=== PATIENT | female | born 1970 | race African-American/Black ===

== ENCOUNTER 2021-01-15 23:53 | Emergency (ER) | payer OTHER ==
--- OUTSIDE RECORDS SUMMARY | 2021-01-16 00:10 | XMS REPORT | Continuity of Care Document ---
:1970 Author Organization [facility] t Address [address] [place] [address] Care Team Providers Name Role Phone Asked, No Pcp Primary Care Physician Unavailable Lisa Doran DO Attending Clinician JEFF Attending Clinician Unavailable CHASIDY Attending Clinician Unavailable JABARI Attending Clinician Unavailable INÉS Attending Clinician Unavailable EKLLY Attending Clinician Unavailable GREG Attending Clinician Unavailable BRANDO Attending Clinician Unavailable ASHTUOSH Attending Clinician Unavailable MISSAEL Attending Clinician Unavailable Brock Schwarz MD Attending Clinician BROCK SCHWARZ Attending Clinician Unavailable Yvon GROVES Attending Clinician LE Attending Clinician Unavailable ANGELICA Attending Clinician Unavailable Juma Attending Clinician [phone] Jesenia Attending Clinician Unavailable Mitra Lockwood Attending Clinician Unavailable Keith Attending Clinician Unavailable Pollo Attending Clinician Unavailable DENISE Attending Clinician Unavailable JULITO Attending Clinician Unavailable Mahnaz Perez Attending Clinician [phone] Albert Attending Clinician Unavailable Philip Attending Clinician Unavailable Perfecto Attending Clinician Unavailable Provider Attending Clinician Unavailable Colby Rivas Attending Clinician Unavailable Brandon Attending Clinician Unavailable LEONEL Attending Clinician Unavailable ABDIAZIZ Attending Clinician Unavailable DELIA Attending Clinician Unavailable VERENA Attending Clinician Unavailable GATO Attending Clinician Unavailable MILLICENT Attending Clinician Unavailable Mitra Briscoe Attending Clinician [phone] Flavio Attending Clinician [phone] SERGIO Attending Clinician Unavailable George Attending Clinician Unavailable Lucia Attending Clinician Unavailable Sreekanth Attending Clinician Unavailable MEREDITH Attending Clinician Unavailable Héctor Attending Clinician [phone] Grant Attending Clinician Unavailable Nohemy Attending Clinician Unavailable Ld Attending Clinician Unavailable ALFREDO Attending Clinician Unavailable MONSTER Attending Clinician Unavailable INDIA Attending Clinician Unavailable Juma Unavailable [phone] Perez, L Unavailable [phone] Mitra Briscoe Unavailable [phone] Sreekanth Unavailable Unavailable Héctor Unavailable [phone] Payers Payer Name Policy Type Policy Effective Date Expiration Date Sour ce Number MEDICAID - [id number] 2016 [facility] MEDICAID MGD 00:00:00 - [facility] [id number] -Present Medicaid Non-Contracted Problems Condition Condition Condition Status Onset Resolution Last Treating Co mments Source Name Details Category Date Date Treatment Clinician Date Abscess, Abscess, Disease Active 2019-11 [facility] S t perineum perineum 01-16 [facility] - 00:00: Medical 00 [place] 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[facility] diabetes diabetes 01-16 [facility] - mellitus mellitus 00:00: Medica l with other with other 00 Ce nter specified specified complicati complicati on, on, unspecifie unspecifie d whether d whether 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 insulin insulin use use Fingernail Fingernail Disease Active [facility] avulsion, avulsion, 07-26 Luke s - partial, partial, 00:00: Medica l initial initial 00 Center encounter encounter Paronychia Paronychia Disease Active [facility] of finger, of finger, 07-26 Diana kes - right right 00:00: Medical 00 [place] Moderate Moderate Disease Active 2018-11 [place] protein-ca protein-ca 2-16 Me odi cristofer [place] 00:00: st malnutriti malnutriti 00 on on Asthma Asthma Disease Active 2018-11 [place] exacerbati exacerbati 2-14 Me thodi on on 00:00: st 00 Viral Viral Disease Active 2018-11 [place] upper upper 2-14 Methodi respirator respirator 00:00: st y tract y tract 00 infection infection HLD HLD Disease Active 2018-11 [place] (hyperlipi (hyperlipi 2-14 Me thodi demia) demia) 00:00: st 00 Schizophre Schizophre Disease Active 2018-11 [place] joanie joanie 2-14 Methodi 00:00: st 00 Herpes Condition Active 2018-112019-10-11 Kira Dennison exposure 12-11 10:58:52 [facility]re[facility] Commun i 00:00: ty 00 Health PrEP / Condition Active 2019-07-22 Perez, Leg acy Contact or 07-19 15:43:15 Danita L Com elias exposure 00:00: ty to STI 00 Health Vaginal Condition Active 2019-07-22 Luis Felipe L egacy discharge 01-04 15:43:15 Isela G Com elias 00:00: ty 00 Health High risk Condition Active 2018-12-26 Luis Felipe, [facility] heterosexu 12-26 14:51:34 Isela Johnson Co mmuni al 00:00: ty behavior 00 Health Diabetes Condition Active 2018-12-26 Luis Felipe, [facility] mellitus 12-26 14:51:34 Isela G Comm uni type II 00:00: ty 00 Health Preventati Condition Active 2017-112018-12-26 Foster, [facility] ve health 16 14:35:22 Lazaro Commu ni care 00:00: ty 00 Health Std Condition Active 2017-112018-12-26 Héctor, Leg acy screening 12-05 14:35:22 Abdi Commu ni 00:00: ty 00 Health Chest pain Chest pain Disease Active H rene -02 Methodi 00:00: st 00 Diabetes Diabetes Disease Active [place] 02-19 Methodi 00:00: st 00 HTN HTN Disease Active [place] (hypertens (hypertens 4-02 Me thodi ion) ion) 00:00: st 00 Weakness Weakness Disease Active [place] of left of left 02-19 Methodi side of side of 00:00: st body body 00 FOOT PAIN Diagnosis Active 2011-08-24 Memoria 07-19 08:54:00 l FOOT 00:00: [place] PAIN 00 Active 07/19/2011 [facility] Stroke Stroke Problem Active Univers syndrome syndrome ity of [place] Physici ans History of History of Problem Resolve Univers bipolar bipolar d ity of disorder disorder [place] Physici ans History of History of Problem Resolve Univers type 2 type 2 d ity of diabetes diabetes [place] mellitus mellitus Physic i ans History of History of Problem Resolve Univers essential essential d ity of hypertens[place]ens[place] Physici ans History of History of Problem Resolve Univers Uncontroll Uncontroll d it y of ed type 1 ed type 1 Cecil vasquez diabetes diabetes Physic i mellitus mellitus ans with with hyperglyce hyperglyce clarisa clarisa Migraine Migraine Problem Active Unive rs without without ity of status status [place] migrainosu migrainosu Ph ysici s, not s, not ans intractabl intractabl e e Pain Pain Problem Active Univers syndrome, syndrome, ity of chronic chronic [place] Physici ans Degenerati Degenerati Problem Active U nivers ve joint ve joint ity of disease disease [place] (DJD) of (DJD) of Physic i lumbar lumbar ans spine spine Muscle Muscle Problem Active Univers spasm spasm ity of [place] Phys[place] ans Medication Medication Problem Active U nivers monitoring monitoring it y of encounter encounter Textate vasquez Physici ans Visit for Visit for Problem Active Uni vers screening screening [place] of mammogram mammogram [place] Otalgia of Otalgia of Problem Active U nivers both ears both ears ity of [place] [facility] ans Seizure Seizure Problem Active Univers disorder, disorder, [place] of generalize generalize [place] Physici convulsive convulsive an s , , intractabl intractabl e e Bipolar 1 Bipolar 1 Problem Active Uni vers disorder disorder ity of [place] ans Inflammato Inflammato Problem Active U nivers ry ry ity of arthritis arthritis [place] Anxiety Anxiety Problem Active Univers disorder, disorder, ity of unspecifie [place]specifie [place] d type d type Physici ans Dizziness Dizziness Problem Active Uni vers ity of [place] ans Asymmetric Asymmetric Problem Active U nivers SNHL SNHL ity of (sensorine (sensorine [place] ural ural Physici hearing hearing ans loss) loss) Cocaine Cocaine Problem Active Univers use use ity of disorder disorder [place] Physici ans Meniere's Meniere's Problem Active Uni vers disease of disease of it y of right ear right ear [place] Influenza Influenza Problem Active Uni vers vaccinatio vaccinatio it y of n declined n declined [place] Obesity Obesity Problem Active Univers (BMI (BMI ity of 30-39.9) 30-39.9) [place] [facility] ans Vitamin D Vitamin D Problem Active Uni vers deficiency deficiency it y of [place] ans GERD GERD Problem Active Univers (gastroeso (gastroeso it y of phageal phageal [place] reflux reflux Physici disease) disease) ans Mild Mild Problem Active Univers intermitte intermitte it y of nt asthma nt asthma [place] without without Physici complicati complicati an s on on Osteoarthr Osteoarthr Problem Active U nivers itis of itis of ity of both both [place] knees, knees, Physici unspecifie unspecifie an s d d osteoarthr osteoarthr itis type itis type Polyarthra Polyarthra Problem Active U nivers lgia lgia ity of [place]ici ans Inflammato Inflammato Problem Active U nivers ry back ry back ity of pain pain [place] Physici ans Mechanical Mechanical Problem Active U nivers low back low back ity of pain pain [place] Physici ans HLA B27 HLA B27 Problem Active Univers positive positive ity of [place] ans Essential Essential Problem Active Uni vers hypertensi hypertensi it y of on on [place] [facility] ans Type 2 Type 2 Problem Active Univers diabetes diabetes ity of mellitus mellitus [place] with with Physici hyperlipid hyperlipid an s emia emia Sleep Sleep Problem Active Univers disorder, disorder, ity of unspecifie unspecifie [place] ans Schizoaffe Schizoaffe Problem Active U nivers ctive ctive it[place] of disorder, disorder, [place] depressive depressive Ph ysici type type ans Generalize Generalize Problem Active U nivers d anxiety d anxiety ity of disorder disorder [place] Physici ans Gastritis, Gastritis, Problem Active U nivers acute acute ity of [place] ans Dermatitis Dermatitis Problem Active U nivers ity of [place] ans 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 Acute Problem Active 2016-08-10 Memor ia gastritis 02:02:33 l without Acute Cleve mention of gastritis hemorrhage without mention of hemorrhage Active Problem 08/10/2016 [facility] Card Unspecifie Problem Active 2016-08-10 M emoria d 02:02:33 l essential [place] hypertensi Unspecifie on d essential hypertensi on Active Problem 6 [facility] Card Diabetes Problem Active 2016-08-10 Mem oria mellitus 02:02:33 l without Diabetes Mony nn mention of mellitus complicati without on, type mention of II or complicati unspecifie on, type d type, II or uncontroll unspecifie ed d type, uncontroll ed Active Problem 6 [facility]errat Card Screening Problem Active 2016-08-10 Me moria examinatio 02:02:33 l n for [place] venereal Screening disease examinatio n for venereal disease Active Problem 08/10/2016 [facility] Card Esophageal Diagnosis Active 2016-08-10 Memoria reflux 02:02:33 l [place] Esophageal reflux Active Diagnosis 08/10/2016 [facility] Card Obstructiv Problem Active 2016-08-10 M emoria e chronic 02:02:33 l bronchitis Dalton n , without Obstructiv exacerbati e chronic on bronchitis , without exacerbati on Active Problem 6 Monserrat Card Acute Problem Active 2016-08-10 Memor ia pharyngiti 02:02:33 l s Acute [place] pharyngiti s Active Problem 08/10/2016 [facility] Card Urinary Problem Active 2016-08-10 Cole snow tract 02:02:33 l infection Urinary Herm ayo tract infection Active Problem 08/10/2016 [facility]err[facility] Card Nausea Diagnosis Active 2014-07-08 Mem oria with 02:01:10 l vomiting Nausea Dalton n with vomiting Active Diagnosis 07/08/2014 [facility]errat Card Cellulitis Problem Active 2016-08-10 M emoria of groin 02:02:33 l [place] Cellulitis of groin Active Problem 08/10/2016 Monserrat Card Other and Problem Active 2016-08-10 Me moria unspecifie 02:02:33 l d Other [place] hyperlipid and emia unspecifie d hyperlipid emia Active Problem 08/10/2016 Monserrat Card Enteritis Problem Active 2016-08-10 Me moria 02:02:33 l [place] Enteritis Active Problem 08/10/2016 Monserrat Card Constipati Problem Active 2016-08-10 M emoria on 02:02:33 l [place] Constipati on Active Problem 6 Monserrat Card Mass of Problem Active 2016-08-10 [place] left foot 02:02:33 l Mass of [place] left foot Active Problem 08/10/2016 [facility] Card Abdominal Problem Active 2016-08-10 Me moria pain, left 02:02:33 l upper [place] quadrant Abdominal pain, left upper quadrant Active Problem 08/10/2016 [facility] Card Essential Diagnosis Active 2016-08-10 Memoria (primary) 02:02:33 l hypertensi [place] n on Essential (primary) hypertensi on Active Diagnosis 08/10/2016 [facility] Card Vaginitis Problem Active 2016-08-10 Me moria 02:02:33 l [place] Vaginitis Active Problem 08/10/2016 Monserrat Card Esophageal Problem Active 2016-08-10 M emoria reflux 02:02:33 l [place] Esophageal reflux Active Problem 08/10/2016 Monserrat Card Acute Problem Active 2016-08-10 Memor ia ill-define 02:02:33 l d Acute [place] cerebrovas ill-define cular d disease cerebrovas cular disease Active Problem 08/10/2016 Monserrat Card DM eye Problem Active 2016-08-10 Memor ia manif type 02:02:33 l II DM eye [place]ve manif type II Active Problem 6 Monserrat Card Hemiplegia Problem Active 2016-08-10 M emoria of 02:02:33 l dominant [place] side 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 Active Problem 08/10/2016 [facility]err[facility] Card Candidiasi Problem Active 2016-08-10 M emoria s of vulva 02:02:33 l and vagina Dalton n Candidiasi s of vulva and vagina Active Problem 08/10/2016 [facility] Anika Stephie Type II or Diagnosis Active 2016-08-10 Memoria unspecifie 02:02:33 l d type Type II Cle[place] diabetes or mellitus unspecifie without d type mention of diabetes complicati mellitus on, not without stated as mention of uncontroll complicati ed on, not stated as uncontroll ed Active Diagnosis 08/10/2016 Monserrat Card Encounter Problem Active 2016-08-10 Me moria for 02:02:33 l immunizati Dalton n on Encounter for immunizati on Active Problem 6 Monserrat Anika Stephie Type II or Problem Active 2016-08-10 M emoria unspecifie 02:02:33 l d type Type II [place] diabetes or mellitus unspecifie with d type ophthalmic diabetes manifestat mellitus ions, not with stated as ophthalmic uncontroll manifestat ed ions, not stated as uncontroll ed Active Problem 6 [place] Anika Stephie Generalize Problem Active 2016-08-10 M emoria d anxiety 02:02:33 l disorder [place] Generalize d anxiety disorder Active Problem 08/10/2016 [facility] Card Hyperlipid Diagnosis Active 2016-08-10 Memoria emia 02:02:33 l [place] Hyperlipid emia Active Diagnosis 08/10/2016 Monserrat Card URI (upper Diagnosis Active 2016-08-10 Memoria respirator 02:02:33 l y URI [place] infection) (upper respirator y infection) Active Diagnosis 08/10/2016 Monserrat Card COUGH, Diagnosis Active 2012-04-19 Mem oria CONGESTION 11:57:00 l COUGH, Cleve CONGESTION Active [facility] Allergies, Adverse Reactions, Alerts Allergy Allergy Status Severity Reaction(s) Onset Inactive Treating Comm ents Source Name Type Date Date Clinician Penicill DA Active [facility] 06-25 [place] 00:00: [place] [id number] [facility] Penicill Propensi Active [facility] 04 [facility] - adverse 00:00: Medical reaction Center s Penicill DA Active [facility] ins 04-10 [place] 00:00: [facility] 00 are [facility] PENICILL Drug Active High swollen 2017-11 [facility] [place] allergy Criticali tongue, 1-16 Commu ni (disorde ty welts all 00:00: ty r) over body 00 Health has tolerated amoxicillin Penicill Propensi Active Anaphylaxis, Tongue Kahn ins ty to Shortness Of 4-02 swelling, M ethodi adverse Breath, 00:00: whelps st reaction Swelling 00 s to drug penicill penicill Active Info Not Cole snow in in Available 9-20 l 00:00: [place] 00 NKFA NKFA Active Memoria l [place] Penicill Allergy Active Univers ins to drug ity of ([facility] ) Physici ans Family History Family Member Diagnosis Comments Start Date Stop Date Source Natural father Hypertension [place] [employer] Natural father Stomach cancer [place] [employer] Natural mother Diabetes [place] [employer] Natural mother Hypertension [place] [employer] Grandmother Family history of Univer sity of arteriosclerotic [place] Ph ysicians cardiovascular disease Grandmother Family history of Univer sity of malignant neoplasm of [place] as Physicians uterus Grandmother Family history of Univer sity of Malignant neoplasm of [place] Physicians lower-outer quadrant of right breast of female, estrogen receptor positive Grandmother Family history of Univer sity of malignant neoplasm of [place] Physicians breast aunt Family history of Univers ity of malignant neoplasm of [place] Physicians uterus aunt Family history of Univers ity of Malignant neoplasm of [place] as Physicians lower-outer quadrant of right breast of female, estrogen receptor positive aunt Family history of Univers ity of malignant neoplasm of [place] as Physicians breast Unknown Family Family History 2015-12-26 2015-12-26 Charly suarez Cleve Member 03:35:21 03:35:21 Social History Social Habit Start Date Stop Date Quantity Comments Source History [facility] Std Dr[facility] History [facility] - Alcohol Binge Medical It[address] ter Sex Assigned At [facility] Tobacco use and 2020-11-15 2020-11-15 Never used [facility] Diana kes - exposure 00:00:00 00:00:00 [facility] Alcohol intake 2020-11-15 2020-11-15 Current non-drinker [facility] - 00:00:00 00:00:00 of alcohol [facility] (finding) History SDOH 2020-02-22 2020-02-[address] [facility] - Alcohol Frequency 00:00:00 00:00:00 Medical Center Cigarettes smoked 2019-11-02 2019-11-02 [place] current (pack per 00:00:00 00:00:[address] ) - Reported Alcohol Comment 2019-11-02 2019-11-02 6 packs on Kahn 00:00:00 00:00:00 weekends, states David gonzales has not drank in 8 months History of tobacco 2019-07-22 Cigarette Smoker [place] use 00:00:00 Scientology is there any 2019-07-19 2019-07-19 No [facility] nity chance that you 13:56:17 13:56:17 Health could be ? social history 2019-07-19 2019-07-19 reviewed today [facility] reviewed E&M 13:56:17 13:56:17 Health drug use, illicit 2019-07-19 2019-07-19 Never [facility] 13:56:17 13:56:17 Health alcohol use 2019-07-19 2019-07-19 Never [facility]y 13:56:17 13:56:17 Health social history E&M 2019-07-19 2019-07-19 Dating since 20+. [facility] 13:56:17 13:56:17 just moved back Health from [place], [place], recently rekindled relationship with Father of children, who is hiv+Not homeless. Not employed. Sex at : Female. Sexual orientation: Heterosexual. Gender identity: Female. Gender of partner(s): Male. Sexually Active: Yes. sexual orientation 2018-12-26 2018-12-26 Heterosexual [facility] 14:07:18 14:07:18 Health family support 2018-10-05 2018-10-05 just moved back Leg y Community 11:40:55 11:40:55 from [facility], recently rekindled relationship with Father of children, who is hiv+ sex at 2018-10-05 2018-10-05 Female [facility]ity 11:40:55 11:40:55 Health patient considered 2018-10-05 2018-10-05 No [facility] to be homeless 11:40:55 11:40:55 Health Tobacco Comment 2017-02-19 2017-02-19 1 pack/ 2-3 days Veronica ston 00:00:00 00:00:00 Scientology TobaccoUse: 2016-08-09 2016-08-09 [facility] 00:00:00 00:00:00 Smoking Status Start Date Stop Date Source Smokes tobacco daily [facility] (finding) Physicians Never smoker [facility] St kes [facility] Former smoker 2019-11-02 00:00:00 2019-11-02 [place] Meth odist 00:00:00 Occasional tobacco 2019-07-19 13:56:17 [facility] Medications Ordered Filled Start Stop Current Ordering Indication Dosage Frequency Signature Comments Components Source Medication Medication Date Date Medication? Clinician (SIG) Name Name sulfamethox 2019-11- No 160mg{t Q.5D Take [address] azole-trime 01-16 rimetho tablet Diana kes - thoprim 00:00: 23:59 prim} (160 mg of Me dical (BACTRIM 00 :00 trimethopr Cente r DS) 800-160 im total) mg per by mouth 2 tablet (two) times daily for 7 days smx-tmp DS (BACTRIM) 800-160 mg tabs (1tab q12 D10). mupirocin 2019-11- No 1g Q.5D Apply [address] (BACTROBAN) 01-16 topically Diana kes - 2 % 00:00: 23:59 2 (two) Medical ointment 00 :00 times Center daily for 7 days. cephalexin 2020- No 500mg [id number] Take [address] (KEFLEX) 07-26 [id number] capsule L ukes - 500 MG 00:00: 23:59 3D (500 mg Medical capsule 00 :00 total) by Center mouth 3 (three) times daily for 7 days. mupirocin 2020- No 1g [id number] Apply [address] (BACTROBAN) 07-26 [id number] topically [facility] - 2 % 00:00: 23:59 3D 3 (three) Medical ointment 00 :00 times Center daily for 7 days. Fluconazole Fluconazole 2019-0 Yes ROYAL TAKE 1 Univers 150 MG Oral 150 MG Oral 9-03 KELLY M.D. TABLET 1 ity of Tablet Tablet 00:00: TIME ONLY. Calvin as 00 Physici ans QUEtiapine QUEtiapine 2020-0 Yes SIDHARTA 1 Q0.5D TAKE 1 Univers Fumarate 50 Fumarate 50 8-26 GREG M.D. TABLET ity of MG Oral MG Oral 00:00: TWICE [place] Tablet Tablet 00 DAILY Physici ans Divalproex Divalproex 2020-0 Yes SIDHARTA Q12H TAKE 1 Univers Sodium 250 Sodium 250 8-26 GREG M.D. TABLET ity of MG Oral MG Oral 00:00: EVERY 12 [place] as Tablet Tablet 00 HOURS Physici Delayed Delayed DAILY. ans Release Release Lantus Lantus 2019-0 Yes VENKAT 85 QD INJECT 85 Un curtis SoloStar SoloStar 7-07 ASHUTOSH UNIT DAILY ity of 100 UNIT/ML 100 UNIT/ML 00:00: M.D. [place] Subcutaneou Subcutaneou 00 P hysici s Solution s Solution ans Pen-injecto Pen-injecto r r fluphenazin 2019- Yes 10mg Take [address] e 6-02 by mouth. [facility] - (PROLIXIN) 08:02: Medical 5 MG tablet 59 Center travoprost Yes Apply to [facility] (TRAVATAN 6-02 eye(s). [facility] - Z) 0.004 % 08:02: Medical Drop 59 Center ophthalmic drops dicyclomine 2020- No 20mg Q.5D Take [address] (BENTYL) 20 5-17 05-17 tablet (20 L ukes - mg tablet 00:00: 23:59 mg total) Me dical 00 :00 by mouth 2 Center (two) times daily. traMADoL 2019- No 50mg Take [address] (ULTRAM) 50 5-17 05-27 tablet (50 L ukes - mg tablet 00:00: 23:59 mg total) Me dical 00 :00 by mouth Center every 6 (six) hours as needed for Pain for up to 10 days. Max Daily Amount: 200 mg fluconazole 2019-0 2019- No 100mg QD Take [address] (DIFLUCAN) 5-17 05-19 tablet [facility] - 100 MG 00:00: 23:59 (100 mg Medical tablet 00 :00 total) by Center mouth daily for 2 doses. chlorhexidi 2019-[address] ne 5-02 [facility] - (PERIDEX) 00:00: Medical 0.12 % 00 Center solution HUMIRA PEN 2019-0 Yes INJECT [address] [facility] [address] 40 mg/0.8 4-20 MG UNDER [facility] - mL PnKt 00:00: THE SKIN Q Medi kecia 00 2 WEEKS Center HUMULIN R 2020-[address] U-500, 4-20 [facility] - CONC, 00:00: Medical KWIKPEN 500 00 Center unit/mL (3 mL) InPn Humira Pen Humira Pen 2019-0 Yes AMBER Inject 40 Univers 40 MG/0.8ML 40 MG/0.8ML 4-20 MISSAEL M.D. mg ity of Subcutaneou Subcutaneou 00:00: subcutaneo [place] s s 00 usly every Physici Pen-injecto Pen-injecto two weeks. ans r Kit r Kit HumuLIN R HumuLIN R 2019-0 Yes ANGELINA Inject 60 Univers U-500 U-500 4-16 LE units ity of KwikPen 500 KwikPen 500 00:00: M.D. before [place] UNIT/ML UNIT/ML 00 breakfast, Phy sici Subcutaneou Subcutaneou 60 units ans s Solution s Solution before Pen-injecto Pen-injecto dinner. r r Inject 30 minutes before meals hydrocortis 2020-0 Yes JACI EXT AA [facility] one 2.5 % 4-11 BID FOR 7 [facility] - ointment 00:00: DAYS Medical 00 [place] Nebulizer Nebulizer 2019-0 Yes ALISSA USE Univers Device Device 4-10 CONTE DIRECTED. i ty of 00:00: M.D. [place] 00 Physici ans benzoyl 2019-0 Yes USE WASH [facility] peroxide 5 4-08 ONCE [facility] - % external 00:00: UTD. Medical liquid 00 Center albuterol 2019-0 Yes INL [address] [facility] HFA 4-07 PO QID [facility] - (VENTOLIN 00:00: Medical HFA) 90 00 Center mcg/actuati on inhaler pantoprazol 2019-0 Yes TK 1 T PO C [facility] e 4-07 30 MIN B [facility] - (PROTONIX) 00:00: RIMA AND 30 M edical 40 MG 00 MIN B Center tablet DINNER Pantoprazol Pantoprazol 2019-0 Yes VENKAT 1 tablet Univers e Sodium 40 e Sodium 40 4-07 ASHUTOSH 30 min ity of MG Oral MG Oral 00:00: M.D. before [place] Tablet Tablet 00 breakfast Physic i Delayed Delayed and one ans Release Release tablet 30 min before dinner Benzoyl Benzoyl 2019-0 Yes ALISSA QD USE WASH [place] Peroxide Peroxide 02-24 CONTE ONCE DAILY ity of Wash 5 % Wash 5 % 00:00: M.D. [place] External External 00 DIRECTED. Ph ysici Liquid Liquid ans True Metrix True Metrix 2020-0 Yes ALISSA USE TO Univers Meter Meter 02-24 CONTE TEST BLOOD it y of w/Device w/Device 00:00: [place]SE [place] Kit Kit 00 Physici ans True Metrix True Metrix 2020-0 Yes ALISSA USE TO [facility] Blood Blood 02-24 CONTE TEST BLLOD it y of Glucose Glucose 00:00: M.D. SUGAR [place] Test In Test In 00 THREE Physici Vitro Strip Vitro Strip TIMES A DAY albuterol 2019-0 Yes U [address] [facility] (ACCUNEB) 4-06 VIA [facility] - 1.25 mg/3 00:00: NEBULIZER Med ical mL 00 Q 6 H PRF Center nebulizer WHEEZING solution benztropine 0 Yes TK 1 T PO C [facility] (COGENTIN) 4-06 QD [facility] - 1 MG tablet 00:00: Medica l 00 [place] busPIRone 2019-0 Yes TK [address] [facility] (BUSPAR) 5 4-06 Q 8 H [facility] - MG tablet 00:00: Medical 00 [place] LANTUS 0 Yes INJECT [address] [facility] [address] SOLOSTAR 4-06 UNITS SQ [facility] - U-100 00:00: ONCE QAM Medical INSULIN 100 00 Center unit/mL (3 mL) InPn zolpidem Yes TK [address] [facility] (AMBIEN) 10 4-06 QHS PRF [facility] - mg tablet 00:00: SLEEP Medical 00 Center NOVOLOG 0 Yes INJECT 10 [facility] FLEXPEN 4-06 UNITS [facility] - U-100 00:00: UNDER THE Medical INSULIN 100 00 SKIN Center unit/mL (3 BEFORE mL) InPn BREAKFAST AND DINNER naproxen 2020- No 500mg Take 1 [facility] (NAPROSYN) 4-04 04-04 tablet [facility] - 500 MG 00:00: 23:59 (500 mg Medical tablet 00 :00 total) by Center mouth 2 (two) times daily with breakfast and dinner. clindamycin 2020- No 300mg Q.[id number] Take [address] [facility] (CLEOCIN) 4- 04-14 [id number] capsule [facility] - 300 MG 00:00: 23:59 3D (300 mg Medical capsule 00 :00 total) by Center mouth 3 (three) times daily for 10 days. Naproxen Naproxen 2019-0 Yes AMBER TAKE 1 U nivers 500 MG Oral 500 MG Oral 2-03 MISSAEL M.D. TABLET BY ity of Tablet Tablet 00:00: MOUTH [place] 00 TWICE A Physici DAY WITH ans MEALS DIFLUCAN 0 Yes Nere[place] 1 by mouth [place] (FLUCONAZOL -03 J[facility] Commun i E) 150 MG 00:00: ty TABS 00 Health VALTREX 2019-0 Yes Nereida 1{Table 3xD 1 by mouth only take [facility] (VALACYCLOV 1-03 Juma t} 3 times a at sign Communi IR HCL) 1 00:00: day for 7 of ty GM TABS 00 days outbreaks Health (METRONIDAZ 0 Yes Nereida 1{Table 2xD 1 tab by [facility] OLE) 500 MG 1-03 Juma t} mouth Commu ni TABS 00:00: twice a ty 00 day for 7 Health days NOVOLOG 2019-0 Yes 10 units [facility] (INSULIN 1-03 before Communi ASPART) 100 00:00: meals ty UNIT/ML 00 Health SOLN LANTUS 0 Yes 85 units [facility] (INSULIN 1-03 daily Communi GLARGINE) 00:00: ty 100 UNIT/ML 00 Health SOLN insulin 2019-0 2020- No Inject [facility] aspart -04-05 subcutaneo [facility] - U-100 00:00: 00:00 usly. Medical (NOVOLOG 00 :00 Center U-100 INSULIN ASPART) 100 unit/mL injection (CLOTRIMAZO 2020- No Nereida apply Leg acy LE) 1 % 11-22 Juma Twice a Commun i CREA 00:00: 00:00 Day to ty 00 :00 affected Health areas traMADoL 2018-11 2020- No TK [address] [facility] (ULTRAM) 50 2-30 -17 Q 8 H PRN Diana kes - mg tablet 00:00: 00:00 Medical 00 :00 Center lisinopril 2018-11 Yes 20mg QD Take 20 mg [place] (PRINIVIL,Z 2-16 by mouth Meth nati ESTRIL) 20 19:53: daily. st mg tablet 30 atorvastati 2018-11 Yes 80mg QD Take 80 mg Kahn n (LIPITOR) 2-16 by mouth Meth nati 80 MG 19:53: daily. st tablet 30 benztropine 2018-11 Yes 1mg Q.5D Take 1 mg [place] (COGENTIN) 2-16 by mouth 2 Met hodi 1 MG tablet 19:53: (two) st 30 times a day. busPIRone 2018-11 Yes 5mg Q.[id number] Take 5 mg [facility] (BUSPAR) 5 2-16 [id number] by mouth 3 Methodi MG tablet 19:53: 3D (three) st 30 times a day. brimonidine 2018-11 Yes 1[drp] Q12H Administer [facility] -timolol 2-16 1 drop to Method i (COMBIGAN) 19:53: both eyes st 0.2-0.5 % 30 every 12 ophthalmic (twelve) solution hours. ergocalcife 2018-11 Yes [id number] Q7D Take [place] 2-16 50,000 Methodi (VITAMIN 19:53: Units by st D2) 50,000 30 mouth once unit a week. capsule famotidine 2018-11 Yes 20mg Q.5D Take 20 mg [place] (PEPCID) 20 2-16 by mouth 2 Me thodi MG tablet 19:53: (two) st 30 times a day. fluPHENAZin 2018-11 Yes 10mg QD Take 10 mg [facility]ahn e 2-16 by mouth Methodi (PROLIXIN) 19:53: daily. st 5 MG tablet 30 meloxicam 2018-11 Yes 15mg QD Take 15 mg [place] (MOBIC) 15 2-16 by mouth Metho di mg tablet 19:53: daily. st 30 metFORMIN 2018-11 Yes 1000mg Q.5D Take 1,000 [facility] (GLUCOPHAGE 2-16 mg by Methodi ) 1,000 mg 19:53: mouth 2 st tablet 30 (two) times a day with meals. paliperidon 2018-11 Yes 3mg QD Take 3 mg [place] e (INVEGA) 2-16 by mouth Metho di 3 MG 24 hr 19:53: every st tablet 30 morning. traMADol 2018-11 Yes acute pain 50mg Q8H Take 50 mg [facility] (ULTRAM) 50 2-16 by mouth Meth nati mg tablet 19:53: every 8 st 30 (eight) hours as needed for moderate pain .Acute Pain. travoprost 2018-11 Yes 1[drp] QD Administer [facility] (TRAVATAN-Z 2-16 1 drop to Met hodi ) 0.004 % 19:53: both eyes st 30 nightly. traZODone 2018-11 Yes 50mg QD Take 50 mg [place] (DESYREL) 2-16 by mouth Method i 50 MG 19:53: nightly. st tablet 30 triamterene 2018-11 Yes 1{tbl} QD Take 1 [place] -hydrochlor 2-16 tablet by Met hodi othiazid 19:53: mouth st (MAXZIDE-25 30 daily. ) 37.5-25 mg per tablet zolpidem 2018-11 Yes 5mg QD Take 5 mg [place] (AMBIEN) 5 2-16 by mouth Metho di MG tablet 19:53: nightly as st 30 needed for sleep. Famotidine Famotidine 2018-11 Yes ALISSA take 1 Univers 20 MG Oral 20 MG Oral 2-03 CONTE tablet at ity of Tablet Tablet 00:00: M.D. bedtime [place] 00 and then Physici in the ans morning as needed for breakthrou gh symptoms DIFLUCAN Yes [place]re[place] 1 by mouth [place] (FLUCONAZOL 07-23 Juma Commun i E) 150 MG 00:00: ty TABS 00 Health (METRONIDAZ Yes [place]re[place] 1{Table 2xD 1 tab BID no sex or [facility] OLE) 500 MG 9 Juma t} x 7 days alcohol Communi TABS 00:00: while on ty 00 medicatio Health n Synvisc One Synvisc One Yes AMBER 1 Univers 48 MG/6ML 48 MG/6ML 7-22 MISSAEL M.D. injection ity of Intra-artic Intra-artic 00:00: in each [place] ular ular 00 knee Physici Solution Solution ans Prefilled Prefilled Syringe Syringe Synvisc One Synvisc One Yes AMBER 1 Univers 48 MG/6ML 48 MG/6ML 7-22 MISSAEL M.D. injection ity of Intra-artic Intra-artic 00:00: in each [place] ular ular 00 knee Physici Solution Solution ans Prefilled Prefilled Syringe Syringe Triamterene Triamterene Yes LORI 1 tablet Univers -HCTZ -HCTZ 6-18 PATKI M.D. daily for it y of 37.5-25 MG 37.5-25 MG 00:00: 3 months [place] Oral Oral 00 Physici Capsule Capsule ans Precision Precision Yes ALISSA Q0.25D TEST 4 Univers Xtra Blood Xtra Blood 5-14 CONTE TIMES ity of Glucose In Glucose In 00:00: M.D. DAILY. [place] Vitro Strip Vitro Strip 00 P hysici ans lisinopriL Yes Take by [facility] (PRINIVIL,Z 4-30 mouth. [facility] - ESTRIL) 20 00:00: Medical MG tablet 00 Center Lisinopril Lisinopril Yes VENKAT 1 tab Univers 20 MG Oral 20 MG Oral 4-30 ASHUTOSH daily ity of Tablet Tablet 00:00: M.D. [place] [id number] Physici ans traZODone traZODone Yes SIDHARTA TAKE 1 TO Univers HCl - 50 MG HCl - 50 MG 4-10 GREG M.D. 2 TABLETS ity of Oral Tablet Oral Tablet 00:00: AT BEDTIME [place] 00 Physici ans (FLUCONAZOL Yes Isela G take 1 [facility] E) 150 MG 2-15 Luis Felipe tablet Commun i TABS 00:00: once ty 00 Health emtricitabi Yes Take by [facility] ne-tenofovi 2-12 mouth. [facility] - r, TDF, 00:00: Medical (TRUVADA) 00 Center 200-300 mg TRUVADA 2018-0 2020- No 1{Table 1xD 1 by mouth [facility] (EMTRICITAB 2-12 01-03 t} daily Commun i INE-TENOFOV 00:00: 00:00 ty IR DF) 00 :00 Health 200-300 MG TABS Ergocalcife Ergocalcife 0 Yes ALISSA TAKE 1 Univers rol 1.25 MG rol 1.25 MG 1-21 CONTE CAPSULE ity of (41809 UT) (37224 UT) 00:00: M.D. WEEKLY. [place] Oral Oral 00 Physici Capsule Capsule ans Meloxicam Meloxicam Yes KOBY 1 QD TAKE 1 Univers 15 MG Oral 15 MG Oral 1-14 ABDIAZIZ BLEVINS TABLET ity of Tablet Tablet 00:00: DAILY. 00 Physici ans ADVIL 2017-11 Yes 2{Table 4xD 2 by mouth Leg acy (IBUPROFEN) 1-16 t} 4 times a Com elias 200 MG TABS 00:00: day as ty 00 needed Health (ASPIRIN) 2017-11 Yes 1 by mouth [place] 81 MG TBEC 1-16 every day Comm uni 00:00: ty Health (LISINOPRIL 2017-11 Yes 1{Table 1xD 1 by mouth [facility] ) 10 MG 1-16 t} every day Communi TABS 00:00: ty Health (METFORMIN 2017-11 Yes 1{Table 2xD 1 by mouth [facility] HCL) 1000 1-16 t} twice a Communi MG TABS 00:00: day ty 00 Health traMADol traMADol Yes AMBER [place] 1 U nivers HCl - 50 MG HCl - 50 MG 1-13 MISSAEL M.D. tablet ity of Oral Tablet Oral Tablet 00:00: every 8 00 hour as Physici needed for ans pain Sucralfate 2015-11 Yes [place] 1 tablet Memoria 0-20 [place] on an l 00:00: empty [place] 00 stomach Metformin Yes [place] 1 tablet M emoria HCl 9-21 [place] with meals l 02:02: [place] 33 Nexium Yes [place] 1 capsule Mem oria 9-21 [place] l 02:02: [place] 33 Valsartan-H Yes [place] 1 tablet Memoria ydrochlorot 9-21 [place] l hiazide 02:02: [place] 33 Benztropine Yes [place] 1 tablet Memoria Mesylate 9-21 [place] at bedtime l 02:02: [place] 33 Valproic Yes [place] Unknown Mem oria Acid 9-21 [place] l 02:02: [place] 33 Novolin Yes [place] as Memoria 70/30 9-21 [place] directed l 02:02: [place] 33 Risperdal Yes [place] Unknown Me moria Consta 9-21 [place] l 02:02: [place] 33 Atorvastati Yes [place] 1 tablet Memoria n Calcium 9-21 [place] l 02:02: [place] 33 Omeprazole Yes [place] 2 capsules Memoria 9-21 [place] l 02:02: [place] 33 NovoLog Yes [place]at Unknown [place] Flexpen 9-21 [place] l 02:02: [place] 33 HydrOXYzine Yes [place] 1 tablet Memoria HCl 9-21 [place] as needed l 02:02: [place] 33 Invega Yes Mons[place]at 1 tablet [place] snow 9-21 [place] in the l 02:02: morning [place] 33 Proventil Yes [place] 2 puffs as Memoria HFA 9-21 [place] needed l 02:02: [place] 33 Clonidine Yes [place] 1 tablet M emoria HCl 9-21 [place] l 02:02: [place] 33 Sucralfate Yes [place] 1 tablet Memoria 2-06 [place] on an l 03:35: empty [place] 21 stomach Clonazepam Yes [place] 1 tablet Memoria 1-20 [place] l 00:00: Benztropine Yes [place] 1 tablet Memoria Mesylate 1-07 [place] at bedtime l 03:10: [place] Flagyl Yes Mons[place]at 1 tablet [place] 1-06 [place] l 00:00: Aspirin Yes [place] 1 tablet Mem oria 8-19 [place] l 00:00: Cipro Yes [place] 1 tablet Memor ia 6-30 [place] l 00:00: Flagyl Yes [place] 1 tablet [place] 6-30 [place] l 00:00: Mupirocin Yes [place] 1 Memor ia Calcium 4-14 [place] applicatio l 00:00: n to [place] 00 affected area Levaquin Yes [place]at as Memori a 4-14 [place] directed l 00:00: Diflucan Yes [place] 1 tablet Me moria 4-14 [place] l 00:00: Novolin Yes [place] 20u Memoria 70/30 2-10 [place] l PenFill 00:00: metFORMIN Yes Take by [facility] (GLUCOPHAGE 2-06 mouth. [facility] - ) 1000 MG 00:00: Medical tablet 00 Center metFORMIN metFORMIN Yes VENKAT Q0.5D TAKE 1 Univers HCl - 1000 HCl - 1000 2-06 ASHUTOSH TABLET ity of MG Oral MG Oral 00:00: M.D. TWICE [place] Tablet Tablet 00 DAILY. 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 ans Lantus Yes [place] 35u sqam [place] 8-19 [place] and 35u l 02:01: sqpm [place] Hydrochloro No [place] 1 tablet Memoria thiazide 8-19 [place] l 02:01: [place] ProAir HFA Yes [place] 2 puffs as Memoria 8-19 [place] needed l 02:01: [place] Advair Yes [place] 1 puff Memori a Diskus 8-19 [place] l 02:01: [place] 10 Amlodipine Yes [place] 1 tablet Memoria Besylate 8-19 [place] l 02:01: [place] Naprosyn Yes [place] 1 tablet Me moria 5-30 [place] as needed l 00:00: Benazepril- Yes [place] 1 tablet Memoria Hydrochloro 5-06 [place] l thiazide 00:00: Valsartan-H Yes [place] 1 tablet Memoria ydrochlorot 5-05 [place] l hiazide 00:00: Amlodipine Yes [place] 1 tablet Memoria Besylate 5-05 [place] l 00:00: Leroy 5/325 2010-11 No Jaydon M 2 tab, Me moria oral tablet 0-05 [place] Route: PO, l 19:20: Drug Form: [place] 00 TAB, ONCE, Start date: 08/24/11 14:20:00, Stop date: 08/24/11 14:20:00 morphine 2010-11 No Zara B 1 mg, Memor ia Sulfate 0-05 [place] Route: l 18:59: IVP, ONCE, [place] Start date: 08/24/11 13:59:00, Stop date: 08/24/11 13:59:00 Sodium 2010-11 No Jaydon M 250 mL, Memori a Chloride 0-05 [place] Route: l 0.9% IV 18:21: IVPB, PRN, Herm ayo Line Flush, Start date: 08/24/11 13:21:00, Duration: 30 day, Stop date: 09/23/11 13:20:00 BD Normal 2010-11 No Jaydon M 10 mL, [place] snow Saline 0-05 [place] Route: l Flush 18:21: IVP, Drug [place] 00 Form: INJ, PRN, PRN Line Flush, Start date: 08/24/11 13:21:00, Duration: 30 day, Stop date: 09/23/11 13:20:00 morphine 2010-11 No Zara B 2 mg, Memor ia Sulfate 0-05 [place] Route: l 18:15: IVP, ONCE, [place] 00 Start date: 08/24/11 13:15:00, Stop date: 08/24/11 13:15:00 acetaminoph 2010-11 No Zara B 1,000 mg, Memoria en 10 mg/mL 0-05 [place] Route: IV, l intravenous 18:15: Drug form: [place] solution 00 INJ, ONCE, PRN Pain, For > or = 50 kg, Start date: 08/24/11 13:15:00 Atorvastati Atorvastati Yes VENKAT 1 QD TAKE 1 Univers n Calcium n Calcium ASHUTOSH TABLET ity of 80 MG Oral 80 MG Oral M.D. [place]ILY. [place] Tablet Tablet Physici ans Combigan Combigan Yes Place 1 Univ ers 0.2-0.5 % 0.2-0.5 % drop in it y of Ophthalmic Ophthalmic each eye [place] Solution Solution twice Physic i daily ans Travatan Z Travatan Z Yes 1 INSTILL 1 Univers 0.004 % 0.004 % DROP ity of Ophthalmic Ophthalmic Bedtime [place] Solution Solution PLACE 1 Phys ici DROP IN ans EACH EYE AT BEDTIME Albuterol Albuterol Yes VENKAT Q6H INHALE 1 Univers Sulfate HFA Sulfate HFA ASHUTOSH TO 2 PUFFS ity of 108 (90 108 (90 M.D. EVERY 6 [place] [facility] Base) HOURS Physici MCG/ACT MCG/ACT NEEDED. ans Inhalation Inhalation Aerosol Aerosol Solution Solution Immunizations Ordered Filled Immunization Date Status Comments [facility] e Immunization Name Name Pneumovax 2019-03-19 Completed Universit y of MCG/0.5ML Injection 16:22:00 [place] Physicians Injectable Vital Signs Vital Name Observation Time Observation Value Comments Source Systolic blood 2020-11-15 133 mm[Hg] [facility] - pressure 15:32:00 [facility] Diastolic blood 2020-11-15 83 mm[Hg] [facility] - pressure 15:32:00 [facility] Heart rate 2020-11-15 85 /min [facility] - 15:32:00 [facility] Body temperature 2020-11-15 36.[address] [facility] - 15:32:00 [facility] Respiratory rate 2020-11-15 16 /min [facility] - 15:32:00 [facility] Oxygen saturation 2020-11-15 100 /min [facility] - in Arterial blood 15:32:00 [facility] nter by Pulse oximetry Body height 2020-11-15 154.9 cm [facility] - 13:55:00 [facility] Body weight 2020-11-15 77.111 [address] [facility] - 13:55:00 [facility] BMI 2020-11-15 32.12 kg/m2 [facility] - 13:55:00 [facility] Systolic blood 2020-07-17 127 mm[Hg] Location: [facility]; [facility] 10:35:00 Position: [place] Physician s Sitting Diastolic blood 2020-07-17 90 mm[Hg] Location: [facility]; [facility] 10:35:00 Position: [place] Physician s Sitting Body height 2020-07-17 60 [in_us] University of 10:35:00 [place] Physician s Weight 2020-07-17 179.375 [lb_av] University o f 10:35:00 [place] Physician s Body mass index 2020-07-17 35.03 kg/m2 University o f (BMI) [Ratio] 10:35:00 [place] Physicia ns Body temperature 2020-07-17 97.3 [degF] University of 10:35:00 [place] Physician s Heart Rate 2020-07-17 94 /min University of 10:35:00 [place] Physician s Systolic blood 2020-05-26 143 mm[Hg] Location: [place]; [facility] 13:21:00 Position: [place] Physician s Sitting Diastolic blood 2020-05-26 97 mm[Hg] [facility] 13:21:[facility] Position: [place] Physician s Sitting Body height 2020-05-26 60 [in_us] University of 13:21:00 [place] Physician s Weight 2020-05-26 177.125 [lb_av] University o f 13:21:00 [place] Physician s Body mass index 2020-05-26 34.59 kg/m2 University o f (BMI) [Ratio] 13:21:00 [place] Physicia ns Body temperature 2020-05-26 98.3 [degF] Method: Oral [place] of 13:21:00 [place] Physician s Heart Rate 2020-05-26 93 /min Location: L [place] of 13:21:00 Brachial [place] Physician s Artery; Quality: Normal Respiratory rate 2020-05-26 16 /min Quality: Normal Universi ty of 13:21:00 [place] Physician s Systolic blood 2020-02-25 118 mm[Hg] [facility] 13:14:00 Position: [place] Physician s Sitting Diastolic blood 2020-02-25 82 mm[Hg] Location: [place]; [facility] 13:14:00 Position: [place] Physician s Sitting Body height 2020-02-25 60 [in_us] University of 13:14:00 [place] Physician s Weight 2020-02-25 175.375 [lb_av] University o f 13:14:00 [place] Physician s Body mass index 2020-02-25 34.25 kg/m2 University o f (BMI) [Ratio] 13:14:00 [place] Physicia ns Body temperature 2020-02-25 98.3 [degF] Method: Oral University of 13:14:00 [place] Physician s Heart Rate 2020-02-25 86 /min Location: L [place] of 13:14:00 Radial; [place] Physician s Quality: Normal Respiratory rate 2020-02-25 16 /min Quality: Normal Universi ty of 13:14:00 [place] Physician s Systolic blood 2019-12-23 146 mm[Hg] Location: [place]; [facility] pressure 13:43:00 Position: [place] Physician s Sitting Diastolic blood 2019-12-23 103 mm[Hg] Location: [place]; [facility] pressure 13:43:00 Position: [place] Physician s Sitting Weight 2019-12-23 175.5625 [lb_av] University of 13:43:00 [place] Physician s Body mass index 2019-12-23 34.29 kg/m2 University o f (BMI) [Ratio] 13:43:00 [place] Physicia ns Heart Rate 2019-12-23 97 /min University of 13:43:00 [place] Physician s BP Systolic 2019-11-27 123 mm[Hg] Location: [place]; [facility] 10:33:00 Position: [place] Physician s Sitting BP Diastolic 2019-11-27 86 mm[Hg] [facility] Position: [place] Physician s Sitting Height 2019-11-27 60 [in_us] [place] of :33:00 [place] Physician s Weight 2019-11-27 180.2 [lb_av] [place] of 10:33:00 [place] Physician s Body Mass Index 2019-11-27 35.19 kg/m2 University o f Calculated 10:33:00 [place] Physician s Temperature 2019-11-27 98 [degF] Method: Oral [place] of 10:33:00 [place] Physician s Heart Rate 2019-11-27 81 /min Location: R [facility] 10:33:00 Brachial [place] Physician s Artery; Respiration Rate 2019-11-27 18 /min Quality: Normal Universi of 10:33:00 [place] Physician s O2 SAT 2019-11-27 100 % Source: RA [facility] 10:33:00 [place] Physician s BP Systolic 2019-11-21 139 mm[Hg] Location: [place]; [facility] 09:09:00 Position: [place] Physician s Sitting BP Diastolic 2019-11-21 102 mm[Hg] Location: [place]; [place] of 09:09:00 Position: [place] Physician s Sitting Height 2019-11-21 62 [in_us] University of 09:09:00 [place] Physician s Weight 2019-11-21 177.375 [lb_av] University o f 09:09:00 [place] Physician s Body Mass Index 2019-11-21 32.44 kg/m2 University o f Calculated 09:09:00 [place] Physician s Heart Rate 2019-11-21 94 /min University of 09:09:00 [place] Physician s BP Systolic 2019-10-22 115 mm[Hg] Location: [facility] of 13:58:00 Position: [place] Physician s Sitting BP Diastolic 2019-10-22 82 mm[Hg] Location: [facility]; [facility] 13:58:00 Position: [place] Physician s Sitting Height 2019-10-22 62 [in_us] University of 13:58:00 [place] Physician s Weight 2019-10-22 180.125 [lb_av] University o f 13:58:00 [place] Physician s Body Mass Index 2019-10-22 32.95 kg/m2 University o f Calculated 13:58:00 [place] Physician s Temperature 2019-10-22 98.5 [degF] Method: Oral University of 13:58:00 [place] Physician s Heart Rate 2019-10-22 97 /min Location: R [facility] 13:58:00 Brachial [place] Physician s Artery; Respiration Rate 2019-10-22 15 /min Quality: Normal Universi ty of 13:58:00 [place] Physician s BP Systolic 2019-10-07 117 mm[Hg] Location: [facility] 13:17:00 Position: [place] Physician s Sitting BP Diastolic 2019-10-07 87 mm[Hg] Location: [facility] 13:17:00 Position: [place] Physician s Sitting Height 2019-10-07 62 [in_us] University of 13:17:00 [place] Physician s Weight 2019-10-07 176.8 [lb_av] [place] of 13:17:00 [place] Physician s Body Mass Index 2019-10-07 32.34 kg/m2 University o f Calculated 13:17:00 [place] Physician s Temperature 2019-10-07 98.6 [degF] Method: Oral [place] of 13:17:00 [place] Physician s Heart Rate 2019-10-07 103 /min Location: L [facility] 13:17:00 Brachial [place] Physician s Artery; Quality: Normal Respiration Rate 2019-10-07 18 /min Quality: Normal Universi ty of 13:17:00 [place] Physician s O2 SAT 2019-10-07 100 % Source: [facility] of 13:17:00 [place] Physician s BP Systolic 2019-07-01 123 mm[Hg] Location: [facility] 09:15:00 Position: [place] Physician s Sitting BP Diastolic 2019-07-01 89 mm[Hg] Location: [facility] 09:15:00 Position: [place] Physician s Sitting Height 2019-07-01 62 [in_us] University of 09:15:00 [place] Physician s Weight 2019-07-01 186.4 [lb_av] University of 09:15:00 [place] Physician s Body Mass Index 2019-07-01 34.09 kg/m2 University o f Calculated 09:15:00 [place] Physician s Temperature 2019-07-01 99.2 [degF] Method: Oral University of 09:15:00 [place] Physician s Heart Rate 2019-07-01 100 /min Location: R [facility] 09:15:00 Brachial [place] Physician s Artery; Quality: Regular Respiration Rate 2019-07-01 18 /min Quality: Normal Universi of :15:00 [place] Physician s O2 SAT 2019-07-01 99 % Source: [facility] 09:15:00 [place] Physician s BP Systolic 2019-06-18 124 mm[Hg] Location: [facility] 14:27:00 Position: [place] Physician s Sitting BP Diastolic 2019-06-18 90 mm[Hg] Location: [facility] 14:27:00 Position: [place] Physician s Sitting Height 2019-06-18 62 [in_us] University of 14:27:00 [place] Physician s Weight 2019-06-18 189 [lb_av] University of 14:27:00 [place] Physician s Body Mass Index 2019-06-18 34.57 kg/m2 University o f Calculated 14:27:00 [place] Physician s Temperature 2019-06-18 98.2 [degF] Method: Oral [facility] 14:27: [place] Physician s Heart Rate 2019-06-18 106 /min University of 14:27:00 [place] Physician s BP Systolic 2019-06-10 135 mm[Hg] Location: [facility] 08:43:00 Position: [place] Physician s Sitting BP Diastolic 2019-06-10 92 mm[Hg] Location: [facility] of 08:43:00 Position: [place] Physician s Sitting Height 2019-06-10 62 [in_us] [place] of 08:43:00 [place] Physician s Weight 2019-06-10 189.0625 [lb_av] University of 08:43:00 [place] Physician s Body Mass Index 2019-06-10 34.58 kg/m2 University o f Calculated 08:43:00 [place] Physician s Heart Rate 2019-06-10 90 /min Location: R [facility] 08:43:00 Radial; [place] Physician s Heart Rate 2019-05-31 86 /min University of 08:17:00 [place] Physician s Respiration Rate 2019-05-31 20 /min Quality: Normal Universi ty of 08:17:00 [place] Physician s O2 SAT 2019-05-31 98 % Source: [facility] [place] 08:17:00 [place] [facility] BP Systolic 2019-05-31 118 mm[Hg] Location: [facility]; [facility] 08:17:00 Position: [place] [facility] Sitting BP Diastolic 2019-05-31 80 mm[Hg] Location: [facility]; [facility] 08:17:00 Position: [place] [facility] Sitting Weight 2019-05-31 189.6 [lb_av] [facility] 08:17:00 [place] [facility] [place] Body Mass Index 2019-05-31 34.68 kg/m2 University o f Calculated 08:17:00 [place] [facility] Temperature 2019-05-31 97.6 [degF] Method: Oral [facility] 08:17:00 [place] [facility] BP Systolic 2019-05-28 123 mm[Hg] [facility] Position: [place] Phys[facility] Sitting BP Diastolic 2019-05-28 82 mm[Hg] Location: [facility] 08:19:00 Position: [place] Phys[facility] Sitting Height 2019-05-28 62 [in_us] [facility] 08:19:00 [place] [facility] Weight 2019-05-28 184.25 [lb_av] [place] of 08:19:00 [place] [facility] Body Mass Index 2019-05-28 33.7 kg/m2 University o f Calculated 08:19:00 [place] [facility] Temperature 2019-05-28 97.6 [degF] Method: Oral [place] of 08:19:00 [place] [facility] Heart Rate 2019-05-28 99 /min Location: [place] of 08:19:00 Brachial [place] [facility] Artery; Respiration Rate 2019-05-28 20 /min Quality: Normal Universi ty of 08:19:00 [place] [facility] O2 SAT 2019-05-28 100 % Source: [facility] 08:19:00 [place] [facility] BP Systolic 2019-05-16 132 mm[Hg] Location: [place]; [facility] 10:01:00 Position: [place] Physician s Sitting BP Diastolic 2019-05-16 84 mm[Hg] Location: [facility] 10::00 Position: [place] Physician s Sitting Height 2019-05-16 62 [in_us] University of 10:01:00 [place] [facility] Weight 2019-05-16 190.4 [lb_av] University of 10::00 [place] [facility] Body Mass Index 2019-05-16 34.82 kg/m2 University o f Calculated 10:01:00 [place] [facility] Temperature 2019-05-16 98.2 [degF] Method: Oral University of 10:01: [place] Phys[facility] s Heart Rate 2019-05-16 92 /min Location: [facility] 10::00 Brachial [place] [facility] s Artery; Respiration Rate 2019-05-16 20 /min Quality: Normal Universi of 10:01:00 [place] [facility] Height 2019-05-14 62 [in_us] University of 14:47:00 [place] [facility] Weight 2019-05-14 186.375 [lb_av] University o f 14:47:00 [place] [facility] Body Mass Index 2019-05-14 34.09 kg/m2 University o f Calculated 14:47:00 [place] [facility] BP Systolic 2019-05-07 135 mm[Hg] University of 14:02:00 [place] [facility] BP Diastolic 2019-05-07 102 mm[Hg] University of 14:02:00 [place] [facility] Height 2019-05-07 62 [in_us] University of 14:02:00 [place] [facility] Weight 2019-05-07 185 [lb_av] University of 14:02:00 [place] [facility] Body Mass Index 2019-05-07 33.84 kg/m2 University o f Calculated 14:02:00 [place] [facility] Temperature 2019-05-07 97.2 [degF] University of 14:02:00 [place] [facility] Heart Rate 2019-05-07 78 /min University of 14:02:00 [place] [facility] BP Systolic 2019-05-01 119 mm[Hg] Location: [facility] of 08:34:00 Position: [place] Physician s Sitting BP Diastolic 2019-05-01 83 mm[Hg] Location: [facility] 08:34:00 Position: [place] Physician s Sitting Height 2019-05-01 62.99 [in_us] University of 08:34:00 [place] [facility] Temperature 2019-05-01 98.3 [degF] Method: Oral University of 08:34:00 [place] [facility] Heart Rate 2019-05-01 77 /min Location: L [place] of 08:34:00 Brachial [place] [facility] Artery; Respiration Rate 2019-05-01 18 /min Quality: Normal Universi ty of 08:34:00 [place] Phys[facility] O2 SAT 2019-05-01 100 % Source: [facility] [place] 08:34:00 [place] [facility] BP Systolic 2019-04-29 96 mm[Hg] Location: [facility]; [facility] 15:12:00 Position: [place] Physician s Sitting BP Diastolic 2019-04-29 68 mm[Hg] Location: [facility]; [facility] 15:12:00 Position: [place] Physician s Sitting Weight 2019-04-29 185.8 [lb_av] University of 15:12:00 [place] [facility] Body Mass Index 2019-04-29 35.11 kg/m2 University o f Calculated 15:12:00 [place] [facility] Temperature 2019-04-29 98.2 [degF] Method: Oral [place] of 15:12:00 [place] [facility] Respiration Rate 2019-04-29 20 /min Quality: Normal Universi ty of 15:12:00 [place] Phys[facility] O2 SAT 2019-04-29 100 % Source: [facility] [place] 15:12:00 [place] [facility] Heart Rate 2019-04-29 83 /min University of 15:12:00 [place] Phys[facility] BP Systolic 2019-04-23 127 mm[Hg] Location: [facility] of 14:37:00 Position: [place] Physician s Sitting BP Diastolic 2019-04-23 85 mm[Hg] Location: [place]; [place] of 14:37:00 Position: [place] Physician s Sitting Height 2019-04-23 61 [in_us] University of 14:37:00 [place] [facility] Weight 2019-04-23 186.25 [lb_av] University of 14:37:00 [place] [facility] Body Mass Index 2019-04-23 35.19 kg/m2 University o f Calculated 14:37:00 [place] [facility] Temperature 2019-04-23 98.5 [degF] Method: Oral University of 14:37:00 [place] [facility] Heart Rate 2019-04-23 94 /min Location: R [facility] 14:37:00 Radial; [place] Physician s Quality: Normal Respiration Rate 2019-04-23 16 /min Quality: Normal Universi ty of 14:37:00 [place] [facility] BP Systolic 2019-03-28 134 mm[Hg] Location: [place]; [facility] :09:00 Position: [place] Physician s Sitting BP Diastolic 2019-03-28 86 mm[Hg] Location: [place]; [place] of :09:00 Position: [place] Physician s Sitting Height 2019-03-28 62 [in_us] University 17:09:00 [place] [facility] Weight 2019-03-28 183.5 [lb_av] University of :: [place] [facility] Body Mass Index 2019-03-28 33.56 kg/m2 University o f Calculated 17:09:00 [place] [facility] Temperature 2019-03-28 98.5 [degF] Method: Oral [facility] 17::00 [place] [facility] Heart Rate 2019-03-28 97 /min Quality: [facility] :09:00 Regular [place] Physician s Respiration Rate 2019-03-28 20 /min Quality: Normal Universi ty of 17:09:00 [place] Phys[facility] O2 SAT 2019-03-28 99 % Source: [facility] :: [place] Physician s BP Systolic 2019-03-19 137 mm[Hg] [facility] [place] [facility] Position: [place] Physician s Sitting BP Diastolic 2019-03-19 90 mm[Hg] Location: [place]; [facility] :31:00 Position: [place] Physician s Sitting Height 2019-03-19 62 [in_us] University of :31:00 [place] [facility] Weight 2019-03-19 186 [lb_av] University of :31:00 [place] [facility] Body Mass Index 2019-03-19 34.02 kg/m2 University o f Calculated :31:00 [place] [facility] Temperature 2019-03-19 97.9 [degF] Method: Oral [facility] :: [place] [facility] Heart Rate 2019-03-19 94 /min Location: [facility] 13:31:00 Radial; [place] Physician s Quality: Normal Respiration Rate 2019-03-19 17 /min Quality: Normal Universi ty of :31:00 [place] [facility] BP Systolic 2019-02-27 129 mm[Hg] [facility] [place] 08:[facility] Position: [place] Physician s Sitting BP Diastolic 2019-02-27 84 mm[Hg] Location: [place]; [facility] 08:46:00 Position: [place] Physician s Sitting Height 2019-02-27 61 [in_us] [facility] 08:46:00 [place] [facility] Weight 2019-02-27 184.375 [lb_av] University o f 08:46:00 [place] [facility] Body Mass Index 2019-02-27 34.84 kg/m2 University o f Calculated 08:46:00 [place] [facility] Temperature 2019-02-27 98.1 [degF] Method: Oral [facility] 08:46:00 [place] [facility] Heart Rate 2019-02-27 75 /min [facility] 08:46:00 [place] [facility] s Respiration Rate 2019-02-27 18 /min Quality: Normal Universi of 08:46:00 [place] [facility] O2 SAT 2019-02-27 99 % Source: [facility] 08:46:00 [place] [facility] BP Systolic 2018-12-03 135 mm[Hg] [facility] 08:59:00 [place] [facility] BP Diastolic 2018-12-03 90 mm[Hg] [facility] 08:59:00 [place] [facility] Weight 2018-12-03 185.9 [lb_av] [facility] 08:59:00 [place] [facility] Body Mass Index 2018-12-03 35.13 kg/m2 University o f Calculated 08:59:00 [place] [facility] Heart Rate 2018-12-03 86 /min [facility] 08:59:00 [place] Phys[facility] BP Systolic 2018-01-08 163 mm[Hg] Location: [facility] 08:39:00 Position: [place] Physician s Sitting BP Diastolic 2018-01-08 114 mm[Hg] Location: [facility] 08:39:00 Position: [place] Physician [facility] Sitting Weight 2018-01-08 191.0625 [lb_av] [facility] 08:39:00 [place] [facility] Body Mass Index 2018-01-08 36.1 kg/m2 University o f Calculated 08:39:00 [place] [facility] Heart Rate 2018-01-08 77 /min Location: [place] [facility] 08:39:00 Radial; [place] Phys[facility] Weight 2016-08-09 [facility] 18:45:00 Height 2016-08-09 [facility] 18:45:00 Temperature Oral 2016-08-09 97.9 F [facility] He rmann (F) 18:45:00 Heart Rate 2016-08-09 [facility] 18:45:00 Diastolic (mm Hg) 2016-08-09 [facility] 18:45:00 Systolic (mm Hg) 2016-08-09 [facility] 18:45:00 Weight 2015-12-09 [facility] 22:00:00 Height 2015-12-09 [facility] 22:00:00 Temperature Oral 2015-12-09 97.4 F [facility] (F) 22:00:00 Heart Rate 2015-12-09 [facility] 22:00:00 Diastolic (mm Hg) 2015-12-09 [facility] 22:00:00 Systolic (mm Hg) 2015-12-09 [facility] 22:00:00 Weight 2015-11-25 [facility] 17:45:00 Height 2015-11-25 [facility] 17:45:00 Temperature Oral 2015-11-25 97.2 F [facility] (F) 17:45:00 Heart Rate 2015-11-25 [facility] 17:45:00 Diastolic (mm Hg) 2015-11-25 [facility] 17:45:00 Systolic (mm Hg) 2015-11-25 [facility] 17:45:00 Weight 2015-05-19 [facility] 19:15:00 Height 2015-05-19 [facility] 19:15:00 Temperature Oral 2015-05-19 96.6 F [facility] (F) 19:15:00 Heart Rate 2015-05-19 [facility] 19:15:00 Diastolic (mm Hg) 2015-05-19 [facility] 19:15:00 Systolic (mm Hg) 2015-05-19 [facility] 19:15:00 Weight 2015-03-03 [facility] 19:45:00 Height 2015-03-03 [facility] 19:45:00 Temperature Oral 2015-03-03 96.4 F [facility] (F) 19:45:00 Heart Rate 2015-03-03 [facility] 19:45:00 Diastolic (mm Hg) 2015-03-03 [facility] 19:45:00 Systolic (mm Hg) 2015-03-03 [facility] 19:45:00 Weight 2014-11-27 [facility] 20:15:00 Height 2014-11-27 [facility] 20:15:00 Temperature Oral 2014-11-27 96.8 F [facility] (F) 20:15:00 Heart Rate 2014-11-27 [facility] 20:15:00 Diastolic (mm Hg) 2014-11-27 [facility] 20:15:00 Systolic (mm Hg) 2014-11-27 [facility] 20:15:00 Weight 2014-05-21 [facility] 19:00:00 Height 2014-05-21 [facility] 19:00:00 Temperature Oral 2014-05-21 99.3 F [facility] Lauri rmann (F) 19:00:00 Heart Rate 2014-05-21 [facility] 19:00:00 Diastolic (mm Hg) 2014-05-21 [facility] 19:00:00 Systolic (mm Hg) 2014-05-21 [facility] 19:00:00 Weight 2014-03-24 [facility] 16:00:00 Height 2014-03-24 [facility] 16:00:00 Temperature Oral 2014-03-24 98.4 F Tiera Carreon rmann (F) 16:00:00 Heart Rate 2014-03-24 [facility] 16:00:00 Diastolic (mm Hg) 2014-03-24 [facility] 16:00:00 Systolic (mm Hg) 2014-03-24 [facility] 16:00:00 Respitory Rate 2011-08-24 [facility] 19:00:00 Systolic (mm Hg) 2011-08-24 [facility] 19:00:00 Diastolic (mm Hg) 2011-08-24 [facility] 19:00:00 Systolic (mm Hg) 2011-08-24 [facility] 18:45:00 Respitory Rate 2011-08-24 [facility] 18:45:00 Diastolic (mm Hg) 2011-08-24 [facility] 18:45:00 Systolic (mm Hg) 2011-08-24 [facility] 18:30:00 Diastolic (mm Hg) 2011-08-24 [facility] 18:30:00 Respitory Rate 2011-08-24 [facility] a[facility] 18:30:00 Temperature Oral 2011-08-24 98.1 F Tiera Carreon rmann (F) 14:18:00 Weight 2011-08-18 [facility] 22:08:00 Height 2011-08-18 160.02 cm [facility] 22:08:00 Procedures Procedure Date / Time Performing Clinician Source Performed [place] I&D OF VULVA/PERINEUM 2020-11-15 15:31:33 Francy Doran [facility] . [facility] - Affirm VPIII 2020-07-17 00:00:00 [facility] (BV Panel) Physicians . [facility] - GC/Chlamydia 2020-07-17 00:00:00 [facility] Physicians . [facility] - PAP 2020-07-17 00:00:00 [place] [facility] [Q] HEPATITIS B SURFACE 2020-07-17 00:00:00 [facility] ANTIGEN W/REFL CONFIRM Physician s [Q] HIV AB, HIV 1/2, 2020-07-17 00:00:00 [facility] EIA, WITH REFLEXES Physicians [QL] RPR (DX) W/REFL 2020-07-17 00:00:00 [facility] TITER AND CONFIRMATORY Physician s TESTING [Q] DRUG ABUSE PANEL 2020-07-15 00:00:00 [facility] 10-50 + ETHANOL Physicians CT ABDOMEN/PELVIS WITH 2020-04-05 13:49:00 SchwarzRobert grey [facility] - IV CONTRAST Medical Center URINALYSIS W/ 2020-04-05 13:02:00 [facility] CBC W/PLT COUNT & AUTO 2020-04-05 13:02:00 SchwarzRobert grey [facility] DIFFERENTIAL Medical Center COMPREHENSIVE METABOLIC 2020-04-05 13:02:00 Hereford [facility] - PANEL [facility] LIPASE 2020-04-05 13:02:00 HerefordRobert [facility] [QL] CBC (INCLUDES 2020-03-04 00:00:00 [facility] DIFF/PLT) Physicians [QL] CMP W/EGFR 2020-03-04 00:00:00 [place] [facility] [QL] QUANTIFERON(R)-TB 2020-03-04 00:00:00 [facility] GOLD Physicians [QL] C-REACTIVE PROTEIN 2020-03-04 00:00:00 [facility] Physicians [QL] SED RATE BY 2020-03-04 00:00:00 [facility] MODIFIED WESTERGREN Physicians [QL] RHEUMATOID FACTOR 2020-03-04 00:00:00 [facility] RHEUMATOID FACTOR 2019-12-23 00:00:00 [facility] [QLH] SED RATE BY 2019-12-23 00:00:00 [facility] MODIFIED ALLA Physicians [QLH] CMP W/EGFR 2019-12-23 00:00:00 [facility] Physicians [QL] CBC (INCLUDES 2019-12-23 00:00:00 [facility] DIFF/PLT) Physicians Venipuncture 2019-11-22 11:07:27 Nereida Dennison [facility] [employer] [QLH] C-PEPTIDE 2019-11-21 00:00:00 [facility] [place] [facility]icians [QL] BASIC METABOLIC 2019-11-21 00:00:00 [facility] PANEL W/EGFR Physicians Venipuncture 2019-10-09 12:31:05 Nereida Dennison [facility] [employer] [place] Discounters 2019-07-19 14:34:24 Provider, [facility] [employer] Education/Supportive Health Services Health Counseling HIV-1/2 AG/AB Combo - 2019-07-19 14:05:48 Danita Perez y [facility] MRI Pelvis without 2019-07-01 00:00:00 [facility] contrast [id number] Physicians [QL] RHEUMATOID FACTOR 2019-06-10 00:00:00 Univ [facility] Physicians [QL] C-REACTIVE PROTEIN 2019-06-10 00:00:00 Uni [facility] Physicians [QL] SED RATE BY 2019-06-10 00:00:00 [facility] [QL] HLA-B27, DNA 2019-06-10 00:00:00 [facility] TYPING Physicians [QH] CYCLIC 2019-06-10 00:00:00 [place] CITRULLINATED PEPTIDE Physicians (CCP) AB (IGG) XRAY Spine lumbar series 2019-06-10 00:00:00 Uni [facility] [id number] Physicians XRAY Sacroiliac joints 2019-06-10 00:00:00 Unive [facility] series [id number] [place] [id number] 2019-06-10 00:00:00 [facility] ity [facility] Physicians XRAY Hand AP lateral 2019-06-10 00:00:00 [facility] Bilateral [id number] Physicians MRI Internal Auditory 2019-05-07 00:00:00 [facility] Canal w/wo contrast Physicians [id number] [LH] GC/CT by Amp Det 2019-03-19 00:00:00 [facility] (APTIMA) Physicians [QH] HIV AB, HIV 1/2, 2019-03-19 00:00:00 [facility] EIA, WITH REFLEXES Physicians [QLH] CBC (INCLUDES 2019-03-19 00:00:00 [facility] DIFF/PLT) Physicians [QLH] CMP W/EGFR 2019-03-19 00:00:00 [facility] Physicians [QLH] HEMOGLOBIN A1c 2019-03-19 00:00:00 [facility] Physicians [QL] HEPATITIS PANEL 2019-03-19 00:00:00 [facility] Physicians [QLH] LIPID PANEL 2019-03-19 00:00:00 [facility] Physicians [QLH] MICROALBUMIN, 2019-03-19 00:00:00 [facility] RANDOM URINE Physicians (W/CREATININE) [QLH] RPR 2019-03-19 00:00:[address] [place] [address] [facility] Physicians [QLH] TSH, 3RD 2019-03-19 00:00:00 [facility] GENERATION W/REFLEX TO Physician s FT4 [QLH] VITAMIN D, 2019-03-19 00:00:00 [facility] 25-HYDROXY, LC/MS/MS Physicians MA Digital Mammo Screen 2019-03-19 00:00:00 [facility] Wilver w timmy [id number] Physicians [U] XRAY KNEE 3 VWS LEFT 2019-01-14 00:00:00 [facility] [id number] Physicians Health 2018-12-27 07:34:54 Provider, [facility] [employer] [facility] Education/Supportive Health Services Health Counseling [QLH] CBC (INCLUDES 2018-12-03 00:00:00 [facility] DIFF/PLT) Physicians [QLH] CMP W/EGFR 2018-12-03 00:00:00 [facility] Physicians [QLH] C-REACTIVE PROTEIN 2018-12-03 00:00:00 [facility] Physicians [QLH] SED RATE BY 2018-12-03 00:00:00 [facility] MODIFIED ALLA Physicians [QLH] VITAMIN D, 2018-12-03 00:00:00 [facility] 25-HYDROXY, LC/MS/MS Physicians XRAY Knee 3 views [id number] 2018-12-03 00:00:00 [facility] Physicians Health 2018-10-05 14:36:00 Provider, Zoila Murguia spencer Education/[facility]ive Health Services Health Counseling [U] XR KNEE 3 VWS 2018-04-18 00:00:00 [facility] BILATERAL Physicians [U] XR KNEE 3 S 2018-04-09 00:00:00 [facility] BILATERAL Physicians History of [facility] [place] [facility] Physicians History of Vaginal [facility] Hysterectomy Physicians Plan of Care Planned Activity Planned Date Details Comments Source Future Scheduled 2020 BREAST CANCER [facility] 00:00:00 SCREENING [code = BREAST CANCER SCREENING] Future Scheduled 2020 COLONOSCOPY SCREENING [place] [facility] 00:00:00 [code = COLONOSCOPY SCREENING] Future Scheduled 2020 SHINGLES VACCINES [place] [facility] 00:00:00 (#1) [code = SHINGLES VACCINES (#1)] Future Scheduled 2020-11-[address] [facility] - Test 00:00:00 measurement [facility] Center (procedure) [code = 84538311] Future Scheduled 2020-07-[address] [facility] - Test 00:00:00 (#1) [code = Medical Center INFLUENZA VACCINE (#1)] Future Scheduled 2020-06-20 INFLUENZA VACCINE [place] [facility] 00:00:00 [code = INFLUENZA VACCINE] Future Scheduled 2020-03-19 Urine screening for [facility] - Test 00:00:00 protein (procedure) Medical Center [code = 740602545] Diagnostic Test 2019-11-22 [QLH] C-PEPTIDE [code [facility] [place] Pending 00:00:00 = [QLH] C-PEPTIDE] Physician s Diagnostic Test 2019-11-22 [QLH] BASIC METABOLIC [facility] [place] Pending 00:00:00 PANEL W/EGFR [code = Physici ans [QLH] BASIC METABOLIC PANEL W/EGFR] Future Scheduled 2019-11-[address] [facility] - Test 00:00:00 (12+) [code = Medical Center DEPRESSION SCREENING (12+)] Diagnostic Test 2019-07-01 MRI Pelvis without [facility] [place] Pending 00:00:00 contrast 96625 [code Physici ans = 51261] Diagnostic Test 2019-07-01 MRI Pelvis without [facility] [place] Pending 00:00:00 contrast 68474 [code Physici ans = 75614] Future Scheduled [address] [facility] - Test 00:00:00 (procedure) [code = Medical Center 84275175] Future Scheduled 1991 Screening for [facility] 00:00:00 malignant neoplasm of cervix (procedure) [code = 745684891] Future Scheduled [address] [facility] - Test 00:00:00 malignant neoplasm of Medica l Center cervix (procedure) [code = 891566926] Future Scheduled 1988 Hepatitis C screening [place] [facility] 00:00:00 (procedure) [code = 618342257] Future Scheduled 1986 COVID-19 VACCINE (1 [place] [facility] 00:00:00 of 2) [code = COVID-19 VACCINE (1 of 2)] Future Scheduled 1980 DIABETES: RETINAL EYE [place] [facility] 00:00:00 EXAM [code = DIABETES: RETINAL EYE EXAM] Future Scheduled 1980 DIABETIC FOOT EXAM [place] [facility] 00:00:00 [code = DIABETIC FOOT EXAM] Future Scheduled 1980 URINE MICROALBUMIN [place] [facility] 00:00:00 [code = URINE MICROALBUMIN] Future Scheduled 1980 DIABETIC EYE EXAM [facility] - Test 00:00:00 [code = DIABETIC EYE Medical Center EXAM] Future Scheduled [address] [facility] - Test 00:00:00 examination Medical Center (regime/therapy) [code = 269366765] Encounters Start End Encounter Admission Attending Care Care Encounter Source Date/Time Date/Time Type Type Clinicians Facility Department ID 2020-10-29 2020-10-29 Appointmen ANGELA AGUILARpecia 70 [id number] Univers 15:30:00 15:30:[address] lty - [facility] Physici ans 2020-08-17 2020-08-17 Appointmen CHASIDY, [facility] [id number] Univers 14:00:00 14:00:00 t; LIZA UMAÑA ity of [facility] Physici ans 2020-08-17 2020-08-17 Appointmen CLIFTONROBB, UTP UTP [id number] Univers 14:00:00 14:00:00 t; LIZA UAMÑA ity of [facility] Physici ans 2020-07-29 2020-07-29 Appointmen JABARI, [facility] [id number] Univers 10:30:00 10:30:00 t; PAMELA BARBOZA [facility] Phys[facility] ans 2020-07-23 2020-07-23 Appointmen INÉS, [facility] [id number] Univers 09:30:00 09:30:00 t; Reema MAXWELL [place] Payam MAXWELLDTello ans 2020-07-17 2020-07-17 Appointmen KELLY [facility] [id number] Univers 10:00:00 10:00:00 t; ROYAL MENDOZA, and [place] M.D. Gynecology Cecil vasquez M.D. [facility] Physi ci Clinic ans 2020-07-15 2020-07-15 Appointmen GREG [facility] Multispecia [id number] Univers 13:00:00 13:00:00 t; LESTER GARZA lty - ity of [place], M.D. [facility] [place] M.D. Physici ans 2020-07-14 2020-07-14 Emergency E MHNW MHNW [id number] [facility]NW 18:18:00 18:18:00 2020-07-06 2020-07-06 Appointmen JABARI, [facility] [id number] Univers 13:00:00 13:00:00 t; [facility] 2020-07-03 2020-07-03 Appointmen GREG, [facility] [id number] Univers 08:30:00 08:30:00 t; LESTER GARZA ity of [place], M.D. [place] M.D. Physici ans 2020-06-29 2020-06-29 Appointmen BRANDO, [facility] [id number] Univers 15:00:00 15:00:00 t; Reema FUNK of Isrrael MICHAELS M.D. Physi ci ans 2020-06-09 2020-06-09 Appointzamzam AGUILAR, [facility] UTP [id number] Univers 13:30:00 13:30:00 t; KARMA HERNANDEZ ity [place], [place] KARMA HERNANDEZ Physici ans 2020-05-26 2020-05-26 Appointzamzam BOYKIN, [facility] Family [id number] Univers 13:00:00 13:00:00 t; VENKAT, Medicine - Bobo M.D. [facility] Medical Payam Benavidez [place] ans 2020-05-25 2020-05-25 Appointzamzam UMAÑA, [facility] UTP [id number] Univers 08:30:00 08:30:00 t; LIZA UMAÑA of [facility] Physici ans 2020-05-25 2020-05-25 [facility] [id number] [facility] 06:52:00 06:52:00 2020-05-18 2020-05-18 Appointzamzam CANAS, [facility] UTP [id number] Univers 11:00:00 11:00:00 t; AMBER CANAS ity of [place], M.D. [place] M.D. Physici ans 2020-04-27 2020-04-27 Burton UMAÑA, [facility] UTP [id number] Univers 14:30:00 14:30:00 t; LIZA UMAÑA of [facility] Physici ans 2020-04-27 2020-04-27 Outpatient MHH MHHH 7524 MHH 13:59:00 13:59:00 2020-03-20 2020-03-20 Emergency E MHNW MHNW 7526 MHNW 12:20:00 12:20:00 2020-03-17 2020-03-17 Burtno CONTE, [facility] UTP [id number] Univers 14:45:00 14:45:00 t; Reema MAXWELL [place] SHIRA, Physici M.D. ans 2020-03-13 2020-03-13 Emergency E MHNW MHNW 7525 MHNW 14:46:00 14:46:00 2020-02-25 2020-02-25 Appointmen INÉS [facility] Family [id number] Univers 13:00:00 13:00:00 t; Reema MAXWELL Medicine - humphreyy [facility], Medical Physici M.DTello Center ans 2020-02-24 2020-02-24 Appointmen ANGELA GARZA Multispecia [id number] Univers 16:30:00 16:30:00 t; LESTER GARZA lty - ity Reema BATISTA [place] Vale.Stanislaw Physici ans 2020-02-20 2020-02-20 Appointmen LE, [facility] Multispecia [id number] Univers 08:45:00 08:45:00 t; Reema ALFARO lty - it y [facility] Teri ALFAROi M.DTello ans 2020-01-21 2020-01-21 Appointmen INÉS, [facility] [id number] Univers 13:45:00 13:45:00 t; Reema MAXWELL it y [facility], Physici M.DTello ans 2020-01-14 2020-01-14 Appointmen ANGELICA [facility] [id number] Univers 15:40:00 15:40:00 t; JERI DOMINGUEZ ity o f NAMITA, M.D. [place] Reema Physici ans 2019-12-27 2019-12-27 Appointmen GREG, [facility] [id number] Univers 09:00:00 09:00:00 t; LESTER GARZA ity of SIDHARTA, M.D. [place] Reema Physici ans 2019-12-23 2019-12-23 Appointmen [id number] Univers 15:30:00 15:30:00 t; AMBER CANAS y ity of KANIKA, M.D. [place] Reema Physici ans 2019-12-10 2019-12-10 Appointmen JABARI, [facility] [id number] Univers 10:30:00 10:30:00 t; PAMELA BARBOZA [facility] ans 2019-12-09 2019-12-09 Emergency E MHNW MHNW 0020 MHNW 12:29:00 12:29:00 2019-12-09 2019-12-09 AppointANGELA Ewing [facility] [id number] Univers 09:00:00 09:00:00 t; AMBER CANAS, Reema Youssef M.D. Physici ans 2019-11-27 2019-11-27 Appointmen ANGELA GARZA Multispecia [id number] Univers 11:00:00 11:00:00 t; LESTER GARZA lty - Reema Mabry M.D. Physici ans 2019-11-27 2019-11-27 Office Nereida Dennison [facility] Adult En counter/ Legacy 00:00:00 00:00:00 Visit Esperanza Ba Medicine [id number] Communi [id number] [facility] 2019-11-22 2019-11-22 Office Juma [facility] Adult Encounte r/ Legacy 00:00:00 00:00:00 Visit Nereida Medicine [id number] Co mmuni [id number] [facility] 2019-11-22 2019-11-22 [facility]te [facility]/ Legacy 00:00:00 00:00:00 Visit Nereida Medicine [id number] Co mmuni [id number] [facility] 2019-11-22 2019-11-22 Office Nereida Dennison [facility] Adult En counter/ Legacy 00:00:00 00:00:00 Visit Tiffanie Lockwood Medicine [id number] Communi [id number] [facility] 2019-11-21 2019-11-21 AppointANGELA Meyer Internal [id number] Univers 08:45:00 08:45:00 t; Reema ALFARO [facility]z ALFARO M.D. [facility] 2019-10-22 2019-10-22 AppointANGELA Romero Family [id number] Univers 13:45:00 13:45:00 t; Reema MAXWELL - [facility] Itz MAXWELL M.D. [facility] 2019-10-21 2019-10-21 Appointmen ANGELA BARBOZA [id number] Univers 10:30:00 10:30:00 t; PAMELA BARBOZA, heike of PAMELA, INVENTORY CONTROL SPECIALIST [facility] Physici ans 2019-10-11 2019-10-11 Office Nereida Dennison [facility] Adult En counter/ Legacy 00:00:00 00:00:00 Visit Senegamahnaz, [facility] Medicine [id number] Communi [id number] Health 2019-10-11 2019-10-11 Office Keith [facility] Adult Encounte r/ Legacy 00:00:00 00:00:00 Visit [facility] Medicine [id number] Co mmuni [id number] Health 2019-10-11 2019-10-11 Office Nereida Dennison [facility] Adult En counter/ Legacy 00:00:00 00:00:00 Visit John Parker [facility] [id number] Communi [id number] Health 2019-10-10 2019-10-10 Emergency E MHNE MHNE 7523 MHNE 22:20:00 22:20:00 2019-10-10 2019-10-10 Office Pollo [facility] Adult Encou nter/ Legacy 00:00:00 00:00:00 Visit Miranda Medicine [id number] Co mmuni [id number] [facility] 2019-10-09 2019-10-09 Office Juma [facility] Adult Encounte r/ Legacy 00:00:00 00:00:00 Visit Nereida Medicine [id number] Co mmuni [id number] [facility] 2019-10-09 2019-10-09 Office Juma [facility] Adult Encounte r/ Legacy 00:00:00 00:00:00 Visit Nereida Medicine [id number] Co mmuni [id number] Health 2019-10-09 2019-10-09 Office Juma [facility] Adult Encounte r/ Legacy 00:00:00 00:00:00 Visit Nereida Medicine [id number] Co mmuni [id number] Health 2019-10-09 2019-10-09 Office Juma [facility] Adult Encounte r/ Legacy 00:00:00 00:00:00 Visit Nereida Medicine [id number] Co mmuni [id number] [facility] 2019-10-09 2019-10-09 Office Nereida Dennison [facility] Adult En counter/ Legacy 00:00:00 00:00:00 Visit Tiffanie Lockwood Medicine [id number] Commun [id number] [facility] 2019-10-08 2019-10-08 Appointmen ANGELA CONTE [facility] [id number] Univers 13:45:00 13:45:00 t; Reema MAXWELL it y of Isrrael CONTE Physici M.D. ans 2019-10-07 2019-10-07 Appointmen ANGELA GARZA Multispecia [id number] Univers 13:30:00 13:30:00 t; LESTER GARZA lty - humphreyy Reema BATISTA [place] Reema Physici ans 2019-09-17 2019-09-17 Appointmen ANGELA WALKER [facility] [id number] Univers 13:15:00 13:15:00 t; LORI WALKER i ty of Reema SANDOVAL [place] Reema Physici ans 2019-08-12 2019-08-12 Emergency E [facility] 7522 [facility] 12:11:00 12:11:00 2019-07-31 2019-07-31 Appointmen ANGELA VILA Otor[facility]olar [id number] Univers 10:00:00 10:00:00 t; AIME VILAology - ity of [facility] Medical Physici Center ans 2019-07-24 2019-07-24 Office Danita Perez [facility] Adult Enco unter/ Legacy 00:00:00 00:00:00 Visit Mahnaz Medicine [id number] Co mmuni [id number] [facility] 2019-07-23 2019-07-23 Office Danita Perez [facility] Adult En counter/ Legacy 00:00:00 00:00:00 Visit Shayy Price [id number] Lauren Flores [id number] [facility] 2019-07-19 2019-07-19 Office Danita Perez [facility] Adult Enco unter/ Legacy 00:00:00 00:00:00 Visit Mahnaz Medicine [id number] Co mmuni [id number] [facility] 2019-07-19 2019-07-19 Office PerezDnaita [facility] Adult En counter/ Legacy 00:00:00 00:00:00 Visit Shayy Price Medicine [id number] [facility] [id number] [facility] 2019-07-19 2019-07-19 Office ANA [place] Legacy Encount er/ Legacy 00:00:00 00:00:00 Visit Rohan Johnson [id number] Co mmuni [facility] [id number] [facility] 2019-07-19 2019-07-19 Office Provider, Public Health Services [facility] Legacy Encounter/ Legacy 00:00:00 00:00:00 Visit Rohan [place] [id number] [facility] [id number] [facility] 2019-07-19 2019-07-19 Office Danita Perez [facility] Adult En counter/ Legacy 00:00:00 00:00:00 Visit Mino Damico Medic ine [id number] [facility] Vannessa Taylor [id number] 0 [facility] 2019-07-01 2019-07-01 Appointmen ANGELA GARZA Multispecia [id number] Univers 09:00:00 09:00:00 t; LESTER GARZA lty - Reema Mabry M.D. Physici ans 2019-06-27 2019-06-27 Appointmen ANGELA BARBOZA [id number] Univers 11:30:00 11:30:00 t; PAMELA BARBOZA [facility] Physici ans 2019-06-18 2019-06-18 Appointmen ANGELA WALKER Otorhinolar [id number] Univers 14:15:00 14:15:00 t; LORI WALKER yngology - ity gabriel SANDOVAL M.D. [place] Is[facility]rael [facility] Physici Center ans 2019-06-10 2019-06-10 Appointmen ANGELA CANAS Rheumatolog [id number] Univers 08:30:00 08:30:00 t; AMBER CANAS y ity of KANIKA, M.D. [place] M.D. Physici ans 2019-05-31 2019-05-31 Appointmen GREG [facility] Multispecia [id number] Univers 16:00:00 16:00:00 t; LESTER GARZA lty - ity of Reema BATISTA [place] Reema Physici ans 2019-05-28 2019-05-28 Appointmen JABARI, [facility] Psychiatry [id number] Univers 08:30:00 08:30:00 t; PAMELA BARBOZA, Outpatient ity of [facility] Physici ans 2019-05-27 2019-05-27 Appointmen LEONEL [facility] UTP [id number] Univers 11:00:00 11:00:00 t; Reema OLSON it y of LEONEL [place] Payam OLSON M.D. [facility] 2019-05-17 2019-05-17 Appointmen ABDIAZIZ [facility] [id number] Univers 09:00:00 09:00:00 t; KOBY FREED MD it y of MD KOBY [place] Physici ans 2019-05-16 2019-05-16 [facility] [id number] Univers 10:30:00 10:30:00 t; PAMELA BARBOZA, Outpatient ity of [facility] Physici ans 2019-05-14 2019-05-14 Appointmen DELIA [facility] Multispecia [id number] Univers 14:00:00 14:00:00 t; ZACH LIN RN lt - The ity of AMANDEEP SERRANO [facility] 1 Physici ans 2019-05-07 2019-05-07 Appointmen DENISE [facility] Otorhinolar [id number] Univers 14:00:00 14:00:00 t; LORI WALKER yngology - ity gabriel SANDOVAL M.D. [facility] Physici Center ans 2019-05-07 2019-05-07 Appointmen VERENA [facility] Otorhinolar [id number] Univers 13:30:00 13:30:00 t; NIXON brooks - it y of VERENA [facility] Physici Center ans 2019-05-02 2019-05-02 Appointmen ANGELA LIN Multispecia [id number] Univers 11:00:00 11:00:00 t; ZACH LIN RN lty - The ity of ZACH, AMANDEEP [facility] [address] Physici ans 2019-05-01 2019-05-01 Appointmen ANGELA BARBOZA Psychiatry [id number] Univers 08:30:00 08:30:00 t; PAMELA BARBOZA, Outpatient ity of [facility] Physici ans 2019-04-29 2019-04-29 Appointmen ANGELA GARZA Multispecia [id number] Univers 15:30:00 15:30:00 t; LESTER GARZA [facility] - [facility]y [facility] ans 2019-04-23 2019-04-23 Appointmen ANGELA CONTE Family [id number] Univers 14:30:00 14:30:00 t; Reema MAXWELL Medicine - ity [facility] Itz MAXWELL M.D. [facility] 2019-04-17 2019-04-17 Appointmen ANGELA CONTE [facility] [id number] Univers 11:00:00 11:00:00 t; Reema MAXWELL y [place], [place] Payam MAXWELL M.D. [facility] 2019-03-28 2019-03-28 AppointANGELA Dia [facility] [id number] Univers 16:00:00 16:00:00 t; LESTER GARZA [facility] and ity gabriel BATISTA M.D. [facility] Reema [facility] 2019-03-19 2019-03-19 AppointANGELA Romero Family [id number] Univers 14:00:00 14:00:00 t; Reema MAXWELL Medicine ty [place], [place] Payam MAXWELL M.D. [facility] 2019-03-11 2019-03-11 Emergency E [facility] 7521 [facility] 11:52:00 11:52:00 2019-02-27 2019-02-27 Appointmen ANGELA GARZA [facility] [id number] Univers 09:00:00 09:00:00 t; LESTER GARZA, Health and ity Reema BATISTA [facility] [place] - Physici [facility] 2019-02-21 2019-02-21 AppointANGELA Andrew [facility] [id number] Univers 09:00:00 09:00:00 t; [facility] [place] Reema [facility] 2019-01-17 2019-01-17 AppointANGELA Pierre [facility] [id number] Univers 14:30:00 14:30:00 t; CARYN RICKS, Orthopedics ity Reema RUBIN [place] Reema [facility] 2019-01-09 2019-01-09 Office [facility] Adult Encounte r/ Legacy 00:00:00 00:00:00 Visit Isela Quinones [id number] C ommuni [id number] [facility] 2019-01-04 2019-01-04 Office [facility] Adult Encounte r/ Legacy 00:00:00 00:00:00 [facility] [id number] C ommuni [id number] [facility] 2019-01-04 2019-01-04 Office [facility] Adult Encounte r/ Legacy 00:00:00 00:00:00 Visit Isela Mitra [facility] [id number] C ommuni [id number] [facility] 2019-01-04 2019-01-04 Office Isela Briscoe [facility] Adult Encounter/ Legacy 00:00:00 00:00:00 Visit Margarita Muniz 186Mikaela [id number] Communi 537343 [facility] 2019-01-03 2019-01-03 Office Luis FelipeIsela valverde [facility] Adult Encounter/ Legacy 00:00:00 00:00:00 Visit Margarita Muniz 186Mikaela [id number] Communi 220277 [facility] 2019-01-01 2019-01-01 Office [facility] Adult Encounte r/ Legacy 00:00:00 00:00:00 Visit Isela Mitra Quinones [id number] C ommuni [id number] [facility] 2018-12-28 2018-12-28 [facility]te [facility]/ Legacy 00:00:00 00:00:00 Visit Isela G Medicine [id number] C ommuni [id number] ty Health 2018-12-27 2018-12-27 Appointmen ANGELA HILL [id number] Univers 14:00:00 14:00:00 t; [place] it y of Reema GERMAN M.D. [facility] 2018-12-26 2018-12-26 Office [facility] Encounte r/ Legacy 00:00:00 00:00:00 Visit Isela G Medicine [id number] C ommuni [id number] Health 2018-12-26 2018-12-26 Office Provider, Public Health Services L [facility] Public Encounter/ Legacy 00:00:00 00:00:00 Visit [facility] [id number] 3 Communi Services [id number] [facility] 2018-12-26 2018-12-26 Office [facility] Adult Encounte r/ Legacy 00:00:00 00:00:00 Visit Isela [employer] Medicine [id number] C ommuni [id number] [facility] 2018-12-26 2018-12-26 Office [facility] Adult Encounter/ Legacy 00:00:00 00:00:00 Visit Katherine Myers Medicine [id number] Communi 561442 [facility] 2018-12-06 2018-12-06 Office Provider, [facility] Public Encounter/ Legacy 00:00:00 00:00:00 Visit [facility] [id number] Communi Services [id number] [facility] 2018-12-06 2018-12-06 Office [facility] Adult Encounte r/ Legacy 00:00:00 00:00:00 Visit Isela G Medicine [id number] C ommuni [id number] [facility] 2018-12-06 2018-12-06 Office [facility] Adult Encounter/ Legacy 00:00:00 00:00:00 Visit Lazaro Stack Medicine [id number] Communi 289235 [facility] 2018-12-06 2018-12-06 Office Provider, Public Health Services [facility] Public Encounter/ Legacy 00:00:00 00:00:00 Visit Rodrigo Vazquez [facility] [id number] 3 Communi Services [id number] [facility] 2018-12-03 2018-12-03 Appointmen ANGELA FREED Rheumatolog [id number] Univers 09:00:00 09:00:00 t; KOBY FREED MD y it y of MD Isrrael WHALEN ans 2018-10-26 2018-10-26 Appointmen ANGELA HARPER [facility] [id number] Univers 13:30:00 13:30:00 t; Reema ALBERT y of Isrrael HARPER Physici M.D. ans 2018-10-15 2018-10-15 Office Abdi Anaya [facility] Adult Enco unter/ Legacy 00:00:00 00:00:00 Visit Medicine [id number] Co mmuni [id number] [facility] 2018-10-09 2018-10-09 Office Luis Felipe [facility] Adult Encounte r/ Legacy 00:00:00 00:00:00 Visit Isela Johnson Medicine [id number] C ommuni [id number] [facility] 2018-10-08 2018-10-08 Office Héctor Abdi [facility] Adult Enco unter/ Legacy 00:00:00 00:00:00 Visit Medicine [id number] Co mmuni [id number] [facility] 2018-10-08 2018-10-08 Office Abdi Anaya [facility] Adult Enco unter/ Legacy 00:00:00 00:00:00 Visit Medicine [id number] Co mmuni [id number] [facility] 2018-10-05 2018-10-05 Office Héctor Abdi [facility] Adult Enco unter/ Legacy 00:00:00 00:00:00 Visit Medicine [id number] Co mmuni [id number] [facility] 2018-10-05 2018-10-05 Office Héctor Abdi [facility] Adult Enco unter/ Legacy 00:00:00 00:00:00 Visit Medicine [id number] Co mmuni [id number] [facility] 2018-10-05 2018-10-05 Office Luis Felipe [facility] Adult Encounte r/ Legacy 00:00:00 00:00:00 Visit Isela Johnson Medicine [id number] C ommuni [id number] [facility] 2018-10-05 2018-10-05 Office Abdi Anaya [facility] Adult Enco unter/ Legacy 00:00:00 00:00:00 Visit Medicine [id number] Co mmuni [id number] [facility] 2018-10-05 2018-10-05 Office Luis Felipe, [facility] Adult Encounte r/ Legacy 00:00:00 00:00:00 Visit Isela Johnson Medicine [id number] C ommuni [id number] [facility] 2018-10-05 2018-10-05 Office Provider, Public Health Services [facility] Public Encounter/ Legacy 00:00:00 00:00:00 [id number] [facility] Services [id number] [facility] 2018-10-05 2018-10-05 Office Isela Briscoe [facility] Adult Encounter/ Legacy 00:00:00 00:00:00 Visit Lazaro Stack [facility] [id number] Communi [id number] [facility] 2018-10-05 2018-10-05 Office Héctor [facility] Adult Enco unter/ Legacy 00:00:00 00:00:00 Visit Medicine [id number] Co mmuni [id number] [facility] 2018-10-05 2018-10-05 Office Héctor [facility] Adult Enco unter/ Legacy 00:00:00 00:00:00 Visit Tom Slater [facility] [id number] Candie Mane [id number] [facility] 2018-08-29 2018-08-29 ANGELA Valentine UTP [id number] Univers 14:30:00 14:30:00 t; heike COOPER M.D. [place] JESSICA, Physici M.D. ans 2018-08-15 2018-08-15 ANGELA Franco [id number] Univers 15:00:00 15:00:00 t; ELIER HOSKINS M.D. ity of [place], [place] M.D. Physici ans 2018-07-27 2018-07-27 ANGELA Gallagher UTP [id number] Univers 10:00:00 10:00:00 t; AMBER CANAS, ity of Reema CLARK M.D. Physici ans 2018-06-07 2018-06-07 AppointANGELA Andrew [facility] [id number] Univers 12:00:00 12:00:00 t; ELIER HOSKINS M.D. ity of [place] [facility] Physici ans 2018-04-19 2018-04-19 Appointmen ANGEAL HARPER Greater [id number] Univers 09:30:00 09:30:00 t; Reema ALBERT [facility] it y of [place] [facility] [place] Payam ALBERT M.D. ans 2018-04-10 2018-04-10 AppointANGELA Cotton Greater [id number] Univers 14:30:00 14:30:00 t; Reema ALBERT [facility] it y of [place] [facility] [place] Payam ALBERT M.D. ans 2018-01-08 2018-01-08 AppointANGELA Gustafson Rheumatolog [id number] Univers 08:30:00 08:30:00 t; DANITA HOOK M.D. y [facility] Physici ans 2017-09-15 2017-09-15 AppointANGELA Andrew [facility] [id number] Univers 11:00:00 11:00:00 t; ELIER HOSKINS M.D. ity of [place] [facility] Physici ans 2017-07-10 2017-07-10 AppointANGELA Gustafson UTP [id number] Univers 10:30:00 10:30:00 t; DANITA HOOK M.D. [facility] Physici ans 2017-07-07 2017-07-07 [facility] ANGELA HOSKINS [facility] [id number] Univers 13:00:00 13:00:00 t; ELIER HOSKINS M.D. ity of [place] [facility] Physici ans 2017-05-09 2017-05-09 Appointzamzam HARPER, ANGELA UTP [id number] Univers 09:00:00 09:00:00 t; Reema ALBERT it y of Isrrael HARPER Physici M.D. ans 2017-04-12 2017-04-12 Appointmen MEREDITH, [facility] UTP [id number] Univers 14:30:00 14:30:00 t; Reema ALBERT it y of [place] Payam ALBERT M.D. ans 2017-03-29 2017-03-29 Appointmen MEREDITH, [facility] UTP [id number] Univers 11:00:00 11:00:00 t; Reema ALBERT it y of [place] Payam ALBERT M.D. ans 2017-03-15 2017-03-15 [facility]ointfreedmen[facility] GATO, [facility] UTP [id number] Univers 15:00:00 15:00:00 t; ELIER HOSKINS M.D. ity of [place] [facility] Physici ans 2017-03-14 2017-03-14 Appointfreedmen[facility] hospital MEREDITH, [facility] UTP [id number] Univers 13:30:00 13:30:00 t; Reema ALBERT it y of Isrrael HARPER Physici M.D. ans 2017-03-08 2017-03-08 Appointfreedmen[facility] hospital INDIA [facility] UTP [id number] Univers 10:00:00 10:00:00 t; ROXANA OSBORNE M.D. itlily of Reema SCHMIDT [place] Physici ans 2017-03-08 2017-03-08 Appointfreedmen[facility] MONSTER, [facility] UTP [id number] Univers 09:30:00 09:30:00 t; DANITA HOOK M.D. itlily of [place], [place] Reema Physici ans 2017-01-04 2017-01-04 Appointmen MONSTER, [facility] UTP [id number] Univers 10:00:00 10:00:00 t; DANITA HOOK M.D. [facility]lily of [facility] Physici ans 2016-12-14 2016-12-14 Appointmen ANGELA HOSKINS UTP [id number] Univers 14:30:00 14:30:00 t; ELIER HOSKINS M.D. ity of [place] [facility] Physici ans 2016-12-02 2016-12-02 Appointmen MONSTER, ANGELA UTP [id number] Univers 11:00:00 11:00:00 t; D[facility]ITA [facility] ans 2016-10-28 2016-10-28 [facility] UTP [id number] Univers 10:00:00 10:00:00 t; EL[facility]. [facility] ans 2016-08-22 2016-08-22 [facility] UTP [id number] Univers 09:00:00 09:00:00 t; ELIER HOSKINS M.D. [facility] Physici ans 2016-08-09 2016-08-09 Outpatient Monserrat Sykes [id number] eClinic 13:45:00 13:45:00 Nataly Logan, DO, PA DO, PA 2016-04-19 2016-04-19 [facility] UTP [id number] Univers 10:30:00 10:30:00 t; EL[facility]. [facility] Physici ans 2015-12-09 2015-12-09 Outpatient Monserrat Sykes [id number] eClinic 16:00:00 16:00:00 Nataly Logan, DO, PA DO, PA 2015-11-25 2015-11-25 Outpatient Monserrat Sykes [id number] eClinic 12:45:00 12:45:00 Nataly Logan, DO, PA DO, PA 2015-11-25 2015-11-25 Outpatient Monserrat Sykes [id number] eClinic 11:45:00 11:45:00 Nataly Logan, DO, PA DO, PA 2015-05-20 2015-05-20 Outpatient Monserrat Sykes [id number] eClinic 09:42:00 09:42:00 Nataly Logan, DO, PA DO, PA 2015-05-19 2015-05-19 Outpatient Monserrat Sykes [id number] eClinic 14:15:00 14:15:00 Nataly Loganaum, DO, PA DO, PA 2015-04-22 2015-04-22 Outpatient Monserrat Sykes [id number] eClinic 14:53:00 14:53:00 E. Buxbaum, alWor faby Buxbaum, DO, PA DO, PA 2015-03-03 2015-03-03 Outpatient Monserrat Sykes [id number] eClinic 14:45:00 14:45:00 E. Buxbaum, alWor ks Buxbaum, DO, PA DO, PA 2014-12-18 2014-12-18 Outpatient [facility] [id number] [facility] 10:54:00 10:54:00 E. Buxbaum, alWor faby Buxbaum, DO, PA DO, PA 2014-11-27 2014-11-27 Outpatient [facility] [id number] [facility] 14:15:00 14:15:00 E. Buxbaum, alWor faby Buxbaum, DO, PA DO, PA 2014-11-27 2014-11-27 Outpatient [facility] [id number] [facility] 14:15:00 14:15:00 E. Buxbaum, alWor faby Buxbaum, DO, PA DO, PA 2014-08-05 2014-08-05 Outpatient [facility] [id number] [facility] 13:54:00 13:54:00 E. Buxbaum, erickWor faby Buxbaum, DO, PA DO, PA 2014-05-21 2014-05-21 Outpatient [facility] [id number] [facility] 14:00:00 14:00:00 E. Buxbaum, alWor faby Buxbaum, DO, PA DO, PA 2014-04-18 2014-04-18 Outpatient [facility] [id number] [facility] 10:20:00 10:20:00 E. Buxbaum, alWor faby Buxbaum, DO, PA DO, PA 2014-03-25 2014-03-25 Outpatient [facility] [id number] [facility] 16:29:00 16:29:00 E. Buxbaum, alWor faby Buxbaum, DO, PA DO, PA 2014-03-24 2014-03-24 Outpatient [facility] [id number] [facility] 11:00:00 11:00:00 Nataly Logan DO, PA DO, PA Results Test Description Test Test Results Result Source Time Comments Comments Incision/Drainag Francy Doran DO [facility] 11/15/2020 3:39 [facility] - 15:31:33 PMIncision/Drainage Medic al Date/Time: 11/15/2020 3:38 Center PMPerformed by: Francy Doran DOAuthorized by: Francy Doran DO Consent: Verbal consent obtained.Risks and benefits: risks, benefits and alternatives were discussedConsent given by: patientPatient understanding: patient states understanding of the procedure being performedPatient consent: the patient's understanding of the procedure matches consent givenProcedure consent: procedure consent matches procedure scheduledRelevant documents: relevant documents present and verifiedTest results: test results available and properly labeledSite marked: the operative site was markedImaging studies: imaging studies availablePatient identity confirmed: verbally with patientTime out: Immediately prior to procedure a "time out" was called to verify the correct patient, procedure, equipment, 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 and site/side marked as required.Type: abscessBody area: anogenitalLocation details: perineumAnesthesia: local infiltration Anesthesia:Local Anesthetic: lidocaine 1% without epinephrineAnesthetic total: 5 mL Sedation:Patient sedated: no Risk factor: underlying major nerveScalpel size: 11Needle gauge: 22Incision type: single straightComplexity: complexDrainage: purulentDrainage amount: moderatePacking material: 1/4 in iodoform gauzePatient tolerance: patient tolerated the procedure well with no immediate complicationsImmediate Post-Procedure Note Date/Time: 11/15/2020 3:39 PMAssistants to the procedure: NonePre-procedure diagnosis: abscessPost-procedure diagnosis: s/p I&D mons pubis abscessProcedures Performed: Incision/DrainageSpecimens removed: NoneEstimated blood loss (mL): NoneComplications: NoneType of anesthesia: NoneGrafts or Implants: None GLUCOSE BEDSIDE TESTING 2020-10-12 18:09:00 Test Item Value Reference Range Interpretation Comme nts GLUCOSE BEDSIDE TESTING (test code = GLUBED) 305 MG/DL 60-99 - CT ABD PELVIS [id number] 17:33:00 [facility] 1970 Sex: F Patient Name: VERO JIMENEZ Unit No: [id number] EXAMS: CPT CODE: [id number] CT ABD PELVIS W/CONT 01129 EXAM: CT abdomen and pelvis INDICATION: diffuse abd pain COMPARISON: None at this time LOCATION: [facility] CT scan of the abdomen and pelvis was performed with intravenous contrast. One or more of the following radiation dose reduction techniques was used: automated exposure control, adjustment of mA and/or KV according to patient size, and/or utilization of iterative reconstructiontechnique. FINDINGS: Quality of Exam: Acceptable. LIVER: There is fatty infiltration of the liver. BILIARY SYSTEM: There is no biliary dilatation. SPLEEN: The spleen is unremarkable. PANCREAS: The pancreas is unremarka ble. ADRENAL GLANDS: The adrenal glands are unremarkable. KIDNEYS: The kidneys appear unremarkable. AORTA: There is no abdominal aortic aneurysm or dissection. THORACIC: Included images of the lower chest demonstrate no abnormalities. APPENDIX: The appendix appears unremarkable. GASTROINTESTINAL: There is no imag ing evidence of large or small bowel obstruction. BONES/SOFT TISSUES: No concerning bony lesion identified. LYMPHATICS: No enlarged lymph nodes by CT criteria. PERITONEUM/OTHER: No free air and no free fluid are identified. IMPRESSION: [facility] NAME: VERO JIMENEZ [id number] [address] PHYS: Tre Arevalo DO Kahn, [id number] : 1970 AGE: 49 SEX: F ACC T NO: [id number] LOC: Z.ERS PHONE #: [phone] EXAM DATE: 10/12/2020 STATUS: REG ER FAX #: [phone] RAD #: D/C DT PAGE 1 Signed Report (CONTINUED) Patient Name: VERO JIMENEZ Unit No: [id number] EXAMS: CPT CODE: [id number] CT ABD PELVIS W/CONT 58527 <Continued> There is fatty infiltration of the liver. Otherwise unremarkable CT scan of theabdomen and pelvis. at 1733 Reported and signed by: Isidro Corona MD CC: Tre cJ DO Technologist:Darrell Schwarz, RT(R); JASON CTDI: DLP: Trnscrpt: 10/12/2020 (1733) tYADIRA [facility] NAME: VERO JIMENEZ PHYS: Tre Arevalo [place] [id number] : 1970 AGE: 49 SEX: F LOC: MyDoc PHONE #: [phone] EXAM DATE: 10/12/2020 STATUS: REG ER FAX#: [phone] RAD #: D/C DT PAGE 2Signed Report Patient Name: VERO JIMENEZ Unit No: [id number] EXAMS: CPT CODE: [id number] CT ABD PELVIS W/CONT 58910 <Continued> Orig Print D/T: S: 10/12/2020 (1736) [facility] NAME: VERO JIMENEZ [place] PHYS: EVE JcShearobb Trinidad [place] [id number] : 1970 AGE: 49 SEX: F LOC: MyDoc PHONE #: [phone] EXAM DATE: 10/12/2020 STATUS: REG ER FAX #: [phone] RAD #: D/C DT PAGE 3 Signed ReportHCG SERUM [id number] 17:17:00 Test Item Value Reference Range Interpretation Comments HCG SERUM QUAL (test code = HCGQL) NEGATIVE NEGATIVE A URINALYSIS [id number] 16:56:00 Test Item Value Reference Range Interpretation Comments UA COLOR (test code = YELLOW YELLOW COLU) UA APPEARANCE (test code SLIGHT CLOUDY CLEAR = APPU) UA GLUCOSE DIPSTICK (test 1000 MG/DL NORMAL A code = DGLUU) UA BILIRUBIN DIPSTICK NEGATIVE MG/DL NEGATIVE (test code = BILU) UA KETONE DIPSTICK (test 50 MG/DL NEGATIVE A code = KETU) UA SPECIFIC GRAVITY (test 1.020 1.003-1.030 N code = SGU) UA BLOOD DIPSTICK (test 10 Raheem/mm3 NEGATIVE A code = ASHIA) UA PH DIPSTICK (test code 6.0 5.0-9.0 N = JUAREZ) UA PROTEIN DIPSTICK (test 15 MG/DL NEGATIVE code = PROU) UA UROBILINIOGEN DIPSTICK NORMAL MG/DL NORMAL (test code = URO) UA NITRITE DIPSTICK (test POSITIVE NEGATIVE A code = CARON) UA LEUKOCYTE ESTERASE 100 /mm3 NEGATIVE A DIPSTICK (test code = LEUU) UA CULTURE NEEDED? (test YES,WBC>10 & EPI<25 Culture Chk code = UACULT) Criteria SOURCE OF URINE: CLEAN CATCHUA [id number] 16:56:00 Test Item Value Reference Range Interpretation Comments UA RBC (test code = RBCU) 5-10 RBC/HPF 0-3 A UA WBC (test code = XWBCU) 20-30 WBC/HPF 0-5 A UA EPITHELIAL CELLS (test MODERATE EPI/HPF FEW A code = EPIU) UA BACTERIA (test code = MANY NONE A XBACU) SOURCE OF URINE: CLEAN CATCHCOMPREHENSIVE METABOLIC [id number] 16:56:00 Test Item Value Reference Range Interpretation Comments SODIUM (test code = 137 MMOL/L 137-145 N NA) POTASSIUM (test code 4.1 MMOL/L 3.5-5.1 N = K) CHLORIDE (test code = 105 MMOL/L 98-107 N CL) CARBON DIOXIDE (test 22 MMOL/L 22-30 N code = CO2) GLUCOSE (test code = 373 MG/DL 74-106 HH CALLED TO JEANNETTE VALDES) READBACK ON AT 1656 BY Maury Perez BLOOD UREA NITROGEN 10 MG/DL 7-17 N (test code = BUN) GLOMERULAR FILTRATION > 60 Report ing units: RATE (test code = ml/min/1.7 3 m2 GFR) (Modified MDRD Formula)Referen ce Range: > or = 6 0 ml/min/1.73 m2 CREATININE (test code 0.60 MG/DL 0.52-1.04 N = CREAT) TOTAL PROTEIN (test 7.1 G/DL 6.3-8.2 N code = PROT) ALBUMIN (test code = 3.9 G/DL 3.5-5.0 N ALB) CALCIUM (test code = 9.6 MG/DL 8.4-10.2 N CA) BILIRUBIN TOTAL (test 0.8 MG/DL 0.2-1.3 N Eltrom bopag code = BILT) Interference fo r Vitros Product TBil, BuBc: ======= ======= ======A ssay Eltrombop ag Analyte/ Max Observed Avg. Bias Concentratio n Concentration Concentration== ======= ======= ======= =======TBil 7 mg/dl TBil/ 1.2m g/dl +0.23mg.dl +0.20mg/dlBuBc 3.5mg/dl Bu/0.8mg/dl +0.25mg/dl +0.24mg/dlBuBc 7 mg/dl Bu/14.2mg/dl +0.38mg/dl +0.25mg/dlBuBc 5mg/dl Bc/0mg/dl +0.25mg/dl +0.15mg/dlBuBc 3.5mg/dl Bc/2.8mg/dl +0.25mg/dl +0.23mg/dl SGOT/AST (test code = 33 UNITS/L 14-36 N AST) SGPT/ALT (test code = 28 UNITS/L <35 ALT) ALKALINE PHOSPHATASE 75 UNITS/L 38-126 N (test code = ALKP) [id number] 16:56:00 Test Item Value Reference Range Interpretation Comments LIPASE (test code = LIP) 69 UNITS/L 23-300 N COMPREHENSIVE METABOLIC [id number] 16:51:00 Test Item Value Reference Range Interpretation Comments SODIUM (test code = 137 MMOL/L 137-145 N NA) POTASSIUM (test code 4.1 MMOL/L 3.5-5.1 N = K) CHLORIDE (test code = 105 MMOL/L 98-107 N CL) CARBON DIOXIDE (test 22 MMOL/L 22-30 N code = CO2) GLUCOSE (test code = MG/DL 74-106 GLU) BLOOD UREA NITROGEN 10 MG/DL 7-17 N (test code = BUN) GLOMERULAR FILTRATION > 60 Report ing units: RATE (test code = ml/min/1.7 3 m2 GFR) (Modified MDRD Formula)Referen ce Range: > or = 6 0 ml/min/1.73 m2 CREATININE (test code 0.60 MG/DL 0.52-1.04 N = CREAT) TOTAL PROTEIN (test 7.1 G/DL 6.3-8.2 N code = PROT) ALBUMIN (test code = 3.9 G/DL 3.5-5.0 N ALB) CALCIUM (test code = MG/DL 8.7-9.7 CA) BILIRUBIN TOTAL (test 0.8 MG/DL 0.2-1.3 N Eltrom bopag code = BILT) Interference fo r Vitros Product TBil, BuBc: ======= ======= ======A ssay Eltrombop ag Analyte/ Max Observed Avg. Bias Concentratio n Concentration Concentration== ======= ======= ======= =======TBil 7 mg/dl TBil/ 1.2m g/dl +0.23mg.dl +0.20mg/dlBuBc 3.5mg/dl Bu/0.8mg/dl +0.25mg/dl +0.24mg/dlBuBc 7 mg/dl Bu/14.2mg/dl +0.38mg/dl +0.25mg/dlBuBc 5mg/dl Bc/0mg/dl +0.25mg/dl +0.15mg/dlBuBc 3.5mg/dl Bc/2.8mg/dl +0.25mg/dl +0.23mg/dl SGOT/AST (test code = 33 UNITS/L 14-36 N AST) SGPT/ALT (test code = UNITS/L <35 ALT) ALKALINE PHOSPHATASE 75 UNITS/L 38-126 N (test code = ALKP) [id number] 16:51:00 Test Item Value Reference Range Interpretation Comments LIPASE (test code = LIP) UNITS/L 23-300 COMPREHENSIVE METABOLIC [id number] 16:49:00 Test Item Value Reference Range Interpretation Comments SODIUM (test code = NA) 137 MMOL/L 137-145 N POTASSIUM (test code = K) 4.1 MMOL/L 3.5-5.1 N CHLORIDE (test code = CL) 105 MMOL/L 98-107 N CARBON DIOXIDE (test code = CO2) MMOL/L 22-30 GLUCOSE (test code = GLU) MG/DL 74-106 BLOOD UREA NITROGEN (test code = MG/DL 7-17 BUN) GLOMERULAR FILTRATION RATE (test code = GFR) CREATININE (test code = CREAT) MG/DL 0.52-1.04 TOTAL PROTEIN (test code = PROT) G/DL 6.3-8.2 ALBUMIN (test code = ALB) 3.9 G/DL 3.5-5.0 N CALCIUM (test code = CA) MG/DL 8.7-9.7 BILIRUBIN TOTAL (test code = BILT) MG/DL 0.2-1.3 SGOT/AST (test code = AST) UNITS/L 15-37 SGPT/ALT (test code = ALT) UNITS/L <35 ALKALINE PHOSPHATASE (test code = UNITS/L 38-126 ALKP) [id number] 16:49:00 Test Item Value Reference Range Interpretation Comments LIPASE (test code = LIP) UNITS/L 23-300 COMPREHENSIVE METABOLIC [id number] 16:48:00 Test Item Value Reference Range Interpretation Comments SODIUM (test code = NA) MMOL/L 137-145 POTASSIUM (test code = K) MMOL/L 3.5-5.1 CHLORIDE (test code = CL) MMOL/L 98-107 CARBON DIOXIDE (test code = CO2) MMOL/L 22-30 GLUCOSE (test code = GLU) MG/DL 74-106 BLOOD UREA NITROGEN (test code = MG/DL 7-17 BUN) GLOMERULAR FILTRATION RATE (test code = GFR) CREATININE (test code = CREAT) MG/DL 0.52-1.04 TOTAL PROTEIN (test code = PROT) G/DL 6.3-8.2 ALBUMIN (test code = ALB) 3.9 G/DL 3.5-5.0 N CALCIUM (test code = CA) MG/DL 8.7-9.7 BILIRUBIN TOTAL (test code = BILT) MG/DL 0.2-1.3 SGOT/AST (test code = AST) UNITS/L 15-37 SGPT/ALT (test code = ALT) UNITS/L <35 ALKALINE PHOSPHATASE (test code = UNITS/L 38-126 ALKP) [id number] 16:48:00 Test Item Value Reference Range Interpretation Comments LIPASE (test code = LIP) UNITS/L 23-300 CBC W/AUTO [id number] 16:45:00 Test Item Value Reference Range Interpretation Comments WHITE BLOOD CELL (test code = 4.1 K/MM3 3.8-9.8 N WBC) RED BLOOD CELL (test code = 4.76 M/MM3 3.58-4.97 N RBC) HEMOGLOBIN (test code = HGB) 13.6 G/DL 11.2-14.9 N HEMATOCRIT (test code = HCT) 42.8 % 33.2-43.5 N MEAN CELL VOLUME (test code = 90 fL 80.7-99.1 N MCV) MEAN CELL HGB (test code = MCH) 28.6 pg 27.0-34.1 N MEAN CELL HGB CONCETRATION 31.8 % 32.2-35.7 L (test code = MCHC) RED CELL DISTRIBUTION WIDTH 12.5 % 12.1-15.2 N (test code = RDW) PLATELET COUNT (test code = 209 K/MM3 129-368 N PLT) MEAN PLATELET VOLUME (test code 10.4 fl 7.4-10.4 N = MPV) NEUTROPHIL % (test code = NT%) 51.5 % 43-75 N IMMATURE GRANULOCYTE % (test 0.7 % 0.0-2.0 N code = IG%) LYMPHOCYTE % (test code = LY%) 39.9 % 14-44 N MONOCYTE % (test code = MO%) 6.0 % 4-13 N EOSINOPHIL % (test code = EO%) 1.2 % 0-6 N BASOPHIL % (test code = BA%) 0.7 % 0-2 N NUCLEATED RBC % (test code = 0.0 % 0-1.0 N NRBC%) NEUTROPHIL # (test code = NT#) 2.13 K/mm3 2.0-7.6 N IMMATURE GRANULOCYTE # (test 0.03 x10 3/uL 0-0.03 N code = IG#) LYMPHOCYTE # (test code = LY#) 1.65 K/mm3 1.0-3.8 N MONOCYTE # (test code = MO#) 0.25 K/mm3 0.1-0.8 N EOSINOPHIL # (test code = EO#) 0.05 K/mm3 0.0-0.2 N BASOPHIL # (test code = BA#) 0.03 K/mm3 0.0-0.2 N NUCLEATED RBC # (test code = 0.00 K/mm3 0.0-0.1 N NRBC#) URINALYSIS [id number] 16:40:00 Test Item Value Reference Range Interpretation Comments UA COLOR (test code = COLU) YELLOW YELLOW UA APPEARANCE (test code = SLIGHT CLOUDY CLEAR APPU) UA GLUCOSE DIPSTICK (test code 1000 MG/DL NORMAL A = DGLUU) UA BILIRUBIN DIPSTICK (test NEGATIVE MG/DL NEGATIVE code = BILU) UA KETONE DIPSTICK (test code 50 MG/DL NEGATIVE A = KETU) UA SPECIFIC GRAVITY (test code 1.020 1.003-1.030 N = SGU) UA BLOOD DIPSTICK (test code = 10 Raheem/mm3 NEGATIVE A ASHIA) UA PH DIPSTICK (test code = 6.0 5.0-9.0 N JUAREZ) UA PROTEIN DIPSTICK (test code 15 MG/DL NEGATIVE = PROU) UA UROBILINIOGEN DIPSTICK NORMAL MG/DL NORMAL (test code = URO) UA NITRITE DIPSTICK (test code POSITIVE NEGATIVE A = CARON) UA LEUKOCYTE ESTERASE DIPSTICK 100 /mm3 NEGATIVE A (test code = LEUU) UA CULTURE NEEDED? (test code Criteria Culture Chk = UACULT) SOURCE OF URINE: CLEAN CATCHUA [id number] 16:40:00 Test Item Value Reference Range Interpretation Comments UA RBC (test code = RBCU) RBC/HPF 0-3 UA WBC (test code = XWBCU) WBC/HPF 0-5 UA EPITHELIAL CELLS (test code = EPI/HPF FEW EPIU) UA BACTERIA (test code = XBACU) NONE SOURCE OF URINE: CLEAN CATCHURINALYSIS [id number] 16:40:00 Test Item Value Reference Range Interpretation Comments UA COLOR (test code = COLU) YELLOW YELLOW UA APPEARANCE (test code = SLIGHT CLOUDY CLEAR APPU) UA GLUCOSE DIPSTICK (test code 1000 MG/DL NORMAL A = DGLUU) UA BILIRUBIN DIPSTICK (test NEGATIVE MG/DL NEGATIVE code = BILU) UA KETONE DIPSTICK (test code 50 MG/DL NEGATIVE A = KETU) UA SPECIFIC GRAVITY (test code 1.020 1.003-1.030 N = SGU) UA BLOOD DIPSTICK (test code = 10 Raheem/mm3 NEGATIVE A ASHIA) UA PH DIPSTICK (test code = 6.0 5.0-9.0 N JUAREZ) UA PROTEIN DIPSTICK (test code 15 MG/DL NEGATIVE = PROU) UA UROBILINIOGEN DIPSTICK NORMAL MG/DL NORMAL (test code = URO) UA NITRITE DIPSTICK (test code POSITIVE NEGATIVE A = CARON) UA LEUKOCYTE ESTERASE DIPSTICK 100 /mm3 NEGATIVE A (test code = LEUU) UA CULTURE NEEDED? (test code Criteria Culture Chk = UACULT) SOURCE OF URINE: CLEAN CATCHUA [id number] 16:40:00 Test Item Value Reference Range Interpretation Comments UA RBC (test code = RBCU) RBC/HPF 0-3 UA WBC (test code = XWBCU) WBC/HPF 0-5 UA EPITHELIAL CELLS (test code = EPI/HPF FEW EPIU) UA BACTERIA (test code = XBACU) NONE SOURCE OF URINE: CLEAN CATCH[Q] HEPATITIS B SURFACE ANTIGEN W/REFL CONFIRM 2020-07-17 00:00:00 Test Item Value Reference Range Interpretation Comments HEPATITIS B SURFACE NON-REACTIVE NON-REACTIVE N SPECIMEN RECEIVED DATE ANTIGEN; Normal AND TIME: (test code = 5195-3) [facility][QL] RPR (DX) W/REFL TITER AND CONFIRMATORY [id number] 00:00:00 Test Item Value Reference Range Interpretation Comments RPR (DX) W/REFL TITER NON-REACTIVE NON-REACTIVE N SPECIM EN RECEIVED AND CONFIRMATORY DATE AND TI ME: TESTING (test code = 0692941 54184 RPR (DX) W/REFL TITER AND CONFIRMATORY TESTING) [facility]. [facility] - [id number] 00:00:00 Test Item Value Reference Range Interpretation Comments Case (test code = Click ImageLink button A Case) for report. [facility] PhysiciansGLUCOSE BEDSIDE [id number] 14:54:00 Test Item Value Reference Range Interpretation Comments GLUCOSE BEDSIDE TESTING (test code 284 MG/DL 60-99 H = GLUBED) GLUCOSE BEDSIDE [id number] 12:40:00 Test Item Value Reference Range Interpretation Comments GLUCOSE BEDSIDE TESTING (test code 251 MG/DL 60-99 H = GLUBED) GLUCOSE BEDSIDE [id number] 08:23:00 Test Item Value Reference Range Interpretation Comments GLUCOSE BEDSIDE TESTING (test code 250 MG/DL 60-99 H = GLUBED) GLUCOSE BEDSIDE [id number] 08:23:00 Test Item Value Reference Range Interpretation Comments GLUCOSE BEDSIDE TESTING (test code 186 MG/DL 60-99 H = GLUBED) GLUCOSE BEDSIDE [id number] 08:23:00 Test Item Value Reference Range Interpretation Comments GLUCOSE BEDSIDE TESTING (test code 219 MG/DL 60-99 H = GLUBED) GLUCOSE BEDSIDE [id number] 11:11:00 Test Item Value Reference Range Interpretation Comments GLUCOSE BEDSIDE TESTING (test code 211 MG/DL 60-99 H = GLUBED) COVID 19 Asymptomatic IH [id number] 10:39:00 Test Item Value Reference Range Interpretation Comments COVID 19 NEGATIVE Negative "Negative resul ts from Asymptomatic IH AG patients with symptom (test code = onset beyondfiv e days, COVNONPUIAG) should be judy danika as presumptive, andconfirmation with a molecular assay , if necessary forpa tient management may be performed. Nega tive results do notr ule out COVID-19 and sh ould not be used as the sole basisfor treatm ent or patient managem ent decisions, includinginfect ion control decisio ns. Negative result s should beconsidered in the context of a pa tients recent exposure s,history, and the presenc e of clinical signs and symptomsconsist ent with COVID-19.This t est detects both vi able andnon-viable S ARS-CoV and SARS CoV-2. Test performance dep endson the amount of virus (antigen) in the sample." [id number] 09:08:00 Test Item Value Reference Range Interpretation Comments ALCOHOL (test code = 159.0 MG/DL <10 HH CALLED TO DAE.M& ALC) READBACK ON 05/09 AT 0908 BY Porfirio Roldan URINALYSIS [id number] 09:06:00 Test Item Value Reference Range Interpretation Comments UA COLOR (test code = YELLOW YELLOW COLU) UA APPEARANCE (test code CLEAR CLEAR = APPU) UA GLUCOSE DIPSTICK (test 1000 MG/DL NORMAL A code = DGLUU) UA BILIRUBIN DIPSTICK NEGATIVE MG/DL NEGATIVE (test code = BILU) UA KETONE DIPSTICK (test NEGATIVE MG/DL NEGATIVE code = KETU) UA SPECIFIC GRAVITY (test 1.005 1.003-1.030 N code = SGU) UA BLOOD DIPSTICK (test NEGATIVE Raheem/mm3 NEGATIVE code = ASHIA) UA PH DIPSTICK (test code 5.0 5.0-9.0 N = JUAREZ) UA PROTEIN DIPSTICK (test NEGATIVE MG/DL NEGATIVE code = PROU) UA UROBILINIOGEN DIPSTICK NORMAL MG/DL NORMAL (test code = URO) UA NITRITE DIPSTICK (test NEGATIVE NEGATIVE code = CARON) UA LEUKOCYTE ESTERASE NEGATIVE /mm3 NEGATIVE DIPSTICK (test code = LEUU) UA CULTURE NEEDED? (test NEGATIVE, NO CULTURE Culture Chk code = UACULT) Criteria SOURCE OF URINE: CLEAN CATCHDRUGS OF ABUSE SCREEN [id number] 09:06:00 Test Item Value Reference Range Interpretation Comments UR COCAINE (test code = POSITIVE NEGATIVE A This is a Screening COCAU) test and the Re sults are to be used for medical purpose s only (No confirmatio n for Positive result s)Cut off Value: 300 ng/mL UR CANNABINOIDS (THC) NEGATIVE NEGATIVE Cut of f Value: 50 (test code = CANU) ng/mL UR AMPHETAMINE (test NEGATIVE NEGATIVE Cut off Value: 1000 code = AMPHU) ng/mL UR BARBITURATE QUAL NEGATIVE NEGATIVE Cut off Value: 200 (test code = BARBQLU) ng/mL UR BENZODIAZEPINE (test NEGATIVE NEGATIVE Cut off Value: 200 code = BENZU) ng/mL UR OPIATES QUAL (test NEGATIVE NEGATIVE Cut of f Value: 300 code = OPIAQLU) ng/mL UR PHENCYCLIDINE (PCP) NEGATIVE NEGATIVE Cut o ff Value: 25 (test code = PHENCU) ng/mL SOURCE OF URINE: CLEAN CATCHURINALYSIS [id number] 06:59:00 Test Item Value Reference Range Interpretation Comments UA COLOR (test code = YELLOW YELLOW COLU) UA APPEARANCE (test code CLEAR CLEAR = APPU) UA GLUCOSE DIPSTICK (test 1000 MG/DL NORMAL A code = DGLUU) UA BILIRUBIN DIPSTICK NEGATIVE MG/DL NEGATIVE (test code = BILU) UA KETONE DIPSTICK (test NEGATIVE MG/DL NEGATIVE code = KETU) UA SPECIFIC GRAVITY (test 1.005 1.003-1.030 N code = SGU) UA BLOOD DIPSTICK (test NEGATIVE Raheem/mm3 NEGATIVE code = ASHIA) UA PH DIPSTICK (test code 5.0 5.0-9.0 N = JUAREZ) UA PROTEIN DIPSTICK (test NEGATIVE MG/DL NEGATIVE code = PROU) UA UROBILINIOGEN DIPSTICK NORMAL MG/DL NORMAL (test code = URO) UA NITRITE DIPSTICK (test NEGATIVE NEGATIVE code = CARON) UA LEUKOCYTE ESTERASE NEGATIVE /mm3 NEGATIVE DIPSTICK (test code = LEUU) UA CULTURE NEEDED? (test NEGATIVE, NO CULTURE Culture Chk code = UACULT) Criteria SOURCE OF URINE: CLEAN CATCHDRUGS OF ABUSE SCREEN [id number] 06:59:00 Test Item Value Reference Range Interpretation Comments UR COCAINE (test code = NEGATIVE COCAU) UR CANNABINOIDS (THC) NEGATIVE NEGATIVE Cut of f Value: 50 (test code = CANU) ng/mL UR AMPHETAMINE (test code NEGATIVE NEGATIVE Cu t off Value: 1000 = AMPHU) ng/mL UR BARBITURATE QUAL (test NEGATIVE NEGATIVE Cu t off Value: 200 code = BARBQLU) ng/mL UR BENZODIAZEPINE (test NEGATIVE NEGATIVE Cut off Value: 200 code = BENZU) ng/mL UR OPIATES QUAL (test code NEGATIVE NEGATIVE C ut off Value: 300 = OPIAQLU) ng/mL UR PHENCYCLIDINE (PCP) NEGATIVE NEGATIVE Cut o ff Value: 25 (test code = PHENCU) ng/mL SOURCE OF URINE: CLEAN CATCHURINALYSIS [id number] 06:57:00 Test Item Value Reference Range Interpretation Comments UA COLOR (test code = YELLOW YELLOW COLU) UA APPEARANCE (test code CLEAR CLEAR = APPU) UA GLUCOSE DIPSTICK (test 1000 MG/DL NORMAL A code = DGLUU) UA BILIRUBIN DIPSTICK NEGATIVE MG/DL NEGATIVE (test code = BILU) UA KETONE DIPSTICK (test NEGATIVE MG/DL NEGATIVE code = KETU) UA SPECIFIC GRAVITY (test 1.005 1.003-1.030 N code = SGU) UA BLOOD DIPSTICK (test NEGATIVE Raheem/mm3 NEGATIVE code = ASHIA) UA PH DIPSTICK (test code 5.0 5.0-9.0 N = JUAREZ) UA PROTEIN DIPSTICK (test NEGATIVE MG/DL NEGATIVE code = PROU) UA UROBILINIOGEN DIPSTICK NORMAL MG/DL NORMAL (test code = URO) UA NITRITE DIPSTICK (test NEGATIVE NEGATIVE code = CARON) UA LEUKOCYTE ESTERASE NEGATIVE /mm3 NEGATIVE DIPSTICK (test code = LEUU) UA CULTURE NEEDED? (test NEGATIVE, NO CULTURE Culture Chk code = UACULT) Criteria SOURCE OF URINE: CLEAN CATCHDRUGS OF ABUSE SCREEN [id number] 06:57:00 Test Item Value Reference Range Interpretation Comments UR COCAINE (test code = NEGATIVE COCAU) UR CANNABINOIDS (THC) NEGATIVE NEGATIVE Cut of f Value: 50 (test code = CANU) ng/mL UR AMPHETAMINE (test code NEGATIVE NEGATIVE Cu t off Value: 1000 = AMPHU) ng/mL UR BARBITURATE QUAL (test NEGATIVE NEGATIVE Cu t off Value: 200 code = BARBQLU) ng/mL UR BENZODIAZEPINE (test NEGATIVE NEGATIVE Cut off Value: 200 code = BENZU) ng/mL UR OPIATES QUAL (test code NEGATIVE NEGATIVE C ut off Value: 300 = OPIAQLU) ng/mL UR PHENCYCLIDINE (PCP) NEGATIVE (test code = PHENCU) SOURCE OF URINE: CLEAN CATCHURINALYSIS [id number] 06:56:00 Test Item Value Reference Range Interpretation Comments UA COLOR (test code = YELLOW YELLOW COLU) UA APPEARANCE (test code CLEAR CLEAR = APPU) UA GLUCOSE DIPSTICK (test 1000 MG/DL NORMAL A code = DGLUU) UA BILIRUBIN DIPSTICK NEGATIVE MG/DL NEGATIVE (test code = BILU) UA KETONE DIPSTICK (test NEGATIVE MG/DL NEGATIVE code = KETU) UA SPECIFIC GRAVITY (test 1.005 1.003-1.030 N code = SGU) UA BLOOD DIPSTICK (test NEGATIVE Raheem/mm3 NEGATIVE code = ASHIA) UA PH DIPSTICK (test code 5.0 5.0-9.0 N = JUAREZ) UA PROTEIN DIPSTICK (test NEGATIVE MG/DL NEGATIVE code = PROU) UA UROBILINIOGEN DIPSTICK NORMAL MG/DL NORMAL (test code = URO) UA NITRITE DIPSTICK (test NEGATIVE NEGATIVE code = CARON) UA LEUKOCYTE ESTERASE NEGATIVE /mm3 NEGATIVE DIPSTICK (test code = LEUU) UA CULTURE NEEDED? (test NEGATIVE, NO CULTURE Culture Chk code = UACULT) Criteria SOURCE OF URINE: CLEAN CATCHDRUGS OF ABUSE SCREEN [id number] 06:56:00 Test Item Value Reference Range Interpretation Comments UR COCAINE (test code = NEGATIVE COCAU) UR CANNABINOIDS (THC) NEGATIVE (test code = CANU) UR AMPHETAMINE (test code NEGATIVE NEGATIVE Cu t off Value: 1000 = AMPHU) ng/mL UR BARBITURATE QUAL (test NEGATIVE NEGATIVE Cu t off Value: 200 code = BARBQLU) ng/mL UR BENZODIAZEPINE (test NEGATIVE NEGATIVE Cut off Value: 200 code = BENZU) ng/mL UR OPIATES QUAL (test code NEGATIVE = OPIAQLU) UR PHENCYCLIDINE (PCP) NEGATIVE (test code = PHENCU) SOURCE OF URINE: CLEAN CATCHURINALYSIS [id number] 06:55:00 Test Item Value Reference Range Interpretation Comments UA COLOR (test code = YELLOW YELLOW COLU) UA APPEARANCE (test code CLEAR CLEAR = APPU) UA GLUCOSE DIPSTICK (test 1000 MG/DL NORMAL A code = DGLUU) UA BILIRUBIN DIPSTICK NEGATIVE MG/DL NEGATIVE (test code = BILU) UA KETONE DIPSTICK (test NEGATIVE MG/DL NEGATIVE code = KETU) UA SPECIFIC GRAVITY (test 1.005 1.003-1.030 N code = SGU) UA BLOOD DIPSTICK (test NEGATIVE Raheem/mm3 NEGATIVE code = ASHIA) UA PH DIPSTICK (test code 5.0 5.0-9.0 N = JUAREZ) UA PROTEIN DIPSTICK (test NEGATIVE MG/DL NEGATIVE code = PROU) UA UROBILINIOGEN DIPSTICK NORMAL MG/DL NORMAL (test code = URO) UA NITRITE DIPSTICK (test NEGATIVE NEGATIVE code = CARON) UA LEUKOCYTE ESTERASE NEGATIVE /mm3 NEGATIVE DIPSTICK (test code = LEUU) UA CULTURE NEEDED? (test NEGATIVE, NO CULTURE Culture Chk code = UACULT) Criteria SOURCE OF URINE: CLEAN CATCHDRUGS OF ABUSE SCREEN [id number] 06:55:00 Test Item Value Reference Range Interpretation Comments UR COCAINE (test code = NEGATIVE COCAU) UR CANNABINOIDS (THC) NEGATIVE (test code = CANU) UR AMPHETAMINE (test code NEGATIVE = AMPHU) UR BARBITURATE QUAL (test NEGATIVE NEGATIVE Cu t off Value: 200 code = BARBQLU) ng/mL UR BENZODIAZEPINE (test NEGATIVE code = BENZU) UR OPIATES QUAL (test code NEGATIVE = OPIAQLU) UR PHENCYCLIDINE (PCP) NEGATIVE (test code = PHENCU) SOURCE OF URINE: CLEAN CATCHURINALYSIS [id number] 06:43:00 Test Item Value Reference Range Interpretation Comments UA COLOR (test code = YELLOW YELLOW COLU) UA APPEARANCE (test code CLEAR CLEAR = APPU) UA GLUCOSE DIPSTICK (test 1000 MG/DL NORMAL A code = DGLUU) UA BILIRUBIN DIPSTICK NEGATIVE MG/DL NEGATIVE (test code = BILU) UA KETONE DIPSTICK (test NEGATIVE MG/DL NEGATIVE code = KETU) UA SPECIFIC GRAVITY (test 1.005 1.003-1.030 N code = SGU) UA BLOOD DIPSTICK (test NEGATIVE Raheem/mm3 NEGATIVE code = ASHIA) UA PH DIPSTICK (test code 5.0 5.0-9.0 N = JUAREZ) UA PROTEIN DIPSTICK (test NEGATIVE MG/DL NEGATIVE code = PROU) UA UROBILINIOGEN DIPSTICK NORMAL MG/DL NORMAL (test code = URO) UA NITRITE DIPSTICK (test NEGATIVE NEGATIVE code = CARON) UA LEUKOCYTE ESTERASE NEGATIVE /mm3 NEGATIVE DIPSTICK (test code = LEUU) UA CULTURE NEEDED? (test NEGATIVE, NO CULTURE Culture Chk code = UACULT) Criteria SOURCE OF URINE: CLEAN CATCHDRUGS OF ABUSE SCREEN [id number] 06:43:00 Test Item Value Reference Range Interpretation Comments UR COCAINE (test code = COCAU) NEGATIVE UR CANNABINOIDS (THC) (test code = NEGATIVE CANU) UR AMPHETAMINE (test code = AMPHU) NEGATIVE UR BARBITURATE QUAL (test code = NEGATIVE BARBQLU) UR BENZODIAZEPINE (test code = BENZU) NEGATIVE UR OPIATES QUAL (test code = OPIAQLU) NEGATIVE UR PHENCYCLIDINE (PCP) (test code = NEGATIVE PHENCU) SOURCE OF URINE: CLEAN CATCHURINALYSIS [id number] 06:42:00 Test Item Value Reference Range Interpretation Comments UA COLOR (test code = COLU) YELLOW YELLOW UA APPEARANCE (test code = CLEAR CLEAR APPU) UA GLUCOSE DIPSTICK (test 1000 MG/DL NORMAL A code = DGLUU) UA BILIRUBIN DIPSTICK (test NEGATIVE MG/DL NEGATIVE code = BILU) UA KETONE DIPSTICK (test NEGATIVE MG/DL NEGATIVE code = KETU) UA SPECIFIC GRAVITY (test 1.005 1.003-1.030 N code = SGU) UA BLOOD DIPSTICK (test code NEGATIVE Raheem/mm3 NEGATIVE = ASHIA) UA PH DIPSTICK (test code = 5.0 5.0-9.0 N JUAREZ) UA PROTEIN DIPSTICK (test NEGATIVE MG/DL NEGATIVE code = PROU) UA UROBILINIOGEN DIPSTICK NORMAL MG/DL NORMAL (test code = URO) UA NITRITE DIPSTICK (test NEGATIVE NEGATIVE code = CARON) UA LEUKOCYTE ESTERASE NEGATIVE /mm3 NEGATIVE DIPSTICK (test code = LEUU) UA CULTURE NEEDED? (test Criteria Culture Chk code = UACULT) SOURCE OF URINE: CLEAN CATCHDRUGS OF ABUSE SCREEN [id number] 06:42:00 Test Item Value Reference Range Interpretation Comments UR COCAINE (test code = COCAU) NEGATIVE UR CANNABINOIDS (THC) (test code = NEGATIVE CANU) UR AMPHETAMINE (test code = AMPHU) NEGATIVE UR BARBITURATE QUAL (test code = NEGATIVE BARBQLU) UR BENZODIAZEPINE (test code = BENZU) NEGATIVE UR OPIATES QUAL (test code = OPIAQLU) NEGATIVE UR PHENCYCLIDINE (PCP) (test code = NEGATIVE PHENCU) SOURCE OF URINE: CLEAN CATCHBASIC METABOLIC [id number] 05:17:00 Test Item Value Reference Range Interpretation Comments SODIUM (test code = 138 MMOL/L 137-145 N NA) POTASSIUM (test code = 4.0 MMOL/L 3.5-5.1 N K) CHLORIDE (test code = 104 MMOL/L 98-107 N CL) CARBON DIOXIDE (test 16 MMOL/L 22-30 L code = CO2) GLUCOSE (test code = 563 MG/DL 74-106 HH CALLED TO PREMA VALDES) READBACK ON 05/09 AT 0517 BY Lj Estrada BLOOD UREA NITROGEN 12 MG/DL 7-17 N (test code = BUN) GLOMERULAR FILTRATION > 60 Report ing units: RATE (test code = GFR) ml/mi n/1.73 m2 (Modified MDRD Formula)Referen ce Range: > or = 6 0 ml/min/1.73 m2 CREATININE (test code 0.60 MG/DL 0.52-1.04 N = CREAT) CALCIUM (test code = 9.5 MG/DL 8.4-10.2 N CA) HEPATIC FUNCTION [id number] 05:17:00 Test Item Value Reference Range Interpretation Comments TOTAL PROTEIN (test code = PROT) 7.7 G/DL 6.3-8.2 N ALBUMIN (test code = ALB) 4.1 G/DL 3.5-5.0 N BILIRUBIN TOTAL (test code = BILT) 0.4 MG/DL 0.2-1.3 N BILIRUBIN DIRECT (test code = 0.0 MG/DL 0.0-0.3 N BILD) SGOT/AST (test code = AST) 32 UNITS/L 14-36 N SGPT/ALT (test code = ALT) 27 UNITS/L <35 ALKALINE PHOSPHATASE (test code = 92 UNITS/L 38-126 N ALKP) HCG [id number] 05:17:00 Test Item Value Reference Range Interpretation Comments HCG SERUM (test < 2 IU/L ~~~~~~~~~~~~ ~~~~~~~~~~~~~~~~ code = HCG) ~~~~~~~~~~~~~~~ ~~~~~~~~~~~~~ ~~~~INTERPRETAT ION OF BHCG QN PERFORMED AT [facility] 0.2-1 W EEKS AFTER CONCEPTION 5-50 1-2 WEEKS AFTER CON CEPTION 50-500 2-3 WEEKS AFTER CONCEPTION 100-5,000 3-4 WEEKS AFTE R CONCEPTION 500-10,000 4-5 WEEKS AFTER CONCEPTIO N 1,000-50,000 5 -6 WEEKS AFTER CONCEPTIO N 10,000-100,0006 -8 WEEKS AFTER CONCEPTIO N 15,000-200,0002 -3 MONTHS 10,000-100,000 All values given in eliazar- International Units per mil liliter. SPECIMENS WITH B-HCG LEVELS LESS THAN OR EQ UAL TO 5 eliazar-Internati onal Units per milliliter WILL BE REPORTED ZER O OR "NEGATIVE." SP ECIMENS WITHB-HCG LEVEL S GREATER THAN OR EQUAL T O 25 eliazar-Internati onal Units per milliliter WILL BEREPORTED " POSITIVE." SPECIMENS WITH B-HCG LEVELS GREATERTHAN 5 eliazar-Internati onal Units per milliliter AND LESS THAN 25 eliazar-Supervisor In [employer] ational Units per milliliterS HOULD HAVE ADDITIONAL BLOO D SAMPLE DRAWN 48 HOURSL ATER AND REPEATED.~~~~~~ ~~~~~~~~~~~~~ ~~~~~~~~~~~~~~~ ~~~~~~~~~~~~~ ~~~~~~~~~~~~~ [id number] 05:17:00 Test Item Value Reference Range Interpretation Comments ACETAMINOPHEN (test code = < 10.0 MCG/ML 10-30 L ACET) [id number] 05:17:00 Test Item Value Reference Range Interpretation Comments SALICYLATE (test code = GO) < 1.0 MG/DL <2.0 [id number] 05:17:00 Test Item Value Reference Range Interpretation Comments ALCOHOL (test code = 231.0 MG/DL <10 HH CALLED TO PRE[facility]iscoe [facility]) READBACK ON 05/09 AT 0517 BY Lj Estrada BASIC METABOLIC [id number] 04:47:00 Test Item Value Reference Range Interpretation Comments SODIUM (test code = 138 MMOL/L 137-145 N NA) POTASSIUM (test code = 4.0 MMOL/L 3.5-5.1 N K) CHLORIDE (test code = 104 MMOL/L 98-107 N CL) CARBON DIOXIDE (test 16 MMOL/L 22-30 L code = CO2) GLUCOSE (test code = MG/DL 74-106 GLU) BLOOD UREA NITROGEN MG/DL 7-17 (test code = BUN) GLOMERULAR FILTRATION > 60 Report ing units: RATE (test code = GFR) ml/mi n/1.73 m2 (Modified MDRD Formula)Referen ce Range: > or = 6 0 ml/min/1.73 m2 CREATININE (test code 0.60 MG/DL 0.52-1.04 N = CREAT) CALCIUM (test code = MG/DL 8.7-9.7 CA) HEPATIC FUNCTION [id number] 04:47:00 Test Item Value Reference Range Interpretation Comments TOTAL PROTEIN (test code = PROT) G/DL 6.3-8.2 ALBUMIN (test code = ALB) 4.1 G/DL 3.5-5.0 N BILIRUBIN TOTAL (test code = BILT) 0.4 MG/DL 0.2-1.3 N BILIRUBIN DIRECT (test code = BILD) 0.0 MG/DL 0.0-0.3 N SGOT/AST (test code = AST) UNITS/L 15-37 SGPT/ALT (test code = ALT) UNITS/L <35 ALKALINE PHOSPHATASE (test code = UNITS/L 38-126 ALKP) HCG [id number] 04:47:00 Test Item Value Reference Range Interpretation Comments HCG SERUM (test code = HCG) IU/L [id number] 04:47:00 Test Item Value Reference Range Interpretation Comments ACETAMINOPHEN (test code = ACET) MCG/ML 10-30 [id number] 04:47:00 Test Item Value Reference Range Interpretation Comments SALICYLATE (test code = GO) MG/DL <2.0 [id number] 04:47:00 Test Item Value Reference Range Interpretation Comments ALCOHOL (test code = ALC) MG/DL <10 BASIC METABOLIC [id number] 04:45:00 Test Item Value Reference Range Interpretation Comments SODIUM (test code = NA) 138 MMOL/L 137-145 N POTASSIUM (test code = K) 4.0 MMOL/L 3.5-5.1 N CHLORIDE (test code = CL) 104 MMOL/L 98-107 N CARBON DIOXIDE (test code = CO2) MMOL/L 22-30 GLUCOSE (test code = GLU) MG/DL 74-106 BLOOD UREA NITROGEN (test code = MG/DL 7-17 BUN) GLOMERULAR FILTRATION RATE (test code = GFR) CREATININE (test code = CREAT) MG/DL 0.52-1.04 CALCIUM (test code = CA) MG/DL 8.7-9.7 HEPATIC FUNCTION [id number] 04:45:00 Test Item Value Reference Range Interpretation Comments TOTAL PROTEIN (test code = PROT) G/DL 6.3-8.2 ALBUMIN (test code = ALB) 4.1 G/DL 3.5-5.0 N BILIRUBIN TOTAL (test code = BILT) MG/DL 0.2-1.3 BILIRUBIN DIRECT (test code = BILD) MG/DL 0.0-0.3 SGOT/AST (test code = AST) UNITS/L 15-37 SGPT/ALT (test code = ALT) UNITS/L <35 ALKALINE PHOSPHATASE (test code = UNITS/L 38-126 ALKP) HCG [id number] 04:45:00 Test Item Value Reference Range Interpretation Comments HCG SERUM (test code = HCG) IU/L [id number] 04:45:00 Test Item Value Reference Range Interpretation Comments ACETAMINOPHEN (test code = ACET) MCG/ML 10-30 [id number] 04:45:00 Test Item Value Reference Range Interpretation Comments SALICYLATE (test code = GO) MG/DL <2.0 [id number] 04:45:00 Test Item Value Reference Range Interpretation Comments ALCOHOL (test code = ALC) MG/DL <10 BASIC METABOLIC [id number] 04:44:00 Test Item Value Reference Range Interpretation Comments SODIUM (test code = NA) MMOL/L 137-145 POTASSIUM (test code = K) MMOL/L 3.5-5.1 CHLORIDE (test code = CL) MMOL/L 98-107 CARBON DIOXIDE (test code = CO2) MMOL/L 22-30 GLUCOSE (test code = GLU) MG/DL 74-106 BLOOD UREA NITROGEN (test code = BUN) MG/DL 7-17 GLOMERULAR FILTRATION RATE (test code = GFR) CREATININE (test code = CREAT) MG/DL 0.52-1.04 CALCIUM (test code = CA) MG/DL 8.7-9.7 HEPATIC FUNCTION [id number] 04:44:00 Test Item Value Reference Range Interpretation Comments TOTAL PROTEIN (test code = PROT) G/DL 6.3-8.2 ALBUMIN (test code = ALB) 4.1 G/DL 3.5-5.0 N BILIRUBIN TOTAL (test code = BILT) MG/DL 0.2-1.3 BILIRUBIN DIRECT (test code = BILD) MG/DL 0.0-0.3 SGOT/AST (test code = AST) UNITS/L 15-37 SGPT/ALT (test code = ALT) UNITS/L <35 ALKALINE PHOSPHATASE (test code = UNITS/L 38-126 ALKP) HCG [id number] 04:44:00 Test Item Value Reference Range Interpretation Comments HCG SERUM (test code = HCG) IU/L [id number] 04:44:00 Test Item Value Reference Range Interpretation Comments ACETAMINOPHEN (test code = ACET) MCG/ML 10-30 [id number] 04:44:00 Test Item Value Reference Range Interpretation Comments SALICYLATE (test code = GO) MG/DL <2.0 [id number] 04:44:00 Test Item Value Reference Range Interpretation Comments ALCOHOL (test code = ALC) MG/DL <10 CBC W/AUTO [id number] 04:37:00 Test Item Value Reference Range Interpretation Comments WHITE BLOOD CELL (test code = 7.1 K/MM3 3.8-9.8 N WBC) RED BLOOD CELL (test code = 4.92 M/MM3 3.58-4.97 N RBC) HEMOGLOBIN (test code = HGB) 14.0 G/DL 11.2-14.9 N HEMATOCRIT (test code = HCT) 43.0 % 33.2-43.5 N MEAN CELL VOLUME (test code = 87 fL 80.7-99.1 N MCV) MEAN CELL HGB (test code = MCH) 28.5 pg 27.0-34.1 N MEAN CELL HGB CONCETRATION 32.6 % 32.2-35.7 N (test code = MCHC) RED CELL DISTRIBUTION WIDTH 12.6 % 12.1-15.2 N (test code = RDW) PLATELET COUNT (test code = 227 K/MM3 129-368 N PLT) MEAN PLATELET VOLUME (test code 10.6 fl 7.4-10.4 H = MPV) NEUTROPHIL % (test code = NT%) 50.4 % 43-75 N IMMATURE GRANULOCYTE % (test 0.4 % 0.0-2.0 N code = IG%) LYMPHOCYTE % (test code = LY%) 40.9 % 14-44 N MONOCYTE % (test code = MO%) 6.4 % 4-13 N EOSINOPHIL % (test code = EO%) 1.3 % 0-6 N BASOPHIL % (test code = BA%) 0.6 % 0-2 N NUCLEATED RBC % (test code = 0.0 % 0-1.0 N NRBC%) NEUTROPHIL # (test code = NT#) 3.60 K/mm3 2.0-7.6 N IMMATURE GRANULOCYTE # (test 0.03 x10 3/uL 0-0.03 N code = IG#) LYMPHOCYTE # (test code = LY#) 2.92 K/mm3 1.0-3.8 N MONOCYTE # (test code = MO#) 0.46 K/mm3 0.1-0.8 N EOSINOPHIL # (test code = EO#) 0.09 K/mm3 0.0-0.2 N BASOPHIL # (test code = BA#) 0.04 K/mm3 0.0-0.2 N NUCLEATED RBC # (test code = 0.00 K/mm3 0.0-0.1 N NRBC#) CBC W/AUTO [id number] 15:34:00 Test Item Value Reference Range Interpretation Comments WHITE BLOOD CELL (test code = 3.9 x10 3/uL 3.2-11.5 N WBC) RED BLOOD CELL (test code = 4.89 x10(6)/m 3.70-5.10 N RBC) HEMOGLOBIN (test code = HGB) 13.6 g/dL 12.0-15.0 N HEMATOCRIT (test code = HCT) 41.6 % 35.7-44.8 N MEAN CELL VOLUME (test code = 85 fL 80-100 N MCV) MEAN CELL HGB (test code = MCH) 27.8 pg 26.2-33.8 N MEAN CELL HGB CONCENTRATION 32.7 g/dL 30.0-34.0 N (test code = MCHC) RED CELL DISTRIBUTION WIDTH 11.9 % 11.3-14.5 N (test code = RDW) PLATELET COUNT (test code = 180 x10 3/uL 130-408 N PLT) MEAN PLATELET VOLUME (test code 9.9 fL 8.6-12.6 N = MPV) PLATELET ESTIMATE (test code = ADEQUATE ADEQUATE PLTEST) WBC [id number] 15:34:00 Test Item Value Reference Range Interpretation Comments TOTAL CELLS COUNTED (test code = 100 #CELLS TCC) SEGMENTED NEUTROPHILS (test code 34 % 43-65 L = SEG) LYMPHOCYTE (test code = LYMPH) 56 % 20.5-45.5 H MONOCYTE (test code = MON) 7 % 5.5-11.7 N EOSINOPHIL (test code = EOS) 3 % 0.9-2.9 H BAND ABSOLUTE (test code = 0.00 10 3/uL 0.00-0.70 N BAND#) NEUTROPHIL ABSOLUTE (test code = 1.33 10 3/uL 1.6-7.2 L SEG#) LYMPH ABSOLUTE (test code = 2.2 10 3/uL 1.1-2.7 N LYMPH#) ATYPICAL LYMPH ABSOLUTE (test 0.00 10 3/uL 0.00-0.00 N code = ALYMPH#) MONOCYTE ABSOLUTE (test code = 0.27 10 3/uL 0.3-0.8 L MON#) BASOPHIL ABSOLUTE (test code = 0.00 10 3/uL 0.00-0.1 N BASO#) EOSINOPHIL ABSOLUTE (test code = 0.11 10 3/uL 0.00-0.50 N EOS#) METAMYELOCYTE ABSOLUTE (test 0.00 10 3/uL 0.00-0.00 N code = META#) MYELOCYTE ABSOLUTE (test code = 0.00 10 3/uL 0.00-0.00 N MYELO#) PROMYELOCYTE ABSOLUTE (test code 0.00 10 3/uL 0.00-0.00 N = PROM#) BLASTS ABSOLUTE (test code = 0.00 10 3/uL 0.00-0.00 N BLAST#) OTHER CELLS ABSOLUTE (test code 0.00 10 3/uL 0.00-0.00 N = OCT#) RBC MORPHOLOGY COMMENT (test Normal NORMAL code = MOC) PLATELET MORPHOLOGY (test code = NORMAL NORMAL PLTMORPH) URINALYSIS [id number] 15:04:00 Test Item Value Reference Range Interpretation Comments UA COLOR (test code = COLU) YELLOW YELLOW UA APPEARANCE (test code = APPU) Clear CLEAR UA GLUCOSE DIPSTICK (test code = 3+ NEGATIVE DGLUU) UA BILIRUBIN DIPSTICK (test code = NEGATIVE NEGATIVE BILU) UA KETONE DIPSTICK (test code = NEGATIVE NEGATIVE KETU) UA SPECIFIC GRAVITY (test code = 1.027 1.001-1.030 SGU) UA BLOOD DIPSTICK (test code = ASHIA) NEGATIVE NEGATIVE UA PH DIPSTICK (test code = JUAREZ) 6.0 5.0-9.0 UA PROTEIN DIPSTICK (test code = NEGATIVE NEGATIVE PROU) UA UROBILINOGEN DIPSTICK (test code NEGATIVE <=1.0 = URO) UA NITRITE DIPSTICK (test code = NEGATIVE NEGATIVE CARON) UA ASCORBIC ACID DIPSTICK (test NEGATIVE code = AAU) UA LEUKOCYTE ESTERASE DIPSTICK NEGATIVE NEGATIVE (test code = LEUU) UA WBC (test code = WBCU) None /HPF 0-5 UA RBC (test code = RBCU) 0-5 /HPF 0-5 UA EPITHELIAL CELLS (test code = RARE /LPF NONE-FEW EPIU) UA BACTERIA (test code = BACU) None /HPF NONE SEEN BASIC METABOLIC [id number] 14:57:00 Test Item Value Reference Range Interpretation Comments SODIUM (test code 135 mmol/L 135-145 N = NA) POTASSIUM (test 3.8 mmol/L 3.6-5.0 N code = K) CHLORIDE (test 105 mmol/L 101-111 N code = CL) CARBON DIOXIDE 23 mmol/L 21-31 N (test code = CO2) GLUCOSE (test code 281 mg/dl 70-100 H = GLU) BLOOD UREA 6 mg/dl 6-20 N NITROGEN (test code = BUN) GLOMERULAR >=60 max >60 The estimated FILTRATION RATE estimate glomerular (test code = GFR) filtration rate is computed usingpatient ra ce, age (>18), sex, and serum creatinin e. If anyof the neede d data elements a re missing the Laboratory cliff ot compute an estimation of t he glomerular filtration rate . CREATININE (test 0.48 mg/dL 0.44-1.03 N code = CREAT) CALCIUM (test code 9.3 mg/dL 8.5-10.5 N = CA) LIVER FUNCTION [id number] 14:57:00 Test Item Value Reference Range Interpretation Comments TOTAL PROTEIN (test code = PROT) 6.9 g/dL 6.7-8.2 N ALBUMIN (test code = ALB) 3.6 g/dL 3.2-5.5 N BILIRUBIN TOTAL (test code = BILT) 0.70 mg/dL 0.2-1.3 N BILIRUBIN DIRECT (test code = 0.1 mg/dL 0.00-0.20 N BILD) SGOT/AST (test code = AST) 16 U/L 10-42 N SGPT/ALT (test code = ALT) 18 U/L 10-60 N ALKALINE PHOSPHATASE (test code = 62 U/L 42-121 N ALKP) [id number] 14:57:00 Test Item Value Reference Range Interpretation Comments LIPASE (test code = LIP) 55 IU/L 22-51 H CBC W/AUTO [id number] 14:52:00 Test Item Value Reference Range Interpretation Comments WHITE BLOOD CELL (test code = 3.9 x10 3/uL 3.2-11.5 N WBC) RED BLOOD CELL (test code = 4.89 x10(6)/m 3.70-5.10 N RBC) HEMOGLOBIN (test code = HGB) 13.6 g/dL 12.0-15.0 N HEMATOCRIT (test code = HCT) 41.6 % 35.7-44.8 N MEAN CELL VOLUME (test code = 85 fL 80-100 N MCV) MEAN CELL HGB (test code = MCH) 27.8 pg 26.2-33.8 N MEAN CELL HGB CONCENTRATION 32.7 g/dL 30.0-34.0 N (test code = MCHC) RED CELL DISTRIBUTION WIDTH 11.9 % 11.3-14.5 N (test code = RDW) PLATELET COUNT (test code = 180 x10 3/uL 130-408 N PLT) MEAN PLATELET VOLUME (test code 9.9 fL 8.6-12.6 N = MPV) WBC [id number] 14:52:00 Test Item Value Reference Range Interpretation Comments TOTAL CELLS COUNTED (test code = TCC) #CELLS RBC MORPHOLOGY COMMENT (test code = NORMAL MOC) PLATELET MORPHOLOGY (test code = NORMAL PLTMORPH) CBC W/AUTO [id number] 14:52:00 Test Item Value Reference Range Interpretation Comments WHITE BLOOD CELL (test code = 3.9 x10 3/uL 3.2-11.5 N WBC) RED BLOOD CELL (test code = 4.89 x10(6)/m 3.70-5.10 N RBC) HEMOGLOBIN (test code = HGB) 13.6 g/dL 12.0-15.0 N HEMATOCRIT (test code = HCT) 41.6 % 35.7-44.8 N MEAN CELL VOLUME (test code = 85 fL 80-100 N MCV) MEAN CELL HGB (test code = MCH) 27.8 pg 26.2-33.8 N MEAN CELL HGB CONCENTRATION 32.7 g/dL 30.0-34.0 N (test code = MCHC) RED CELL DISTRIBUTION WIDTH 11.9 % 11.3-14.5 N (test code = RDW) PLATELET COUNT (test code = 180 x10 3/uL 130-408 N PLT) MEAN PLATELET VOLUME (test code 9.9 fL 8.6-12.6 N = MPV) WBC [id number] 14:52:00 Test Item Value Reference Range Interpretation Comments TOTAL CELLS COUNTED (test code = TCC) #CELLS RBC MORPHOLOGY COMMENT (test code = NORMAL MOC) PLATELET MORPHOLOGY (test code = NORMAL PLTMORPH) BASIC METABOLIC [id number] 14:50:00 Test Item Value Reference Range Interpretation Comments SODIUM (test code 135 mmol/L 135-145 N = NA) POTASSIUM (test 3.8 mmol/L 3.6-5.0 N code = K) CHLORIDE (test 105 mmol/L 101-111 N code = CL) CARBON DIOXIDE 23 mmol/L 21-31 N (test code = CO2) GLUCOSE (test code 281 mg/dl 70-100 H = GLU) BLOOD UREA 6 mg/dl 6-20 N NITROGEN (test code = BUN) GLOMERULAR >=60 max >60 The estimated FILTRATION RATE estimate glomerular (test code = GFR) filtration rate is computed usingpatient ra ce, age (>18), sex, and serum creatinin e. If anyof the neede d data elements a re missing the Laboratory cliff ot compute an estimation of t he glomerular filtration rate . CREATININE (test 0.48 mg/dL 0.44-1.03 N code = CREAT) CALCIUM (test code 9.3 mg/dL 8.5-10.5 N = CA) LIVER FUNCTION [id number] 14:50:00 Test Item Value Reference Range Interpretation Comments TOTAL PROTEIN (test code = PROT) 6.9 g/dL 6.7-8.2 N ALBUMIN (test code = ALB) 3.6 g/dL 3.2-5.5 N BILIRUBIN TOTAL (test code = BILT) mg/dL 0.2-1.3 BILIRUBIN DIRECT (test code = BILD) mg/dL 0.00-0.20 SGOT/AST (test code = AST) U/L 10-42 SGPT/ALT (test code = ALT) U/L 10-60 ALKALINE PHOSPHATASE (test code = U/L 42-121 ALKP) [id number] 14:50:00 Test Item Value Reference Range Interpretation Comments LIPASE (test code = LIP) 55 IU/L 22-51 H HCG SERUM [id number] 14:48:00 Test Item Value Reference Range Interpretation Comments HCG SERUM QUAL NEGATIVE NEGATIVE This is a lucien litative (test code = HCGQL) screenin g test.The quantitative Bh cg may be helpful.Weakly positive results should be repeated in 48 hours. [id number] 13:28:00 Test Item Value Reference Range Interpretation Comments GLUBED (test code = GLUBED) 246 MG/DL 70-[address], [id number] 13:59:00FINAL REPORT TECHNIQUE: CT of the abdomen and pelvis WITH intravenous contrast and WITHOUT oral contrast. Dose modulation, iterative reconstruction, and/or weight-based adjustment of the mA/kV was utilized to reduce the radiation dose to as low as reasonably achievable. INDICATION: Abdominal infection suspected. COMPARISON: 05/27/2007. FINDINGS: LOWER THORAX: Mild left basilar atelectasis. HEPATOBILIARY: No focal hepatic lesions. Gallbladder is unremarkable. No biliary ductal di latation.SPLEEN: No splenomegaly.PANCREAS: No focal masses or ductal dilatation. ADRENALS: No adrenal nodules.KIDNEYS/URETERS: No hydronephrosis, stones, or solid mass lesions.PELVIC ORGANS/BLADDER: Status post hysterectomy. There is a 3 cm cystic focus in the left ovary, likely functional... PERITONEU M/RETROPERITONEUM: No free air or fluid.LYMPH NODES: No lymphadenopathy.VESSELS: Unremarkable. GI TRACT: No distention or wall thickening. The appendix is normal. BONES AND SOFT TISSUES: Mild degenerative changes in the spine. No suspicious osseous lesion.. IMPRESSION:No acute intra-abdominal or intrapelvic abnormality.. Signed: Jose Dawson Verified Date/Time: 04/05/2020 13:59:01 Reading Location: [facility] C013Y CT Body Reading Room CT abdomen pelvis with IV [id number] 13:59:00Interface, External Ris In - 04/05/2020 2:01 PM CDTFINAL REPORT TECHNIQUE: CT of the abdomen and pelvis WITH intravenous contrast and WITHOUT oral contrast. Dose modulation, iterative reconstruction, and/or weight-based adjustment of the mA/kV was utilized to reduce the radiation dose to as low as reasonably achievable. INDICATION: Abdominal infection suspected. COMPARISON: 05/27/2007. FINDINGS: LOWER THORAX: Mild left basilar atelectasis. HEPATOBILIARY: No focal hepatic lesions. Gallbladder is unremarkable. No biliary ductal dilatation.SPLEEN: No splenomegaly.PANCREAS: No focal masses or ductal dilatation. ADRENALS: No adrenal nodules.KIDNEYS/URETERS: No hydronephrosis, stones, or solid mass lesions.PELVIC ORGANS/BLADDER: Status post hysterectomy. There is a 3 cm cystic focus in the left ovary, likely functional... PERITONEUM/RETROPERITONEUM: No free air or fluid.LYMPH NODES: No lymphadenopathy.VESSELS: Unremarkable. GI TRACT: No distention or wall thickening. The appendix is normal. BONES AND SOFT TISSUES: Mild degenerative changes in the spine. No suspicious osseous lesion.. IMPRESSION:No acute intra- abdominal or intrapelvic abnormality.. Signed: Jose Dawson MDReport Verified Date/Time: 04/05/2020 13:59:01 Reading Location: [facility] C013Y CT [facility] Test Item Value Reference Range Interpretation Comments Lipase (test code = 3040-3) 90 U/L 40-240 Lab Interpretation (test code = Normal 77892-2) [facility] Test Item Value Reference Range Interpretation Comments LIPASE (BEAKER) (test code = 749) 90 U/L 40-240 Comprehensive metabolic [id number] 13:24:00 Test Item Value Reference Range Interpretation Comments Protein, Total (test 7.2 See_Comment [Autom ated code = 2885-2) message] The system which generated this result transmitted reference range : 6.0 - 8.5 gm/dL . The reference r scott was not used to interpret this result as normal/abnormal . Albumin (test code = 3.9 g/dL 3.5-5 22453-3) Alkaline Phosphatase 76 U/L 30-115 (test code = 6768-6) Total Bilirubin (test 0.7 mg/dL 0.1-1.2 code = 1974-2) Sodium (test code = 138 meq/L 953-073 6657-2) Potassium (test code = 4.4 meq/L 3.6-5.5 2823-3) Chloride (test code = 105 meq/L 98-106 2075-0) CO2 (test code = 26 meq/L 24-32 2028-9) BUN (test code = 12 mg/dL 10-26 3094-0) Creatinine (test code = 0.44 mg/dL 0.5-1.2 L 2160-0) Glucose (test code = 316 mg/dL 70-110 H 2345-7) Calcium (test code = 9.6 mg/dL 8.5-10.5 04036-0) AST (test code = 23 U/L 5-40 1920-8) ALT (test code = 17 U/L 5-50 1742-6) EGFR (test code = 184 mL/min/1.73 [place] [address]-8) NOT ACCURATE CREATININE CLEARANCE IN PREDICTING GLOMERULAR FILTRATION RATE . ESTIMATED GFR I S NOT APPLICABLE FOR DIALYSIS PATIEN TS. Lab Interpretation Abnormal (test code = 98476-7) [facility] [id number] 13:24:00 Test Item Value Reference Range Interpretation Comments TOTAL PROTEIN 7.2 gm/dL 6.0-8.5 (BEAKER) (test code = 770) ALBUMIN (BEAKER) 3.9 g/dL 3.5-5.0 (test code = 1145) ALKALINE PHOSPHATASE 76 U/L 30-115 (BEAKER) (test code = 346) BILIRUBIN TOTAL 0.7 mg/dL 0.1-1.2 (BEAKER) (test code = 377) SODIUM (BEAKER) (test 138 meq/L 135-148 code = 381) POTASSIUM (BEAKER) 4.4 meq/L 3.6-5.5 (test code = 379) CHLORIDE (BEAKER) 105 meq/L 98-106 (test code = 382) CO2 (BEAKER) (test 26 meq/L 24-32 code = 355) BLOOD UREA NITROGEN 12 mg/dL 10-26 (BEAKER) (test code = 354) CREATININE (BEAKER) 0.44 mg/dL 0.50-1.20 L (test code = 358) GLUCOSE RANDOM 316 mg/dL 70-110 H (BEAKER) (test code = 652) CALCIUM (BEAKER) 9.6 mg/dL 8.5-10.5 (test code = 697) AST (SGOT) (BEAKER) 23 U/L 5-40 (test code = 353) ALT (SGPT) (BEAKER) 17 U/L 5-50 (test code = 347) EGFR (BEAKER) (test 184 ESTIMATE D GFR IS code = 1092) mL/min/1.73 sq NOT ACCURA TE m CREATININE CLEARANCE IN PREDICTING GLOMERULAR FILTRATION RATE . ESTIMATED GFR I S NOT APPLICABLE FOR DIALYSIS PATIEN TS. Urinalysis w/[id number] 13:22:00 Test Item Value Reference Range Interpretation Comments Color, UA (test code = Yellow 5778-6) Clarity, UA (test code = Clear 5767-9) Specific [place], UA 1.015 1.001-1.035 (test code = 5811-5) pH, UA (test code = 6.0 5.0-8.0 5803-2) Protein, UA (test code = Negative Negative 60443-8) Glucose, UA (test code = 500 mg/dL Negative A 365) Ketones, UA (test code = Negative Negative 2514-8) Bilirubin, UA (test code Negative Negative = 16547-5) Blood, UA (test code = Negative Negative 97591-8) Nitrite, UA (test code = Negative Negative 5802-4) Leukocytes, UA (test Negative Negative code = 5799-2) Urobilinogen, UA (test 0.2 mg/dL 0.2-1 code = 81319-6) Bacteria, UA (test code Few = 06444-4) Yeast (test code = Few 30162-6) RBC, UA (test code = None Seen See_Comment [Autom ated message] 799-7) The system [employer] generated this result transmit danika reference range : /HPF. The refer ence range was not u sed to interpret th is result as normal/abnormal . WBC, UA (test code = <5 See_Comment [Autom ated message] 61721-3) The system [employer] generated this result transmit danika reference range : /HPF. The refer ence range was not u sed to interpret th is result as normal/abnormal . SQUAMOUS EPITHELIAL <5 See_Comment [Automa danika message] (test code = 36593-7) The sy stem which generated this result transmit danika reference range : /HPF. The refer ence range was not u sed to interpret th is result as normal/abnormal . Specimen Source (test code = 2795) Lab Interpretation (test Abnormal code = 58131-6) [facility] [id number] 13:22:00 Test Item Value Reference Range Interpretation Comments COLOR (BEAKER) (test code = Yellow 470) CLARITY (BEAKER) (test code = Clear 469) SPECIFIC GRAVITY UA (BEAKER) 1.015 1.001-1.035 (test code = 468) PH UA (BEAKER) (test code = 6.0 5.0-8.0 467) PROTEIN UA (BEAKER) (test code Negative Negative = 464) GLUCOSE UA (BEAKER) (test code 500 mg/dL Negative A = 365) KETONES UA (BEAKER) (test code Negative Negative = 371) BILIRUBIN UA (BEAKER) (test Negative Negative code = 462) BLOOD UA (BEAKER) (test code = Negative Negative 461) NITRITE UA (BEAKER) (test code Negative Negative = 465) LEUKOCYTE ESTERASE UA (BEAKER) Negative Negative (test code = 466) UROBILINOGEN UA (BEAKER) (test 0.2 mg/dL 0.2-1.0 code = 463) BACTERIA (BEAKER) (test code = Few 517) YEAST (BEAKER) (test code = Few 1585) RBC UA-MANUAL (BEAKER) (test None Seen /HPF code = 1659) WBC UA-MANUAL (BEAKER) (test <5 /HPF code = 1661) SQUAMOUS EPITHELIAL MANUAL <5 /HPF (BEAKER) (test code = 1663) SOURCE(BEAKER) (test code = 2795) CBC with platelet count + automated [id number] 13:15:00 Test Item Value Reference Range Interpretation Comments WBC (test code = 4.6 See_Comment [Automated message] 5790-2) The system [employer] generated this result transmitted ref erence range: 4.0 - 10 .0 K/L. The refe rence range was not u sed to interpret this result as normal/abnor mal. RBC (test code = 789-8) 4.61 See_Comment [Au tomated message] The system [employer] generated this result transmitted ref erence range: 4.00 - 5 .00 M/L. The refe rence range was not u sed to interpret this result as normal/abnor mal. MCHC (test code = 32.5 See_Comment [Automate d message] 786-4) The system [employer] generated this result transmitted ref erence range: 32.0 - 3 6.0 GM/DL. The refe rence range was not u sed to interpret this result as normal/abnor mal. Hematocrit (test code = 40.3 % 36-45 4544-3) MCV (test code = 787-2) 87.5 fL 82-99 MCH (test code = 785-6) 28.4 pg 27-33 RDW (test code = 788-0) 12.4 % 10.3-14.2 Platelets (test code = 215 See_Comment [Aut omated message] 737-3) The system [employer] generated this result transmitted ref erence range: 150 - 43 0 K/CU MM. The referen ce range was not used to interpret this result as normal/abnor mal. MPV (test code = 8.6 fL 6.5-10.5 03377-6) % Neutros (test code = 46 % 429) % Lymphs (test code = 43 % 430) % Monos (test code = 5 % 431) % Eos (test code = 432) 5 % % Baso (test code = 1 % 437) # Neutros (test code = 2.15 See_Comment [Aut omated message] 670) The system [employer] generated this result transmitted ref erence range: 1.80 - 8 .00 K/L. The refe rence range was not u sed to interpret this result as normal/abnor mal. # Lymphs (test code = 2.01 See_Comment [Auto mated message] 414) The system [employer] generated this result transmitted ref erence range: 1.48 - 4 .50 K/L. The refe rence range was not u sed to interpret this result as normal/abnor mal. # Monos (test code = 0.22 See_Comment [Autom ated message] 415) The system [employer] generated this result transmitted ref erence range: 0.00 - 1 .30 K/L. The refe rence range was not u sed to interpret this result as normal/abnor mal. # Eos (test code = 416) 0.23 See_Comment [Au tomated message] The system [employer] generated this result transmitted ref erence range: 0.00 - 0 .50 K/L. The refe rence range was not u sed to interpret this result as normal/abnor mal. # Baso (test code = 0.03 See_Comment [Automa danika message] 417) The system [employer] generated this result transmitted ref erence range: 0.00 - 0 .20 K/L. The refe rence range was not u sed to interpret this result as normal/abnor mal. [facility] W/PLT COUNT & AUTO [id number] 13:15:00 Test Item Value Reference Range Interpretation Comments WHITE BLOOD CELL COUNT (BEAKER) 4.6 K/ L 4.0-10.0 (test code = 775) RED BLOOD CELL COUNT (BEAKER) 4.61 M/ L 4.00-5.00 (test code = 761) HEMOGLOBIN (BEAKER) (test code = 13.1 GM/DL 12.0-15.0 410) HEMATOCRIT (BEAKER) (test code = 40.3 % 36.0-45.0 411) MEAN CORPUSCULAR VOLUME (BEAKER) 87.5 fL 82.0-99.0 (test code = 753) MEAN CORPUSCULAR HEMOGLOBIN 28.4 pg 27.0-33.0 (BEAKER) (test code = 751) MEAN CORPUSCULAR HEMOGLOBIN CONC 32.5 GM/DL 32.0-36.0 (BEAKER) (test code = 752) RED CELL DISTRIBUTION WIDTH 12.4 % 10.3-14.2 (BEAKER) (test code = 412) PLATELET COUNT (BEAKER) (test 215 K/CU MM 150-430 code = 756) MEAN PLATELET VOLUME (BEAKER) 8.6 fL 6.5-10.5 (test code = 754) NEUTROPHILS RELATIVE PERCENT 46 % (BEAKER) (test code = 429) LYMPHOCYTES RELATIVE PERCENT 43 % (BEAKER) (test code = 430) MONOCYTES RELATIVE PERCENT 5 % (BEAKER) (test code = 431) EOSINOPHILS RELATIVE PERCENT 5 % (BEAKER) (test code = 432) BASOPHILS RELATIVE PERCENT 1 % (BEAKER) (test code = 437) NEUTROPHILS ABSOLUTE COUNT 2.15 K/ L 1.80-8.00 (BEAKER) (test code = 670) LYMPHOCYTES ABSOLUTE COUNT 2.01 K/ L 1.48-4.50 (BEAKER) (test code = 414) MONOCYTES ABSOLUTE COUNT (BEAKER) 0.22 K/ L 0.00-1.30 (test code = 415) EOSINOPHILS ABSOLUTE COUNT 0.23 K/ L 0.00-0.50 (BEAKER) (test code = 416) BASOPHILS ABSOLUTE COUNT (BEAKER) 0.03 K/ L 0.00-0.20 (test code = 417) [QL] CMP [id number] 00:00:00 Test Item Value Reference Range Interpretation Comments GLUCOSE; Above 307 mg/dl 65-99 Fasting refer ence High Threshold interval For (test code = someone without 1547-9) known diabetes, a glucosevalue >1 25 mg/dL indicates that they may havediabetes an d this should be confirmed with afollow-up test . UREA NITROGEN 14 mg/dl 7-25 N (BUN) (test code = UREA NITROGEN (BUN)) CREATININE (test 0.71 mg/dl 0.50-1.10 N code = CREATININE) eGFR NON- 100 {ML/MIN/1.7} > OR = 60 N CHILEAN (test code = eGFR NON-) eGFR 116 {ML/MIN/1.7} > OR = 60 N CHILEAN (test code = eGFR ) BUN/CREATININE NOT APPLICABLE 6-22 RATIO (test code = BUN/CREATININE RATIO) SODIUM (test code 139 mmol/L 135-146 N = SODIUM) POTASSIUM (test 4.5 mmol/L 3.5-5.3 N code = POTASSIUM) CHLORIDE (test 105 mmol/L 98-110 N code = CHLORIDE) CARBON DIOXIDE 26 mmol/L 20-32 N (test code = CARBON DIOXIDE) CALCIUM (test code 9.4 mg/dl 8.6-10.2 N = CALCIUM) PROTEIN, TOTAL 6.6 g/dl 6.1-8.1 N (test code = PROTEIN, TOTAL) ALBUMIN (test code 3.9 g/dl 3.6-5.1 N = ALBUMIN) GLOBULIN (test 2.7 {G/DL CALC} 1.9-3.7 N code = GLOBULIN) ALBUMIN/GLOBULIN 1.4 {CALC} 1.0-2.5 N RATIO (test code = ALBUMIN/GLOBULIN RATIO) BILIRUBIN, TOTAL; 0.5 mg/dl 0.2-1.2 N Normal (test code = 88573-1) ALKALINE 58 u/l 31-125 N PHSPHATASE (test code = ALKALINE PHSPHATASE) AST; Normal (test 12 u/l 10-35 N code = 1916-6) ALT; Normal (test 15 u/l 6-29 N code = 1742-6) [facility][QL] SED RATE BY MODIFIED [id number] 00:00:00 Test Item Value Reference Range Interpretation Comments SED RATE BY MODIFIED WESTERGREN (test 9 mm/h < OR = 20 N code = SED RATE BY MODIFIED WESTERGREN) [facility][QL] CBC (INCLUDES DIFF/PLT)2020-03-04 00:00:00 Test Item Value Reference Range Interpretation Comments WHITE BLOOD CELL COUNT 5.3 {Thousand/u} 3.8-10.8 N (test code = WHITE BLOOD CELL COUNT) RED BLOOD CELL COUNT (test 4.68 {Million/uL} 3.80-5.10 N code = RED BLOOD CELL COUNT) HEMAGLOBIN; Normal (test 13.1 g/dl 11.7-15.5 N code = 55437-4) HEMATOCRIT; Normal (test 40.6 % 35.0-45.0 N code = 4544-3) MCV; Normal (test code = 86.8 fL 80.0-100.0 N 787-2) MCHC; Normal (test code = 32.3 g/dl 32.0-36.0 N 38285-3) RDW; Normal (test code = 12.8 % 11.0-15.0 N 788-0) PLATELET COUNT; Normal 233 {Thousand/u} 140-400 N (test code = 777-3) MPV; Normal (test code = 11.1 fL 7.5-12.5 N 48970-7) ABSOLUTE NEUTROPHILS (test 3042 {cells/uL} 3622-8609 N code = ABSOLUTE NEUTROPHILS) ABSOLUTE LYMPHOCYTES (test 1717 {cells/uL} 850-3900 N code = ABSOLUTE LYMPHOCYTES) ABSOLUTE MONOCYTES (test 297 {cells/uL} 200-950 N code = ABSOLUTE MONOCYTES) ABSOLUTE EOSINOPHILS (test 212 {cells/uL} 15-500 N code = ABSOLUTE EOSINOPHILS) ABSOLUTE BASOPHILS (test 32 {cells/uL} 0-200 N code = ABSOLUTE BASOPHILS) NEUTROPHILS (test code = 57.4 % N NEUTROPHILS) LYMPHOCYTES (test code = 32.4 % N LYMPHOCYTES) MONOCYTES; Normal (test 5.6 % N code = 69729-9) EOSINOPHILS; Normal (test 4.0 % N code = 80590-0) BASOPHILS; Normal (test 0.6 % N code = 76835-3) [facility][QL] RHEUMATOID [id number] 00:00:00 Test Item Value Reference Range Interpretation Comments RHEUMATOID FACTOR (test code = <14 <14 N RHEUMATOID FACTOR) [facility][QL] C-REACTIVE [id number] 00:00:00 Test Item Value Reference Range Interpretation Comments C-REACTIVE PROTEIN (test code = 3.7 mg/L <8.0 N C-REACTIVE PROTEIN) [facility][Q] QUANTIFERON( R)-TB GOLD PLUS, 1 [id number] 00:00:00 Test Item Value Reference Range Interpretation Comments QUANTIFERON( NEGATIVE NEGATIVE N Negative test r esult. M. R)-TB GOLD tuberculosis co mplex PLUS, 1 TUBE infection unlik fabrizio. (test code = QUANTIFERON( R)-TB GOLD PLUS, 1 TUBE) NIL (test code 0.03 {IU/ml} N = NIL) MITOGEN-NIL 8.29 {IU/ml} N (test code = MITOGEN-NIL) TB1-NIL (test <0.00 N code = TB1-NIL) TB2-NIL (test <0.00 N The Nil tube v alue reflects code = the background TB2-NIL) interferongamma immune response of the patient's blood sample.Th is value has been subtracted from the patient'sdispla yed TB and Mitogen results . Lower than expected result s with the Mitogen tubepre vent false-negative Quantiferon readings bydete cting a patient with a potential immunesuppressi ve condition and/or suboptim al pre-analyticals pecimen handling. The T B1 Antigen tube is coated with theM. tuberculosis-sp ecific antigens design ed to elicitresponses from TB antigen primed CD4+ helperT-lymphoc ytes. The TB2 Antigen tub e is coated with theM. tuberculosis-sp ecific antigens design ed to elicitresponses from TB antigen primed CD4+ helper and CD8+cytotox ic T-lymphocytes. For additional info rmation, please refer [email or web address] [email or web address]/f [email or web address](Th is link is josselyncrista johnson provided for informational/e ducational purposes only.) [facility][O] Hemoglobin A1c (in office)2020-02-25 14:00:00 Test Item Value Reference Range Interpretation Comments HEMOGLOBIN A1c (test code = 4548-4) 14.0 [facility] Pelvis without contrast [id number] 18:05:00EXAM: MR PELVIS WITHOUT CONTRASTDATE: 12/28/2019 17:41 CSTINDICATION: - M19.90 Unspecified Osteoarthritis, unspecified siteCOMPARISON: Sacroiliac joint radiographs 06/24/2019TECHNIQUE: Multiplanar, multisequence MR noncontrast imaging of the hip.DISCUSSION:Sacroiliac joints: There is mild bilateral subarticular sclerosis, rightgreater than left. Minimal right subchondral marrow edema. No synovitis orjoint erosions. No subchondral fatty infiltration.Bone: There is mild right greater trochanter bone marrow edema at the gluteusmedius insertion. Small osteophytes and mild subchondral marrow edema of thepubic symphysis.Mild facet arthropathy of the visualized lower lumbar spine.Ligaments: The visualized ligamentum teres and the capsular ligaments areintact.Muscles: No signal abnormality in the muscles. Minimal edema around the rightgluteus medius tendon at its insertion.Cartilage: Cartilage thinning of the bilateral sacroiliac joints and bilateralsuperomedial hip joints.Soft tissue: No joint effusion or fluid collection. No abnormality of theneurovascular structures.IMPRESSION:1. Mild bilateral subarticular sclerosis of the sacroiliac joints, rightgreater than left, with minimal right subchondral marrow edema. Findings areindeterminate for sacroiliitis and can be seen in sacroiliitis orosteoarthrosis.2. Mild right greater trochanter enthesitis at the gluteus medius insertion.3. Mild osteoarthrosis of the pubic symphysis.--Read by: Nikolai Ramirez MDDictated Date/time: 12/29/19 05:38Electronically Signed by: Nikolai Ramirez MD 12/29/2005:03FINAL REPORT [facility] PhysiciansNeisseria gonorrhoeae DNA [id number] 16:05:00 Test Item Value Reference Range Interpretation Comments Neisseria gonorrhoeae DNA probe Negative Negative (test code = 21249-1) [facility] [id number] 16:05:00 Test Item Value Reference Range Interpretation Comments chlamydia DNA probe (test code = Negative Negative 16359-2) [facility] vaginalis, [id number] 16:05:00 Test Item Value Reference Range Interpretation Comments trichomonas vaginalis, urine (test Positive Negative A code = 3887) [facility] glucose, [id number] 10:17:43 Test Item Value Reference Range Interpretation Comments blood glucose, fasting (test code = 335 mg/dL 7) [facility] ([facility]2019-11-21 09:08:00 Test Item Value Reference Range Interpretation Comments Glucose POC Lifescan (test code = 418 Glucose POC Lifescan) [facility]] MICROALBUMIN, RANDOM URINE (W/CREATININE) 2019-10-22 17:51:01 Test Item Value Reference Range Interpretation Comments Urine Microalbumin 46.2 mg/L No establ ished (test code = Urine reference range. Microalbumin) U Creatinine (test 74.60 mg/dl No establ ished code = 2161-8) reference ran ge. Urine Microalbuming 61.9 mg/g <=30.0 Creatinine Ratio; Above High Threshold (test code = 80811-2) [facility]] CBC (INCLUDES DIFF/PLT)2019-10-22 14:42:01 Test Item Value Reference Range Interpretation Comments WBC (test code = 6690-2) 5.0 {K/CMM} 3.7-10.4 RBC (test code = 789-8) 4.75 {M/CMM} 4.20-5.40 Hgb (test code = 718-7) 13.6 g/dl 12.0-16.0 Hct (test code = 65720-6) 42.0 % 36.0-48.0 MCV (test code = 787-2) 88.4 fL 80.0-98.0 MCH (test code = 785-6) 28.7 pg 27.0-31.0 MCHC (test code = 786-4) 32.5 g/dl 32.0-36.0 RDW (test code = 788-0) 13.6 % 11.5-14.5 Platelet (test code = 16504-6) 212 {K/CMM} 133-450 Mean Platelet Volume (test code 9.6 fL 7.4-10.4 = 39494-8) [facility]] [id number] 14:42:01 Test Item Value Reference Range Interpretation Comments Segmented Neutrophils; Below Low 42.4 % 45.0-75.0 Threshold (test code = 98964-9) Monocytes (test code = 20041-7) 5.0 % 2.0-12.0 Lymphocytes; Above High Threshold 50.3 % 20.0-40.0 (test code = 95976-6) Eosinophils (test code = 61306-4) 1.7 % 0.0-4.0 Basophils (test code = 706-2) 0.6 % 0.0-1.0 Segs-Bands # (test code = 2.1 {K/CMM} 1.5-8.1 47627-2) Lymphocytes # (test code = 2.5 {K/CMM} 1.0-5.5 79115-5) Monocytes # (test code = 18082-8) 0.2 {K/CMM} 0.0-0.8 Eosinophils # (test code = 0.1 {K/CMM} 0.0-0.5 90337-2) [facility]] CMP [id number] 14:42:01 Test Item Value Reference Range Interpretation Comments Sodium Level 140 {mEq/l} 135-145 (test code = 2951-2) Potassium Level 4.1 {mEq/l} 3.5-5.1 (test code = 2823-3) Chloride Level 106 {mEq/l} 95-109 (test code = 2075-0) Carbon Dioxide; 23 {mEq/l} 24-32 Below Low Threshold (test code = 8-9) AGAP (test code = 15.1 {mEq/l} 10.0-20.0 95346-9) Glucose Lvl; 289 mg/dl 70-99 Adult reference range Above High values reflect the Threshold (test clinical moises delinesof the code = 2345-7) [place] [employer]. Creatinine Lvl 0.70 mg/dl 0.50-1.40 (test code = 2160-0) Blood Urea 11 mg/dl 7-22 Nitrogen (test code = 3094-0) BUN/Creatinine 16 6-25 Ratio (test code = 3097-3) Total Protein 7.8 g/dl 6.4-8.4 (test code = 2885-2) Albumin Lvl (test 3.9 g/dl 3.5-5.0 code = 1751-7) Globulin (test 3.9 g/dl 2.7-4.2 code = 65111-5) A/G Ratio (test 1.0 0.7-1.6 code = 1759-0) Calcium Level 9.6 mg/dl 8.5-10.5 Total (test code = 50883-9) ALT (test code = 26 u/l 0-65 1743-4) AST (test code = 13 u/l 0-37 20009-4) Bili Total (test 0.5 mg/dl 0.2-1.3 code = 1975-2) Alk Phos (test 73 u/l 39-136 The pediatric reference code = 1783-0) ranges for is test represent a CLSI-basedtrans ference of the CALIPER natalia abase of pediatric refer ence intervals to eSiemens [place] analyzer (Clinical Biochemistry 46 (2013): 8328-7903). [facility] [employer] has not internally validated these reference ranges and therefore they should be used only in th e context of a thoroughcl inical assessment. eGFR (test code = 103 The eGFR i s calculated 80189-0) {ML/MIN/1.7} using the CKD-E PI formula. In mos t young, healthyindividu als the eGFR will be >9 0 mL/min/1.73m2. The eGFR declines with a ge. AneGFR of 60-89 may be normal in some population s, particularly th e elderly, forwhom the CKD -EPI formula has not been extensively chaitanya idated. Use of the eGFR isnot recommended in the following populations:Ind ividuals with unstable c reatinine concentrations, including patient s and those with seri ous co-morbid conditions.Denise ents with extremes in mus aziza mass or diet.The natalia a above are obtained fr om the National Kidney Disease Education Progr am(NKDEP) which ana covarrubiasy recommends that when the eGFR is used in patientswith ex tremes of body mass index for purposes of urmila g dosing, the eGFR should be multiplied by t he estimated BMI. [facility]] LIPID [id number] 14:42:01 Test Item Value Reference Range Interpretation Comments Chol (test code = 2092-3) 197 mg/dl <=199 Trig; Above High Threshold (test 196 mg/dl <=149 code = 2571-8) HDL Cholesterol; Below Low 55 mg/dl >=61 Threshold (test code = 2085-9) CHD Risk; Below Low Threshold (test 3.58 3.90-5.80 code = 04211-4) LDL; Above High Threshold (test 103 mg/dl <=99 code = 29961-8) VLDL (test code = VLDL) 39 [facility]] VITAMIN [id number] 14:42:01 Test Item Value Reference Range Interpretation Comments Vitamin B12 Level (test code = 521 pg/ml 254-1320 2132-9) [facility]] HEMOGLOBIN [id number] 14:42:01 Test Item Value Reference Range Interpretation Comments Hemoglobin A1c; Above High Threshold 14.3 % <=5.6 (test code = 4548-4) [facility]] VITAMIN D, 25-HYDROXY, LC/MS/[id number] 14:42:01 Test Item Value Reference Range Interpretation Comments Vitamin D, 25-OH, 24.9 ng/ml 30.0-100.0 Reference range is based Total (test code on recommen dations in the = Vitamin D, EndocrineSociet y Clinical 25-OH, Total) Practice Guide line (J Clin Endocrinol Llbwm0104;96:19 11-1930) [facility]iciansNeisseria gonorrhoeae DNA [id number] 16:30:00 Test Item Value Reference Range Interpretation Comments Neisseria gonorrhoeae DNA probe Negative Negative (test code = 45627-8) [facility] [id number] 16:30:00 Test Item Value Reference Range Interpretation Comments chlamydia DNA probe (test code = Negative Negative 62599-5) [facility]trichomonas vaginalis, [id number] 16:30:00 Test Item Value Reference Range Interpretation Comments trichomonas vaginalis, urine (test Negative Negative code = 3887) [facility]hepatitis B surface [id number] 13:18:00 Test Item Value Reference Range Interpretation Comments hepatitis B surface antigen (test Negative Negative code = 79) [facility] antibody, [id number] 13:18:00 Test Item Value Reference Range Interpretation Comments hepatitis C antibody, serum (test code <0.1 0.0-0.9 = 2722) [facility]HIV-CMIA (Chemiluminescent Microparticle Immuno Assay) 2019-10-09 13:18:00 Test Item Value Reference Range Interpretation Comments HIV-CMIA (Chemiluminescent Non Reactive Non Reactive Microparticle Immuno Assay) (test code = 978823) [facility]id plasma reagin antibody, [id number] 13:18:00 Test Item Value Reference Range Interpretation Comments rapid plasma reagin antibody, Non Reactive Non Reactive serum (test code = 308) [facility]oglobin A1C, blood, as % of total [id number] 13:18:00 Test Item Value Reference Range Interpretation Comments hemoglobin A1C, blood, as % of total 14.5 % 4.8-5.6 H hemoglobin (test code = 4548-4) [facility] CountyHERPES [facility] V[facility] TYPE 1 AB.IGG (PT; SER; QN; ) 2019-10-09 13:18:00 Test Item Value Reference Range Interpretation Comments HERPES SIMPLEX VIRUS TYPE 1 11.70 index 0.00-0.90 H AB.IGG (PT; SER; QN; ) (test code = 2432) [facility] (SGPT), [id number] 13:18:00 Test Item Value Reference Range Interpretation Comments alanine aminotransferase (SGPT), serum 22 1/L 0-32 (test code = 40) [facility] Countyaspartate aminotransferase (SGOT), [id number] 13:18:00 Test Item Value Reference Range Interpretation Comments aspartate aminotransferase (SGOT), 21 1/L 0-40 serum (test code = 39) [facility] phosphatase, [id number] 13:18:00 Test Item Value Reference Range Interpretation Comments alkaline phosphatase, serum (test code 92 1/L 39-117 = 3) [facility]irubin, serum, [id number] 13:18:00 Test Item Value Reference Range Interpretation Comments bilirubin, serum, total (test code 0.4 mg/dL 0.0-1.2 = 43) [facility]albumin/globulin ratio, [id number] 13:18:00 Test Item Value Reference Range Interpretation Comments albumin/globulin ratio, serum (test 1.8 1.2-2.2 code = 146) [facility] Healthglobulin, [id number] 13:18:00 Test Item Value Reference Range Interpretation Comments globulin, serum (test code = 3059) 2.4 1.5-4.5 [facility]albumin, [id number] 13:18:00 Test Item Value Reference Range Interpretation Comments albumin, serum (test code = 2) 4.3 g/dL 3.5-5.5 [facility] Healthprotein, total, [id number] 13:18:00 Test Item Value Reference Range Interpretation Comments protein, total, serum (test code = 6.7 g/dL 6.0-8.5 36) [facility]calcium, [id number] 13:18:00 Test Item Value Reference Range Interpretation Comments calcium, serum (test code = 11) 9.4 mg/dL 8.7-10.2 [facility] Countycarbon dioxide, venous [id number] 13:18:00 Test Item Value Reference Range Interpretation Comments carbon dioxide, venous blood (test 21 mmol/L code = 15) [facility] Countychloride, [id number] 13:18:00 Test Item Value Reference Range Interpretation Comments chloride, serum (test code = 13) 101 mmol/L 96-106 [facility] Countypotassium, [id number] 13:18:00 Test Item Value Reference Range Interpretation Comments potassium, serum (test code = 35) 4.3 mmol/L 3.5-5.2 [facility]sodium, [id number] 13:18:00 Test Item Value Reference Range Interpretation Comments sodium, serum (test code = 159) 140 mmol/L 134-144 [facility] Countyurea nitrogen/creatinine ratio, [id number] 13:18:00 Test Item Value Reference Range Interpretation Comments urea nitrogen/creatinine ratio, serum 11 -23 (test code = 2462) [facility] HealtheGFR if [id number] 13:18:00 Test Item Value Reference Range Interpretation Comments eGFR if 98 >59 (test code = 379880) mL/min/((173/100).m2) [facility] CountyEstimated Glomerular Filtration Rate (calc)2019-10-09 13:18:00 Test Item Value Reference Range Interpretation Comments Estimated Glomerular 85 >59 Filtration Rate (calc) mL/min/((173/100).m2 (test code = 23595) ) [facility] Countycreatinine, [id number] 13:18:00 Test Item Value Reference Range Interpretation Comments creatinine, serum (test code = 18) 0.82 mg/dL 0.57-1.00 [facility] Countyurea nitrogen, [id number] 13:18:00 Test Item Value Reference Range Interpretation Comments urea nitrogen, blood (test code = 9) 9 mg/dL 6-24 [facility] Countyblood glucose, [id number] 13:18:00 Test Item Value Reference Range Interpretation Comments blood glucose, random (test code = 364 mg/dL 65-99 H 8) [facility]bacteria, urine [id number] 13:16:00 Test Item Value Reference Range Interpretation Comments bacteria, urine microscopy (test None seen None seen/Few code = 2406) [facility] Countyepithelial cells, [id number] 13:16:00 Test Item Value Reference Range Interpretation Comments epithelial cells, urine (test code = 0-10 0-10 2416) [facility] CountyRBC, [id number] 13:16:00 Test Item Value Reference Range Interpretation Comments RBC, Urine (test code = 11304) 0-2 /hpf 0-2 [facility] on [id number] 13:16:00 Test Item Value Reference Range Interpretation Comments WBC urine on microscopy (test code = 0-5 /hpf 0-5 1016) [facility] Countymicroscopic [id number] 13:16:00 Test Item Value Reference Range Interpretation Comments microscopic exam (test code = See below: 24206) [facility] Countyurinalysis, microscopic [id number] 13:16:00 Test Item Value Reference Range Interpretation Comments urinalysis, microscopic examination MICRON (test code = 2566) [facility] Countynitrate, [id number] 13:16:00 Test Item Value Reference Range Interpretation Comments nitrate, urine (test code = 5135) Negative Negative [facility] Countyurobilinogen, urine, semiquantitative (dipstick) 2019-10-09 13:16:00 Test Item Value Reference Range Interpretation Comments urobilinogen, urine, semiquantitative 0.2 0.2-1.0 (dipstick) (test code = 326) [facility]bilirubin, [id number] 13:16:00 Test Item Value Reference Range Interpretation Comments bilirubin, urine (test code = 319) Negative Negative [facility] Countyketones, urine, by test [id number] 13:16:00 Test Item Value Reference Range Interpretation Comments ketones, urine, by test strip (test Negative Negative code = 322) [facility] Countyglucose, urine, [id number] 13:16:00 Test Item Value Reference Range Interpretation Comments glucose, urine, semiquantitative (test 3+ Negative A code = 123) [facility] Countyprotein, urine, semiquantitative (dipstick)2019-10-09 13:16:00 Test Item Value Reference Range Interpretation Comments protein, urine, semiquantitative Negative Negative/Trace (dipstick) (test code = 1753-3) [facility] Countyleukocyte esterase, urine, by [id number] 13:16:00 Test Item Value Reference Range Interpretation Comments leukocyte esterase, urine, by Negative Negative dipstick (test code = 327) [facility] Countyappearance, [id number] 13:16:00 Test Item Value Reference Range Interpretation Comments appearance, urine (test code = 328) Clear Clear [facility] Countyurine [id number] 13:16:00 Test Item Value Reference Range Interpretation Comments urine color (test code = 2751) Yellow Yellow [facility] CountypH, urine, [id number] 13:16:00 Test Item Value Reference Range Interpretation Comments pH, urine, semiquantitative (test code 6.0 5.0-7.5 = 324) [facility] Countyspecific gravity, body [id number] 13:16:00 Test Item Value Reference Range Interpretation Comments specific gravity, body fluid (test >=1.030 1.005-1.030 A code = 3512) [facility] CountyNeisseria gonorrhoeae DNA [id number] 15:43:00 Test Item Value Reference Range Interpretation Comments Neisseria gonorrhoeae DNA probe Negative Negative (test code = 53818-8) [facility] Countychlamydia DNA [id number] 15:43:00 Test Item Value Reference Range Interpretation Comments chlamydia DNA probe (test code = Negative Negative 66320-0) [facility] Countytrichomonas vaginalis, [id number] 15:43:00 Test Item Value Reference Range Interpretation Comments trichomonas vaginalis, urine (test Positive Negative A code = 3887) [facility] CountyHIV-CMIA (Chemiluminescent Microparticle Immuno Assay) 2019-07-19 14:55:00 Test Item Value Reference Range Interpretation Comments HIV-CMIA (Chemiluminescent Non Reactive Non Reactive Microparticle Immuno Assay) (test code = 132129) [facility] Countyrapid plasma reagin antibody, [id number] 14:55:00 Test Item Value Reference Range Interpretation Comments rapid plasma reagin antibody, Non Reactive Non Reactive serum (test code = 308) [facility] Countyalanine aminotransferase (SGPT), [id number] 14:55:00 Test Item Value Reference Range Interpretation Comments alanine aminotransferase (SGPT), serum 17 1/L 0-32 (test code = 40) [facility] Countyaspartate aminotransferase (SGOT), [id number] 14:55:00 Test Item Value Reference Range Interpretation Comments aspartate aminotransferase (SGOT), 15 1/L 0-40 serum (test code = 39) [facility] Countyalkaline phosphatase, [id number] 14:55:00 Test Item Value Reference Range Interpretation Comments alkaline phosphatase, serum (test code 83 1/L 39-117 = 3) [facility]bilirubin, serum, [id number] 14:55:00 Test Item Value Reference Range Interpretation Comments bilirubin, serum, total (test code 0.3 mg/dL 0.0-1.2 = 43) [facility] Countyalbumin/globulin ratio, [id number] 14:55:00 Test Item Value Reference Range Interpretation Comments albumin/globulin ratio, serum (test 1.6 1.2-2.2 code = 146) [facility] Healthglobulin, [id number] 14:55:00 Test Item Value Reference Range Interpretation Comments globulin, serum (test code = 3059) 2.9 1.5-4.5 [facility]albumin, [id number] 14:55:00 Test Item Value Reference Range Interpretation Comments albumin, serum (test code = 2) 4.6 g/dL 3.5-5.5 [facility] Countyprotein, total, [id number] 14:55:00 Test Item Value Reference Range Interpretation Comments protein, total, serum (test code = 7.5 g/dL 6.0-8.5 36) [facility] Healthcalcium, [id number] 14:55:00 Test Item Value Reference Range Interpretation Comments calcium, serum (test code = 11) 10.3 mg/dL 8.7-10.2 H [facility] Countycarbon dioxide, venous [id number] 14:55:00 Test Item Value Reference Range Interpretation Comments carbon dioxide, venous blood (test 18 mmol/L 20-29 L code = 15) [facility] Healthchloride, [id number] 14:55:00 Test Item Value Reference Range Interpretation Comments chloride, serum (test code = 13) 99 mmol/L 96-106 [facility] Healthpotassium, [id number] 14:55:00 Test Item Value Reference Range Interpretation Comments potassium, serum (test code = 35) 4.8 mmol/L 3.5-5.2 [facility] Countysodium, [id number] 14:55:00 Test Item Value Reference Range Interpretation Comments sodium, serum (test code = 159) 137 mmol/L 134-144 [facility] Countyurea nitrogen/creatinine ratio, [id number] 14:55:00 Test Item Value Reference Range Interpretation Comments urea nitrogen/creatinine ratio, serum 17 9-23 (test code = 2462) [facility] HealtheGFR if [id number] 14:55:00 Test Item Value Reference Range Interpretation Comments eGFR if 98 >59 (test code = 138956) mL/min/((173/100).m2) [facility] CountyEstimated Glomerular Filtration Rate (calc)2019-07-19 14:55:00 Test Item Value Reference Range Interpretation Comments Estimated Glomerular 85 >59 Filtration Rate (calc) mL/min/((173/100).m2 (test code = 13179) ) [facility] Countycreatinine, [id number] 14:55:00 Test Item Value Reference Range Interpretation Comments creatinine, serum (test code = 18) 0.82 mg/dL 0.57-1.00 [facility] Countyurea nitrogen, [id number] 14:55:00 Test Item Value Reference Range Interpretation Comments urea nitrogen, blood (test code = 9) 14 mg/dL 6-24 [facility] Countyblood glucose, [id number] 14:55:00 Test Item Value Reference Range Interpretation Comments blood glucose, random (test code = 485 mg/dL 65-99 H 8) [facility] Countyimmature granulocytes, percentage of total cells, blood 2019-07-19 14:55:00 Test Item Value Reference Range Interpretation Comments immature granulocytes, percentage of 0 % total cells, blood (test code = 669696) [facility] Countybasophil count, [id number] 14:55:00 Test Item Value Reference Range Interpretation Comments basophil count, absolute (test 0.0 x10E3/uL 0.0-0.2 code = 28593) [facility] HealthEosinophil Absolute [id number] 14:55:00 Test Item Value Reference Range Interpretation Comments Eosinophil Absolute Count (test 0.1 X10E3/UL 0.0-0.4 code = 648996) [facility] Countymonocyte count, blood, [id number] 14:55:00 Test Item Value Reference Range Interpretation Comments monocyte count, blood, automated 0.3 X10E3/UL 0.1-0.9 (test code = 3076) [facility] Countylymphocyte count, blood, [id number] 14:55:00 Test Item Value Reference Range Interpretation Comments lymphocyte count, blood, 3.2 X10E3/UL 0.7-3.1 H automated (test code = 3074) [facility] CountyAbsolute [id number] 14:55:00 Test Item Value Reference Range Interpretation Comments Absolute Neutrophils (test code 2.3 X10E3/UL 1.4-7.0 = 74028) [facility] Countybasophils as percent of blood [id number] 14:55:00 Test Item Value Reference Range Interpretation Comments basophils as percent of blood 0 % leukocytes (test code = 2426) [facility] Healtheosinophils as percent of blood [id number] 14:55:00 Test Item Value Reference Range Interpretation Comments eosinophils as percent of blood 1 % leukocytes (test code = 4170) [facility] Healthmonocytes as percent of blood [id number] 14:55:00 Test Item Value Reference Range Interpretation Comments monocytes as percent of blood 5 % leukocytes (test code = 2421) [facility] Countylymphocytes as percent of blood [id number] 14:55:00 Test Item Value Reference Range Interpretation Comments lymphocytes as percent of blood 54 % leukocytes (test code = 317) [facility] Countyneutrophils as percent of blood [id number] 14:55:00 Test Item Value Reference Range Interpretation Comments neutrophils as percent of blood 40 % leukocytes (test code = 316) [facility] Countyplatelet [id number] 14:55:00 Test Item Value Reference Range Interpretation Comments platelet count (test code = 66) 226 X10E3/UL 150-450 [facility] Countyred blood cell distribution [id number] 14:55:00 Test Item Value Reference Range Interpretation Comments red blood cell distribution width 13.5 % 12.3-15.4 (test code = 1030) [facility] corpuscular hemoglobin concentration, [id number] 14:55:00 Test Item Value Reference Range Interpretation Comments mean corpuscular hemoglobin 31.5 G/DL 31.5-35.7 concentration, RBC (test code = 1029) [facility] corpuscular hemoglobin, [id number] 14:55:00 Test Item Value Reference Range Interpretation Comments mean corpuscular hemoglobin, RBC 27.8 pg 26.6-33.0 (test code = 1031) [facility] corpuscular volume, [id number] 14:55:00 Test Item Value Reference Range Interpretation Comments mean corpuscular volume, RBC (test code 88 fL 79-97 = 315) [facility] Countyhematocrit, [id number] 14:55:00 Test Item Value Reference Range Interpretation Comments hematocrit, blood (test code = 64) 44.8 % 34.0-46.6 [facility] Countyhemoglobin, [id number] 14:55:00 Test Item Value Reference Range Interpretation Comments hemoglobin, blood (test code = 65) 14.1 g/dL 11.1-15.9 [facility] Countyerythrocyte (RBC) [id number] 14:55:00 Test Item Value Reference Range Interpretation Comments erythrocyte (RBC) count (test 5.08 X10E6/UL 3.77-5.28 code = 67) [facility] Countyleukocyte count, [id number] 14:55:00 Test Item Value Reference Range Interpretation Comments leukocyte count, blood (test 5.8 X10E3/UL 3.4-10.8 code = 68) [facility] Countyhepatitis C antibody, [id number] 14:55:00 Test Item Value Reference Range Interpretation Comments hepatitis C antibody, serum (test code 0.1 0.0-0.9 = 2722) [facility] [id number] 14:55:00 Test Item Value Reference Range Interpretation Comments hepatitis B surface antibody Non Reactive (test code = 78) [facility] B core antibody, [id number] 14:55:00 Test Item Value Reference Range Interpretation Comments hepatitis B core antibody, total Negative Negative (test code = 77) [facility] B surface [id number] 14:55:00 Test Item Value Reference Range Interpretation Comments hepatitis B surface antigen (test Negative Negative code = 79) [facility] CountyHIV rapid test [id number] 14:32:16 Test Item Value Reference Range Interpretation Comments HIV rapid test results (test code = negative 58372) [facility] CountyXR Hand AP lateral Bilateral [id number] 08:50:00 EXAM: XR BILATERAL HAND 2 VIEWSDATE: 06/24/2019 8:50 CDTINDICATION: - M25.50 Pain in unspecified jointCOMPARISON: None availableTECHNIQUE: Bilateral PA and lateral radiographs of hands.FINDINGS:Righthand:No fracture, periosteal reaction, or erosions identified.Joint alignment is normal.Minus variance measuring 3 mm noted.Soft tissues are unremarkable.Left hand:No fracture, periosteal reaction, or erosions identified.Joint alignment is normal.Borderline minus variance noted.Soft tissues are unremarkable.IMPRESSION:No acute or inflammatory arthritic changes identified.Minus variance greater on the right.--Read by: Kieran Cheng MDDictated Date/time: 06/24/19 09:20Electronically Signed by: Kieran Cheng MD 06/24/1909:24FINAL REPORTUnSanpete Valley Hospital PhysiciansXRAY Sacroiliac joints series [id number] 08:50:00EXAM: XR PELVIS 1 VIEWEXAM: XR SACROILIAC JOINT 3 VIEWSEXAM: XR LUMBAR SPINE 5 VIEWSDATE: 06/24/2019 8:50 CDTINDICATION: - M25.50 Pain in unspecified jointCOMPARISON: None.TECHNIQUE: Frontal pelvis; AP, RPO and LPO radiographs of the sacroiliacjoints; AP, lateral, coned lateral, RPO, and LPO radiographs of the lumbarspine.FINDINGS:There are 5 nonrib-bearing lumbar type vertebrae.No acute fracture or malalignment.Vertebral alignment appears normal.The vertebral body heights and intervertebral disc heights are preserved.There is mild facet arthrosis throughout the lumbar spine and tiny marginalosteophytes..The sacroiliac joints appear symmetric and unremarkable.No abnormal sclerosis or osseous erosions are seen.Minimal degenerative changes seen about the bilateral hip joints withosteophyte formation.No significant joint space narrowing identified.Otherwise the pelvis appears unremarkable.IMPRESSION:Mild degenerative changes of the lumbar spine.Unremarkable sacroiliac joints.Minimal degenerativechanges of the hips.--This report was dictated by a Network Director/Fellow/Physician Cafeteria Helper. Ihave personallyreviewed the images as well as the interpretation and agree with the findings.Read by: Frank Jc MD Resident/Fellow/PhysicianAssistant: Frank Jc MDDictated Date/time: 06/24/19 09:22Electronically Signed by: Kieran Cheng MD 06/24/1911:47FINAL REPORTUnSanpete Valley [place] [id number] 2019-06-24 08:50:00EXAM: XR PELVIS 1 VIEWEXAM: XR SACROILIAC JOINT 3 VIEWSEXAM: XR LUMBAR SPINE 5 VIEWSDATE: 06/24/2019 8:50 CDTINDICATION: - M25.50 Pain in unspecified jointCOMPARISON: None.TECHNIQUE: Frontal pelvis; AP, RPO and LPO radiographs of the sacroiliacjoints; AP, lateral, coned lateral, RPO, and LPO radiographs of the lumbarspine.FINDINGS:There are 5 nonrib-bearing lumbar type vertebrae.No acute fracture or malalignment.Vertebral alignment appears normal.The vertebral body heights and intervertebral disc heights are preserved.There is mild facet arthrosis throughout the lumbar spine and tiny marginalosteophytes..The sacroiliac joints appear symmetric and unremarkable.No abnormal sclerosis or osseous erosions are seen.Minimal degenerative changes seen about the bilateral hip joints withosteophyte formation.No significant joint space narrowing identified.Otherwise the pelvis appears unremarkable.IMPRESSION:Mild degenerative changes of the lumbar spine.Unremarkable sacroiliac joints.Minimal degenerativechanges of the hips.--This report was dictated by a Network Director/Fellow/Physician Cafeteria Helper. Ihave personallyreviewed the images as well as the interpretation and agree with the findings.Read by: Frank Jc MD Resident/Fellow/PhysicianAssistant: Frank Jc MDDictated Date/time: 06/24/19 09:22Electronically Signed by: Kieran Cheng MD 06/24/1911:47FINAL REPORTUnSanpete Valley Hospital PhysiciansXRAY Spine lumbar series [id number] 08:49:00EXAM: XR PELVIS 1 VIEWEXAM: XR SACROILIAC JOINT 3 VIEWSEXAM: XR LUMBAR SPINE 5 VIEWSDATE: 06/24/2019 8:50 CDTINDICATION: - M25.50 Pain in unspecified jointCOMPARISON: None.TECHNIQUE: Frontal pelvis; AP, RPO and LPO radiographs of the sacroiliacjoints; AP, lateral, coned lateral, RPO, and LPO radiographs of the lumbarspine.FINDINGS:There are 5 nonrib-bearing lumbar type vertebrae.No acute fracture or malalignment.Vertebral alignment appears normal.The vertebral body heights and intervertebral disc heights are preserved.There is mild facet arthrosis throughout the lumbar spine and tiny marginalosteophytes..The sacroiliac joints appear symmetric and unremarkable.No abnormal sclerosis or osseous erosions are seen.Minimal degenerative changes seen about the bilateral hip joints withosteophyte formation.No significant joint space narrowing identified.Otherwise the pelvis appears unremarkable.IMPRESSION:Mild degenerative changes of the lumbar spine.Unremarkable sacroiliac joints.Minimal degenerativechanges of the hips.--This report was dictated by a Network Director/Fellow/Physician Cafeteria Helper. Ihave personallyreviewed the images as well as the interpretation and agree with the findings.Read by: Frank Jc MD Resident/Fellow/PhysicianAssistant: Frank Jc MDDictated Date/time: 06/24/19 09:22Electronically Signed by: Kieran Cheng MD 06/24/1911:47FINAL REPORTUnSt. [facility]] SED RATE BY MODIFIED [id number] 10:24:01 Test Item Value Reference Range Interpretation Comments Sedimentation Rate (test code = 10 {mm/hr} 0-20 85558-9) [facility]] C-REACTIVE [id number] 10:24:01 Test Item Value Reference Range Interpretation Comments CRP (test code = CRP) 4.0 mg/L <=2.9 [facility]] HLA-B27, DNA [id number] 10:24:01 Test Item Value Reference Range Interpretation Comments HLA B27 (test code = HLA B27) Positive Negative A [facility][] CYCLIC CITRULLINATED PEPTIDE (CCP) AB (IGG) 2019-06-10 10:24:01 Test Item Value Reference Range Interpretation Comments Cyclic Citrulline Peptide Antibody <0.5 <=2.9 (test code = 41308-4) [facility] Digital Mammo Screening Wilver [id number] 12:13:00BILATERAL DIGITAL SCREENING MAMMOGRAM WITH CAD: 04/08/2019CLINICAL: Z12.31/Screening. Current study was evaluated with a Computer Aided Detection (CAD) system. COMPARISON:Comparison is made to exam dated: 06/08/2016 mammogram - [facility]. TECHNIQUE: Mammographic views were obtained using digital acquisition. Currentstudy was also evaluated with a Computer Aided Detection (CAD) system.FINDINGS:There are scattered fibroglandular densities in both breasts. There are benign calcifications in both breasts. No significant masses, calcifications, or other findings are seen in eitherbreast. There has been no significant interval change.IMPRESSION: BENIGNRECOMMENDATION:There is no mammographic evidence of malignancy. A 1 yearscreening mammogram is recommended.(04/08/2020) This examwas interpreted [id number] for [facility]. Ekaterina Carreon M.D. Additional Observers: Jonathan Chang/eun:04/08/2019 15:52:23 Sponsorship Coordinator(s): RT Warren(R)(Vale), [facility] TMCOutpatient Imaging Departmentletter sent: BI-RADS 1/2 Mammogram BI-RADS: 2 Benign--Readby: Ekaterina Carreon MD PHDDictated Date/time: 04/08/19 15:52Electronically Signed by: Ekaterina Carreon MD PHD 04/08/1915:52FINAL REPORTUnSanpete [facility]] CBC (INCLUDES DIFF/PLT)2019-03-19 14:50:01 Test Item Value Reference Range Interpretation Comments WBC (test code = 6690-2) 5.8 {K/CMM} 3.7-10.4 RBC (test code = 789-8) 4.40 {M/CMM} 4.20-5.40 Hgb (test code = 718-7) 12.9 g/dl 12.0-16.0 Hct (test code = 57447-7) 38.3 % 36.0-48.0 MCV (test code = 787-2) 87.0 fL 80.0-98.0 MCH (test code = 785-6) 29.2 pg 27.0-31.0 MCHC (test code = 786-4) 33.6 g/dl 32.0-36.0 RDW (test code = 788-0) 13.6 % 11.5-14.5 Platelet (test code = 85120-6) 210 {K/CMM} 133-450 Mean Platelet Volume (test code 8.8 fL 7.4-10.4 = 33253-0) [facility]] [id number] 14:50:01 Test Item Value Reference Range Interpretation Comments Segmented Neutrophils; Below Low 40.2 % 45.0-75.0 Threshold (test code = 34718-7) Monocytes (test code = 69933-0) 5.1 % 2.0-12.0 Lymphocytes; Above High Threshold 50.6 % 20.0-40.0 (test code = 82423-6) Eosinophils (test code = 68099-2) 3.6 % 0.0-4.0 Basophils (test code = 706-2) 0.5 % 0.0-1.0 Segs-Bands # (test code = 2.3 {K/CMM} 1.5-8.1 02933-4) Lymphocytes # (test code = 2.9 {K/CMM} 1.0-5.5 05630-0) Monocytes # (test code = 50797-0) 0.3 {K/CMM} 0.0-0.8 Eosinophils # (test code = 0.2 {K/CMM} 0.0-0.5 13379-4) [facility]] [id number] 14:50:01 Test Item Value Reference Range Interpretation Comments RPR (test code = 87764-1) Non-Reactive Non-Reactive [facility]] HEPATITIS [id number] 14:50:01 Test Item Value Reference Range Interpretation Comments Hepatitis B Surface Antigen (test Negative Negative code = 5195-3) Hepatitis C Antibody (test code = Negative 84595-6) Hepatitis B Core IgM (test code = Negative Negative 72731-0) Hepatitis A IgM (test code = Negative Negative 13698-9) [facility][] HIV AB, HIV 1/2, EIA, WITH [id number] 14:50:01 Test Item Value Reference Range Interpretation Comments HIV Ag/Ab 4th Gen Negative Negative HIV test r esults should be (test code = considered posi tive only 23900-5) when both the s creening andthe confirma tory tests are positive. A negative confirmatory te st in patientswith a positive screening test does not exclude HIV inf ection. If clincallywarran danika, an HIV RNA quantitativ e test should be order ed. [facility]] CMP [id number] 14:50:01 Test Item Value Reference Range Interpretation Comments Sodium Level 140 {mEq/l} 135-145 (test code = 2951-2) Potassium Level 4.2 {mEq/l} 3.5-5.1 (test code = 2823-3) Chloride Level 109 {mEq/l} 95-109 (test code = 2075-0) Carbon Dioxide 24 {mEq/l} 24-32 (test code = 2027-9) AGAP (test code = 11.2 {mEq/l} 10.0-20.0 03488-1) Glucose Lvl; 165 mg/dl 70-99 Adult reference range Above High values reflect the Threshold (test clinical moises delinesof the code = 2345-7) [place]. Creatinine Lvl 0.90 mg/dl 0.50-1.40 (test code = 2160-0) Blood Urea 21 mg/dl 7-22 Nitrogen (test code = 3094-0) BUN/Creatinine 23 6-25 Ratio (test code = 3097-3) Total Protein 7.1 g/dl 6.4-8.4 (test code = 2885-2) Albumin Lvl (test 3.6 g/dl 3.5-5.0 code = 1751-7) Globulin (test 3.5 g/dl 2.7-4.2 code = 61293-4) A/G Ratio (test 1.0 0.7-1.6 code = 1759-0) Calcium Level 9.4 mg/dl 8.5-10.5 Total (test code = 02428-7) ALT (test code = 29 u/l 0-65 1743-4) AST (test code = 18 u/l 0-37 49474-4) Bili Total (test 0.2 mg/dl 0.2-1.3 code = 1975-2) Alk Phos (test 78 u/l 39-136 code = 1783-0) eGFR (test code = 76 The eGFR i s calculated 10312-4) {ML/MIN/1.7} using the CKD-E PI formula. In mos t young, healthyindividu als the eGFR will be >9 0 mL/min/1.73m2. The eGFR declines with a ge. AneGFR of 60-89 may be normal in some population s, particularly th e elderly, forwhom the CKD -EPI formula has not been extensively chaitanya idated. Use of the eGFR isnot recommended in the following populations:Ind ividuals with unstable c reatinine concentrations, including patient s and those with seri ous co-morbid conditions.Denise ents with extremes in mus aziza mass or diet.The natalia a above are obtained fr om the National Kidney Disease Education Progr am(NKDEP) which additiona lly recommends that when the eGFR is used in patientswith ex tremes of body mass index for purposes of urmila g dosing, the eGFR should be multiplied by t he estimated BMI. [facility]] LIPID [id number] 14:50:01 Test Item Value Reference Range Interpretation Comments Chol (test code = 2093-3) 154 mg/dl <=199 Trig (test code = 2571-8) 134 mg/dl <=149 HDL Cholesterol (test code = 61 mg/dl >=61 2085-9) CHD Risk; Below Low Threshold (test 2.52 3.90-5.80 code = 30648-9) LDL (test code = 80604-4) 66 mg/dl <=99 VLDL (test code = VLDL) 27 [facility]] TSH, 3RD GENERATION W/REFLEX TO FT4 2019-03-19 14:50:01 Test Item Value Reference Range Interpretation Comments TSH (test code = 47864-9) 0.739 {uIU/ml} 0.360-3.740 [facility]] MICROALBUMIN, RANDOM URINE (W/CREATININE) 2019-03-19 14:50:01 Test Item Value Reference Range Interpretation Comments Urine Microalbumin 59.6 mg/L No establ ished (test code = Urine reference range. Microalbumin) U Creatinine (test 124.00 mg/dl No establ ished code = 2161-8) reference ran ge. Urine Microalbuming 48.1 mg/g <=30.0 Creatinine Ratio; Above High Threshold (test code = 37006-1) [facility]] HEMOGLOBIN [id number] 14:50:01 Test Item Value Reference Range Interpretation Comments Hemoglobin A1c; Above High Threshold 10.1 % <=5.6 (test code = 4548-4) [facility]] VITAMIN D, 25-HYDROXY, LC/MS/[id number] 14:50:01 Test Item Value Reference Range Interpretation Comments Vitamin D, 25-OH, 24.6 ng/ml 30.0-100.0 Reference range is based Total (test code on recommen dations in the = Vitamin D, EndocrineSociet y Clinical 25-OH, Total) Practice Guide line (J Clin Endocrinol Vkbzd0079;96:19 11-1930) [facility][] GC/CT by Clayton Barboza (APTIMA)2019-03-19 14:50:01 Test Item Value Reference Range Interpretation Comments Source APTIMA Urine (test code = Source APTIMA) N gonorrhea by Amp Negative Negative The APTIM A assay is a Det (APTIMA) (test target am plification code = 93557-1) nucleic acid probe test utilizingtarget capture for the qualitative detection and differentia tion of ribosomalRNA fr om Neisseria gonorrhoeae to aid in the diagnosis of di sease fromsymptomatic and asymptomatic in dividuals using the PANTH ER System.This ass ay utilizes FDA cleared IVD reagents. Performance nehemias racteristics havebeen verifi ed by the [employer] ostic Laboratory with in [facility].The [employer] ecular Diagnostic Labo ratory is authorized unde r the Clinical LaboratoryImpro vement Amendments of 1 988 (CLIA-88) to pe rform high complexity test ing. C trachomatis by Negative Negative The APTIMA assay is a Amp Det (APTIMA) target ampl ification (test code = nucleic acid pr obe test 67158-9) utilizingtarget capture for the qualitative detection and differentia tion of ribosomalRNA fr om Chlamydia trachomatis to aid in the diagnosis of di sease fromsymptomatic and asymptomatic in dividuals using the PANTH ER System.This ass ay utilizes FDA cleared IVD reagents. Performance nehemias racteristics havebeen verifi ed by the [employer] [facility] with in [facility].The [employer] ecular Diagnostic Labo ratory is authorized unde r the Clinical LaboratoryImpro vement Amendments of 1 988 (CLIA-88) to pe rform high complexity test ing. [facility][U] XR KNEE 3 VWS [id number] 15:05:00 Images acquired, not reported on this accession number.[facility] PhysiciansNeisseria gonorrhoeae DNA [id number] 12:29:00 Test Item Value Reference Range Interpretation Comments Neisseria gonorrhoeae DNA probe Negative Negative (test code = 92938-8) [facility] [id number] 12:29:00 Test Item Value Reference Range Interpretation Comments chlamydia DNA probe (test code = Negative Negative 18033-0) [facility]trichomonas vaginalis, [id number] 12:29:00 Test Item Value Reference Range Interpretation Comments trichomonas vaginalis, urine (test Negative Negative code = 3887) [facility]HIV-CMIA (Chemiluminescent Microparticle Immuno Assay) 2018-12-26 15:16:00 Test Item Value Reference Range Interpretation Comments HIV-CMIA (Chemiluminescent Non Reactive Non Reactive Microparticle Immuno Assay) (test code = 243185) [facility]-1RNA, serum, by PCR, [id number] 15:16:00 Test Item Value Reference Range Interpretation Comments HIV-1RNA, serum, by PCR, <20 copies/mL quantitative (test code = 10653) [facility]hepatitis A antibody, [id number] 15:48:00 Test Item Value Reference Range Interpretation Comments hepatitis A antibody, total (test Negative Negative code = 75) [facility]-CMIA (Chemiluminescent Microparticle Immuno Assay) 2018-12-06 15:48:00 Test Item Value Reference Range Interpretation Comments HIV-CMIA (Chemiluminescent Non Reactive Non Reactive Microparticle Immuno Assay) (test code = 559534) [facility] Countyrapid plasma reagin antibody, [id number] 15:48:00 Test Item Value Reference Range Interpretation Comments rapid plasma reagin antibody, Non Reactive Non Reactive serum (test code = 308) [facility] Countyalanine aminotransferase (SGPT), [id number] 15:48:00 Test Item Value Reference Range Interpretation Comments alanine aminotransferase (SGPT), serum 19 1/L 0-32 (test code = 40) [facility] Countyaspartate aminotransferase (SGOT), [id number] 15:48:00 Test Item Value Reference Range Interpretation Comments aspartate aminotransferase (SGOT), 18 1/L 0-40 serum (test code = 39) [facility] Countyalkaline phosphatase, [id number] 15:48:00 Test Item Value Reference Range Interpretation Comments alkaline phosphatase, serum (test code 69 1/L 39-117 = 3) [facility]bilirubin, serum, [id number] 15:48:00 Test Item Value Reference Range Interpretation Comments bilirubin, serum, total (test code 0.6 mg/dL 0.0-1.2 = 43) [facility] Countyalbumin/globulin ratio, [id number] 15:48:00 Test Item Value Reference Range Interpretation Comments albumin/globulin ratio, serum (test 1.7 1.2-2.2 code = 146) [facility] Healthglobulin, [id number] 15:48:00 Test Item Value Reference Range Interpretation Comments globulin, serum (test code = 3059) 2.4 1.5-4.5 [facility] Healthalbumin, [id number] 15:48:00 Test Item Value Reference Range Interpretation Comments albumin, serum (test code = 2) 4.0 g/dL 3.5-5.5 [facility] Countyprotein, total, [id number] 15:48:00 Test Item Value Reference Range Interpretation Comments protein, total, serum (test code = 6.4 g/dL 6.0-8.5 36) [facility] Countycalcium, [id number] 15:48:00 Test Item Value Reference Range Interpretation Comments calcium, serum (test code = 11) 9.4 mg/dL 8.7-10.2 [facility] Countycarbon dioxide, venous [id number] 15:48:00 Test Item Value Reference Range Interpretation Comments carbon dioxide, venous blood (test 20 mmol/L 20-29 code = 15) [facility] Countychloride, [id number] 15:48:00 Test Item Value Reference Range Interpretation Comments chloride, serum (test code = 13) 103 mmol/L 96-106 [facility] Countypotassium, [id number] 15:48:00 Test Item Value Reference Range Interpretation Comments potassium, serum (test code = 35) 4.2 mmol/L 3.5-5.2 [facility] Countysodium, [id number] 15:48:00 Test Item Value Reference Range Interpretation Comments sodium, serum (test code = 159) 141 mmol/L 134-144 [facility] Countyurea nitrogen/creatinine ratio, [id number] 15:48:00 Test Item Value Reference Range Interpretation Comments urea nitrogen/creatinine ratio, serum 12 9-23 (test code = 2462) [facility] HealtheGFR if [id number] 15:48:00 Test Item Value Reference Range Interpretation Comments eGFR if 126 >59 (test code = 011545) mL/min/((173/100).m2) [facility] CountyEstimated Glomerular Filtration Rate (calc)2018-12-06 15:48:00 Test Item Value Reference Range Interpretation Comments Estimated Glomerular 109 >59 Filtration Rate (calc) mL/min/((173/100).m2 (test code = 80064) ) [facility] Countycreatinine, [id number] 15:48:00 Test Item Value Reference Range Interpretation Comments creatinine, serum (test code = 18) 0.58 mg/dL 0.57-1.00 [facility] Countyurea nitrogen, [id number] 15:48:00 Test Item Value Reference Range Interpretation Comments urea nitrogen, blood (test code = 9) 7 mg/dL 6-24 [facility] Countyblood glucose, [id number] 15:48:00 Test Item Value Reference Range Interpretation Comments blood glucose, random (test code = 374 mg/dL 65-99 H 8) [facility] Countyimmature granulocytes, percentage of total cells, blood 2018-12-06 15:48:00 Test Item Value Reference Range Interpretation Comments immature granulocytes, percentage of 0 % total cells, blood (test code = 518533) [facility] Countybasophil count, [id number] 15:48:00 Test Item Value Reference Range Interpretation Comments basophil count, absolute (test 0.0 x10E3/uL 0.0-0.2 code = 24048) [facility] CountyEosinophil Absolute [id number] 15:48:00 Test Item Value Reference Range Interpretation Comments Eosinophil Absolute Count (test 0.1 X10E3/UL 0.0-0.4 code = 712031) [facility] Countymonocyte count, blood, [id number] 15:48:00 Test Item Value Reference Range Interpretation Comments monocyte count, blood, automated 0.3 X10E3/UL 0.1-0.9 (test code = 3076) [facility] Countylymphocyte count, blood, [id number] 15:48:00 Test Item Value Reference Range Interpretation Comments lymphocyte count, blood, 1.8 X10E3/UL 0.7-3.1 automated (test code = 3074) [facility] CountyAbsolute [id number] 15:48:00 Test Item Value Reference Range Interpretation Comments Absolute Neutrophils (test code 2.1 X10E3/UL 1.4-7.0 = 57998) [facility] Countybasophils as percent of blood [id number] 15:48:00 Test Item Value Reference Range Interpretation Comments basophils as percent of blood 1 % leukocytes (test code = 2426) [facility] Countyeosinophils as percent of blood [id number] 15:48:00 Test Item Value Reference Range Interpretation Comments eosinophils as percent of blood 1 % leukocytes (test code = 4170) [facility] Healthmonocytes as percent of blood [id number] 15:48:00 Test Item Value Reference Range Interpretation Comments monocytes as percent of blood 6 % leukocytes (test code = 2421) [facility] Countylymphocytes as percent of blood [id number] 15:48:00 Test Item Value Reference Range Interpretation Comments lymphocytes as percent of blood 43 % leukocytes (test code = 317) [facility] Countyneutrophils as percent of blood [id number] 15:48:00 Test Item Value Reference Range Interpretation Comments neutrophils as percent of blood 49 % leukocytes (test code = 316) [facility] Countyplatelet [id number] 15:48:00 Test Item Value Reference Range Interpretation Comments platelet count (test code = 66) 231 X10E3/UL 150-379 [facility] Countyred blood cell distribution [id number] 15:48:00 Test Item Value Reference Range Interpretation Comments red blood cell distribution width 13.5 % 12.3-15.4 (test code = 1030) [facility] corpuscular hemoglobin concentration, [id number] 15:48:00 Test Item Value Reference Range Interpretation Comments mean corpuscular hemoglobin 31.8 G/DL 31.5-35.7 concentration, RBC (test code = 1029) [facility]an [facility] hemoglobin, [id number] 15:48:00 Test Item Value Reference Range Interpretation Comments mean corpuscular hemoglobin, RBC 28.2 pg 26.6-33.0 (test code = 1031) [facility] corpuscular volume, [id number] 15:48:00 Test Item Value Reference Range Interpretation Comments mean corpuscular volume, RBC (test code 89 fL 79-97 = 315) [facility] Countyhematocrit, [id number] 15:48:00 Test Item Value Reference Range Interpretation Comments hematocrit, blood (test code = 64) 40.6 % 34.0-46.6 [facility] Countyhemoglobin, [id number] 15:48:00 Test Item Value Reference Range Interpretation Comments hemoglobin, blood (test code = 65) 12.9 g/dL 11.1-15.9 [facility] Countyerythrocyte (RBC) [id number] 15:48:00 Test Item Value Reference Range Interpretation Comments erythrocyte (RBC) count (test 4.57 X10E6/UL 3.77-5.28 code = 67) [facility] Countyleukocyte count, [id number] 15:48:00 Test Item Value Reference Range Interpretation Comments leukocyte count, blood (test 4.2 X10E3/UL 3.4-10.8 code = 68) [facility] Countyhepatitis C antibody, [id number] 15:48:00 Test Item Value Reference Range Interpretation Comments hepatitis C antibody, serum (test code 0.1 0.0-0.9 = 2722) [facility] [id number] 15:48:00 Test Item Value Reference Range Interpretation Comments hepatitis B surface antibody Non Reactive (test code = 78) [facility] core antibody, [id number] 15:48:00 Test Item Value Reference Range Interpretation Comments hepatitis B core antibody, total Negative Negative (test code = 77) [facility] surface [id number] 15:48:00 Test Item Value Reference Range Interpretation Comments hepatitis B surface antigen (test Negative Negative code = 79) [facility]HIV rapid test [id number] 15:00:09 Test Item Value Reference Range Interpretation Comments HIV rapid test results (test code = negative 49272) [facility] CountyX[facility] K[facility] 3 views [id number] 11:52:00EXAM: XR RIGHT KNEE 3 VIEWSDATE: 12/03/2018 11:43 CSTINDICATION: "- M17.0 Bilateral primary osteoarthritis of knee"COMPARISON: Knee 3 views bilateral on 12/31/2016TECHNIQUE: 3 views of the kneeFINDINGS: Chronic tricompartmental degenerative changes including narrowing ofthe joint spaces, marginal osteophyte formation, and patellar osteophytes. Noacute fracture or malalignment is identified. No kneejoint effusion ispresent. No soft tissue abnormality is identified.IMPRESSION:Chronic tricompartmental degenerative changes of the left knee--This report was dictated by a Network Director/Fellow/Physician Cafeteria Helper. Ihave personallyreviewed the images as well as the interpretation and agree with the findings.Read by: Laith Kemp MD Resident/Fellow/PhysicianAssistant: Laith Kemp MDDictated Date/time: 12/03/18 13:58Electronically Signed by: Sanjuana Granger MD 12/03/1916:18FINAL REPORTUnSanpete Valley Hospital [facility]] CMP [id number] 11:12:00 Test Item Value Reference Range Interpretation Comments GLUCOSE; Above 389 mg/dl 65-99 Verified by r epeat High Threshold analysis. (test code = Fasting refer ence 1547-9) interval For someone without known diabetes, a glucosevalue >1 25 mg/dL indicates that they may havediabetes an d this should be confirmed with afollow-up test . UREA NITROGEN 11 mg/dl 7-25 N (BUN) (test code = UREA NITROGEN (BUN)) CREATININE (test 0.69 mg/dl 0.50-1.10 N code = CREATININE) eGFR NON- 103 {ML/MIN/1.7} > OR = 60 N CHILEAN (test code = eGFR NON-) eGFR 119 {ML/MIN/1.7} > OR = 60 N CHILEAN (test code = eGFR ) BUN/CREATININE NOT APPLICABLE 6-22 RATIO (test code = BUN/CREATININE RATIO) SODIUM (test code 136 mmol/L 135-146 N = SODIUM) POTASSIUM (test 4.5 mmol/L 3.5-5.3 N code = POTASSIUM) CHLORIDE (test 101 mmol/L 98-110 N code = CHLORIDE) CARBON DIOXIDE 24 mmol/L 20-32 N (test code = CARBON DIOXIDE) CALCIUM (test code 9.6 mg/dl 8.6-10.2 N = CALCIUM) PROTEIN, TOTAL 7.1 g/dl 6.1-8.1 N (test code = PROTEIN, TOTAL) ALBUMIN (test code 4.4 g/dl 3.6-5.1 N = ALBUMIN) GLOBULIN (test 2.7 {G/DL CALC} 1.9-3.7 N code = GLOBULIN) ALBUMIN/GLOBULIN 1.6 {CALC} 1.0-2.5 N RATIO (test code = ALBUMIN/GLOBULIN RATIO) BILIRUBIN, TOTAL; 0.5 mg/dl 0.2-1.2 N Normal (test code = 59822-1) ALKALINE 82 u/l 33-115 N PHSPHATASE (test code = ALKALINE PHSPHATASE) AST; Normal (test 16 u/l 10-35 N code = 1916-6) ALT; Normal (test 18 u/l 6-29 N code = 1742-6) [facility]] SED RATE BY MADDIE [id number] 11:12:00 Test Item Value Reference Range Interpretation Comments SED RATE BY MODIFIED WESTERGREN (test 6 mm/h < OR = 20 N code = SED RATE BY MODIFIED QUANGERGREN) [facility]] CBC (INCLUDES DIFF/PLT)2018-12-03 11:12:00 Test Item Value Reference Range Interpretation Comments WHITE BLOOD CELL COUNT 4.5 {Thousand/u} 3.8-10.8 N (test code = WHITE BLOOD CELL COUNT) RED BLOOD CELL COUNT (test 5.05 {Million/uL} 3.80-5.10 N code = RED BLOOD CELL COUNT) HEMAGLOBIN; Normal (test 14.1 g/dl 11.7-15.5 N code = 60898-8) HEMATOCRIT; Normal (test 43.7 % 35.0-45.0 N code = 4544-3) MCV; Normal (test code = 86.5 fL 80.0-100.0 N 787-2) MCHC; Normal (test code = 32.3 g/dl 32.0-36.0 N 61582-1) RDW; Normal (test code = 12.4 % 11.0-15.0 N 788-0) PLATELET COUNT; Normal 224 {Thousand/u} 140-400 N (test code = 777-3) MPV; Normal (test code = 11.1 fL 7.5-12.5 N 69181-5) ABSOLUTE NEUTROPHILS (test 2061 {cells/uL} 9471-4188 N code = ABSOLUTE NEUTROPHILS) ABSOLUTE LYMPHOCYTES (test 1994 {cells/uL} 850-3900 N code = ABSOLUTE LYMPHOCYTES) ABSOLUTE MONOCYTES (test 306 {cells/uL} 200-950 N code = ABSOLUTE MONOCYTES) ABSOLUTE EOSINOPHILS (test 99 {cells/uL} 15-500 N code = ABSOLUTE EOSINOPHILS) ABSOLUTE BASOPHILS (test 41 {cells/uL} 0-200 N code = ABSOLUTE BASOPHILS) NEUTROPHILS (test code = 45.8 % N NEUTROPHILS) LYMPHOCYTES (test code = 44.3 % N LYMPHOCYTES) MONOCYTES; Normal (test 6.8 % N code = 91718-2) EOSINOPHILS; Normal (test 2.2 % N code = 03852-7) BASOPHILS; Normal (test 0.9 % N code = 52445-9) [facility]] C-REACTIVE [id number] 11:12:00 Test Item Value Reference Range Interpretation Comments C-REACTIVE PROTEIN (test code = 4.6 mg/L <8.0 N C-REACTIVE PROTEIN) [facility]] VITAMIN D, 25-HYDROXY, LC/MS/[id number] 11:12:00 Test Item Value Reference Range Interpretation Comments VITAMIN 18 ng/ml 30-100 Vitamin D Statu s D,25-OH,TOTAL,IA 25-OH Vitam in D: (test code = VITAMIN Deficie ncy: D,25-OH,TOTAL,IA) <20 ng/mLInsufficie ncy: 20 - 29 ng/mLOptimal: > or = 30 n g/mL For 25-OH Vitamin D testing on patients on D2-supplementat ion and patients for wh om quantitation of D2 and D3 fractions is re quired, the Quest[employer]ure D(TM)25-OH VIT D, (D2,D3), LC/MS/MS is recommended: order code 47061 (pat ients >2yrs). For mor e information on this test, go to:[email or web address] [email or web address] [email or web address] 3(This link is being provided for informational/e ducational purposes only.) [facility] PhysiciansNeisseria gonorrhoeae, throat [id number] 16:30:00 Test Item Value Reference Range Interpretation Comments Neisseria gonorrhoeae, throat Negative Negative culture (test code = 3553) [facility] [id number] 16:30:00 Test Item Value Reference Range Interpretation Comments Neisseria gonorrhoeae DNA probe Negative Negative (test code = 60172-8) [facility]lamydia DNA [id number] 16:30:00 Test Item Value Reference Range Interpretation Comments chlamydia DNA probe (test code = Negative Negative 85994-9) [facility]patitis A antibody, [id number] 14:31:00 Test Item Value Reference Range Interpretation Comments hepatitis A antibody, total (test Negative Negative code = 75) [facility]alanine aminotransferase (SGPT), [id number] 14:31:00 Test Item Value Reference Range Interpretation Comments alanine aminotransferase (SGPT), serum 28 1/L 0-32 (test code = 40) [facility] Countyaspartate aminotransferase (SGOT), [id number] 14:31:00 Test Item Value Reference Range Interpretation Comments aspartate aminotransferase (SGOT), 21 1/L 0-40 serum (test code = 39) [facility] Countyalkaline phosphatase, [id number] 14:31:00 Test Item Value Reference Range Interpretation Comments alkaline phosphatase, serum (test code 98 1/L 39-117 = 3) [facility]bilirubin, serum, [id number] 14:31:00 Test Item Value Reference Range Interpretation Comments bilirubin, serum, total (test code 0.3 mg/dL 0.0-1.2 = 43) [facility] Healthalbumin/globulin ratio, [id number] 14:31:00 Test Item Value Reference Range Interpretation Comments albumin/globulin ratio, serum (test 1.5 1.2-2.2 code = 146) [facility] Healthglobulin, [id number] 14:31:00 Test Item Value Reference Range Interpretation Comments globulin, serum (test code = 3059) 2.8 1.5-4.5 [facility] Healthalbumin, [id number] 14:31:00 Test Item Value Reference Range Interpretation Comments albumin, serum (test code = 2) 4.3 g/dL 3.5-5.5 [facility]protein, total, [id number] 14:31:00 Test Item Value Reference Range Interpretation Comments protein, total, serum (test code = 7.1 g/dL 6.0-8.5 36) [facility]calcium, [id number] 14:31:00 Test Item Value Reference Range Interpretation Comments calcium, serum (test code = 11) 9.5 mg/dL 8.7-10.2 [facility] Countycarbon dioxide, venous [id number] 14:31:00 Test Item Value Reference Range Interpretation Comments carbon dioxide, venous blood (test 18 mmol/L 20-29 L code = 15) [facility] Countychloride, [id number] 14:31:00 Test Item Value Reference Range Interpretation Comments chloride, serum (test code = 13) 99 mmol/L 96-106 [facility]potassium, [id number] 14:31:00 Test Item Value Reference Range Interpretation Comments potassium, serum (test code = 35) 4.9 mmol/L 3.5-5.2 [facility]sodium, [id number] 14:31:00 Test Item Value Reference Range Interpretation Comments sodium, serum (test code = 159) 136 mmol/L 134-144 [facility] Countyurea nitrogen/creatinine ratio, [id number] 14:31:00 Test Item Value Reference Range Interpretation Comments urea nitrogen/creatinine ratio, serum 11 9-23 (test code = 2462) [facility] CountyeGFR if [id number] 14:31:00 Test Item Value Reference Range Interpretation Comments eGFR if 102 >59 (test code = 272149) mL/min/((173/100).m2) [facility] CountyEstimated Glomerular Filtration Rate (calc)2018-10-05 14:31:00 Test Item Value Reference Range Interpretation Comments Estimated Glomerular 88 >59 Filtration Rate (calc) mL/min/((173/100).m2 (test code = 41316) ) [facility] Countycreatinine, [id number] 14:31:00 Test Item Value Reference Range Interpretation Comments creatinine, serum (test code = 18) 0.80 mg/dL 0.57-1.00 [facility] Countyurea nitrogen, [id number] 14:31:00 Test Item Value Reference Range Interpretation Comments urea nitrogen, blood (test code = 9) 9 mg/dL 6-24 [facility] Countyblood glucose, [id number] 14:31:00 Test Item Value Reference Range Interpretation Comments blood glucose, random (test code = 531 mg/dL 65-99 8) [facility] Countyimmature granulocytes, percentage of total cells, blood 2018-10-05 14:31:00 Test Item Value Reference Range Interpretation Comments immature granulocytes, percentage of 0 % total cells, blood (test code = 591331) [facility] Countybasophil count, [id number] 14:31:00 Test Item Value Reference Range Interpretation Comments basophil count, absolute (test 0.0 x10E3/uL 0.0-0.2 code = 12950) [facility] HealthEosinophil Absolute [id number] 14:31:00 Test Item Value Reference Range Interpretation Comments Eosinophil Absolute Count (test 0.1 X10E3/UL 0.0-0.4 code = 741189) [facility] Countymonocyte count, blood, [id number] 14:31:00 Test Item Value Reference Range Interpretation Comments monocyte count, blood, automated 0.3 X10E3/UL 0.1-0.9 (test code = 3076) [facility] Countylymphocyte count, blood, [id number] 14:31:00 Test Item Value Reference Range Interpretation Comments lymphocyte count, blood, 2.3 X10E3/UL 0.7-3.1 automated (test code = 3074) [facility] CountyAbsolute [id number] 14:31:00 Test Item Value Reference Range Interpretation Comments Absolute Neutrophils (test code 2.3 X10E3/UL 1.4-7.0 = 13249) [facility] Countybasophils as percent of blood [id number] 14:31:00 Test Item Value Reference Range Interpretation Comments basophils as percent of blood 0 % leukocytes (test code = 2426) [facility] Countyeosinophils as percent of blood [id number] 14:31:00 Test Item Value Reference Range Interpretation Comments eosinophils as percent of blood 1 % leukocytes (test code = 4170) [facility] Healthmonocytes as percent of blood otlcdpxyew1129-63-69 14:31:00 Test Item Value Reference Range Interpretation Comments monocytes as percent of blood 6 % leukocytes (test code = 2421) [facility] Countylymphocytes as percent of blood [id number] 14:31:00 Test Item Value Reference Range Interpretation Comments lymphocytes as percent of blood 48 % leukocytes (test code = 317) [facility] Countyneutrophils as percent of blood [id number] 14:31:00 Test Item Value Reference Range Interpretation Comments neutrophils as percent of blood 45 % leukocytes (test code = 316) [facility] Countyplatelet [id number] 14:31:00 Test Item Value Reference Range Interpretation Comments platelet count (test code = 66) 208 X10E3/UL 150-379 [facility] Countyred blood cell distribution [id number] 14:31:00 Test Item Value Reference Range Interpretation Comments red blood cell distribution width 13.8 % 12.3-15.4 (test code = 1030) [facility] corpuscular hemoglobin concentration, [id number] 14:31:00 Test Item Value Reference Range Interpretation Comments mean corpuscular hemoglobin 31.9 G/DL 31.5-35.7 concentration, RBC (test code = 1029) [facility], [id number] 14:31:00 Test Item Value Reference Range Interpretation Comments mean corpuscular hemoglobin, RBC 28.9 pg 26.6-33.0 (test code = 1031) [facility] corpuscular volume, [id number] 14:31:00 Test Item Value Reference Range Interpretation Comments mean corpuscular volume, RBC (test code 91 fL 79-97 = 315) [facility] Countyhematocrit, [id number] 14:31:00 Test Item Value Reference Range Interpretation Comments hematocrit, blood (test code = 64) 42.6 % 34.0-46.6 [facility] Countyhemoglobin, [id number] 14:31:00 Test Item Value Reference Range Interpretation Comments hemoglobin, blood (test code = 65) 13.6 g/dL 11.1-15.9 [facility] Countyerythrocyte (RBC) [id number] 14:31:00 Test Item Value Reference Range Interpretation Comments erythrocyte (RBC) count (test 4.70 X10E6/UL 3.77-5.28 code = 67) [facility] Countyleukocyte count, [id number] 14:31:00 Test Item Value Reference Range Interpretation Comments leukocyte count, blood (test 5.0 X10E3/UL 3.4-10.8 code = 68) [facility] Countyhepatitis C antibody, [id number] 14:31:00 Test Item Value Reference Range Interpretation Comments hepatitis C antibody, serum (test code <0.1 0.0-0.9 = 2722) [facility] surface [id number] 14:31:00 Test Item Value Reference Range Interpretation Comments hepatitis B surface antibody Non Reactive (test code = 78) [facility] B core antibody, [id number] 14:31:00 Test Item Value Reference Range Interpretation Comments hepatitis B core antibody, total Negative Negative (test code = 77) [facility] [id number] 14:31:00 Test Item Value Reference Range Interpretation Comments hepatitis B surface antigen (test Negative Negative code = 79) [facility] CountyHIV-CMIA (Chemiluminescent Microparticle Immuno Assay) 2018-10-05 13:05:00 Test Item Value Reference Range Interpretation Comments HIV-CMIA (Chemiluminescent Non Reactive Non Reactive Microparticle Immuno Assay) (test code = 493703) [facility] Countyrapid plasma reagin antibody, [id number] 13:05:00 Test Item Value Reference Range Interpretation Comments rapid plasma reagin antibody, Non Reactive Non Reactive serum (test code = 308) [facility] DsckthJVTIMJWYE0024-16-72 14:30:0010.7[facility]annCHEMISTRY 2011-08-24 14:30:008.6[facility] IgqsvceVXREYNKBQ0548-84-37 14:30:0027.0[facility] KjhiezfMPYUBMRBI8373-34-95 14:30:003.7[facility] DyeyewmJFCOZVKIR0040-88-93 14:30:50117.0[facility] RzyhzpzKQOODVFVH2109-87-61 14:30:98057.0[facility] WMJXHXASD4351-84-96 14:30:000.7[facility] GktcszvKHTCSGCDX6302-54-73 14:30:0016.0 [facility] PmeatonLKVRQXQFY6635-27-23 14:30:91564.0[facility]annHEMATOLOGY 2011-08-24 14:30:00 Test Item Value Reference Range Interpretation Comments PTT (test code = PTT) 27.0 s 22.9-35.8 N [facility] [id number] 14:30:00 Test Item Value Reference Range Interpretation Comments PT (test code = PT) 12.9 s 12.0-14.7 N [facility] GlaptxrZUTNFGUJQC4317-90-12 14:30:00 Test Item Value Reference Range Interpretation Comments INR (test code = INR) 0.97 1 0.85-1.17 N [facility] QbyprfcTMDMAXHLBW2822-49-32 14:30:0035.5[facility]annHEMATOLOGY 2011-08-24 14:30:00 Test Item Value Reference Range Interpretation Comments MCH (test code = MCH) 29.5 pg 27.0-31.0 N [facility] NvsmqczVIFRTUTIMM3704-81-97 14:30:0086.9[facility]annHEMATOLOGY 2011-08-24 14:30:0033.9[facility] OmjovmpEBEPNVIIYI0795-72-85 14:30:0014.1[facility] EplynxxYAAQFHOSZQ6014-00-14 14:30:008.5[facility] RbuabspMSTPJONQEJ9776-81-26 14:30:31445.0[facility] IpkrqqiLCSSJEMMJB8087-96-97 14:30:005.7[facility] KYXOFUHGUY3078-10-49 14:30:004.08[facility] PjzbfceYAMNXHVLNE7448-30-07 14:30:00 12.0[facility] ShzspbfMBZTTUNPIR9389-69-95 14:30:0046.4[facility]annHEMATOLOGY 2011-08-24 14:30:0045.3[facility] CxrrktsPYNYWTROYU2279-43-00 14:30:003.3[facility] TjbjvoqRNNOCQVWMN6834-81-53 14:30:004.8[facility] QgxsmakMWVAQBQJFB5143-42-26 14:30:002.6[facility] TxsugizZLSUCUQCAU3997-95-75 14:30:000.2[facility] UVHAMRWKMO3222-55-28 14:30:000.2[facility] PsgltfcPZOAFBBPCX0870-42-01 14:30:000.0 [facility] GnbhpomPOZAYZMADH8431-64-90 14:30:000.3[facility]annHEMATOLOGY 2011-08-24 14:30:002.6[facility]
[2021-01-16 00:24] LABS: Urine Blood NEGATIVE (NEG); Urine Glucose 2+ (NEG); Urine Protein NEGATIVE (NEG)
[2021-01-16] MEDS ORDERED: ONDANSETRON 4 MG/2 ML VIAL ONE (00:28)
[2021-01-16] MEDS ORDERED: MORPHINE 4 MG/ML SYR ONE ×2 (00:28→01:38)
[2021-01-16 00:36] LABS: Absolute Lymphocytes (CBC) 2.7 K/uL (0.7-4.9); Basophils % 1.1 % (0-1.3); Hematocrit 40.6 % (36.0-45.0); Lymphocytes % 47.9 % (15.3-44.8); MPV 9.5 fL (7.6-11.3); RBC Red Blood Cell Count 4.55 M/uL (3.86-4.86)
[2021-01-16 00:49] LABS: ALT/SGPT 28 U/L (12-78); AST/SGOT 16 U/L (15-37); Albumin 3.2 g/dL (3.4-5.0); Alkaline Phosphatase 132 U/L (45-117); BUN Blood Urea Nitrogen 18 mg/dL (7-18); Bicarbonate 25 mmol/L (21-32); Bilirubin Direct < 0.1 mg/dL (0-0.2); Bilirubin Total 0.2 mg/dL (0.2-1.0); Lipase 159 U/L (73-393); Potassium 4.5 mmol/L (3.5-5.1); Protein, Total 6.9 g/dL (6.4-8.2); Sodium Level 136 mmol/L (136-145)
[2021-01-16 00:52] LABS: Glucose Level 535 mg/dL (74-106)
[2021-01-16] MEDS ORDERED: INSULIN -REGULAR HUMAN 50 UNIT/0.5 ML ML ONE (01:15)
[2021-01-16] MEDS ORDERED: NA CHLORIDE 0.9% 100 ML ONE (02:43)
[2021-01-16] MEDS ORDERED: METOCLOPRAMIDE 10 MG/2mL INJ ONE (02:43)
--- NOTE | 2021-01-16 03:19 | EDPHYS ---
Physician Documentation [facility] Name: Stepan Flynn Age: 50 yrs Sex: Female : 1970 Arrival Date: 01/15/2021 Time: 23:53 Bed 7 Private MD: ED Physician Lon Stanton HPI: 01/16 00:08 This 50 yrs old Black Female presents to ER via Ambulatory with complaints of Upper ps1 Abdominal Pain, Nausea. 00:08 Patient states for 3 days she has had abdominal pain in the left flank that wraps ps1 around to the epigastric area. States that she drinks. No history of pancreatitis in past. States that her pain is severe. Associated with nausea. No fever. . 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 - Social history:: Smoking status: Patient denies any tobacco usage or history of. ROS: 00:08 Constitutional: Negative for fever, chills, and weight loss, Eyes: Negative for injury, ps1 pain, redness, and discharge, Cardiovascular: Negative for chest pain, palpitations, and edema, Respiratory: Negative for shortness of breath, cough, wheezing, and pleuritic chest pain, MS/Extremity: Negative for injury and deformity, Skin: Negative for injury, rash, and discoloration. 00:08 Abdomen/GI: Positive for abdominal pain, nausea. Exam: 00:08 Constitutional: This is a well developed, well nourished patient who is awake, alert, ps1 and in no acute distress. Head/Face: Normocephalic, atraumatic. Eyes: Pupils equal round and reactive to light, extra-ocular motions intact. Lids and lashes normal. Conjunctiva and sclera are non-icteric and not injected. Cardiovascular: Regular rate and rhythm. No gallops, murmurs, or rubs. Normal PMI, no JVD. No pulse deficits. Respiratory: Lungs have equal breath sounds bilaterally, clear to auscultation and percussion. No rales, rhonchi or wheezes noted. No increased work of breathing, no retractions or nasal flaring. 00:08 Abdomen/GI: Inspection: abdomen appears normal, Palpation: moderate abdominal tenderness, Indicators: McBurney's point is not tender. Vital Signs: 00:03 BP 150 / 113; Pulse 113; Resp 18; Temp 98.4; Pulse Ox 100% on R/A; mg2 00:15 BP 146 / 105; Pulse 111; Resp 16; Pulse Ox 98% ; Weight 92.53 kg; rr5 01:00 BP 140 / 103; Pulse 95; Resp 16; Pulse Ox 99% ; Pain 8/10; rr5 02:37 BP 123 / 93; Pulse 89; Resp 18; Pulse Ox 100% on R/A; mg2 03:06 BP 117 / 91; Pulse 99; Resp 17; Pulse Ox 98% ; rr5 MDM: 00:03 Patient medically screened. ps1 03:21 Differential diagnosis: Nonspecific abd pain, gastroparesis, PUD, and others. Data ps1 reviewed: vital signs, lab test result(s), radiologic studies, and as a result, I will discharge patient. Counseling: I had a detailed discussion with the patient and/or guardian regarding: the historical points, exam findings, and any diagnostic results supporting the discharge/admit diagnosis, lab results, radiology results, the need for outpatient follow up, to return to the emergency department if symptoms worsen or persist or if there are any questions or concerns that arise at home. ED course: patient has not eaten in a while and has significant amount of food in stomach. BS markedly elevated. Evidence to support diabetic gastroparesis as etiology of her pain. Negative lipase and CT otherwise. Home with clinda and reglan. Follow up with PCP for medications. . 01/16 00:01 Order name: Basic Metabolic Panel; Complete Time: 01:06 ps1 01/16 01:06 Interpretation: Abnormal: GLUC 535. ps1 01/16 00:01 Order name: CBC with Diff; Complete Time: 00:51 ps1 01/16 00:01 Order name: Hepatic Function; Complete Time: 01:06 ps1 01/16 00:01 Order name: Lipase; Complete Time: 01:06 ps1 01/16 00:16 Order name: Urine --Ancillary (enter results); Complete Time: 00:34 tt3 01/16 00:16 Order name: Urine Dipstick--Ancillary (enter results); Complete Time: 00:34 tt3 01/16 00:01 Order name: IV Saline Lock; Complete Time: 00:16 ps1 01/16 00:01 Order name: CT Abd/Pelvis - IV Contrast Only ps1 01/16 02:19 Order name: Glucose, Ancillary Testing; Complete Time: 02:20 EDMS 01/16 00:01 Order name: Labs collected and sent; Complete Time: 00:16 ps1 01/16 00:01 Order name: Urine Dipstick-Ancillary (obtain specimen); Complete Time: 00:09 ps1 01/16 00:16 Order name: Urine Test (obtain specimen); Complete Time: 00:16 tt3 Administered Medications: 00:17 Drug: morphine 4 mg Route: IVP; Site: right antecubital; mg2 01:00 Follow up: BP 140 / 103; Pulse 95 bpm; Resp 16 bpm; Pulse Ox 99% ; Pain 8/10 Adult; rr5 Response: No adverse reaction; RASS: Alert and Calm (0) 00:17 Drug: Zofran (Ondansetron) 4 mg Route: IVP; Site: right antecubital; mg2 01:00 Follow up: Response: No adverse reaction rr5 01:01 Drug: Insulin Regular Human 10 units {Co-Signature: mg2 (Kishore Sullivan RN).} Route: rr5 Sub-Q; Site: right lower abdomen; 02:30 Follow up: Response: No adverse reaction mg2 01:24 Drug: morphine 4 mg {Note: rass 0.} Route: IVP; Site: right antecubital; rr5 01:47 Follow up: Response: No adverse reaction mg2 02:37 Drug: Reglan 10 mg Route: IVP; Site: right antecubital; mg2 03:20 Follow up: Response: No adverse reaction mg2 Disposition: 01/16/21 03:17 Discharged to Home. Impression: Abdominal pain, Diabetic gastroparesis. - Condition is Stable. - Discharge Instructions: Gastroparesis. - Prescriptions for Clindamycin HCl 150 mg Oral Capsule - take 1 capsule by ORAL route every 6 hours for 10 days; 40 capsule. Reglan 10 mg Oral Tablet - take 1 tablet by ORAL route every 6 hours . take 30 minutes before meals and at bedtime; 30 tablet. Lactulose 10 gram/15 mL Oral Solution - take 30 milliliter by ORAL route once daily; 300 milliliter. - Medication Reconciliation Form, Thank You Letter, Antibiotic Education, Prescription Opioid Use form. - Follow up: Denise Raya MD; When: 48 Hours; Reason: Further diagnostic work-up, Recheck today's complaints. Follow up: Emergency Department; When: As needed; Reason: Worsening of condition. - Problem is new. - Symptoms are unchanged. Signatures: Dispatcher [employer] EDMS Luis E Muniz RN RN sg Lon Stanton MD MD ps1 Kishore Sullivan RN RN mg2 Breezy Washington RN RN rr5 Nilay Mota tt3 Kishore Sullivan RN mg2 Corrections: (The following items were deleted from the chart) 00:11 00:08 Abdomen/GI: Palpation: moderate abdominal tenderness, ps1 ps1 03:25 03:17 01/16/2021 03:17 Discharged to Home. Impression: Abdominal pain; Diabetic mg2 gastroparesis. Condition is Stable. Forms are Medication Reconciliation Form, Thank You Letter, Antibiotic Education, Prescription Opioid Use. Follow up: Denise Raya; When: 48 Hours; Reason: Further diagnostic work-up, Recheck today's complaints. Follow up: Emergency Department; When: As needed; Reason: Worsening of condition. Problem is new. Symptoms are unchanged. ps1 03:31 03:25 01/16/2021 03:17 Discharged to Home. Impression: Abdominal pain; Diabetic rr5 gastroparesis. Condition is Stable. Discharge Instructions: Gastroparesis. Prescriptions for Clindamycin HCl 150 mg Oral Capsule - take 1 capsule by ORAL route every 6 hours for 10 days; 40 capsule, Reglan 10 mg Oral Tablet - take 1 tablet by ORAL route every 6 hours . take 30 minutes before meals and at bedtime; 30 tablet. and Forms are Medication Reconciliation Form, Thank You Letter, Antibiotic Education, Prescription Opioid Use. Follow up: Denise Raya; When: 48 Hours; Reason: Further diagnostic work-up, Recheck today's complaints. Follow up: Emergency Department; When: As needed; Reason: Worsening of condition. Problem is new. Symptoms are unchanged. mg2
--- NOTE | 2021-01-16 03:19 | ER ---
Nurse's Notes [facility] Name: Stepan Flynn Age: 50 yrs Sex: Female : 1970 Arrival Date: 01/15/2021 Time: 23:53 Bed 7 Private MD: Diagnosis: Abdominal pain;Diabetic gastroparesis Presentation: 01/15 23:58 Chief complaint: Patient states: I have pain in my upper stomach, it kind of feels like sg my intestines are twisting up. Im also nauseated, feel like Im going to throw up. Coronavirus screen: Client denies travel out of the [place] in the last 14 days. nausea, Client presents with at least one sign or symptom that may indicate coronavirus-19. Standard/surgical mask placed on the client. Provider contacted for isolation considerations. Ebola Screen: Patient negative for fever greater than or equal to 101.5 degrees Fahrenheit, and additional compatible Ebola Virus Disease symptoms Patient denies exposure to infectious person. Patient denies travel to an Ebola-affected area in the 21 days before illness onset. No symptoms or risks identified at this time. Initial Sepsis Screen: Does the patient meet any 2 criteria? No. Patient's initial sepsis screen is negative. Does the patient have a suspected source of infection? No. Patient's initial sepsis screen is negative. Risk Assessment: Do you want to hurt yourself or someone else? Patient reports no desire to harm self or others. Onset of symptoms was January 16, 2021. Care prior to arrival: None. Transition of care: patient was not received from another setting of care. 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 - Social history:: Smoking status: Patient denies any tobacco usage or history of. Screenin:11 Abuse screen: Denies threats or abuse. Denies injuries from another. Nutritional rr5 screening: No deficits noted. Tuberculosis screening: No symptoms or risk factors identified. Fall Risk IV access (20 points). Total Morris Fall Scale indicates No Risk (0-24 pts). Assessment: 00:10 General: Appears in no apparent distress. uncomfortable, Behavior is calm, cooperative, rr5 appropriate for age. Pain: Complains of pain in abdomen Pain currently is 8 out of 10 on a pain scale. Quality of pain is described as aching, squeezing, Pain began gradually, Is intermittent. Neuro: Level of Consciousness is awake, alert, obeys commands, Oriented to person, place, time, situation. Cardiovascular: Capillary refill < 3 seconds Patient's skin is warm and dry. Respiratory: Airway is patent Respiratory effort is even, unlabored, Respiratory pattern is regular, symmetrical. 00:10 GI: Abdomen is round Reports lower abdominal pain, upper abdominal pain, nausea, rr5 vomiting. : No signs and/or symptoms were reported regarding the genitourinary system. EENT: No signs and/or symptoms were reported regarding the EENT system. Derm: Skin is intact, is healthy with good turgor, Skin temperature is warm. Musculoskeletal: Circulation, motion, and sensation intact. Capillary refill < 3 seconds. 00:50 Reassessment: Patient appears in no apparent distress at this time. candy from rr5 laboratory called sugar 535, ED provider aware with order made and carried out. 01:26 Reassessment: Patient appears in no apparent distress at this time. Patient is alert, rr5 oriented x 3, equal unlabored respirations, skin warm/dry/pink. complaints of abdominal pain, ED Provider aware with order made and carried out. 02:40 General: - updated- [id number]. mg2 Vital Signs: 00:03 BP 150 / 113; Pulse 113; Resp 18; Temp 98.4; Pulse Ox 100% on R/A; mg2 00:15 BP 146 / 105; Pulse 111; Resp 16; Pulse Ox 98% ; Weight 92.53 kg; rr5 01:00 BP 140 / 103; Pulse 95; Resp 16; Pulse Ox 99% ; Pain 8/10; rr5 02:37 BP 123 / 93; Pulse 89; Resp 18; Pulse Ox 100% on R/A; mg2 03:06 BP 117 / 91; Pulse 99; Resp 17; Pulse Ox 98% ; rr5 ED Course: 01/15 23:53 Patient arrived in ED. cl3 23:56 Kishore Sullivan, RN is Primary Nurse. mg2 01/16 00:00 Triage completed. sg 00:00 Lon Stanton MD is Attending Physician. ps1 00:00 Arm band placed on. sg 00:05 Inserted saline lock: 20 gauge in right antecubital area, using aseptic technique. rr5 ,using aseptic technique. inserted by kathy BERNSTEIN Blood collected. 00:09 Urine collected: clean catch specimen, clear. rr5 00:17 Patient has correct armband on for positive identification. Bed in low position. Call rr5 light in reach. Pulse ox on. NIBP on. 01:17 CT Abd/Pelvis - IV Contrast Only In Process Unspecified. EDMS 01:26 No provider procedures requiring assistance completed. rr5 03:17 Denise Raya MD is Referral Physician. ps1 03:20 IV discontinued, intact, bleeding controlled, No redness/swelling at site. Pressure mg2 dressing applied. 03:29 Primary Nurse role handed off by Kishore Sullivan, AMANDEEP mg2 Administered Medications: 00:17 Drug: morphine 4 mg Route: IVP; Site: right antecubital; mg2 01:00 Follow up: BP 140 / 103; Pulse 95 bpm; Resp 16 bpm; Pulse Ox 99% ; Pain 8/10 Adult; rr5 Response: No adverse reaction; RASS: Alert and Calm (0) 00:17 Drug: Zofran (Ondansetron) 4 mg Route: IVP; Site: right antecubital; mg2 01:00 Follow up: Response: No adverse reaction rr5 01:01 Drug: Insulin Regular Human 10 units {Co-Signature: mg2 (Kishore Sullivan RN).} Route: rr5 Sub-Q; Site: right lower abdomen; 02:30 Follow up: Response: No adverse reaction mg2 01:24 Drug: morphine 4 mg {Note: rass 0.} Route: IVP; Site: right antecubital; rr5 01:47 Follow up: Response: No adverse reaction mg2 02:37 Drug: Reglan 10 mg Route: IVP; Site: right antecubital; mg2 03:20 Follow up: Response: No adverse reaction mg2 Outcome: 03:17 Discharge ordered by . ps1 03:25 Discharged to home ambulatory. mg2 03:25 Condition: stable 03:25 Discharge instructions given to patient, Instructed on discharge instructions, follow up and referral plans. medication usage, Demonstrated understanding of instructions, follow-up care, medications, Prescriptions given X 2. 03:25 Patient left the ED. mg2 03:31 Patient left the ED. rr5 Signatures: Dispatcher [employer] EDMS Luis E Muniz RN RN sg Lon Stanton MD MD ps1 Kishore Sullivan RN RN mg2 Breezy Washington RN RN rr5 Jan Ferguson cl3 Kishore Sullivan RN mg2 Corrections: (The following items were deleted from the chart) 00:18 00:15 BP 146 / 105; Pulse 111bpm; Resp 16bpm; Pulse Ox 98%; rr5 rr5
[2021-01-16 05:08] VITALS: TEMP 98.4
[2021-01-16 05:17] VITALS: BP 117/91; O2SAT 98
--- NOTE | 2021-01-17 13:50 | RAD REPORT ---
EXAM DESCRIPTION: CT ABDOMEN PELVIS WITH IV CONTRAST COMPARISON: None CLINICAL HISTORY: Abdominal pain TECHNIQUE: Multiple helical axial images were obtained through the abdomen and pelvis using intraven ous contrast. Coronal and sagittal reformatted images were obtained. All CT scans at this facility use dose modulation, iterative reconstruction, and/or weight-based dosi ng when appropriate to reduce radiation dose to as low as reasonably achievable. FINDINGS: Lung bases: Linear areas of atelectasis in the right middle lobe and left lower lobe noted . Liver: Homogenous attenuation is noted. Gallbladder/biliary: Appears unremarkable Pancreas: Unremarkable. No evidence of ductal enlargement. Spleen: Appears unremarkable. No splenomegaly. Adrenals: Unremarkable. Kidneys and ureters: No evidence of hydronephrosis. Normal enhancement. Bladder: Unremarkable. Pelvic organs: Post hysterectomy changes noted. Bowel: No evidence of bowel obstruction. No bowel wall thickening. Appendix appears unremarkable. Vasculature: Unremarkable. Peritoneum: No free air. No significant free fluid. Lymph nodes: Unremarkable. Soft tissues: Tiny fat-containing umbilical hernia is present. Bones: Degenerative changes of the lumbar spine noted. IMPRESSION: No evidence for an acute process within the abdomen or pelvis. Electronically signed by: Rohan Roche MD 01/16/2021 2:55 AM [employer] Due to temporary technical issues with the PACS/Fluency reporting system, reports are being signed by the in house radiologists without review as a courtesy to insure prompt reporting. The interpreting radiologist is fully responsible for the content of the report.
== END 2021-01-16 03:31 | disposition home or self-care (01) ==
LOC: ER 23:53
DX: E11.43 Type 2 diabetes mellitus with diabetic autonomic (poly)neuropathy (principal); K31.84 Gastroparesis; I10 Essential (primary) hypertension; F31.9 Bipolar disorder, unspecified; J45.909 Unspecified asthma, uncomplicated; Z79.4 Long term (current) use of insulin
CPT/HCPCS: 85025; 80048; 36415; 81025; 82947; 80076; 81003; 83690; 74177; 96375; 96372; 96374; 99284; Q9967; J2765; J2405

== ENCOUNTER 2021-03-10 10:35 | Emergency (ER) | payer OTHER ==
--- OUTSIDE RECORDS SUMMARY | 2021-03-10 10:45 | XMS REPORT | Continuity of Care Document ---
:1970 Author Organization [facility] t Address [address] [place] [address] Care Team Providers Name Role Phone Asked, Pcp Primary Care Physician Unavailable Lisa Doran DO Attending Clinician JEFF Attending Clinician Unavailable CHASIDY Attending Clinician Unavailable JABARI Attending Clinician Unavailable INÉS Attending Clinician Unavailable KELLY Attending Clinician Unavailable GREG Attending Clinician Unavailable BRANDO Attending Clinician Unavailable ASHUTOSH Attending Clinician Unavailable MISSAEL Attending Clinician Unavailable Brock Schwarz MD Attending Clinician BROCK SCHWARZ Attending Clinician Unavailable LE Attending Clinician Unavailable ANGELICA Attending Clinician Unavailable Juma Attending Clinician [phone] Jesenia Attending Clinician Unavailable Mitra Lockwood Attending Clinician Unavailable Keith Attending Clinician Unavailable Pollo Attending Clinician Unavailable DENISE Attending Clinician Unavailable JULITO Attending Clinician Unavailable Daren Perez Attending Clinician [phone] Albert Attending Clinician Unavailable Philip Attending Clinician Unavailable Perfecto Attending Clinician Unavailable Provider Attending Clinician Unavailable Colby Rivas Attending Clinician Unavailable Brandon Attending Clinician Unavailable LEONEL Attending Clinician Unavailable ABDIAZIZ Attending Clinician Unavailable DELIA Attending Clinician Unavailable VERENA Attending Clinician Unavailable GATO Attending Clinician Unavailable MILLICENT Attending Clinician Unavailable Mitra Briscoe Attending Clinician [phone] Flavio Attending Clinician [phone] SERGIO Attending Clinician Unavailable George Attending Clinician Unavailable Lucia Attending Clinician Unavailable Sreekanth Attending Clinician Unavailable MEREDITH Attending Clinician Unavailable Héctor Attending Clinician [phone] Grant Attending Clinician Unavailable Nohemy Attending Clinician Unavailable Ld Attending Clinician Unavailable ALFREDO Attending Clinician Unavailable MONSTER Attending Clinician Unavailable INDIA Attending Clinician Unavailable Juma Unavailable [phone] Perez, L Unavailable [phone] Luis Felipe, G Unavailable [phone] Sreekanth Unavailable Unavailable Héctor Unavailable [phone] Payers Payer Name Policy Type Policy Effective Date Expiration Date Sour ce Number MEDICAID - [id number] 2016 [facility] MEDICAID MGD 00:00:00 - [facility] [place] [facility] [id number] -Present Medicaid Non-Contracted Problems Condition Condition Condition Status Onset Resolution Last Treating Co mments Source Name Details Category Date Date Treatment Clinician Date Abscess, Abscess, Disease Active 2019-11 [facility] S t perineum perineum 01-16 [facility] - 00:00: Medical 00 [place] 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 01-16 [facility] - mellitus mellitus 00:00: Medica l with other with other 00 Ce nter specified specified complicati complicati on, on, unspecifie unspecifie d whether d whether laborer [facility] insulin insulin use use Fingernail Fingernail Disease Active [facility] avulsion, avulsion, 07-26 Luke s - partial, partial, 00:00: Medica l initial initial 00 Center encounter encounter Paronychia Paronychia Disease Active C [facility] of finger, of finger, 07-26 Diana kes - right right 00:00: Medical 00 [place] Moderate Moderate Disease [facility]16 Me odi cristofer [place] 00:00: st malnutriti malnutriti 00 on on Asthma Asthma Disease Active 2018-11 Rosie exacerbati exacerbati 2-14 Me thodi on on 00:00: st 00 Viral Viral Disease Active 2018-11 Rosie upper upper 2-14 Methodi respirator respirator 00:00: st y tract y tract 00 infection infection HLD HLD Disease Active 2018-11 Rosie (hyperlipi (hyperlipi 2-14 Me thodi demia) demia) 00:00: st 00 Schizophre Schizophre Disease Active 2018-11 [place] joaine joanie 2-14 Methodi 00:00: st 00 Herpes Condition Active 2018-112019-10-11 Kira Dennison exposure 12-11 10:58:52 Nereida Booker i 00:00: ty 00 Health PrEP / Condition Active 2019-07-22 Perez, Leg acy Contact or 07-19 15:43:15 Danita L Com elias exposure 00:00: ty to STI 00 Health Vaginal Condition Active 2019-07-22 Luis Felipe, L egacy discharge 01-04 15:43:15 Isela G Com elias 00:00: ty 00 Health High risk Condition Active 2018-12-26 Luis Felipe, [facility] heterosexu 12-26 14:51:34 Isela Johnson Co mmuni al 00:00: ty behavior 00 Health Diabetes Condition Active 2018-12-26 Luis Felipe, [facility] mellitus 12-26 14:51:34 Isela Johnson Comm uni type II 00:00: ty 00 Health Preventati Condition Active 2017-112018-12-26 Foster, [facility] ve health -16 14:35:22 Lazaro Commu ni care 00:00: ty 00 Health Std Condition Active 2017-112018-12-26 Héctor, Leg acy screening 16 14:35:22 Abdi Commu ni 00:00: ty 00 Health Chest pain Chest pain Disease Active H rene -02 Methodi 00:00: st 00 Diabetes Diabetes Disease Active [place] on 02-19 Methodi 00:00: st 00 HTN HTN Disease Active Rosie (hypertens (hypertens -02 Me thodi ion) ion) 00:00: st 00 Weakness Weakness Disease Active [place] of left of left 02-19 Methodi side of side of 00:00: st body body 00 FOOT PAIN Diagnosis Active 2011-08-24 Memoria 07-19 08:54:00 l FOOT 00:00: Fries PAIN 00 Active 07/19/2011 [facility] Stroke Stroke Problem Active Univers syndrome syndrome [...] monitoring monitoring it y of encounter encounter Cecil vasquez Physici ans Visit for Visit for Problem Active Uni vers screening screening ity of mammogram mammogram Textate vasquez Physici ans Otalgia of Otalgia of Problem [...] nivers ry ry ity of arthritis arthritis Textate s Physici ans Anxiety Anxiety Problem Active [...] it y of right ear right ear Textate s Physici ans Influenza Influenza Problem Active [...] Yeast Yeast Problem Active Univers infection infection ity of [place] Physici ans Acute Problem Active 2016-08-10 Memor ia gastritis 02:02:33 l without Acute Fries mention of gastritis hemorrhage without mention of hemorrhage Active Problem 08/10/2016 Monserrat Card Unspecifie Problem Active 2016-08-10 M emoria d 02:02:33 l essential Cleve hypertensi Unspecifie on d essential hypertensi on [...] Me moria examinatio 02:02:33 l n for Fries venereal Screening disease examinatio n for venereal disease Active Problem 08/10/2016 Monserrat Card Esophageal Diagnosis Active 2016-08-10 Memoria reflux 02:02:33 l Fries Esophageal reflux Active Diagnosis 08/10/2016 Monserrat Card Obstructiv Problem Active 2016-08-10 M emoria e chronic 02:02:33 l bronchitis Dalton n , without Obstructiv exacerbati e chronic on bronchitis , without exacerbati on Active Problem 6 Monserrat Card Acute Problem Active 2016-08-10 Memor ia pharyngiti 02:02:33 l s Acute Cleve pharyngiti s Active Problem 08/10/2016 Monserrat Card Urinary Problem Active 2016-08-10 Cole snow tract 02:02:33 l infection Urinary Herm ayo tract infection Active Problem 08/10/2016 Monserrat Card Nausea Diagnosis Active 2014-07-08 Mem oria with 02:01:10 l vomiting Nausea Dalton n with vomiting Active Diagnosis 07/08/2014 Monserrat Card Cellulitis Problem Active 2016-08-10 M emoria of groin 02:02:33 l Fries Cellulitis of groin Active Problem 08/10/2016 Monserrat Card Other and Problem Active 2016-08-10 Me moria unspecifie 02:02:33 l d Other Cleve hyperlipid and emia unspecifie d hyperlipid emia Active Problem 08/10/2016 Monserrat Card Enteritis Problem Active 2016-08-10 Me moria 02:02:33 l Cleve Enteritis Active Problem 08/10/2016 Monserrat Card Constipati Problem Active 2016-08-10 M emoria on 02:02:33 l Cleve Constipati on Active Problem 6 Monserrat Card Mass of Problem Active 2016-08-10 Cole snow left foot 02:02:33 l Mass of Cleve left foot Active Problem 08/10/2016 Monserrat Card [...] Active 2016-08-10 M emoria reflux 02:02:33 l Fries Esophageal reflux Active Problem 08/10/2016 Monserrat Card Acute Problem Active 2016-08-10 Memor ia ill-define 02:02:33 l d Acute Fries cerebrovas ill-define cular d disease cerebrovas cular disease Active Problem 08/10/2016 Monserrat Card DM eye Problem Active 2016-08-10 Memor ia manif type 02:02:33 l II DM eye Fries manif type II Active Problem 6 Monserrat Card Hemiplegia Problem Active 2016-08-10 M emoria of 02:02:33 l dominant Fries side 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 Active Problem 08/10/2016 Monserrat Card Candidiasi Problem Active 2016-08-10 M emoria s of vulva 02:02:33 l and vagina Dalton n Candidiasi s of vulva and vagina Active Problem 08/10/2016 Monserrat Card Type II or Diagnosis Active 2016-08-10 Memoria [...] for immunizati on Active Problem 6 Monserrat Card Type II or Problem Active 2016-08-10 M emoria unspecifie 02:02:33 l d type Type II Cleve diabetes or mellitus unspecifie with d type ophthalmic diabetes manifestat mellitus ions, not with stated as ophthalmic uncontroll manifestat ed ions, not stated as uncontroll ed Active Problem 6 Monserrat Card Generalize Problem Active 2016-08-10 M emoria d anxiety 02:02:33 l disorder Cleve Generalize d anxiety disorder Active Problem 08/10/2016 Monserrat Card Hyperlipid Diagnosis Active 2016-08-10 Memoria emia 02:02:33 l Fries Hyperlipid emia Active Diagnosis 08/10/2016 Monserrat Card URI (upper Diagnosis Active 2016-08-10 Memoria respirator 02:02:33 l y URI Fries infection) (upper respirator y infection) Active Diagnosis 08/10/2016 Monserrat Card COUGH, Diagnosis Active 2012-04-19 Mem oria CONGESTION 11:57:00 l COUGH, Fries CONGESTION Active [facility] Allergies, Adverse Reactions, Alerts Allergy Allergy Status Severity Reaction(s) Onset Inactive Treating Comm ents Source Name Type Date Date Clinician Penicill DA Active MO 2019- [facility] Penicill Propensi Active [facility] to 02-21 [facility] - adverse 00:00: Medical reaction 00 Center s Penicill DA Active [facility] 04-10 Rosie 00:00: Health [address] PENICILL Drug Active High swollen 2017-11 [facility] [place] allergy Criticali tongue, 1-16 Commu ni (disorde ty welts all 00:00: ty r) over body 00 Health has tolerated amoxicillin Penicill Propensi Active Anaphylaxis, 2017- Tongue Kahn ins ty to Shortness Of 4-02 swelling, M ethodi adverse Breath, 00:00: whelps st reaction Swelling 00 s to drug penicill penicill Active Info Not Cole snow in in Available 9-20 l 00:00: Cleve 00 NKFA NKFA Active Memoria l Fries Penicill Allergy Active Univers ins to drug ity of (finding [place] ) Physici ans Family History Family Member Diagnosis Comments Start Date Stop Date Source Natural father Hypertension Rosie Confucianism Natural father Stomach cancer [place] Confucianism Natural mother Diabetes Rosie Confucianism Natural mother Hypertension Rosie Confucianism Grandmother Family history of Univer sity of [...] Date Stop Date Quantity Comments Source History [facility] - Alcohol Std Drinks Medica Center History [facility] - Alcohol Binge Medical Itzel ter Sex Assigned At [facility] Tobacco use and 2020-11-15 2020-11-15 Never used [facility] St Diana kes - exposure 00:00:00 00:00:00 Medical Center Alcohol intake 2020-11-15 2020-11-15 Current non-drinker [facility] - 00:00:00 00:00:00 of alcohol Medical Center (finding) History SDOH 2020-02-22 2020-02-[address] [facility] - Alcohol Frequency 00:00:00 00:00:00 Medical Center Cigarettes smoked 2019-11-02 2019-11-02 Rosie current (pack per 00:00:00 00:00:[address] ) - Reported Alcohol Comment 2019-11-02 2019-11-02 6 packs on Kahn 00:00:00 00:00:00 weekends, states Methodmauri gonzales has not drank in 8 months History of tobacco 2019-07-22 Cigarette Smoker Rosie use 00:00:00 Confucianism is there any 2019-07-19 2019-07-19 No [facility] [...] 13:56:17 13:56:17 just moved back Health from [place], [place], recently rekindled relationship with Father of children, who is hiv+Not homeless. Not employed. Sex at : Female. Sexual orientation: Heterosexual. Gender identity: Female. Gender of partner(s): Male. Sexually Active: Yes. sexual orientation 2018-12-26 2018-12-26 Heterosexual [facility] 14:07:18 14:07:18 Health family support 2018-10-05 2018-10-05 [facility] 11[facility] 11[facility]40[facility], recently rekindled relationship with Father of children, who is hiv+ sex at 2018-10-05 2018-10-05 Female [facility] 11:40:55 11:40:55 Health patient considered 2018-10-05 2018-10-05 No [facility] to be homeless 11:40:55 11:40:55 Health Tobacco Comment 2017-02-19 2017-02-19 1 pack/ 2-3 days Veronica ston 00:00:00 00:00:00 Confucianism TobaccoUse: 2016-08-09 2016-08-09 Tiera hernandez 00:00:00 00:00:00 Smoking Status Start Date Stop Date Source Smokes tobacco daily [facility] (finding) Physicians Never smoker [facility] Former smoker 2019-11-02 00:00:00 2019-11-02 Rosie Meth odist 00:00:00 Occasional tobacco 2019-07-19 13:56:17 [facility] smoker (finding) Medications Ordered Filled Start Stop [...] 800-160 mg tabs (1tab q12 D10). mupirocin 2019-11 No 1g Q.5D Apply [address] (BACTROBAN) 01-16 topically Diana kes - 2 % 00:00: 23:59 2 (two) Medical ointment 00 :00 times Center daily for 7 days. cephalexin 2019- No 500mg Q.[id number] Take [address] (KEFLEX) 07-26 [id number] capsule L ukes - 500 MG 00:00: 23:59 3D (500 mg Medical capsule 00 :00 total) by Center mouth 3 (three) times daily for 7 days. mupirocin 2019- No 1g Q.[id number] Apply [address] (BACTROBAN) 07-26 [id number] topically [facility] - 2 % 00:00: 23:59 3D 3 (three) Medical ointment 00 :00 times Center daily for 7 days. Fluconazole Fluconazole 2019-0 Yes ROYAL TAKE 1 Univers 150 MG Oral 150 MG Oral 9-03 KELLY M.D. TABLET 1 ity of Tablet Tablet 00:00: TIME ONLY. Calvin as 00 Physici ans QUEtiapine QUEtiapine 2019-0 Yes SIDHARTA 1 Q0.5D TAKE 1 Univers [...] Solution ans Pen-injecto Pen-injecto r r fluphenazin 2019-0 Yes 10mg Take [address] e 6-02 by mouth. [facility] - (PROLIXIN) 08:02: Medical 5 MG tablet 59 Center travoprost Yes Apply to [facility] (TRAVATAN 6-02 eye(s). [facility] - Z) 0.004 % 08:02: Medical Drop 59 Center ophthalmic drops dicyclomine 0 202- No 20mg Q.5D Take [address] (BENTYL) 20 5-17 05-17 tablet (20 L ukes - mg tablet 00:00: 23:59 mg total) Me dical 00 :00 by mouth 2 Center (two) times daily. traMADoL 2019-0 2019- No 50mg Take [address] (ULTRAM) 50 5-17 05-27 tablet (50 L ukes - mg tablet 00:00: 23:59 mg total) Me dical 00 :00 by mouth Center every 6 (six) hours as needed for Pain for up to 10 days. Max Daily Amount: 200 mg fluconazole 2019-0 2020- No 100mg QD Take [address] (DIFLUCAN) 5-17 05-19 tablet [facility] - 100 MG 00:00: 23:59 (100 mg Medical tablet 00 :00 total) by Center mouth daily for 2 doses. chlorhexidi 2020-[address] ne 5-02 [facility] - [...] KwikPen 500 KwikPen 500 00:00: M.D. before [place] UNIT/ML UNIT/ML 00 breakfast, Phy sici Subcutaneou Subcutaneou 60 units ans s Solution s Solution before Pen-injecto Pen-injecto dinner. r r Inject 30 minutes before meals hydrocortis 2019-0 Yes JACI EXT AA [facility] one 2.5 % 4-11 BID FOR 7 [facility] - ointment 00:00: DAYS Medical 00 Center Nebulizer Nebulizer 2019-0 Yes ALISSA USE Univers Device Device 4-10 CONTE DIRECTED. i ty of 00:00: M.D. [place] 00 Physici ans benzoyl 2019-0 Yes USE WASH [facility] peroxide 5 4-08 ONCE D [facility] - % external 00:00: UTD. Medical liquid 00 Center albuterol 2019-0 Yes INL [address] HFA 4-07 PO QID [facility] - (VENTOLIN 00:00: Medical HFA) 90 00 [place] mcg/actuati on inhaler pantoprazol 2019-0 Yes TK [...] True Metrix 2020-0 Yes ALISSA USE TO [facility] Blood Blood 02-24 CONTE TEST BLLOD it y of Glucose Glucose 00:00: M.D. SUGAR [place] Test In Test In 00 THREE Physici Vitro Strip Vitro Strip TIMES A DAY albuterol 2019-0 Yes U [address] (ACCUNEB) 4-06 VIA [facility] - 1.25 mg/3 00:00: NEBULIZER Med ical mL 00 Q 6 H PRF Center nebulizer WHEEZING solution benztropine 2019-0 Yes TK [address] (COGENTIN) 4-06 QD [facility] - 1 MG tablet 00:00: Medica l 00 Center busPIRone 2019-0 Yes TK [address] (BUSPAR) 5 4-06 Q 8 H [facility] - MG tablet 00:00: Medical 00 [place] LANTUS 0 Yes INJECT [address] SOLOSTAR 4-06 UNITS SQ [facility] - U-100 00:00: ONCE QAM Medical INSULIN 100 00 Center unit/mL (3 mL) In zolpidem 2019-0 Yes TK [address] (AMBIEN) 10 4-06 QHS PRF [facility] - mg tablet 00:00: SLEEP Medical 00 Center NOVOLOG 2019-0 Yes INJECT 10 [facility] t FLEXPEN 4-06 UNITS [facility] - U-100 00:00: UNDER THE Medical INSULIN 100 00 SKIN Center unit/mL (3 BEFORE mL) InPn BREAKFAST AND DINNER naproxen 2019-2020- No 500mg Take 1 [facility] t (NAPROSYN) - 04-04 tablet [facility] - 500 MG 00:00: 23:59 (500 mg Medical tablet 00 :00 total) by Center mouth 2 (two) times daily with breakfast and dinner. Naproxen Naproxen Yes MABER TAKE 1 U nivers 500 MG Oral 500 MG Oral 2-03 MISSAEL M.D. TABLET BY ity of Tablet Tablet 00:00: MOUTH [place] 00 TWICE A Physici DAY WITH ans MEALS DIFLUCAN Yes Nereida 1 by mouth [place] (FLUCONAZOL 11-22 Juma Commun i E) 150 MG 00:00: ty TABS 00 Health VALTREX 2019-0 Yes Nereida 1{Table 3xD 1 by mouth only take [facility] (VALACYCLOV 1-03 Juma t} 3 times a at sign Communi IR HCL) 1 00:00: day for 7 of ty GM TABS 00 days outbreaks Health (METRONIDAZ Yes Nereida 1{Table 2xD 1 tab by [facility] OLE) 500 MG 03 Juma t} mouth Commu ni TABS 00:00: twice a ty 00 day for 7 Health days NOVOLOG 2019-0 Yes 10 units [facility] (INSULIN 1-03 before Communi ASPART) 100 00:00: meals ty UNIT/ML 00 Critical access hospital LANTUS Yes 85 units [facility] (INSULIN 1-03 daily Communi GLARGINE) 00:00: ty 100 UNIT/ML 00 Critical access hospital insulin 0 2020- No Inject [facility] aspart 1-03 -17 subcutaneo [facility] - U-100 00:00: 00:00 usly. Medical (NOVOLOG 00 :00 Center U-100 INSULIN ASPART) 100 unit/mL injection (CLOTRIMAZO 2020- No Nereida apply Leg acy LE) 1 % 1- Juma Twice a Commun i CREA 00:00: 00:00 Day to ty 00 :00 affected Health areas traMADoL 2018-11 2020- No TK [address] (ULTRAM) 50 2-30 05-17 Q 8 H PRN Diana kes - mg tablet 00:00: 00:00 Medical 00 :00 [place] lisinopril 2018-11 Yes 20mg QD Take 20 [...] times a day. busPIRone 2018-11 Yes 5mg Q.[id number] Take 5 mg Kahn (BUSPAR) 5 2-16 [id number] by mouth 3 Methodi MG tablet 19:53: 3D (three) st 30 times a day. brimonidine 2018-11 Yes 1[drp] Q12H Administer Kahn -timolol 2-16 1 drop to Method i (COMBIGAN) 19:53: both eyes st 0.2-0.5 % 30 every 12 ophthalmic (twelve) solution hours. ergocalcife 2018-11 Yes [id number] Q7D Take [place] 2-16 50,000 [...] Kahn (TRAVATAN-Z 2-16 1 drop to Met fitz ) 0.004 % 19:53: both eyes st 30 nightly. traZODone 2018-11 Yes 50mg QD Take 50 mg [place] (DESYREL) 2-16 by mouth Method i 50 MG 19:53: nightly. st tablet 30 triamterene 2018-11 Yes 1{tbl} QD Take 1 [place] -hydrochlor 2-16 tablet by Met fitz othiazid 19:53: mouth st (MAXZIDE-25 30 daily. [...] no sex or [facility] OLE) 500 MG 07-23 Juma t} x 7 days alcohol Communi TABS 00:00: while on ty 00 medicatio Health n [facility]vis [facility] One Yes AMBER 1 Univers 48 MG/6ML 48 MG/6ML 7- MISSAEL M.D. injection ity of Intra-artic Intra-artic 00:00: in each [facility] ular 00 knee Physici Solution Solution ans Prefilled Prefilled Syringe Syringe Synvisc One Synvisc One Yes AMBER 1 Univers 48 MG/6ML 48 MG/6ML 7- MISSAEL M.D. injection ity of Intra-artic Intra-artic 00:00: in each [place] ulde ular 00 knee Physici Solution Solution ans Prefilled Prefilled Syringe Syringe Triamterene Triamterene Yes LORI 1 tablet Univers -HCTZ -HCTZ 6-18 PATKI M.D. daily for it y of 37.5-25 MG 37.5-25 MG 00:00: 3 months [place] Oral Oral 00 Physici Capsule Capsule ans Precision Precision Yes ALISSA Q0.25D TEST 4 Univers Xtra Blood Xtra Blood 5-14 CONTE TIMES ity of Glucose In Glucose In 00:00: M.D. DAILY. [place] Vitro Strip Vitro Strip 00 P hysici ans lisinopriL Yes Take by [facility] (PRINIVIL,Z 4-30 mouth. [facility] - ESTRIL) 20 00:00: Medical MG tablet 00 Center Lisinopril Lisinopril Yes VENKAT TAKE 1 Univers 20 MG Oral 20 MG Oral 4-30 ASHUTOSH TABLET BY ity of Tablet Tablet 00:00: M.D. MOUTH ONCE Calvin as 00 A DAY Physici ans traZODone traZODone Yes SIDHARTA TAKE 1 TO Univers HCl - 50 MG HCl - 50 MG 4-10 GREG M.D. 2 TABLETS ity of Oral Tablet Oral Tablet 00:00: AT BEDTIME [place] 00 Physici ans (FLUCONAZOL Yes Isela G take 1 [facility] E) 150 MG 2-15 Luis Felipe tablet Commun i TABS 00:00: once ty 00 Health emtricitabi Yes Take by [facility] St ne-tenofovi 2-12 mouth. [facility] - r, TDF, 00:00: Medical (TRUVADA) 00 Center 200-300 mg TRUVADA 2020- No 1{Table 1xD 1 by mouth [facility] (EMTRICITAB 2-12 01-03 t} daily Commun i INE-TENOFOV 00:00: 00:00 ty IR DF) 00 :00 Health 200-300 MG TABS Ergocalcife Ergocalcife Yes ALISSA TAKE 1 Univers rol 1.25 MG rol 1.25 MG 1-21 CONTE CAPSULE ity of (86792 UT) (19378 UT) 00:00: M.D. WEEKLY. [place] Oral Oral 00 Physici Capsule Capsule ans Meloxicam Meloxicam Yes KOBY 1 QD TAKE 1 Univers 15 MG Oral 15 MG Oral 1-14 ABDIAZIZ BLEVINS TABLET ity of Tablet Tablet 00:00: DAILY. [place] 00 Physici ans ADVIL 2017-11 Yes 2{Table 4xD 2 by mouth Leg acy (IBUPROFEN) 1-16 t} 4 times a Com elias 200 MG TABS 00:00: day as ty 00 needed Health (ASPIRIN) 2017-11 Yes 1 by mouth [place] 81 MG TBEC 1-16 every day Comm uni 00:00: ty 00 Health (LISINOPRIL 2017-11 Yes 1{Table 1xD 1 by mouth [facility] ) 10 MG 1-16 t} every day Communi TABS 00:00: ty 00 Health (METFORMIN 2017-11 Yes 1{Table 2xD 1 by mouth [facility] HCL) 1000 1-16 t} twice a Communi MG TABS 00:00: day ty 00 Health traMADol traMADol Yes AMBER Gurdeepanika 1 U nivers HCl - 50 MG HCl - 50 MG -13 MISSAEL M.D. tablet ity of Oral Tablet Oral Tablet 00:00: every 8 [place] 00 hour as Physici needed for ans pain Sucralfate 2015-11 Yes Monserrat 1 tablet Memoria 0-20 [place] on an l 00:00: empty Cleve 00 stomach Metformin Yes Monserrat 1 tablet M emoria HCl 9-21 [place] with meals l 02:02: Cleve 33 Nexium Yes Monserrat 1 capsule Mem oria 9-21 [place] l 02:02: Fries 33 Valsartan-H Yes Monserrat 1 tablet Memoria ydrochlorot 9-21 [place] l hiazide 02:02: Cleve 33 Benztropine Yes Monserrat 1 tablet Memoria Mesylate 9-21 B[place] at bedtime l 02:02: Fries 33 Valproic Yes Monserrat Unknown Mem oria Acid 9-21 B[place]baum l 02:02: Cleve 33 Novolin Yes Monserrat as Memoria 70/30 9-21 [place] directed l 02:02: Cleve 33 Risperdal Yes Monserrat Unknown Me moria Consta 9-21 Buxbaum l 02:02: Cleve 33 Atorvastati Yes Monserrat 1 tablet Memoria n Calcium 9-21 Buxbaum l 02:02: Fries 33 Omeprazole Yes Monserrat 2 capsules Memoria 9-21 [place] l 02:02: NovoLog Yes Monserrat Unknown Cole snow Flexpen 9-21 B[place]baum l 02:02: HydrOXYzine Yes Monserrat 1 tablet Memoria HCl 9-21 [place] as needed l 02:02: Invega Yes Monserrat 1 tablet Cole snow 9-21 [place] in the l 02:02: morning Proventil Yes Monserrat 2 puffs as Memoria HFA 9-21 B[place] needed l 02:02: Clonidine Yes Monserrat 1 tablet M emoria HCl 9-21 [place] l 02:02: Sucralfate Yes Monserrat 1 tablet Memoria 2-06 [place] on an l 03:35: empty stomach Clonazepam Yes Monserrat 1 tablet Memoria 1-20 [place] l 00:00: Benztropine Yes Monserrat 1 tablet Memoria Mesylate 1-07 B[place]baum at bedtime l 03:10: Flagyl Yes Monserrat 1 tablet Cole snow 1-06 B[place]baum l 00:00: Aspirin 0 Yes Monserrat 1 tablet Mem oria 8-19 [place] l 00:00: Cipro 0 Yes Monserrat 1 tablet Memor ia 6-30 [place] l 00:00: Flagyl 0 Yes Monserrat 1 tablet Cole snow 6-30 [place] l 00:00: Mupirocin 0 Yes Monserrat 1 Memor ia Calcium 4-14 B[place] applicatio l 00:00: n to affected area Levaquin 0 Yes Monserrat as Memori a 4-14 [place] directed l 00:00: Diflucan 0 Yes Monserrat 1 tablet Me moria 4-14 [place] l 00:00: Novolin 0 Yes Monserrat 20u Memoria 70/30 2-10 [place] l PenFill 00:00: metFORMIN 0 Yes Take by [facility] (GLUCOPHAGE [...] Parking 2-06 [place] parking ity of 00:00: IP 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 [place] 00 Physici ans Lantus Yes Monserrat 35u sqam [place] snow 8-19 [place] and 35u l 02:01: sqpm Cleve Hydrochloro No Monserrat 1 tablet Memoria thiazide 8-19 Buxbaum l 02:01: Cleve ProAir HFA Yes Monserrat 2 puffs as Memoria 8-19 Buxbaum needed l 02:01: Cleve Advair Yes Monserrat 1 puff Memori a Diskus 8-19 Buxbaum l 02:01: Cleve Amlodipine Yes Monserrat 1 tablet Memoria Besylate 8-19 Buxbaum l 02:01: Cleve Naprosyn Yes Monserrat 1 tablet Me moria 5-30 Buxbaum as needed l 00:00: Benazepril- Yes Monserrat 1 tablet Memoria Hydrochloro 5-06 Buxbaum l thiazide 00:00: Fries 00 Valsartan-H Yes Monserrat 1 tablet Memoria ydrochlorot 5-05 Buxbaum l hiazide 00:00: Amlodipine Yes Monserrat 1 tablet Memoria Besylate 5-05 Buxbaum l 00:00: [place] 5/325 2010-11 No Jaydon M 2 tab, Me moria oral tablet 0-05 Lepow Route: PO, l 19:20: Drug Form: TAB, ONCE, Start date: 08/24/11 14:20:00, Stop date: 08/24/11 14:20:00 morphine 2010-11 No Zara B 1 mg, Memor ia Sulfate 0-05 Sanches Route: l 18:59: IVP, ONCE, Start date: 08/24/11 13:59:00, Stop date: 08/24/11 13:59:00 Sodium 2010-11 No Jaydon M 250 mL, Memori a Chloride 0-05 Lepow Route: l 0.9% IV 18:21: IVPB, PRN, Herm ayo 00 Line Flush, Start date: 08/24/11 13:21:00, Duration: 30 day, Stop date: 09/23/11 13:20:00 BD Normal 2010-11 No Jaydon M 10 mL, Cole snow Saline 0-05 Lepow Route: l Flush 18:21: IVP, Drug Fries 00 Form: INJ, PRN, PRN Line Flush, [...] Route: IV, l intravenous 18:15: Drug form: Cleve solution 00 INJ, ONCE, PRN Pain, For [...] % DROP ity of Ophthalmic Ophthalmic Bedtime [place] Solution Solution PLACE 1 Phys ici DROP IN ans EACH EYE AT BEDTIME Albuterol Albuterol Yes VENKAT Q6H INHALE 1 Univers Sulfate HFA Sulfate HFA ASHUTOSH TO 2 PUFFS ity of 108 (90 108 (90 M.D. EVERY 6 [place] [employer] Base) HOURS Physici MCG/ACT MCG/ACT NEEDED. ans Inhalation Inhalation Aerosol Aerosol Solution Solution Immunizations Ordered Filled Immunization Date Status Comments Sour e Immunization Name Name Pneumovax 2019-03-19 Completed Universit y of MCG/0.5ML Injection 16:22:00 [facility] Injectable Vital Signs Vital Name Observation Time Observation Value Comments Source Systolic blood 2020-11-15 133 mm[Hg] [facility] pressure 15:32:00 [facility] Diastolic blood 2020-11-15 83 mm[Hg] [facility] - pressure 15:32:00 [facility] Heart rate 2020-11-15 85 /min [facility] - 15:32:00 [facility] Body temperature 2020-11-[address] [facility] - 15:32:00 [facility] Respiratory rate 2020-11-15 16 /min [facility] - 15:32:00 [facility] Oxygen saturation 2020-11-15 100 /min [facility] - in Arterial blood 15:32:00 Medical nter by Pulse oximetry Body height 2020-11-15 154.9 cm [facility] - 13:55:00 [facility] Body weight 2020-11-15 77.111 kg [facility] - 13:55:00 [facility] BMI 2020-11-15 32.12 kg/m2 [facility] - 13:55:00 [facility] Systolic blood 2020-07-17 127 mm[Hg] Location: [facility] 10:35:00 Position: [place] [facility] Diastolic blood 2020-07-17 90 mm[Hg] Location: [facility] 10:35:00 Position: [place] [facility] Body height 2020-07-17 60 [in_us] University 10:35:00 [place] [facility] Weight 2020-07-17 179.375 [lb_av] University o f 10:35:00 [place] [facility] Body mass index 2020-07-17 35.03 kg/m2 University o f (BMI) [Ratio] 10:35:00 [place] [facility] Body temperature 2020-07-17 97.3 [degF] [facility] 10:35:00 [place] [facility] Heart Rate 2020-07-17 94 /min [facility] 10:35:00 [place] [facility] Systolic blood 2020-05-26 143 mm[Hg] Location: [facility]; [facility] pressure 13:21:00 Position: [place] [facility] Diastolic blood 2020-05-26 97 mm[Hg] Location: DIA[place]; [facility] pressure 13:21:00 Position: [place] [facility] Body height 2020-05-26 60 [in_us] University of 13:21:00 [place] [facility] Weight 2020-05-26 177.125 [lb_av] University o f 13:21:00 [place] [facility] Body mass index 2020-05-26 34.59 kg/m2 University o f (BMI) [Ratio] 13:21:00 [place] [facility] Body temperature 2020-05-26 98.3 [degF] Method: Oral [employer] of 13:21:00 [place] [facility] Heart Rate 2020-05-26 93 /min Location: [facility] 13:21:00 Brachial [place] [facility] Artery; Quality: Normal Respiratory rate 2020-05-26 16 /min Quality: Normal Universi ty of 13:21:00 [place] [facility] Systolic blood 2020-02-25 118 mm[Hg] Location: [place]; [facility] 13:14:00 Position: [place] [facility] Diastolic blood 2020-02-25 82 mm[Hg] [facility] 13:14:[facility] Position[facility] [place] [facility] Body height 2020-02-25 60 [in_us] University of 13:14:00 [place] [facility] Weight 2020-02-25 175.375 [lb_av] University o f 13:14:00 [place] [facility] Body mass index 2020-02-25 34.25 kg/m2 University o f (BMI) [Ratio] 13:14:00 [place] [facility] Body temperature 2020-02-25 98.3 [degF] Method: Oral [employer] of 13:14:00 [place] [facility] Heart Rate 2020-02-25 86 /min Location: L [facility] 13:14:00 Radial; [place] [facility] Quality: Normal Respiratory rate 2020-02-25 16 /min Quality: Normal Universi ty of 13:14:00 [place] [facility] Systolic blood 2019-12-23 146 mm[Hg] Location: G[place]RIELE; [employer] of pressure 13:43:00 Position: [place] [facility] S[facility] Diastolic blood 2019-12-23 103 mm[Hg] Location: [place]RIELE; [facility] 13:43:00 Position: [place] [facility] Weight 2019-12-23 175.5625 [lb_av] University of 13:43:00 [place] [facility] Body mass index 2019-12-23 34.29 kg/m2 University o f (BMI) [Ratio] 13:43:00 [place] [facility] Heart Rate 2019-12-23 97 /min University of 13:43:00 [place] [facility] BP Systolic 2019-11-27 123 mm[Hg] Location: [facility]; [facility] 10:33:00 Position: [place] [facility] S[facility] BP Diastolic 2019-11-27 86 mm[Hg] [facility] 10:33[facility] Position: [place] [facility] Height 2019-11-27 60 [in_us] University 10:33:00 [place] [facility] Weight 2019-11-27 180.2 [lb_av] [employer] of :33:00 [place] [facility] Body Mass Index 2019-11-27 35.19 kg/m2 University o f Calculated 10:33:00 [place] [facility] Temperature 2019-11-27 98 [degF] Method: Oral University 10:33:00 [place] [facility] Heart Rate 2019-11-27 81 /min Location: Jo[facility] 10:33:00 Brachial [place] [facility] Artery; Respiration Rate 2019-11-27 18 /min Quality: Normal Universi of 10:33:00 [place] [facility] O2 SAT 2019-11-27 100 % Source: [facility] 10:33:00 [place] [facility] BP Systolic 2019-11-21 139 mm[Hg] [facility] 09:09:[facility] Position: [place] [facility] BP Diastolic 2019-11-21 102 mm[Hg] Location: [facility] 09:09:00 Position: [place] [facility] Height 2019-11-21 62 [in_us] University of 09:09:00 [place] [facility] Weight 2019-11-21 177.375 [lb_av] University o f 09:09:00 [place] [facility] Body Mass Index 2019-11-21 32.44 kg/m2 University o f Calculated 09:09:00 [place] [facility] Heart Rate 2019-11-21 94 /min [employer] of 09:09:00 [place] [facility] BP Systolic 2019-10-22 115 mm[Hg] [facility] 13:58:00 Position: [place] [facility] BP Diastolic 2019-10-22 82 mm[Hg] Location: [place]RI[place]; [facility] 13:58:00 Position: [place] [facility] Height 2019-10-22 62 [in_us] University of 13:58:00 [place] [facility] Weight 2019-10-22 180.125 [lb_av] University o f 13:58:00 [place] [facility] Body Mass Index 2019-10-22 32.95 kg/m2 University o f Calculated 13:58:00 [place] [facility] Temperature 2019-10-22 98.5 [degF] Method: Oral University of 13:58:00 [place] [facility] Heart Rate 2019-10-22 97 /min Location: R [employer] of 13:58:00 Brachial [place] [facility] Artery; Respiration Rate 2019-10-22 15 /min Quality: Normal Universi ty of 13:58:00 [place] [facility] BP Systolic 2019-10-07 117 mm[Hg] Location: [facility] 13:17:00 Position: [place] [facility] S[facility] BP Diastolic 2019-10-07 87 mm[Hg] Location: [facility] 13:17:00 Position: [place] [facility] Height 2019-10-07 62 [in_us] [employer] of 13:17:00 [place] [facility] Weight 2019-10-07 176.8 [lb_av] [employer] of 13:17:00 [place] [facility] Body Mass Index 2019-10-07 32.34 kg/m2 University o f Calculated 13:17:00 [place] [facility] Temperature 2019-10-07 98.6 [degF] Method: Oral [employer] of 13:17:00 [place] [facility] Heart Rate 2019-10-07 103 /min Location: L [facility] 13:17:00 Brachial [place] [facility] Artery; Quality: Normal Respiration Rate 2019-10-07 18 /min Quality: Normal Universi ty of 13:17:00 [place] [facility] O2 SAT 2019-10-07 100 % Source: [employer] of 13:17:00 [place] [facility] BP Systolic 2019-07-01 123 mm[Hg] Location: [facility] of 09:15:00 Position: [place] [facility] Sitting BP Diastolic 2019-07-01 89 mm[Hg] [facility] 09:15:[facility] Position: [place] [facility] Height 2019-07-01 62 [in_us] [employer] of 09:15:00 [place] [facility] Weight 2019-07-01 186.4 [lb_av] University of 09:15:00 [place] [facility] Body Mass Index 2019-07-01 34.09 kg/m2 University o f Calculated 09:15:00 [place] [facility] Temperature 2019-07-01 99.2 [degF] Method: Oral [employer] of 09:15:00 [place] [facility] Heart Rate 2019-07-01 100 /min Location: R [employer] of 09:15:00 Brachial [place] [facility] Artery; Quality: Regular Respiration Rate 2019-07-01 18 /min Quality: Normal Universi of 09:15:00 [place] [facility] O2 SAT 2019-07-01 99 % Source: [facility] of 09:15:00 [place] [facility] BP Systolic 2019-06-18 124 mm[Hg] Location: [facility] 14:27:00 Position: [place] [facility] S[facility] BP Diastolic 2019-06-18 90 mm[Hg] Location: [facility]; [facility] 14:27:00 Position: [place] [facility] Height 2019-06-18 62 [in_us] University of 14:27:00 [place] [facility] Weight 2019-06-18 189 [lb_av] University of 14:27:00 [place] [facility] Body Mass Index 2019-06-18 34.57 kg/m2 University o f Calculated 14:27:00 [place] [facility] Temperature 2019-06-18 98.2 [degF] Method: [facility] of 14:27:00 [place] [facility] Heart Rate 2019-06-18 106 /min University of 14:27:00 [place] [facility] BP Systolic 2019-06-10 135 mm[Hg] Location: [facility]; [employer] of 08:43:00 Position: [place] [facility] Sitting BP Diastolic 2019-06-10 92 mm[Hg] Location: [facility] of 08:43:00 Position: [place] [facility] S[facility] Height 2019-06-10 62 [in_us] University of 08:43:00 [place] [facility] Weight 2019-06-10 189.0625 [lb_av] University of 08:43:00 [place] [facility] Body Mass Index 2019-06-10 34.58 kg/m2 University o f Calculated 08:43:00 [place] [facility] Heart Rate 2019-06-10 90 /min Location: [facility] 08:43:00 Radial; [place] [facility] Temperature 2019-05-31 97.6 [degF] Method: [facility] of 08:17:00 [place] [facility] Heart Rate 2019-05-31 86 /min University of 08:17:00 [place] [facility] Respiration Rate 2019-05-31 20 /min Quality: Normal Universi ty of 08:17:00 [place] [facility] O2 SAT 2019-05-31 98 % Source: [facility] 08:17:00 [place] [facility] BP Systolic 2019-05-31 118 mm[Hg] [facility] 08:17:00 Position: [place] [facility] S[facility] BP Diastolic 2019-05-31 80 mm[Hg] [facility] 08:17:00 Position: [place] [facility] Weight 2019-05-31 189.6 [lb_av] [facility] 08:17:00 [place] [facility] Body Mass Index 2019-05-31 34.68 kg/m2 University o f Calculated 08:17:00 [place] [facility] BP Systolic 2019-05-28 123 mm[Hg] [facility] 08:19:00 Position: [place] [facility] S[facility] BP Diastolic 2019-05-28 82 mm[Hg] [facility] 08:19:00 Position: [place] [facility] Height 2019-05-28 62 [in_us] [facility] 08:19:00 [place] [facility] Weight 2019-05-28 184.25 [lb_av] [facility] 08:19:00 [place] [facility] Body Mass Index 2019-05-28 33.7 kg/m2 University o f Calculated 08:19:00 [place] [facility] Temperature 2019-05-28 97.6 [degF] Method: Oral University of 08:19:00 [place] [facility] Heart Rate 2019-05-28 99 /min Location: [facility] 08:19:00 Brachial [place] [facility] Artery; Respiration Rate 2019-05-28 20 /min Quality: Normal Universi ty of 08:19:00 [place] [facility] O2 SAT 2019-05-28 100 % Source: [facility] 08:19:00 [place] [facility] BP Systolic 2019-05-16 132 mm[Hg] [facility] 10:01:00 Position: [place] [facility] S[facility] BP Diastolic 2019-05-16 84 mm[Hg] [facility] 10:01:00 Position: [place] [facility] Height 2019-05-16 62 [in_us] [facility] 10:01:00 [place] [facility] Weight 2019-05-16 190.4 [lb_av] University of 10:01:00 [place] [facility] Body Mass Index 2019-05-16 34.82 kg/m2 University o f Calculated 10:01:00 [place] [facility] Temperature 2019-05-16 98.2 [degF] Method: Oral University of 10:01:00 [place] [facility] Heart Rate 2019-05-16 92 /min Location: [facility]aren [employer] of 10:01:00 Brachial [place] [facility] Artery; Respiration Rate 2019-05-16 20 /min Quality: Normal Universi ty of 10:01:00 [place] [facility] Height 2019-05-14 [...] s BP Systolic 2019-05-01 119 mm[Hg] Location: [facility] of 0834:00 Position: [place] [facility] Sitting BP Diastolic 2019-05-01 83 mm[Hg] Location: [facility] 08:34:00 Position: [place] [facility] S[facility] Height 2019-05-01 62.99 [in_us] [employer] of 08:34:00 [place] [facility] Temperature 2019-05-01 98.3 [degF] Method: [facility] of 08:34: [place] [facility] Heart Rate 2019-05-01 77 /min Location: [facility] 08:34: Brachial [place] [facility] Artery; Respiration Rate 2019-05-01 18 /min Quality: Normal Universi ty of 08:34:00 [place] [facility] O2 SAT 2019-05-01 100 % Source: [facility] 08:34:00 [place] [facility] BP Systolic 2019-04-29 96 mm[Hg] Location: [facility]; [facility] 15:12:00 Position: [place] [facility] Sitting BP Diastolic 2019-04-29 68 mm[Hg] Location: Anika; [facility] :12:00 Position: [place] [facility] Weight 2019-04-29 185.8 [lb_av] University 15:12:00 [place] [facility] Body Mass Index 2019-04-29 35.11 kg/m2 University o f Calculated 15:12:00 [place] [facility] Temperature 2019-04-29 98.2 [degF] Method: Oral [facility] 15:12:00 [place] [facility] Respiration Rate 2019-04-29 20 /min Quality: Normal Universi ty of 15:12:00 [place] [facility] O2 SAT 2019-04-29 100 % Source: [facility] 15:12: [place] [facility] Heart Rate 2019-04-29 83 /min University 15:12:00 [place] [facility] BP Systolic 2019-04-23 127 mm[Hg] Location: [place]RIELE; [facility] 14:37:00 Position: [place] [facility] Sitting BP Diastolic 2019-04-23 85 mm[Hg] Location: Anika; [facility] 14:37:00 Position: [place] [facility] Height 2019-04-23 61 [in_us] University of 14:37:00 [place] [facility] Weight 2019-04-23 186.25 [lb_av] University of 14:37:00 [place] [facility] Body Mass Index 2019-04-23 35.19 kg/m2 University o f Calculated 14:37:00 [place] [facility] Temperature 2019-04-23 98.5 [degF] Method: Oral [facility] 14:37:00 [place] [facility] Heart Rate 2019-04-23 94 /min Location: Joelle [facility] 14:37:00 Radial; [place] [facility] Quality: Normal Respiration Rate 2019-04-23 16 /min Quality: Normal Universi ty of 14:37:00 [place] [facility] BP Systolic 2019-03-28 134 mm[Hg] Location: Ank[place]; [facility] 17:09:00 Position: [place] [facility] Sitting BP Diastolic 2019-03-28 86 mm[Hg] Location: [place]; [facility] 17:09:00 Position: [place] [facility] S[facility] Height 2019-03-28 62 [in_us] University of 17:09:00 [place] [facility] Weight 2019-03-28 183.5 [lb_av] University of 17:09:00 [place] [facility] Body Mass Index 2019-03-28 33.56 kg/m2 University o f Calculated 17:09:00 [place] [facility] Temperature 2019-03-28 98.5 [degF] Method: Oral University of 17:09:00 [place] [facility] Heart Rate 2019-03-28 97 /min Quality: University of :09:00 Regular [place] [facility] Respiration Rate 2019-03-28 20 /min Quality: Normal Universi ty of 17:09:00 [place] [facility] O2 SAT 2019-03-28 99 % Source: [facility] of ::00 [place] [facility] BP Systolic 2019-03-19 137 mm[Hg] Location: [facility] :31:00 Position: [place] [facility] Sitting BP Diastolic 2019-03-19 90 mm[Hg] Location: [facility] :31:00 Position: [place] [facility] S[facility] Height 2019-03-19 62 [in_us] University of 13:31:00 [place] [facility] Weight 2019-03-19 186 [lb_av] University of 13:31:00 [place] [facility] Body Mass Index 2019-03-19 34.02 kg/m2 University o Calculated 13:31:00 [place] [facility] Temperature 2019-03-19 97.9 [degF] Method: Oral University of :31:00 [place] [facility] Heart Rate 2019-03-19 94 /min Location: [facility] 13:31:00 Radial; [place] [facility] Quality: Normal Respiration Rate 2019-03-19 17 /min Quality: Normal Universi ty of :31:00 [place] [facility] BP Systolic 2019-02-27 129 mm[Hg] [facility] 08:46:00 Position: [place] [facility] Sitting BP Diastolic 2019-02-27 84 mm[Hg] Location: [facility] of 08:46:00 Position: [place] [facility] Sitting Height 2019-02-27 61 [in_us] University of 08:46:00 [place] [facility] Weight 2019-02-27 184.375 [lb_av] University o f 08:46:00 [place] [facility] Body Mass Index 2019-02-27 34.84 kg/m2 University o f Calculated 08:46:00 [place] [facility] Temperature 2019-02-27 98.1 [degF] Method: Oral University 08:46:00 [place] [facility] Heart Rate 2019-02-27 75 /min [facility] 08:46:00 [place] [facility] Respiration Rate 2019-02-27 18 /min Quality: Normal Universi of 08:46:00 [place] [facility] O2 SAT 2019-02-27 99 % Source: [facility] 08:46:00 [place] [facility] BP Systolic 2018-12-03 135 mm[Hg] [facility] 08:59:00 [place] [facility] BP Diastolic 2018-12-03 90 mm[Hg] [facility] 08:59:00 [place] [facility] Weight 2018-12-03 185.9 [lb_av] [facility] 08:59:00 [place] [facility] Body Mass Index 2018-12-03 35.13 kg/m2 University o f Calculated 08:59:00 [place] [facility] Heart Rate 2018-12-03 86 /min [facility] 08:59:00 [place] [facility] BP Systolic 2018-01-08 163 mm[Hg] Location: [facility] 08:39:00 Position: [place] [facility] S[facility] BP Diastolic 2018-01-08 114 mm[Hg] Location: [facility] 08:39:00 Position: [place] [facility] Weight 2018-01-08 191.0625 [lb_av] [facility] 08:39:00 [place] [facility] Body Mass Index 2018-01-08 36.1 kg/m2 University o f Calculated 08:39:00 [place] [facility] Heart Rate 2018-01-08 77 /min Location: [facility] 08:39:00 Radial; [place] [facility] Weight 2016-08-09 [facility] 18:45:00 Height 2016-08-09 [facility] 18:45:00 Temperature Oral 2016-08-09 97.9 F [facility] (F) 18:45:00 Heart Rate 2016-08-09 [facility] 18:45:00 Diastolic (mm Hg) 2016-08-09 [facility] 18:45:00 Systolic (mm Hg) 2016-08-09 [facility] 18:45:00 Weight 2015-12-09 [facility] 22:00:00 Height 2015-12-09 [facility] 22:00:00 Temperature Oral 2015-12-09 97.4 F [facility] (F) 22:00:00 Heart Rate 2015-12-09 [facility] [...] ermann 19:00:00 Systolic (mm Hg) 2014-05-21 [facility] 19:00:00 Weight 2014-03-24 [facility] 16:00:00 Height 2014-03-24 [facility] 16:00:00 Temperature Oral 2014-03-24 98.4 F [facility] (F) 16:00:00 Heart Rate 2014-03-24 [facility] [...] Date / Time Performing Clinician Source Performed [place] I&D OF VULVA/PERINEUM 2020-11-15 15:31:33 Francy Doran [facility] . [facility] - Affirm VPIII 2020-07-17 00:00:00 [facility] (BV Panel) Physicians . [facility] - GC/Chlamydia 2020-07-17 00:00:00 [facility] Physicians . [facility] - PAP 2020-07-17 00:00:00 [employer] [facility] [place] [facility] [Q] HEPATITIS B SURFACE 2020-07-17 00:00:00 [facility] ANTIGEN W/REFL CONFIRM Physician s [Q] HIV AB, HIV 1/2, 2020-07-17 00:00:00 [facility] EIA, WITH REFLEXES Physicians [QL] RPR (DX) W/REFL 2020-07-17 00:00:00 [facility] TITER AND CONFIRMATORY Physician s TESTING [Q] DRUG ABUSE PANEL 2020-07-15 00:00:00 [facility] 10-50 + ETHANOL Physicians CT ABDOMEN/PELVIS WITH 2020-04-05 13:49:00 [facility] URINALYSIS W/ 2020-04-05 13:02:00 [facility] CBC W/PLT COUNT & AUTO 2020-04-05 13:02:00 [place] [address] [facility] DIFFERENTIAL [facility] COMPREHENSIVE METABOLIC 2020-04-05 13:02:[address] [facility] PANEL [facility] LIPASE 2020-04-05 13:02:00 [facility] [QL] CBC (INCLUDES 2020-03-04 00:00:00 [facility] DIFF/PLT) Physicians [QL] CMP W/EGFR 2020-03-04 00:00:00 [employer] [facility] [place] [facility] [QL] QUANTIFERON(R)-TB 2020-03-04 00:00:00 Un[facility] GOLD Physicians [QL] C-REACTIVE PROTEIN 2020-03-04 00:00[facility]00 [facility] [QL] SED RATE BY 2020-03-04 00:00:[address] [facility] [place] [place] MODIFIED WESTERGREN Physicians [QL] RHEUMATOID FACTOR 2020-03-04 00:00:00 [facility] [QLH] RHEUMATOID FACTOR 2019-12-23 00:00:00 [facility] [QLH] SED RATE BY 2019-12-23 00:00:[address] [facility] [place] [place] MODIFIED [place] Physicians [QLH] CMP W/EGFR 2019-12-23 00:00:00 [facility] Physicians [QLH] CBC (INCLUDES 2019-12-23 00:00:00 [facility] DIFF/PLT) Physicians Venipuncture 2019-11-22 11:07:27 Nereida Dennison [facility] [QL] C-PEPTIDE 2019-11-21 00:00:00 [employer] [facility] Physicians [QLH] BASIC METABOLIC 2019-11-21 00:00:00 [facility] PANEL W/EGFR Physicians Venipuncture 2019-10-09 12:31:05 Juma Nereida [facility] 2019-07-19 14:34:24 Provider, [facility] [employer] sasser Education/Supportive Health Services Health Counseling HIV-1/2 AG/AB Combo - 2019-07-19 14:05:48 Danita Perez y [facility] MRI Pelvis without 2019-07-01 00:00:00 [facility] contrast [id number] Physicians [QLH] RHEUMATOID FACTOR 2019-06-10 00:00:00 [facility] Physicians [QL] C-REACTIVE PROTEIN 2019-06-10 00:00:00 [facility] Physicians [QL] SED RATE BY 2019-06-10 00:00:00 [facility] MODIFIED [place]STER[place] Physicians [QL] HLA-B27, DNA 2019-06-10 00:00:00 [facility] TYPING Physicians [QH] CYCLIC 2019-06-10 00:00:00 [facility] CITRULLINATED PEPTIDE Physicians (CCP) AB (IGG) XRAY Spine lumbar series 2019-06-10 00:00:00 [facility] [id number] Physicians XRAY Sacroiliac joints 2019-06-10 00:00:00 [facility] series [id number] [place] [id number] 2019-06-10 00:00:00 [facility] Physicians XRAY Hand AP lateral 2019-06-10 00:00:00 [facility] Bilateral [id number] Physicians MRI Internal Auditory 2019-05-07 00:00:00 [facility] Canal w/wo contrast Physicians [id number] [] GC/CT by Amp Det 2019-03-19 00:00:00 [facility] (APTIMA) Physicians [QH] HIV AB, HIV 1/2, 2019-03-19 00:00:00 [facility] EIA, WITH REFLEXES Physicians [QLH] CBC (INCLUDES 2019-03-19 00:00:00 [facility] DIFF/PLT) Physicians [QLH] CMP W/EGFR 2019-03-19 00:00:00 [facility] Physicians [QLH] HEMOGLOBIN A1c 2019-03-19 00:00:00 [facility] Physicians [QL] HEPATITIS PANEL 2019-03-19 00:00:00 [facility] Physicians [QL] LIPID PANEL 2019-03-19 00:00:00 [facility] Physicians [QL] MICROALBUMIN, 2019-03-19 00:00:00 [facility] RANDOM URINE Physicians (W/CREATININE) [QL] RPR 2019-03-19 00:00:00 [employer] [facility] Physicians [QLH] TSH, 3RD 2019-03-19 00:00:00 [facility] GENERATION W/REFLEX TO Physician s FT4 [QLH] VITAMIN D, 2019-03-19 00:00:00 [facility] 25-HYDROXY, LC/MS/MS Physicians MA Digital Mammo Screen 2019-03-19 00:00:00 [facility] Wilver w timmy [id number] Physicians [U] XRAY KNEE 3 VWS LEFT 2019-01-14 00:00:00 [facility] [id number] Physicians Health 2018-12-27 07:34:54 Provider, Public [facility] [place] Education/Supportive Health Services Health Counseling [QLH] CBC (INCLUDES 2018-12-03 00:00:00 [facility] DIFF/PLT) Physicians [QLH] CMP W/EGFR 2018-12-03 00:00:00 [facility] Physicians [QL] C-REACTIVE PROTEIN 2018-12-03 00:00:00 [facility] Physicians [QL] SED RATE BY 2018-12-03 00:00:00 [facility] MADDIE GOLD Physicians [QLH] VITAMIN D, 2018-12-03 00:00:00 [facility] 25-HYDROXY, LC/MS/MS Physicians XRAY Knee 3 views [id number] 2018-12-03 00:00:00 [facility] Physicians Health 2018-10-05 14:36:00 Provider, Public [facility] Comm unity Education/Supportive Health Services Health Counseling [U] XR KNEE 3 VWS 2018-04-18 00:00:00 [facility] BILATERAL Physicians [U] XR KNEE 3 VWS 2018-04-09 00:00:00 [facility] BILATERAL Physicians History of [employer] [facility] [employer] [place] [facility] Physicians History of Vaginal [facility] Hysterectomy Physicians Plan of Care Planned Activity Planned Date Details Comments Source Future Scheduled 2021-06-20 INFLUENZA VACCINE [place] [facility] 00:00:00 [code = INFLUENZA VACCINE] Future Scheduled 2020 BREAST CANCER [facility] 00:00:00 SCREENING [code = BREAST CANCER SCREENING] Future Scheduled 2020 COLONOSCOPY SCREENING [place] [facility] 00:00:00 [code = COLONOSCOPY SCREENING] Future Scheduled 2020 SHINGLES VACCINES [place] [facility] 00:00:00 (#1) [code = SHINGLES VACCINES (#1)] Future Scheduled 2020-11-[address] [facility] [address] [facility] 00[facility] (procedure) [code = 86676443] Future Scheduled 2020-07-[address] [facility] - Test 00:00:00 (#1) [code = Medical Center INFLUENZA VACCINE (#1)] Future Scheduled 2020-03-19 Urine screening for [facility] - Test 00:00:00 protein (procedure) [facility] [code = 413363119] Diagnostic Test 2019-11-22 [QLH] C-PEPTIDE [code [facility] [place] Pending 00:00:00 = [QLH] C-PEPTIDE] Physician s Diagnostic Test 2019-11-22 [QLH] BASIC METABOLIC [facility] [place] Pending 00:00:00 PANEL W/EGFR [code = Physici ans [QLH] BASIC METABOLIC PANEL W/EGFR] Future Scheduled 2019-11-[address] [facility] - Test 00:00:00 (12+) [code = Medical Center DEPRESSION SCREENING (12+)] Diagnostic Test 2019-07-01 MRI Pelvis without [facility] [place] Pending 00:00:00 contrast 20486 [code Physici ans = 37000] Diagnostic Test 2019-07-01 MRI Pelvis without [facility] [place] Pending 00:00:00 contrast 84320 [code Physici ans = 84914] Future Scheduled [address] [facility] - Test 00:00:00 (procedure) [code = Medical Center 01879252] Future Scheduled 1991 Screening for [facility] 00:00:00 malignant neoplasm of cervix (procedure) [code = 501845674] Future Scheduled [address] [facility] - Test 00:00:00 malignant neoplasm of Medica l Center cervix (procedure) [code = 372704513] Future Scheduled 1988 Hepatitis C screening [place] [facility] 00:00:00 (procedure) [code = 388448962] Future Scheduled 1986 COVID-19 VACCINE (1) [facility] 00:00:00 [code = COVID-19 VACCINE (1)] Future Scheduled 1980 DIABETES: RETINAL EYE [place] [facility] 00:00:00 EXAM [code = DIABETES: RETINAL EYE EXAM] Future Scheduled 1980 DIABETIC FOOT EXAM [place] [facility] 00:00:00 [code = DIABETIC FOOT EXAM] Future Scheduled 1980 URINE MICROALBUMIN [place] [facility] 00:00:00 [code = URINE MICROALBUMIN] Future Scheduled 1980 DIABETIC EYE EXAM [facility] - Test 00:00:00 [code = DIABETIC EYE Medical Center EXAM] Future Scheduled [address] [facility] Test 00:00:00 examination Medical Center (regime/therapy) [code = 682236909] Encounters Start End Encounter Admission Attending Care Care Encounter Source Date/Time Date/Time Type Type Clinicians Facility Department ID 2020-10-29 2020-10-29 ANGELA Mendez Multispecia [id number] Univers 15:30:00 15:30:00 t; KARMA HERNANDEZ lty - ity of [facility] KARMA HERNANDEZ Physici ans 2020-08-17 2020-08-17 ANGELA Bateman [facility] [id number] Univers 14:00:00 14:00:00 t; LIZA UMAÑA [facility] Physici ans 2020-08-17 2020-08-17 ANGELA Bateman [id number] Univers 14:00:00 14:00:00 t; LIZA UMAÑA [facility] Physici ans 2020-07-29 2020-07-29 Appointmen JABARI, [facility] [id number] Univers 10:30:00 10:30:00 t; [facility] ans 2020-07-23 2020-07-23 Appointmen INÉS, [facility] [id number] Univers 09:30:00 09:30:00 t; Reema MAXWELL [place] Teri MAXWELLi Reema ans 2020-07-17 2020-07-17 Appointmen KELLY, [facility] Obstetrics [id number] Univers 10:00:00 10:00:00 t; ROYAL MENDOZA, and [place] M.D. Gynecology Cecil vasquez M.D. [facility] Physi ci Clinic ans 2020-07-15 2020-07-15 Appointmen ANGELA GARZA Multispecia [id number] Univers 13:00:00 13:00:00 t; LESTER GARZA lty - ity of [place], M.D. [facility] [place] M.D. Physici ans 2020-07-14 2020-07-14 Emergency E MHNW MHNW 7528 MHNW 18:18:00 18:18:00 2020-07-06 2020-07-06 Appointmen JABARI, [facility] [id number] Univers 13:00:00 13:00:00 t; [facility]EL[facility] ans 2020-07-03 2020-07-03 Appointmen GREG, [facility] [id number] Univers 08:30:00 08:30:00 t; LESTER GARZA ity of [place], M.D. [place] M.D. Physici ans 2020-06-29 2020-06-29 Appointmen BRANDO, [facility] [id number] Univers 15:00:00 15:00:00 t; Reema FUNK [place] RANA, M.D. Physi ci ans 2020-06-09 2020-06-09 Appointmen JEFF, [facility] [id number] Univers 13:30:00 13:30:00 t; KARMA HERNANDEZ [place] ANN Physici ans 2020-05-26 2020-05-26 Appointzamzam BOYKIN, ANGELA Family [id number] Univers 13:00:00 13:00:00 t; Joni ROBLEDO - ity of Reema BOYKIN [facility] VENKAT Medical Physici [place]one [place] ans 2020-05-25 2020-05-25 Burton UMAÑA, ANGELA [facility] [id number] Univers 08:30:00 08:30:00 t; LIZA UMAÑA ity [facility] Physici ans 2020-05-25 2020-05-25 Outpatient MHHH MHHH [id number] MHHH 06:52:00 06:52:00 2020-05-18 2020-05-18 ANGELA Gallagher [id number] Univers 11:00:00 11:00:00 t; AMBER CANAS ity Reema CLARK M.D. Physici ans 2020-04-27 2020-04-27 ANGELA Bateman [facility] [id number] Univers 14:30:00 14:30:00 t; CHASIDY LUAMDEL itlily [facility] Physici ans 2020-04-27 2020-04-27 Outpatient MHHH MHHH [id number] MHHH 13:59:00 13:59:00 2020-03-20 2020-03-20 Emergency E MHNW MHNW 7526 MHNW 12:20:00 12:20:00 2020-03-17 2020-03-17 ANGELA Parkinson UTP [id number] Univers 14:45:00 14:45:00 t; Reema MAXWELL it y [place], [place] Payam MAXWELL M.D. ans 2020-03-13 2020-03-13 Emergency E MHNW MHNW 7525 MHNW 14:46:00 14:46:00 2020-02-25 2020-02-25 ANGELA Parkinson Family [id number] Univers 13:00:00 13:00:00 t; Reema MAXWELL Medicine - itlily [facility] ALISSA Medical Physicvee MRamone [place] ans 2020-02-24 2020-02-24 ANGELA Marcum Multispecia [id number] Univers 16:30:00 16:30:00 t; LESTER GARZA lty - ity of [place], M.D. [facility] [place] M.D. Physici ans 2020-02-20 2020-02-20 Appointmen [facility] Multispecia [id number] Univers 08:45:00 08:45:00 t; Reema ALFARO - it y of Monika LUJAN [place] Payam ALFARO M.D. ans 2020-01-21 2020-01-21 Appointmen INÉS, [facility] [id number] Univers 13:45:00 13:45:00 t; Reema MAXWELL [place] SHIRA, Physici M.D. ans 2020-01-14 2020-01-14 Appointmen ANGELICA, [facility] [id number] Univers 15:40:00 15:40:00 t; JERI DOMINGUEZ ity o f NAMITA, M.D. [place] M.D. Physici ans 2019-12-27 2019-12-27 [facility] [id number] Univers 09:00:00 09:00:00 t; LESTER GARZA ity of [place], M.D. [place] M.D. Physici ans 2019-12-23 2019-12-23 Appointzamzam [facility] Rheumatolog [id number] Univers 15:30:00 15:30:00 t; AMBER CANAS y ity of KANIKA, M.D. [place] M.D. Physici ans 2019-12-10 2019-12-10 Appointzamzam BARBOZA, [facility] [id number] Univers 10:30:00 10:30:00 t; PAMELA [facility] Physici ans 2019-12-09 2019-12-09 Emergency E NW NW 0020 NW 12:29:00 12:29:00 2019-12-09 2019-12-09 Appointmen MISSAEL, [facility] [id number] Univers 09:00:00 09:00:00 t; AMBER CANAS ity of KANIKA, M.D. [place] M.D. Physici ans 2019-11-27 2019-11-27 Appointmen ANGELA GARZA Multispecia [id number] Univers 11:00:00 11:00:00 t; LESTER GARZA lty - Reema Mabry M.D. Physici ans 2019-11-27 2019-11-27 Office Nereida Dennison [facility] Adult En counter/ Legacy 00:00:00 00:00:00 Visit Esperanza Ba Medicine [id number] Communi [id number] [facility] 2019-11-22 2019-11-22 [facility] Encounte [facility]/ Legacy 00:00:00 00:00:00 Visit Nereida Medicine [id number] Co mmuni [id number] [facility] 2019-11-22 2019-11-22 Office Juma [facility] Adult Encounte r/ Legacy 00:00:00 00:00:00 Visit [facility] [id number] Co mmuni [id number] [facility] 2019-11-22 2019-11-22 Office Nereida Dennison [facility] Adult En counter/ Legacy 00:00:00 00:00:00 Visit Tiffanie Lockwood Medicine [id number] Communi [id number] [facility] 2019-11-21 2019-11-21 Appointmen ANGELA LUJAN Internal [id number] Univers 08:45:00 08:45:00 t; Reema ALFARO Medicine - ity [facility] Itz ALFARO M.D. Center [facility] 2019-10-22 2019-10-22 Appointmen ANGELA CONTE Family [id number] Univers 13:45:00 13:45:00 t; Reema MAXWELL Medicine - ity [facility] Itz MAXWELL M.D. [place] ans 2019-10-21 2019-10-21 AppointANGELA Del Castillo [id number] Univers 10:30:00 10:30:00 t; PAMELA BARBOZA ity [facility] Physici ans 2019-10-11 2019-10-11 Office Nereida Dennison [facility] Adult En counter/ Legacy 00:00:00 00:00:00 Visit Angelegal, Esperanza [facility] [id number] Communi 158707 ty Health 2019-10-11 2019-10-11 Office Keith [facility] Adult Encounte r/ Legacy 00:00:00 00:00:00 Visit John [facility] [id number] Co mmuni 707408 ty Health 2019-10-11 2019-10-11 Office Nereida Dennison [facility] Adult En counter/ Legacy 00:00:00 00:00:00 Visit John Parker Medicine [id number] Communi 467304 ty Health 2019-10-10 2019-10-10 Emergency E MHNE MHNE 7523 MHNE 22:20:00 22:20:00 2019-10-10 2019-10-10 Office Pollo [facility] Adult Encou nter/ Legacy 00:00:00 00:00:[facility] [id number] Co mmuni [id number] Health 2019-10-09 2019-10-09 Office Juma [facility] Adult Encounte r/ Legacy 00:00:00 00:00:00 Visit [facility] [id number] Co mmuni 443924 ty Health 2019-10-09 2019-10-09 Office Juma [facility] Adult Encounte r/ Legacy 00:00:00 00:00:00 Visit [facility] [id number] Co mmuni 685750 ty Health 2019-10-09 2019-10-09 Office Juma [facility] Adult Encounte r/ Legacy 00:00:00 00:00:00 Visit Nereida Medicine [id number] Co mmuni 736125 ty Health 2019-10-09 2019-10-09 Office Juma [facility] Adult Encounte r/ Legacy 00:00:00 00:00:00 Visit Nereida Medicine [id number] Co mmuni 066560 ty Health 2019-10-09 2019-10-09 Office Nereida Dennison [facility] Adult En counter/ Legacy 00:00:00 00:00:00 Visit Tiffanie Lockwood Medicine [id number] [facility] 29[facility] Health 2019-10-08 2019-10-08 Burton CONTE [facility] [id number] Univers 13:45:00 13:45:00 t; Reema MAXWELL it y of CONTEIsrrael Physici M.D. [facility] 2019-10-07 2019-10-07 Appointmen ANGELA GARZA Multispecia [id number] Univers 13:30:00 13:30:00 t; LESTER GARZA lty - ity of Reema BATISTA M.D. Physici ans 2019-09-17 2019-09-17 Appointmen ANGELA WALKER [facility] [id number] 2 Univers 13:15:00 13:15:00 t; LORI WALKER i ty of Reema SANDOVAL M.D. Physici [facility] 2019-08-12 2019-08-12 Emergency E [facility] 7522 [facility] 12:11:00 12:11:00 2019-07-31 2019-07-31 Appointmen ANGELA VILA [facility] [id number] Univers 10:00:00 10:00:00 t; AIME VILAngology - [facility] Physici [facility] 2019-07-24 2019-07-24 Office Danita Perez [facility] Adult Enco unter/ Legacy 00:00:00 00:00:00 Visit L Medicine [id number] Co mmuni [id number] [facility] 2019-07-23 2019-07-23 Office Danita Perez [facility] Adult En counter/ Legacy 00:00:00 00:00:00 Visit Shayy Price Medicine [id number] Lauren Flores [id number] [facility] 2019-07-19 2019-07-19 Office Danita Perez [facility] Adult Enco unter/ Legacy 00:00:00 00:00:00 Visit L Medicine [id number] Co mmuni [id number] [facility] 2019-07-19 2019-07-19 Office Danita Perez [facility] Adult En counter/ Legacy 00:00:00 00:00:00 Visit Shayy Price Medicine [id number] Communi [id number] [facility] 2019-07-19 2019-07-19 Office Perfecto [facility] Legacy Encount er/ Legacy 00:00:00 00:00:00 Visit Rohan Johnson [id number] Co mmuni Clinic 015247 [facility] 2019-07-19 2019-07-19 Office Provider, Public Health Services Daren ZULETA Legacy Encounter/ Legacy 00:00:00 00:00:00 Visit Rohan [place] [id number] [facility] 865500 [facility] 2019-07-19 2019-07-19 Office Perez, Danita Mercedes [facility] Adult En counter/ Legacy 00:00:00 00:00:00 Visit Mino Damico ine [id number] [facility] Vannessa Taylor 85890 0 [facility] 2019-07-01 2019-07-01 AppointANGELA Dia Multispecia [id number] Univers 09:00:00 09:00:00 t; LESTER GARZA lty - ity of [place], M.D. [facility] [place] M.D. Physici ans 2019-06-27 2019-06-27 AppointANGELA Del Castillo [id number] Univers 11:30:00 11:30:00 t; PAMELA [facility]ZA [facility] Physici ans 2019-06-18 2019-06-18 ANGELA Day Otorhinolar [id number] Univers 14:15:00 14:15:00 t; LORI WALKER yngology - humphreyy Reema Maria M.D. Medical Phys[facility] Center ans 2019-06-10 2019-06-10 AppointANGELA Ewing Rheumatolog [id number] Univers 08:30:00 08:30:00 t; AMBER CANAS y ity Reema Cabrera M.D. Physici ans 2019-05-31 2019-05-31 ANGELA Marcum Multispecia [id number] Univers 16:00:00 16:00:00 t; LESTER GARZA lty - ity of [place], M.D. [facility] [place] M.D. Physici ans 2019-05-28 2019-05-28 AppointANGELA Del Castillo Psychiatry [id number] Univers 08:30:00 08:30:00 t; PAMELA BARBOZA, [facility]patient [facility] Physici ans 2019-05-27 2019-05-27 Appointmen [facility] UTP [id number] Univers 11:00:00 11:00:00 t; Reema OLSON it [place] Payam OLSON M.D. ans 2019-05-17 2019-05-17 Appointmen ANGELA FREED UTP [id number] Univers 09:00:00 09:00:00 t; KOBY FREED MD it y of MD KOBY [place] Physici ans 2019-05-16 2019-05-16 Appointzamzam BAR[facility]ZA [facility] Psychiatry [id number] Univers 10:30:00 10:30:00 t; PAMELA BARBOZA, [facility] ans 2019-05-14 2019-05-14 Appointmen ANGELA LIN Multispecia [id number] Univers 14:00:00 14:00:00 t; ZACH LIN RN lty - The ity gabriel SERRANO RN [facility] [address] Physici ans 2019-05-07 2019-05-07 AppointANGELA Becker Otorhinolar [id number] Univers 14:00:00 14:00:00 t; LORI WALKER yngology - ity of Reema SANDOVAL [facility] Medical Physici Center ans 2019-05-07 2019-05-07 AppointANGELA Fraire Otorhinolar [id number] Univers 13:30:00 13:30:00 t; NIXON [facility]ngology - [facility] ans 2019-05-02 2019-05-02 AppointANGELA Day Multispecia [id number] Univers 11:00:00 11:00:00 t; ZACH LIN RN lty - The ity of AMANDEEP SERRANO [facility] [address] Physici ans 2019-05-01 2019-05-01 AppointANGELA Del Castillo Psychiatry [id number] Univers 08:30:00 08:30:00 t; PAMELA BARBOZA, Outpatient ity of PAMELA, [facility] Physici [facility] 2019-04-29 2019-04-29 AppointANGELA Dia Multispecia [id number] Univers 15:30:00 15:30:00 t; LESTER GARZA y - ity of Reema BATISTA [place] Reema Physici [facility] 2019-04-23 2019-04-23 Appointzamzam CONTE [facility] Family [id number] Univers 14:30:00 14:30:00 t; Reema MAXWELL Medicine - ity [facility] Itz MAXWELL M.D. [facility] 2019-04-17 2019-04-17 Appointzamzam CONTE [facility] [id number] Univers 11:00:00 11:00:00 t; Reema MAXWELL it y of [place], [place] Payam MAXWELL M.D. [facility] 2019-03-28 2019-03-28 Appointzamzam GARZA [facility] [id number] [id number] Univers 16:00:00 16:00:00 t; LESTER GARZA Health and ity of Reema BATISTA [facility] 2019-03-19 2019-03-19 Burton [facility] Family [id number] Univers 14:00:00 14:00:00 t; Reema MAXWELL Medicine i ty [place], [place] Payam MAXWELL M.D. [facility] 2019-03-11 2019-03-11 Emergency E [facility] 7521 [facility] 11:52:00 11:52:00 2019-02-27 2019-02-27 Appointzamzam GARZA [facility] [id number] Univers 09:00:00 09:00:00 t; LESTER GARZA Health and ity of Reema BATISTA [facility] 2019-02-21 2019-02-21 AppointANGELA Andrew [facility] [id number] Univers 09:00:00 09:00:00 t; ELIER HOSKINS M.D. ity of Isrrael THAPA M.D.i ans 2019-01-17 2019-01-17 Appointmen ANGELA RICKS [facility] [id number] Univers 14:30:00 14:30:00 t; CARYN RICKS, Orthopedics Reema Cordon M.D. Physici ans 2019-01-09 2019-01-09 Office [facility] Adult Encounte r/ Legacy 00:00:00 00:00:00 Visit [facility] [id number] C ommuni 716448 [facility] 2019-01-04 2019-01-04 Office [facility] En[facility]te r/ Legacy 00:00:00 00:00:00 Visit [facility] [id number] C ommuni [id number] [facility] 2019-01-04 2019-01-04 Office [facility] Adult Encounte r/ Legacy 00:00:00 00:00:00 Visit [facility] [id number] C ommuni 722178 [facility] 2019-01-04 2019-01-04 Office [facility] Adult Encounter/ Legacy 00:00:00 00:00:00 Visit Flavio Margarita Medicine [id number] Communi 290134 [facility] 2019-01-03 2019-01-03 Office [facility] Adult Encounter/ Legacy 00:00:00 00:00:00 Visit Flavio Margarita Medicine [id number] Communi 685207 [facility] 2019-01-01 2019-01-01 Office [facility] Adult Encounte r/ Legacy 00:00:00 00:00:00 Visit [facility] [id number] C ommuni [id number] Health 2018-12-28 2018-12-28 Office [facility] Adult Encounte r/ Legacy 00:00:00 00:00:00 Visit [facility] [id number] C ommuni [id number] Health 2018-12-27 2018-12-27 Appointmen ANGELA [facility] [id number] Univers 14:00:00 14:00:00 t; MONSERRAT HILL it y of MICHAEL, M.D. [place] Reema Physici ans 2018-12-26 2018-12-26 Office [facility] Adult Encounte r/ Legacy 00:00:00 00:00:00 Visit Isela Johnson Medicine [id number] C ommuni [id number] Health 2018-12-26 2018-12-26 Office Provider, Public Health Services L [facility] Public Encounter/ Legacy 00:00:00 00:00:00 Visit [facility] [id number] Communi Services [id number] [facility] 2018-12-26 2018-12-26 Office [facility] Adult Encounte r/ Legacy 00:00:00 00:00:00 Visit Isela Johnson Medicine [id number] C ommuni 649390 [facility] 2018-12-26 2018-12-26 [facility] Adult Encounter/ Legacy 00:00:00 00:00:00 Visit Katherine Myers [facility] [id number] Communi 225630 [facility] 2018-12-06 2018-12-06 Office Provider, Public Health Services [facility] Public Encounter/ Legacy 00:00:00 00:00:00 Visit [facility] [id number] 7 Communi Services [id number] [facility] 2018-12-06 2018-12-06 Office [facility] Adult Encounte r/ Legacy 00:00:00 00:00:00 Visit Isela Medicine [id number] C ommuni [id number] [facility] 2018-12-06 2018-12-06 Office [facility] Adult Encounter/ Legacy 00:00:00 00:00:00 Visit Lazaro Stack [facility] [id number] Communi [id number] [facility] 2018-12-06 2018-12-06 Office Provider, Public Health Services [facility] Public Encounter/ Legacy 00:00:00 00:00:00 Visit [facility] [id number] 3 Communi Services [id number] Health 2018-12-03 2018-12-03 [facility] ANGELA FREED Rheumatolog [id number] Univers 09:00:00 09:00:00 t; KOBY FREED MD y it y of MD Isrrael WHALEN ans 2018-10-26 2018-10-26 Appointmen [facility] UTP [id number] Univers 13:30:00 13:30:00 t; Reema ALBERT y of Isrrael HARPER Physici M.D. ans 2018-10-15 2018-10-15 Office [facility] Enco unter/ Legacy 00:00:00 00:00:00 Visit Medicine [id number] Co mmuni [id number] ty Health 2018-10-09 2018-10-09 Office [facility] Encounte r/ Legacy 00:00:00 00:00:00 Visit sIela Johnson Medicine [id number] C ommuni 295512 ty Health 2018-10-08 2018-10-08 Office Héctor [facility] Adult Enco unter/ Legacy 00:00:00 00:00:00 Visit Medicine [id number] Co mmuni 138383 ty Health 2018-10-08 2018-10-08 Office Héctor [facility] Adult Enco unter/ Legacy 00:00:00 00:00:00 Visit Medicine [id number] Co mmuni 426015 ty Health 2018-10-05 2018-10-05 Office Héctor [facility] Adult Enco unter/ Legacy 00:00:00 00:00:00 Visit Medicine [id number] Co mmuni [id number] ty Health 2018-10-05 2018-10-05 Office Héctor [facility] Adult Enco unter/ Legacy 00:00:00 00:00:00 Visit Medicine [id number] Co mmuni [id number] ty Health 2018-10-05 2018-10-05 Office Luis Felipe [facility] Adult Encounte r/ Legacy 00:00:00 00:00:00 Visit Isela Johnson Medicine [id number] C ommuni [id number] ty Health 2018-10-05 2018-10-05 Office Héctor [facility] Adult Enco unter/ Legacy 00:00:00 00:00:00 Visit Medicine [id number] Co mmuni [id number] ty Health 2018-10-05 2018-10-05 Office PAULETTE [facility]iscoe[facility] Adult Encounte r/ Legacy 00:00:00 00:00:00 Visit Isela Johnson Medicine [id number] C ommuni [id number] [facility] 2018-10-05 2018-10-05 Office Provider, Public Health Services Daren LM Public Encounter/ Legacy 00:00:00 00:00:[address] [facility] [id number] [facility] [id number] [facility] 2018-10-05 2018-10-05 Office Iseal Briscoe [facility] Adult Encounter/ Legacy 00:00:00 00:00:00 Visit SreekanthAustynh Medicine [id number] Communi [id number] [facility] 2018-10-05 2018-10-05 Office Abdi Anaya [facility] Adult Enco unter/ Legacy 00:00:00 00:00:00 Visit Medicine [id number] Co mmuni [id number] [facility] 2018-10-05 2018-10-05 Office Abdi Anaya [facility] Adult Enco unter/ Legacy 00:00:00 00:00:00 Visit Tom Slater [facility] 18 [id number] [facility] Candie Jaffe [id number] [facility] 2018-08-29 2018-08-29 Appointzamzam [facility] UTP [id number] Univers 14:30:00 14:30:00 t; heike COOPER M.D. [place] JESSICA, Physici M.D. ans 2018-08-15 2018-08-15 ANGELA Franco [facility] [id number] Univers 15:00:00 15:00:00 t; ELIER HOSKINS M.D. ity of [place], [place] M.D. Physici ans 2018-07-27 2018-07-27 ANGELA Gallagher [id number] Univers 10:00:00 10:00:00 t; AMBER CANAS ity of [place], M.D. [place] M.D. Physici ans 2018-06-07 2018-06-07 ANGELA Franco UTP [id number] Univers 12:00:00 12:00:00 t; ELIER HOSKINS M.D. ity of [place], [place] M.D. Physici ans 2018-04-19 2018-04-19 Appointmen [facility] Greater [id number] Univers 09:30:00 09:30:00 t; Reema ALBERT [facility] it y of [place] Parks M.D. ans 2018-04-10 2018-04-10 Appointmen [facility] Greater [id number] Univers 14:30:00 14:30:00 t; Reema ALBERT [facility] it y [place] Payam ALBERT M.D. ans 2018-01-08 2018-01-08 Appointmen [facility] Rheumatolog [id number] Univers 08:30:00 08:30:00 t; DANITA HOOK M.D. y ity of [place] DEY M.D. Physici ans 2017-09-15 2017-09-15 Appointmen [facility] UTP [id number] Univers 11:00:00 11:00:00 t; ELIER HOSKINS M.D. ity of [place] THAPA M.D. Physici ans 2017-07-10 2017-07-10 Appointmen [facility] UTP [id number] Univers 10:30:00 10:30:00 t; DANITA HOOK M.D. ity of [place] DEY M.D. Physici ans 2017-07-07 2017-07-07 Appointmen [facility] UTP [id number] Univers 13:00:00 13:00:00 t; ELIER HOSKINS M.D. ity of [place] THAPA M.D. Physici ans 2017-05-09 2017-[facility] UTP [id number] Univers 09:00:00 09:00:00 t; Reema ALBERT it y of [place] Physici M.D. ans 2017-04-12 2017-04-12 [facility] UTP [id number] Univers 14:30:00 14:30:00 t; Reema ALBERT it y of [place] Physici M.D. ans 2017-03-29 2017-03-29 Appointmen [facility], [facility] [id number] Univers 11:00:00 11:00:00 t; Reema ALBERT it y of [place], [place] Payam ALBERT M.D. ans 2017-03-15 2017-03-15 Appointmen ANGELA HOSKINS UTP [id number] Univers 15:00:00 15:00:00 t; ELIER HOSKINS M.D. ity of [facility] Physici ans 2017-03-14 2017-03-14 Appointmen ANGELA HARPER UTP [id number] Univers 13:30:00 13:30:00 t; Reema AL[place]ERT [place] Payam ALBERT M.DTello ans 2017-03-08 2017-03-08 Appointmen ANGELA OSBORNE UTP [id number] Univers 10:00:00 10:00:00 t; ROXANA OSBORNE M.D. ity of [place] Physici ans 2017-03-08 2017-03-08 [facility] ANGELA HOOK UTP [id number] Univers 09:30:00 09:30:00 t; DANITA HOOK M.D. ity of [facility] Physici ans 2017-01-04 2017-01-04 Appointmen MONSTER, ANGELA UTP [id number] Univers 10:00:00 10:00:00 t; DANITA HOOK M.D. ity of [facility] Physici ans 2016-12-14 2016-12-14 AppointANGELA Andrew UTP [id number] Univers 14:30:00 14:30:00 t; ELIER HOSKINS M.D. ity of [facility] [place] [facility] Physici ans 2016-12-02 2016-12-02 Appointmen MONSTER, ANGELA UTP [id number] Univers 11:00:00 11:00:00 t; DANITA HOOK M.D. ity of [facility] Physici ans 2016-10-28 2016-10-28 AppointANGELA Andrew UTP [id number] Univers 10:00:00 10:00:00 t; ELIER HOSKINS M.D. ity of [facility] Physici ans 2016-08-22 2016-08-22 [facility] UTP [id number] Univers 09:00:00 09:00:00 t; ELIER HOSKINS M.D. ity [facility] 2016-08-09 2016-08-09 Outpatient Monserrat Sykes [id number] eClinic 13:45:00 13:45:00 Nataly Loganxbaum, DO, PA DO, PA 2016-04-19 2016-04-19 [facility] UTP [id number] Univers 10:30:00 10:30:00 t; ELIER HOSKINS M.D. ity [facility] Physici ans 2015-12-09 2015-12-09 Outpatient Monserrat Sykes [id number] 1 eClinic 16:00:00 16:00:00 Nataly Loganxbaum, DO, PA DO, PA 2015-11-25 2015-11-25 Outpatient Monserrat Sykes [id number] eClinic 12:45:00 12:45:00 Nataly Loganxbaum, DO, PA DO, PA 2015-11-25 2015-11-25 Outpatient Monserrat Sykes [id number] eClinic 11:45:00 11:45:00 Nataly Loganxbaum, DO, PA DO, PA 2015-05-20 2015-05-20 Outpatient Monserrat Sykes [id number] eClinic 09:42:00 09:42:00 Nataly Loganxbaum, DO, PA DO, PA 2015-05-19 2015-05-19 Outpatient Monserrat Sykes [id number] eClinic 14:15:00 14:15:00 Nataly Loganxbaum, DO, PA DO, PA 2015-04-22 2015-04-22 Outpatient Monserrat Sykes [id number] eClinic 14:53:00 14:53:00 ENataly Beckfordxbaum, DO, PA DO, PA 2015-03-03 2015-03-03 Outpatient Monserrat Sykes [id number] eClinic 14:45:00 14:45:00 E. Buxbaum, alWor faby Buxbaum, DO, PA DO, PA 2014-12-18 2014-12-18 Outpatient Monserrat Sykes [id number] eClinic 10:54:00 10:54:00 E. Buxbaum, alWor faby Buxbaum, DO, PA DO, PA 2014-11-27 2014-11-27 Outpatient Monserrat Sykes [id number] eClinic 14:15:00 14:15:00 E. Buxbaum, alWor ks Buxbaum, DO, PA DO, PA 2014-11-27 2014-11-27 Outpatient Monserrat Sykes [id number] eClinic 14:15:00 14:15:00 E. Buxbaum, alWor faby Buxbaum, DO, PA DO, PA 2014-08-05 2014-08-05 Outpatient Monserrat Sykes [id number] eClinic 13:54:00 13:54:00 ETello erick CardWradha faby Buxbaum, DO, PA DO, PA 2014-05-21 2014-05-21 Outpatient Monserart Sykes [id number] 1 eClinic 14:00:00 14:00:00 E. Buxbnedram, alWor faby Buxbaum, DO, PA DO, PA 2014-04-18 2014-04-18 Outpatient Monserrat Sykes [id number] eClinic 10:20:00 10:20:00 ETello Abielxbnedram alWor faby Buxbaum, DO, PA DO, PA 2014-03-25 2014-03-25 Outpatient Monserrat Sykes [id number] eClinic 16:29:00 16:29:00 E. Stephie erickWradha faby Buxbaum, DO, PA DO, PA 2014-03-24 2014-03-24 Outpatient Monserrat Sykes [id number] 7 eClinic 11:00:00 11:00:00 ETello Wisdomm alWor faby Buxbaum, DO, PA DO, PA Results Test Description Test Test Results Result Source Time Comments Comments Incision/Drainag , Francy Gonzalez, DO [facility] 11/15/2020 3:39 [...] to verify the correct patient, procedure, equipment, program support clerk and site/side marked as required.Type: abscessBody area: [...] Test Item Value Reference Range Interpretation Comme [facility] GLUCOSE BEDSIDE TESTING (test code = GLUBED) 305 MG/DL 60-99 HH - CT ABD PELVIS [id number] 17:33:00 [facility] : 1970 Sex: F Patient Name: VERO JIMENEZ Unit No: [id number] EXAMS: CPT CODE: [id number] CT ABD PELVIS W/CONT 54058 EXAM: CT abdomen and pelvis INDICATION: diffuse abd pain COMPARISON: None at this time LOCATION: [facility] CT scan of the abdomen and pelvis [...] and no free fluid are identified. IMPRESSION: [facility] NAME: VERO JIMENEZ [address] [place] PHYS: EVE - Tre Jc [facility] [id number] : 1970 AGE: 49 SEX: F ACC T NO: [id number] LOC: ZEWELINA PHONE #: [phone] EXAM DATE: 10/12/2020 STATUS: REG ER FAX #: [phone] RAD #: D/C DT PAGE 1 Signed Report (CONTINUED) Patient Name: VERO JIMENEZ Unit No: [id number] EXAMS: CPT CODE: [id number] CT ABD PELVIS W/CONT 85532 <Continued> There is fatty infiltration of the liver. Otherwise unremarkable CT scan of theabdomen and pelvis. at 1733 Reported and signed by: Isidro Corona MD CC: Tre Jc DO Technologist:Darrell Schwarz, RT(R); JASON CTDI: DLP: Trnscrpt: 10/12/2020 (173) Heather [facility] Quang NAME: VERO JIMENEZ[address] [place] PHYS: EVE JcShearobb [place] [id number] : 1970 AGE: 49 SEX: F LOC: Z.Queryly PHONE #: [phone] EXAM DATE: 10/12/2020 STATUS: REG ER FAX#: [phone] RAD #: D/C DT PAGE 2Signed Report Patient Name: VERO JIMENEZ Unit No: [id number] EXAMS: CPT CODE: [id number] CT ABD PELVIS W/CONT 86044 <Continued> Orig Print D/T: S: 10/12/2020 (173) [facility] Quang NAME: VERO JIMENEZmond PHYS: [place] [address] : 1970 AGE: 49 SEX: F LOC: [facility] PHONE #: [phone] EXAM DATE: 10/12/2020 STATUS: REG ER FAX #: [phone] RAD #: D/C DT PAGE 3 Signed ReportHCG SERUM [id number] 17:17:00 Test Item Value Reference Range Interpretation Comments HCG SERUM QUAL (test code = HCGQL) NEGATIVE NEGATIVE A URINALYSIS [id number] 16:56:00 Test Item Value Reference Range Interpretation [...] UACULT) Criteria SOURCE OF URINE: CLEAN CATCHUA [id number] 16:56:00 Test Item Value Reference Range Interpretation Comments UA RBC (test code = RBCU) 5-10 RBC/HPF 0-3 A UA WBC (test code = XWBCU) 20-30 WBC/HPF 0-5 A UA EPITHELIAL CELLS (test MODERATE EPI/HPF FEW A code = EPIU) UA BACTERIA (test code = MANY NONE A XBACU) SOURCE OF URINE: CLEAN CATCHCOMPREHENSIVE METABOLIC [id number] 16:56:00 Test Item Value Reference Range Interpretation Comments SODIUM (test code = 137 MMOL/L 137-145 N NA) POTASSIUM (test code 4.1 MMOL/L 3.5-5.1 N = K) CHLORIDE (test code = 105 MMOL/L 98-107 N CL) CARBON DIOXIDE (test 22 MMOL/L 22-30 N code = CO2) GLUCOSE (test code = 373 MG/DL 74-106 HH CALLED TO JEANNETTE Gandhi& GLU) READBACK ON AT 1656 BY Maury Perez [...] UNITS/L 38-126 N (test code = ALKP) [id number] 16:56:00 Test Item Value Reference Range Interpretation Comments LIPASE (test code = LIP) 69 UNITS/L 23-300 N COMPREHENSIVE METABOLIC [id number] 16:51:00 Test Item Value Reference Range Interpretation [...] UNITS/L 38-126 N (test code = ALKP) [id number] 16:51:00 Test Item Value Reference Range Interpretation Comments LIPASE (test code = LIP) UNITS/L 23-300 COMPREHENSIVE METABOLIC [id number] 16:49:00 Test Item Value Reference Range Interpretation [...] PHOSPHATASE (test code = UNITS/L 38-126 ALKP) [id number] 16:49:00 Test Item Value Reference Range Interpretation Comments LIPASE (test code = LIP) UNITS/L 23-300 COMPREHENSIVE METABOLIC [id number] 16:48:00 Test Item Value Reference Range Interpretation [...] PHOSPHATASE (test code = UNITS/L 38-126 ALKP) [id number] 16:48:00 Test Item Value Reference Range Interpretation Comments LIPASE (test code = LIP) UNITS/L 23-300 CBC W/AUTO [id number] 16:45:00 Test Item Value Reference Range Interpretation [...] = 0.00 K/mm3 0.0-0.1 N NRBC#) URINALYSIS [id number] 16:40:00 Test Item Value Reference Range Interpretation [...] = UACULT) SOURCE OF URINE: CLEAN CATCHUA [id number] 16:40:00 Test Item Value Reference Range Interpretation Comments UA RBC (test code = RBCU) RBC/HPF 0-3 UA WBC (test code = XWBCU) WBC/HPF 0-5 UA EPITHELIAL CELLS (test code = EPI/HPF FEW EPIU) UA BACTERIA (test code = XBACU) NONE SOURCE OF URINE: CLEAN CATCHURINALYSIS [id number] 16:40:00 Test Item Value Reference Range Interpretation [...] = UACULT) SOURCE OF URINE: CLEAN CATCHUA [id number] 16:40:00 Test Item Value Reference Range Interpretation [...] Normal AND TIME: (test code = 5195-3) [facility][QL] RPR (DX) W/REFL TITER AND CONFIRMATORY [id number] 00:00:00 Test Item Value Reference Range Interpretation Comments RPR (DX) W/REFL TITER NON-REACTIVE NON-REACTIVE N SPECIM EN RECEIVED AND CONFIRMATORY DATE AND TI ME: TESTING (test code = 1237341 26246 RPR (DX) W/REFL TITER AND CONFIRMATORY TESTING) [facility]. [facility] - [id number] 00:00:00 Test Item Value Reference Range Interpretation Comments Case (test code = Click ImageLink button A Case) for report. [facility]iciansGLU[facility]SE BEDSIDE [id number] 14:54:00 Test Item Value Reference Range Interpretation Comments GLUCOSE BEDSIDE TESTING (test code 284 MG/DL 60-99 H = GLUBED) GLUCOSE BEDSIDE [id number] 12:40:00 Test Item Value Reference Range Interpretation Comments GLUCOSE BEDSIDE TESTING (test code 251 MG/DL 60-99 H = GLUBED) GLUCOSE BEDSIDE [id number] 08:23:00 Test Item Value Reference Range Interpretation Comments GLUCOSE BEDSIDE TESTING (test code 250 MG/DL 60-99 H = GLUBED) GLUCOSE BEDSIDE [id number] 08:23:00 Test Item Value Reference Range Interpretation Comments GLUCOSE BEDSIDE TESTING (test code 186 MG/DL 60-99 H = GLUBED) GLUCOSE BEDSIDE [id number] 08:23:00 Test Item Value Reference Range Interpretation Comments GLUCOSE BEDSIDE TESTING (test code 219 MG/DL 60-99 H = GLUBED) GLUCOSE BEDSIDE [id number] 11:11:00 Test Item Value Reference Range Interpretation Comments GLUCOSE BEDSIDE TESTING (test code 211 MG/DL 60-99 H = GLUBED) COVID 19 Asymptomatic IH [id number] 10:39:00 Test Item Value Reference Range Interpretation Comments COVID 19 NEGATIVE Negative "Negative resul ts from Asymptomatic IH AG patients with symptom (test code = onset beyondfiv e days, COVNONPUIAG) should be ujdy danika as presumptive, andconfirmation with a molecular [...] amount of virus (antigen) in the sample." [id number] 09:08:00 Test Item Value Reference Range Interpretation Comments ALCOHOL (test code = 159.0 MG/DL <10 HH CALLED TO M& ALC) READBACK ON 05/09 AT 0908 BY Porfirio Roldan URINALYSIS [id number] 09:06:00 Test Item Value Reference Range Interpretation [...] OF URINE: CLEAN CATCHDRUGS OF ABUSE SCREEN [id number] 09:06:00 Test Item Value Reference Range Interpretation [...] PHENCU) ng/mL SOURCE OF URINE: CLEAN CATCHURINALYSIS [id number] 06:59:00 Test Item Value Reference Range Interpretation [...] OF URINE: CLEAN CATCHDRUGS OF ABUSE SCREEN [id number] 06:59:00 Test Item Value Reference Range Interpretation [...] PHENCU) ng/mL SOURCE OF URINE: CLEAN CATCHURINALYSIS [id number] 06:57:00 Test Item Value Reference Range Interpretation [...] OF URINE: CLEAN CATCHDRUGS OF ABUSE SCREEN [id number] 06:57:00 Test Item Value Reference Range Interpretation [...] = PHENCU) SOURCE OF URINE: CLEAN CATCHURINALYSIS [id number] 06:56:00 Test Item Value Reference Range Interpretation [...] OF URINE: CLEAN CATCHDRUGS OF ABUSE SCREEN [id number] 06:56:00 Test Item Value Reference Range Interpretation [...] = PHENCU) SOURCE OF URINE: CLEAN CATCHURINALYSIS [id number] 06:55:00 Test Item Value Reference Range Interpretation [...] OF URINE: CLEAN CATCHDRUGS OF ABUSE SCREEN [id number] 06:55:00 Test Item Value Reference Range Interpretation [...] = PHENCU) SOURCE OF URINE: CLEAN CATCHURINALYSIS [id number] 06:43:00 Test Item Value Reference Range Interpretation [...] OF URINE: CLEAN CATCHDRUGS OF ABUSE SCREEN [id number] 06:43:00 Test Item Value Reference Range Interpretation [...] NEGATIVE PHENCU) SOURCE OF URINE: CLEAN CATCHURINALYSIS [id number] 06:42:00 Test Item Value Reference Range Interpretation [...] OF URINE: CLEAN CATCHDRUGS OF ABUSE SCREEN [id number] 06:42:00 Test Item Value Reference Range Interpretation [...] PHENCU) SOURCE OF URINE: CLEAN CATCHBASIC METABOLIC [id number] 05:17:00 Test Item Value Reference Range Interpretation Comments SODIUM (test code = 138 MMOL/L 137-145 N NA) POTASSIUM (test code = 4.0 MMOL/L 3.5-5.1 N K) CHLORIDE (test code = 104 MMOL/L 98-107 N CL) CARBON DIOXIDE (test 16 MMOL/L 22-30 L code = CO2) GLUCOSE (test code = 563 MG/DL 74-106 HH CALLED TO PREMA M.& GLU) READBACK ON 05/09 AT 0517 BY Lj [...] 9.5 MG/DL 8.4-10.2 N CA) HEPATIC FUNCTION [id number] 05:17:00 Test Item Value Reference Range Interpretation [...] = 92 UNITS/L 38-126 N ALKP) HCG [id number] 05:17:00 Test Item Value Reference Range Interpretation Comments HCG SERUM (test < 2 IU/L ~~~~~~~~~~~~ ~~~~~~~~~~~~~~~~ code = HCG) ~~~~~~~~~~~~~~~ ~~~~~~~~~~~~~ ~~~~INTERPRETAT ION OF BHCG QN PERFORMED AT [facility] 0.2-1 W EEKS AFTER CONCEPTION 5-50 [...] Units per milliliter AND LESS THAN 25 eliazar-Hcc Coders ational Units per milliliterS HOGONZALO HAVE ADDITIONAL BLOO D SAMPLE DRAWN 48 HOURSL ATER AND REPEATED.~~~~~~ ~~~~~~~~~~~~~ ~~~~~~~~~~~~~~~ ~~~~~~~~~~~~~ ~~~~~~~~~~~~~ [id number] 05:17:00 Test Item Value Reference Range Interpretation Comments ACETAMINOPHEN (test code = < 10.0 MCG/ML 10-30 L ACET) [id number] 05:17:00 Test Item Value Reference Range Interpretation Comments SALICYLATE (test code = GO) < 1.0 MG/DL <2.0 [id number] 05:17:00 Test Item Value Reference Range Interpretation Comments ALCOHOL (test code = 231.0 MG/DL <10 HH CALLED TO PREMA Briscoe ALC) READBACK ON 05/09 AT 0517 BY Lj Estrada BASIC METABOLIC [id number] 04:47:00 Test Item Value Reference Range Interpretation [...] code = MG/DL 8.7-9.7 CA) HEPATIC FUNCTION [id number] 04:47:00 Test Item Value Reference Range Interpretation [...] (test code = UNITS/L 38-126 ALKP) HCG [id number] 04:47:00 Test Item Value Reference Range Interpretation Comments HCG SERUM (test code = HCG) IU/L [id number] 04:47:00 Test Item Value Reference Range Interpretation Comments ACETAMINOPHEN (test code = ACET) MCG/ML 10-30 [id number] 04:47:00 Test Item Value Reference Range Interpretation Comments SALICYLATE (test code = GO) MG/DL <2.0 [id number] 04:47:00 Test Item Value Reference Range Interpretation Comments ALCOHOL (test code = ALC) MG/DL <10 BASIC METABOLIC [id number] 04:45:00 Test Item Value Reference Range Interpretation [...] code = CA) MG/DL 8.7-9.7 HEPATIC FUNCTION [id number] 04:45:00 Test Item Value Reference Range Interpretation [...] (test code = UNITS/L 38-126 ALKP) HCG [id number] 04:45:00 Test Item Value Reference Range Interpretation Comments HCG SERUM (test code = HCG) IU/L [id number] 04:45:00 Test Item Value Reference Range Interpretation Comments ACETAMINOPHEN (test code = ACET) MCG/ML 10-30 [id number] 04:45:00 Test Item Value Reference Range Interpretation Comments SALICYLATE (test code = GO) MG/DL <2.0 [id number] 04:45:00 Test Item Value Reference Range Interpretation Comments ALCOHOL (test code = ALC) MG/DL <10 BASIC METABOLIC [id number] 04:44:00 Test Item Value Reference Range Interpretation [...] code = CA) MG/DL 8.7-9.7 HEPATIC FUNCTION [id number] 04:44:00 Test Item Value Reference Range Interpretation [...] (test code = UNITS/L 38-126 ALKP) HCG [id number] 04:44:00 Test Item Value Reference Range Interpretation Comments HCG SERUM (test code = HCG) IU/L [id number] 04:44:00 Test Item Value Reference Range Interpretation Comments ACETAMINOPHEN (test code = ACET) MCG/ML 10-30 [id number] 04:44:00 Test Item Value Reference Range Interpretation Comments SALICYLATE (test code = GO) MG/DL <2.0 [id number] 04:44:00 Test Item Value Reference Range Interpretation Comments ALCOHOL (test code = ALC) MG/DL <10 CBC W/AUTO [id number] 04:37:00 Test Item Value Reference Range Interpretation [...] 0.00 K/mm3 0.0-0.1 N NRBC#) CBC W/AUTO [id number] 15:34:00 Test Item Value Reference Range Interpretation [...] (test code = ADEQUATE ADEQUATE PLTEST) WBC [id number] 15:34:00 Test Item Value Reference Range Interpretation [...] (test code = NORMAL NORMAL PLTMORPH) URINALYSIS [id number] 15:04:00 Test Item Value Reference Range Interpretation [...] BACU) None /HPF NONE SEEN BASIC METABOLIC [id number] 14:57:00 Test Item Value Reference Range Interpretation [...] mg/dL 8.5-10.5 N = CA) LIVER FUNCTION [id number] 14:57:00 Test Item Value Reference Range Interpretation [...] code = 62 U/L 42-121 N ALKP) [id number] 14:57:00 Test Item Value Reference Range Interpretation Comments LIPASE (test code = LIP) 55 IU/L 22-51 H CBC W/AUTO [id number] 14:52:00 Test Item Value Reference Range Interpretation [...] 9.9 fL 8.6-12.6 N = MPV) WBC [id number] 14:52:00 Test Item Value Reference Range Interpretation Comments TOTAL CELLS COUNTED (test code = TCC) #CELLS RBC MORPHOLOGY COMMENT (test code = NORMAL MOC) PLATELET MORPHOLOGY (test code = NORMAL PLTMORPH) CBC W/AUTO [id number] 14:52:00 Test Item Value Reference Range Interpretation [...] 9.9 fL 8.6-12.6 N = MPV) WBC [id number] 14:52:00 Test Item Value Reference Range Interpretation Comments TOTAL CELLS COUNTED (test code = TCC) #CELLS RBC MORPHOLOGY COMMENT (test code = NORMAL MOC) PLATELET MORPHOLOGY (test code = NORMAL PLTMORPH) BASIC METABOLIC [id number] 14:50:00 Test Item Value Reference Range Interpretation [...] mg/dL 8.5-10.5 N = CA) LIVER FUNCTION [id number] 14:50:00 Test Item Value Reference Range Interpretation [...] PHOSPHATASE (test code = U/L 42-121 ALKP) [id number] 14:50:00 Test Item Value Reference Range Interpretation Comments LIPASE (test code = LIP) 55 IU/L 22-51 H HCG SERUM [id number] 14:48:00 Test Item Value Reference Range Interpretation Comments HCG SERUM QUAL NEGATIVE NEGATIVE This is a lucien litative (test code = HCGQL) screenin g test.The quantitative Bh cg may be helpful.Weakly positive results should be repeated in 48 hours. [id number] 13:28:00 Test Item Value Reference Range Interpretation Comments GLUBED (test code = GLUBED) 246 MG/DL 70-[address], [id number] 13:59:00FINAL REPORT TECHNIQUE: CT of the abdomen [...] intra-abdominal or intrapelvic abnormality.. Signed: Jose Dawson MDReport Verified Date/Time: 04/05/2020 13:59:01 Reading Location: [address] Body Reading Room CT abdomen pelvis with IV [id number] 13:59:00Interface, External Ris In - 04/05/2020 2:01 [...] MDReport Verified Date/Time: 04/05/2020 13:59:01 Reading Location: [address] [facility]00 Test Item Value Reference Range Interpretation Comments Lipase (test code = 3040-3) 90 U/L 40-240 Lab Interpretation (test code = Normal 66434-3) [facility] Test Item Value Reference Range Interpretation Comments LIPASE (BEAKER) (test code = 749) 90 U/L 40-240 Comprehensive metabolic [id number] 13:24:00 Test Item Value Reference Range Interpretation Comments Protein, Total (test 7.2 See_Comment [Autom ated code = 2885-2) message] The system which generated this result transmitted reference range : 6.0 - 8.5 gm/dL . The reference r scott was not used to interpret this result as normal/abnormal . Albumin (test code = 3.9 g/dL 3.5-5 89339-8) Alkaline Phosphatase 76 U/L 30-115 (test code = 6768-6) Total Bilirubin (test 0.7 mg/dL 0.1-1.2 code = 1974-2) Sodium (test code = 138 meq/L 404-319 9779-2) Potassium (test code = 4.4 meq/L 3.6-5.5 2823-3) Chloride (test code = 105 meq/L 98-106 2075-0) CO2 (test code = 26 meq/L 24-32 2028-9) BUN (test code = 12 mg/dL 10-26 3094-0) Creatinine (test code = 0.44 mg/dL 0.5-1.2 L 2160-0) Glucose (test code = 316 mg/dL 70-110 H 2345-7) Calcium (test code = 9.6 mg/dL 8.5-10.5 88484-6) AST (test code = 23 U/L 5-40 1920-8) ALT (test code = 17 U/L 5-50 1742-6) EGFR (test code = 184 mL/min/1.73 [place] [address]-8) NOT ACCURATE CREATININE CLEARANCE IN PREDICTING GLOMERULAR FILTRATION RATE . ESTIMATED GFR I S NOT APPLICABLE FOR DIALYSIS PATIEN TS. Lab Interpretation Abnormal (test code = 73283-9) [facility] [id number] 13:24:00 Test Item Value Reference Range Interpretation [...] NOT APPLICABLE FOR DIALYSIS PATIEN TS. Urinalysis w/[id number] 13:22:00 Test Item Value Reference Range Interpretation Comments Color, UA (test code = Yellow 5778-6) Clarity, UA (test code = Clear 5767-9) Specific Stella, UA 1.015 1.001-1.035 (test code = 5811-5) pH, UA (test code = 6.0 5.0-8.0 5803-2) Protein, UA (test code = Negative Negative 97342-6) Glucose, UA (test code = 500 mg/dL Negative A 365) Ketones, UA (test code = Negative Negative 2514-8) Bilirubin, UA (test code Negative Negative = 27841-2) Blood, UA (test code = Negative Negative 44693-7) Nitrite, UA (test code = Negative Negative 5802-4) Leukocytes, UA (test Negative Negative code = 5799-2) Urobilinogen, UA (test 0.2 mg/dL 0.2-1 code = 71239-4) Bacteria, UA (test code Few = 93282-3) Yeast (test code = Few 88510-7) RBC, UA (test code = None Seen See_Comment [Autom ated message] 799-7) The system [employer] generated this result transmit danika reference range : /HPF. The refer ence range was not u sed to interpret th is result as normal/abnormal . WBC, UA (test code = <5 See_Comment [Autom ated message] 06204-8) The system [employer] h generated this result transmit danika reference range : /HPF. The refer ence range was not u sed to interpret th is result as normal/abnormal . SQUAMOUS EPITHELIAL <5 See_Comment [Automa danika message] (test code = 76798-3) The sy stem which generated this result transmit danika reference range : /HPF. The refer ence range was not u sed to interpret th is result as normal/abnormal . Specimen Source (test code = 2795) Lab Interpretation (test Abnormal code = 61129-5) [facility]/ [id number] 13:22:00 Test Item Value Reference Range Interpretation [...] 2795) CBC with platelet count + automated [id number] 13:15:00 Test Item Value Reference Range Interpretation Comments WBC (test code = 4.6 See_Comment [Automated message] 6690-2) The system [employer] generated this result transmitted ref erence range: 4.0 - 10 .0 K/L. The refe rence range was not u sed to interpret this result as normal/abnor mal. RBC (test code = 789-8) 4.61 See_Comment [Au tomated message] The system [employer] generated this result transmitted ref erence range: 4.00 - 5 .00 M/L. The refe rence range was not u sed to interpret this result as normal/abnor mal. MCHC (test code = 32.5 See_Comment [Automate d message] 786-4) The system [employer] generated this result transmitted ref erence range: [...] code = 215 See_Comment [Aut omated message] 777-3) The system [employer] generated this result transmitted ref erence range: 150 - 43 0 K/CU MM. The referen ce range was not used to interpret this result as normal/abnor mal. MPV (test code = 8.6 fL 6.5-10.5 64677-1) % Neutros (test code = 46 % 429) % Lymphs (test code = 43 % 430) % Monos (test code = 5 % 431) % Eos (test code = 432) 5 % % Baso (test code = 1 % 437) # Neutros (test code = 2.15 See_Comment [Aut omated message] 670) The system [employer] generated this result transmitted ref erence range: 1.80 - 8 .00 K/L. The refe rence range was not u sed to interpret this result as normal/abnor mal. # Lymphs (test code = 2.01 See_Comment [Auto mated message] 414) The system [employer] generated this result transmitted ref erence range: 1.48 - 4 .50 K/L. The refe rence range was not u sed to interpret this result as normal/abnor mal. # Monos (test code = 0.22 See_Comment [Autom ated message] 415) The system [employer] generated this result transmitted ref erence range: 0.00 - 1 .30 K/L. The refe rence range was not u sed to interpret this result as normal/abnor mal. # Eos (test code = 416) 0.23 See_Comment [Au tomated message] The system [employer] generated this result transmitted ref erence range: 0.00 - 0 .50 K/L. The refe rence range was not u sed to interpret this result as normal/abnor mal. # Baso (test code = 0.03 See_Comment [Automa danika message] 417) The system [employer] generated this result transmitted ref erence range: 0.00 - 0 .20 K/L. The refe rence range was not u sed to interpret this result as normal/abnor mal. [facility] W/PLT COUNT & AUTO [id number] 13:15:00 Test Item Value Reference Range Interpretation [...] 0.00-0.20 (test code = 417) [QL] CMP [id number] 00:00:00 Test Item Value Reference Range Interpretation [...] 100 {ML/MIN/1.7} > OR = 60 N SUDANESE (test code = eGFR NON-) eGFR 116 {ML/MIN/1.7} > OR = 60 N SUDANESE (test code = eGFR ) BUN/CREATININE NOT [...] mg/dl 0.2-1.2 N Normal (test code = 51753-1) ALKALINE 58 u/l 31-125 N PHSPHATASE (test code = ALKALINE PHSPHATASE) AST; Normal (test 12 u/l 10-35 N code = 1916-6) ALT; Normal (test 15 u/l 6-29 N code = 1742-6) [facility] [place] [place] [facility][QL] SED RATE BY MODIFIED [id number] 00:00:00 Test Item Value Reference Range Interpretation Comments SED RATE BY MODIFIED TINOREN (test 9 mm/h < OR = 20 N code = SED RATE BY MODIFIED TINOREN) [facility][QL] CBC (INCLUDES DIFF/PLT)2020-03-04 00:00:00 Test Item Value Reference Range Interpretation Comments WHITE BLOOD CELL COUNT 5.3 {Thousand/u} 3.8-10.8 N (test code = WHITE BLOOD CELL COUNT) RED BLOOD CELL COUNT (test 4.68 {Million/uL} 3.80-5.10 N code = RED BLOOD CELL COUNT) HEMAGLOBIN; Normal (test 13.1 g/dl 11.7-15.5 N code = 73062-5) HEMATOCRIT; Normal (test 40.6 % 35.0-45.0 N code = 4544-3) MCV; Normal (test code = 86.8 fL 80.0-100.0 N 787-2) MCHC; Normal (test code = 32.3 g/dl 32.0-36.0 N 75643-8) RDW; Normal (test code = 12.8 % 11.0-15.0 N 788-0) PLATELET COUNT; Normal 233 {Thousand/u} 140-400 N (test code = 777-3) MPV; Normal (test code = 11.1 fL 7.5-12.5 N 74468-4) ABSOLUTE NEUTROPHILS (test 3042 {cells/uL} 6386-7319 N code = ABSOLUTE NEUTROPHILS) ABSOLUTE LYMPHOCYTES [...] Normal (test 5.6 % N code = 27123-3) EOSINOPHILS; Normal (test 4.0 % N code = 76050-4) BASOPHILS; Normal (test 0.6 % N code = 57339-0) [facility][QL] RHEUMATOID [id number] 00:00:00 Test Item Value Reference Range Interpretation Comments RHEUMATOID FACTOR (test code = <14 <14 N RHEUMATOID FACTOR) [facility][QL] C-REACTIVE [id number] 00:00:00 Test Item Value Reference Range Interpretation Comments C-REACTIVE PROTEIN (test code = 3.7 mg/L <8.0 N C-REACTIVE PROTEIN) [facility][Q] QUANTIFERON( R)-TB GOLD PLUS, 1 [id number] 00:00:00 Test Item Value Reference Range Interpretation [...] For additional info rmation, please refer [email or web address](Th is link is araseli johnson provided for informational/e ducational purposes only.) [facility][O] Hemoglobin A1c (in office)2020-02-25 14:00:00 Test Item Value Reference Range Interpretation Comments HEMOGLOBIN A1c (test code = 4548-4) 14.0 [facility]icians[facility] Pelvis without contrast [id number] 18:05:00EXAM: MR PELVIS WITHOUT CONTRASTDATE: 12/28/2019 17:41 [...] Signed by: Nikolai Ramirez MD 12/29/2005:03FINAL REPORT [facility] PhysiciansNeisseria gonorrhoeae DNA [id number] 16:05:00 Test Item Value Reference Range Interpretation Comments Neisseria gonorrhoeae DNA probe Negative Negative (test code = 02124-0) [facility] [id number] 16:05:00 Test Item Value Reference Range Interpretation Comments chlamydia DNA probe (test code = Negative Negative 21435-6) [facility] vaginalis, [id number] 16:05:00 Test Item Value Reference Range Interpretation Comments trichomonas vaginalis, urine (test Positive Negative A code = 3887) [facility] [id number] 10:17:43 Test Item Value Reference Range Interpretation Comments blood glucose, fasting (test code = 335 mg/dL 7) [facility]2019-11-21 09:08:00 Test Item Value Reference Range Interpretation Comments Glucose POC [employer] (test code = 418 Glucose POC Lifescan) [facility] [place] [place] [facility]] MICROALBUMIN, RANDOM URINE (W/CREATININE) 2019-10-22 17:51:01 Test Item Value Reference Range Interpretation Comments Urine Microalbumin 46.2 mg/L No establ ished (test code = Urine reference range. Microalbumin) U Creatinine (test 74.60 mg/dl No establ ished code = 2161-8) reference ran ge. Urine Microalbuming 61.9 mg/g <=30.0 Creatinine Ratio; Above High Threshold (test code = 13048-3) [facility]] CBC (INCLUDES DIFF/PLT)2019-10-22 14:42:01 Test Item Value Reference Range Interpretation Comments WBC (test code = 6690-2) 5.0 {K/CMM} 3.7-10.4 RBC (test code = 789-8) 4.75 {M/CMM} 4.20-5.40 Hgb (test code = 718-7) 13.6 g/dl 12.0-16.0 Hct (test code = 46924-0) 42.0 % 36.0-48.0 MCV (test code = 787-2) 88.4 fL 80.0-98.0 MCH (test code = 785-6) 28.7 pg 27.0-31.0 MCHC (test code = 786-4) 32.5 g/dl 32.0-36.0 RDW (test code = 788-0) 13.6 % 11.5-14.5 Platelet (test code = 85956-2) 212 {K/CMM} 133-450 Mean Platelet Volume (test code 9.6 fL 7.4-10.4 = 86742-9) [facility]] [id number] 14:42:01 Test Item Value Reference Range Interpretation Comments Segmented Neutrophils; Below Low 42.4 % 45.0-75.0 Threshold (test code = 89718-6) Monocytes (test code = 07992-4) 5.0 % 2.0-12.0 Lymphocytes; Above High Threshold 50.3 % 20.0-40.0 (test code = 45977-0) Eosinophils (test code = 43524-1) 1.7 % 0.0-4.0 Basophils (test code = 706-2) 0.6 % 0.0-1.0 Segs-Bands # (test code = 2.1 {K/CMM} 1.5-8.1 45043-3) Lymphocytes # (test code = 2.5 {K/CMM} 1.0-5.5 29211-1) Monocytes # (test code = 21579-6) 0.2 {K/CMM} 0.0-0.8 Eosinophils # (test code = 0.1 {K/CMM} 0.0-0.5 85776-2) [facility]] CMP [id number] 14:42:01 Test Item Value Reference Range Interpretation Comments Sodium Level 140 {mEq/l} 135-145 (test code = 2951-2) Potassium Level 4.1 {mEq/l} 3.5-5.1 (test code = 2823-3) Chloride Level 106 {mEq/l} 95-109 (test code = 2075-0) Carbon Dioxide; 23 {mEq/l} 24-32 Below Low Threshold (test code = 2027-9) AGAP (test code = 15.1 {mEq/l} 10.0-20.0 78225-8) Glucose Lvl; 289 mg/dl 70-99 Adult reference range Above High values reflect the Threshold (test clinical moises delinesof the code = 2345-7) [employer]. Creatinine Lvl 0.70 mg/dl 0.50-1.40 (test code = 2160-0) Blood Urea 11 mg/dl 7-22 Nitrogen (test code = 3094-0) BUN/Creatinine 16 6-25 Ratio (test code = 3097-3) Total Protein 7.8 g/dl 6.4-8.4 (test code = 2885-2) Albumin Lvl (test 3.9 g/dl 3.5-5.0 code = 1751-7) Globulin (test 3.9 g/dl 2.7-4.2 code = 91797-6) A/G Ratio (test 1.0 0.7-1.6 code = 1759-0) Calcium Level 9.6 mg/dl 8.5-10.5 Total (test code = 85722-8) ALT (test code = 26 u/l 0-65 3-4) AST (test code = 13 u/l 0-37 15887-7) Bili Total (test 0.5 mg/dl 0.2-1.3 code = 1974-2) Alk Phos (test 73 u/l 39-136 The pediatric reference code = 1783-0) ranges for th is test represent a CLSI-basedtrans ference of the CALIPER natalia abase of pediatric refer ence intervals to th eSiemens Fluvanna analyzer (Clinical Biochemistry 46 (2013): 7308-2160). [facility] [employer] [facility] has not internally validated these reference ranges and therefore they should be used only in th e context of a thoroughcl inical assessment. eGFR (test code = 103 The eGFR i s calculated 11217-4) {ML/MIN/1.7} using the CKD-E PI formula. In [...] Kidney Disease Education Progr am(NKDEP) which ana cohen recommends that when the eGFR is used in patientswith ex tremes of body mass index for purposes of urmila g dosing, the eGFR should be multiplied by t he estimated BMI. [facility]] LIPID [id number] 14:42:01 Test Item Value Reference Range Interpretation Comments Chol (test code = 3-3) 197 mg/dl <=199 Trig; Above High Threshold (test 196 mg/dl <=149 code = 2571-8) HDL Cholesterol; Below Low 55 mg/dl >=61 Threshold (test code = 2085-9) CHD Risk; Below Low Threshold (test 3.58 3.90-5.80 code = 37886-8) LDL; Above High Threshold (test 103 mg/dl <=99 code = 75832-7) VLDL (test code = VLDL) 39 [facility]] VITAMIN [id number] 14:42:01 Test Item Value Reference Range Interpretation Comments Vitamin B12 Level (test code = 521 pg/ml 254-1320 2132-9) [facility]] HEMOGLOBIN [id number] 14:42:01 Test Item Value Reference Range Interpretation Comments Hemoglobin A1c; Above High Threshold 14.3 % <=5.6 (test code = 4548-4) [facility]] VITAMIN D, 25-HYDROXY, [id number] 14:42:01 Test Item Value Reference Range Interpretation Comments Vitamin D, 25-OH, 24.9 ng/ml 30.0-100.0 Reference range is based Total (test code on recommen dations in the = Vitamin D, EndocrineSociet y Clinical 25-OH, Total) Practice Guide line (J Clin Endocrinol Odaxc6102;96:19 11-1930) [facility] PhysiciansNeisseria gonorrhoeae DNA [id number] 16:30:00 Test Item Value Reference Range Interpretation Comments Neisseria gonorrhoeae DNA probe Negative Negative (test code = 00414-1) [facility] [id number] 16:30:00 Test Item Value Reference Range Interpretation Comments chlamydia DNA probe (test code = Negative Negative 61413-9) [facility]trichomonas vaginalis, [id number] 16:30:00 Test Item Value Reference Range Interpretation Comments trichomonas vaginalis, urine (test Negative Negative code = 3887) [facility]hepatitis B surface [id number] 13:18:00 Test Item Value Reference Range Interpretation Comments hepatitis B surface antigen (test Negative Negative code = 79) [facility]he[facility] C antibody, [id number] 13:18:00 Test Item Value Reference Range Interpretation Comments hepatitis C antibody, serum (test code <0.1 0.0-0.9 = 2722) [facility]HIV-CMIA (Chemiluminescent Microparticle Immuno Assay) 2019-10-09 13:18:00 Test Item Value Reference Range Interpretation Comments HIV-CMIA (Chemiluminescent Non Reactive Non Reactive Microparticle Immuno Assay) (test code = 411900) [facility] Hospitalrapid plasma reagin antibody, [id number] 13:18:00 Test Item Value Reference Range Interpretation Comments rapid plasma reagin antibody, Non Reactive Non Reactive serum (test code = 308) [facility]hemoglobin A1C, blood, as % of total [id number] 13:18:00 Test Item Value Reference Range Interpretation Comments hemoglobin A1C, blood, as % of total 14.5 % 4.8-5.6 H hemoglobin (test code = 4548-4) [facility] HospitalHERPES SIMPLEX VIRUS TYPE 1 AB.IGG (PT; SER; QN; ) 2019-10-09 13:18:00 Test Item Value Reference Range Interpretation Comments HERPES SIMPLEX VIRUS TYPE 1 11.70 index 0.00-0.90 H AB.IGG (PT; SER; QN; ) (test code = 2432) [facility]alanine aminotransferase (SGPT), [id number] 13:18:00 Test Item Value Reference Range Interpretation Comments alanine aminotransferase (SGPT), serum 22 1/L 0-32 (test code = 40) [facility] Hospitalaspartate aminotransferase (SGOT), [id number] 13:18:00 Test Item Value Reference Range Interpretation Comments aspartate aminotransferase (SGOT), 21 1/L 0-40 serum (test code = 39) [facility] Hospitalalkaline phosphatase, [id number] 13:18:00 Test Item Value Reference Range Interpretation Comments alkaline phosphatase, serum (test code 92 1/L 39-117 = 3) [facility]bilirubin, serum, [id number] 13:18:00 Test Item Value Reference Range Interpretation Comments bilirubin, serum, total (test code 0.4 mg/dL 0.0-1.2 = 43) [facility]albumin/globulin ratio, [id number] 13:18:00 Test Item Value Reference Range Interpretation Comments albumin/globulin ratio, serum (test 1.8 1.2-2.2 code = 146) [facility] Healthglobulin, [id number] 13:18:00 Test Item Value Reference Range Interpretation Comments globulin, serum (test code = 3059) 2.4 1.5-4.5 [facility] Hospitalalbumin, [id number] 13:18:00 Test Item Value Reference Range Interpretation Comments albumin, serum (test code = 2) 4.3 g/dL 3.5-5.5 [facility]protein, total, [id number] 13:18:00 Test Item Value Reference Range Interpretation Comments protein, total, serum (test code = 6.7 g/dL 6.0-8.5 36) [facility] Healthcalcium, [id number] 13:18:00 Test Item Value Reference Range Interpretation Comments calcium, serum (test code = 11) 9.4 mg/dL 8.7-10.2 [facility]carbon dioxide, venous [id number] 13:18:00 Test Item Value Reference Range Interpretation Comments carbon dioxide, venous blood (test 21 mmol/L 20-29 code = 15) [facility] Healthchloride, [id number] 13:18:00 Test Item Value Reference Range Interpretation Comments chloride, serum (test code = 13) 101 mmol/L 96-106 [facility] Healthpotassium, [id number] 13:18:00 Test Item Value Reference Range Interpretation Comments potassium, serum (test code = 35) 4.3 mmol/L 3.5-5.2 [facility]alsodium, [id number] 13:18:00 Test Item Value Reference Range Interpretation Comments sodium, serum (test code = 159) 140 mmol/L 134-144 [facility] Hospitalurea nitrogen/creatinine ratio, [id number] 13:18:00 Test Item Value Reference Range Interpretation Comments urea nitrogen/creatinine ratio, serum 11 9-23 (test code = 2462) [facility] HealtheGFR if [id number] 13:18:00 Test Item Value Reference Range Interpretation Comments eGFR if 98 >59 (test code = 556953) mL/min/((173/100).m2) [facility] HospitalEstimated Glomerular Filtration Rate (calc)2019-10-09 13:18:00 Test Item Value Reference Range Interpretation Comments Estimated Glomerular 85 >59 Filtration Rate (calc) mL/min/((173/100).m2 (test code = 28546) ) [facility] Hospitalcreatinine, [id number] 13:18:00 Test Item Value Reference Range Interpretation Comments creatinine, serum (test code = 18) 0.82 mg/dL 0.57-1.00 [facility] Hospitalurea nitrogen, [id number] 13:18:00 Test Item Value Reference Range Interpretation Comments urea nitrogen, blood (test code = 9) 9 mg/dL 6-24 [facility]blood glucose, [id number] 13:18:00 Test Item Value Reference Range Interpretation Comments blood glucose, random (test code = 364 mg/dL 65-99 H 8) [facility] Hospitalbacteria, urine [id number] 13:16:00 Test Item Value Reference Range Interpretation Comments bacteria, urine microscopy (test None seen None seen/Few code = 2406) [facility] Hospitalepithelial cells, [id number] 13:16:00 Test Item Value Reference Range Interpretation Comments epithelial cells, urine (test code = 0-10 0-10 2416) [facility] HospitalRBC, [id number] 13:16:00 Test Item Value Reference Range Interpretation Comments RBC, Urine (test code = 53376) 0-2 /hpf 0-2 [facility] HospitalWBC urine on [id number] 13:16:00 Test Item Value Reference Range Interpretation Comments WBC urine on microscopy (test code = 0-5 /hpf 0-5 1016) [facility] Hospitalmicroscopic [id number] 13:16:00 Test Item Value Reference Range Interpretation Comments microscopic exam (test code = See below: 27521) [facility] Hospitalurinalysis, microscopic [id number] 13:16:00 Test Item Value Reference Range Interpretation Comments urinalysis, microscopic examination MICRON (test code = 2566) [facility] Hospitalnitrate, [id number] 13:16:00 Test Item Value Reference Range Interpretation Comments nitrate, urine (test code = 5135) Negative Negative [facility] Hospitalurobilinogen, urine, semiquantitative (dipstick) 2019-10-09 13:16:00 Test Item Value Reference Range Interpretation Comments urobilinogen, urine, semiquantitative 0.2 0.2-1.0 (dipstick) (test code = 326) [facility] Hospitalbilirubin, [id number] 13:16:00 Test Item Value Reference Range Interpretation Comments bilirubin, urine (test code = 319) Negative Negative [facility] Hospitalketones, urine, by test [id number] 13:16:00 Test Item Value Reference Range Interpretation Comments ketones, urine, by test strip (test Negative Negative code = 322) [facility] Hospitalglucose, urine, [id number] 13:16:00 Test Item Value Reference Range Interpretation Comments glucose, urine, semiquantitative (test 3+ Negative A code = 123) [facility] Hospitalprotein, urine, semiquantitative (dipstick)2019-10-09 13:16:00 Test Item Value Reference Range Interpretation Comments protein, urine, semiquantitative Negative Negative/Trace (dipstick) (test code = 1753-3) [facility] Hospitalleukocyte esterase, urine, by [id number] 13:16:00 Test Item Value Reference Range Interpretation Comments leukocyte esterase, urine, by Negative Negative dipstick (test code = 327) [facility] Hospitalappearance, [id number] 13:16:00 Test Item Value Reference Range Interpretation Comments appearance, urine (test code = 328) Clear Clear [facility] Hospitalurine [id number] 13:16:00 Test Item Value Reference Range Interpretation Comments urine color (test code = 2751) Yellow Yellow [facility] HospitalpH, urine, [id number] 13:16:00 Test Item Value Reference Range Interpretation Comments pH, urine, semiquantitative (test code 6.0 5.0-7.5 = 324) [facility] Hospitalspecific gravity, body [id number] 13:16:00 Test Item Value Reference Range Interpretation Comments specific gravity, body fluid (test >=1.030 1.005-1.030 A code = 3512) [facility] HospitalNeisseria gonorrhoeae DNA [id number] 15:43:00 Test Item Value Reference Range Interpretation Comments Neisseria gonorrhoeae DNA probe Negative Negative (test code = 38269-0) [facility] Hospitalchlamydia DNA [id number] 15:43:00 Test Item Value Reference Range Interpretation Comments chlamydia DNA probe (test code = Negative Negative 36695-0) [facility] Hospitaltrichomonas vaginalis, [id number] 15:43:00 Test Item Value Reference Range Interpretation Comments trichomonas vaginalis, urine (test Positive Negative A code = 3887) [facility] HospitalHIV-CMIA (Chemiluminescent Microparticle Immuno Assay) 2019-07-19 14:55:00 Test Item Value Reference Range Interpretation Comments HIV-CMIA (Chemiluminescent Non Reactive Non Reactive Microparticle Immuno Assay) (test code = 669092) [facility] Hospitalrapid plasma reagin antibody, [id number] 14:55:00 Test Item Value Reference Range Interpretation Comments rapid plasma reagin antibody, Non Reactive Non Reactive serum (test code = 308) [facility]alanine aminotransferase (SGPT), [id number] 14:55:00 Test Item Value Reference Range Interpretation Comments alanine aminotransferase (SGPT), serum 17 1/L 0-32 (test code = 40) [facility] Hospitalaspartate aminotransferase (SGOT), [id number] 14:55:00 Test Item Value Reference Range Interpretation Comments aspartate aminotransferase (SGOT), 15 1/L 0-40 serum (test code = 39) [facility], [id number] 14:55:00 Test Item Value Reference Range Interpretation Comments alkaline phosphatase, serum (test code 83 1/L 39-117 = 3) [facility] serum, [id number] 14:55:00 Test Item Value Reference Range Interpretation Comments bilirubin, serum, total (test code 0.3 mg/dL 0.0-1.2 = 43) [facility]ulin ratio, [id number] 14:55:00 Test Item Value Reference Range Interpretation Comments albumin/globulin ratio, serum (test 1.6 1.2-2.2 code = 146) [facility] Healthglobulin, [id number] 14:55:00 Test Item Value Reference Range Interpretation Comments globulin, serum (test code = 3059) 2.9 1.5-4.5 [facility] Healthalbumin, [id number] 14:55:00 Test Item Value Reference Range Interpretation Comments albumin, serum (test code = 2) 4.6 g/dL 3.5-5.5 [facility]protein, total, [id number] 14:55:00 Test Item Value Reference Range Interpretation Comments protein, total, serum (test code = 7.5 g/dL 6.0-8.5 36) [facility]calcium, [id number] 14:55:00 Test Item Value Reference Range Interpretation Comments calcium, serum (test code = 11) 10.3 mg/dL 8.7-10.2 H [facility]carbon dioxide, venous [id number] 14:55:00 Test Item Value Reference Range Interpretation Comments carbon dioxide, venous blood (test 18 mmol/L 20-29 L code = 15) [facility] Healthchloride, [id number] 14:55:00 Test Item Value Reference Range Interpretation Comments chloride, serum (test code = 13) 99 mmol/L 96-106 [facility] Healthpotassium, [id number] 14:55:00 Test Item Value Reference Range Interpretation Comments potassium, serum (test code = 35) 4.8 mmol/L 3.5-5.2 [facility] Healthsodium, [id number] 14:55:00 Test Item Value Reference Range Interpretation Comments sodium, serum (test code = 159) 137 mmol/L 134-144 [facility]urea nitrogen/creatinine ratio, [id number] 14:55:00 Test Item Value Reference Range Interpretation Comments urea nitrogen/creatinine ratio, serum 17 9-23 (test code = 2462) [facility]aleGFR if [id number] 14:55:00 Test Item Value Reference Range Interpretation Comments eGFR if 98 >59 (test code = 960553) mL/min/((173/100).m2) [facility] HospitalEstimated Glomerular Filtration Rate (calc)2019-07-19 14:55:00 Test Item Value Reference Range Interpretation Comments Estimated Glomerular 85 >59 Filtration Rate (calc) mL/min/((173/100).m2 (test code = 65165) ) [facility]creatinine, [id number] 14:55:00 Test Item Value Reference Range Interpretation Comments creatinine, serum (test code = 18) 0.82 mg/dL 0.57-1.00 [facility]urea nitrogen, [id number] 14:55:00 Test Item Value Reference Range Interpretation Comments urea nitrogen, blood (test code = 9) 14 mg/dL 6-24 [facility]blood glucose, [id number] 14:55:00 Test Item Value Reference Range Interpretation Comments blood glucose, random (test code = 485 mg/dL 65-99 H 8) [facility] percentage of total cells, blood 2019-07-19 14:55:00 Test Item Value Reference Range Interpretation Comments immature granulocytes, percentage of 0 % total cells, blood (test code = 017642) [facility]basophil count, [id number] 14:55:00 Test Item Value Reference Range Interpretation Comments basophil count, absolute (test 0.0 x10E3/uL 0.0-0.2 code = 45067) [facility] HealthEosinophil Absolute [id number] 14:55:00 Test Item Value Reference Range Interpretation Comments Eosinophil Absolute Count (test 0.1 X10E3/UL 0.0-0.4 code = 702897) [facility] Healthmonocyte count, blood, [id number] 14:55:00 Test Item Value Reference Range Interpretation Comments monocyte count, blood, automated 0.3 X10E3/UL 0.1-0.9 (test code = 3076) [facility]allymph[facility] count, blood, [id number] 14:55:00 Test Item Value Reference Range Interpretation Comments lymphocyte count, blood, 3.2 X10E3/UL 0.7-3.1 H automated (test code = 3074) [facility] HospitalAbsolute [id number] 14:55:00 Test Item Value Reference Range Interpretation Comments Absolute Neutrophils (test code 2.3 X10E3/UL 1.4-7.0 = 04591) [facility] Healthbasophils as percent of blood [id number] 14:55:00 Test Item Value Reference Range Interpretation Comments basophils as percent of blood 0 % leukocytes (test code = 2426) [facility] Healtheosinophils as percent of blood txbhmehcww6423-88-08 14:55:00 Test Item Value Reference Range Interpretation Comments eosinophils as percent of blood 1 % leukocytes (test code = 4170) [facility] Healthmonocytes as percent of blood [id number] 14:55:00 Test Item Value Reference Range Interpretation Comments monocytes as percent of blood 5 % leukocytes (test code = 2421) [facility]allymph[facility] as percent of blood blrfcxzfqh4942-75-21 14:55:00 Test Item Value Reference Range Interpretation Comments lymphocytes as percent of blood 54 % leukocytes (test code = 317) [facility] Hospitalneutrophils as percent of blood merwpevnxp7067-92-84 14:55:00 Test Item Value Reference Range Interpretation Comments neutrophils as percent of blood 40 % leukocytes (test code = 316) [facility] Hospitalplatelet [id number] 14:55:00 Test Item Value Reference Range Interpretation Comments platelet count (test code = 66) 226 X10E3/UL 150-450 [facility]red blood cell distribution [id number] 14:55:00 Test Item Value Reference Range Interpretation Comments red blood cell distribution width 13.5 % 12.3-15.4 (test code = 1030) [facility] corpuscular hemoglobin concentration, [id number] 14:55:00 Test Item Value Reference Range Interpretation Comments mean corpuscular hemoglobin 31.5 G/DL 31.5-35.7 concentration, RBC (test code = 1029) [facility] corpuscular hemoglobin, [id number] 14:55:00 Test Item Value Reference Range Interpretation Comments mean corpuscular hemoglobin, RBC 27.8 pg 26.6-33.0 (test code = 1031) [facility] corpuscular volume, [id number] 14:55:00 Test Item Value Reference Range Interpretation Comments mean corpuscular volume, RBC (test code 88 fL 79-97 = 315) [facility] Hospitalhematocrit, [id number] 14:55:00 Test Item Value Reference Range Interpretation Comments hematocrit, blood (test code = 64) 44.8 % 34.0-46.6 [facility] Hospitalhemoglobin, [id number] 14:55:00 Test Item Value Reference Range Interpretation Comments hemoglobin, blood (test code = 65) 14.1 g/dL 11.1-15.9 [facility] Hospitalerythrocyte (RBC) [id number] 14:55:00 Test Item Value Reference Range Interpretation Comments erythrocyte (RBC) count (test 5.08 X10E6/UL 3.77-5.28 code = 67) [facility] Hospitalleukocyte count, [id number] 14:55:00 Test Item Value Reference Range Interpretation Comments leukocyte count, blood (test 5.8 X10E3/UL 3.4-10.8 code = 68) [facility] Hospitalhepatitis C antibody, [id number] 14:55:00 Test Item Value Reference Range Interpretation Comments hepatitis C antibody, serum (test code 0.1 0.0-0.9 = 2722) [facility]tis B surface [id number] 14:55:00 Test Item Value Reference Range Interpretation Comments hepatitis B surface antibody Non Reactive (test code = 78) [facility] B core antibody, [id number] 14:55:00 Test Item Value Reference Range Interpretation Comments hepatitis B core antibody, total Negative Negative (test code = 77) [facility] B surface [id number] 14:55:00 Test Item Value Reference Range Interpretation Comments hepatitis B surface antigen (test Negative Negative code = 79) [facility]HIV rapid test ovoqumo5455-90-13 14:32:16 Test Item Value Reference Range Interpretation Comments HIV rapid test results (test code = negative 20194) [facility] Hand AP lateral Bilateral [id number] 08:50:00 EXAM: XR BILATERAL HAND 2 VIEWSDATE: [...] 09:20Electronically Signed by: Kieran Cheng MD 06/24/1909:24FINAL REPORTUnUtah Valley Hospital PhysiciansXRAY Sacroiliac joints series [id number] 08:50:00EXAM: XR PELVIS 1 VIEWEXAM: XR SACROILIAC [...] the hips.--This report was dictated by a Information Systems Director/Fellow/Physician Can Dryer. Ihave personallyreviewed the images as well as the interpretation and agree with the findings.Read by: Frank Jc MD Resident/Fellow/PhysicianAssistant: Frank Jc MDDictated Date/time: 06/24/19 09:22Electronically Signed by: Kieran Cheng MD 06/24/1911:47FINAL REPORTUnUtah Valley [place] [id number] 2019-06-24 08:50:00EXAM: XR PELVIS 1 VIEWEXAM: XR [...] the hips.--This report was dictated by a Information Systems Director/Fellow/Physician Can Dryer. Ihave personallyreviewed the images as well as the interpretation and agree with the findings.Read by: Frank Jc MD Resident/Fellow/PhysicianAssistant: Frank Jc MDDictated Date/time: 06/24/19 09:22Electronically Signed by: Kieran Cheng MD 06/24/1911:47FINAL REPORTUnUtah Valley Hospital PhysiciansXRAY Spine lumbar series [id number] 08:49:00EXAM: XR PELVIS 1 VIEWEXAM: XR SACROILIAC [...] the hips.--This report was dictated by a Information Systems Director/Fellow/Physician Can Dryer. Ihave personallyreviewed the images as well as the interpretation and agree with the findings.Read by: Frank Jc MD Resident/Fellow/PhysicianAssistant: Frank Jc MDDictated Date/time: 06/24/19 09:22Electronically Signed by: Kieran Cheng MD 06/24/1911:47FINAL REPORTUnUtah Valley Hospital Physicians[[facility]] SED RATE BY MODIFIED [id number] 10:24:01 Test Item Value Reference Range Interpretation Comments Sedimentation Rate (test code = 10 {mm/hr} 0-20 11777-5) [facility]] C-REACTIVE [id number] 10:24:01 Test Item Value Reference Range Interpretation Comments CRP (test code = CRP) 4.0 mg/L <=2.9 [facility]] HLA-B27, DNA [id number] 10:24:01 Test Item Value Reference Range Interpretation Comments HLA B27 (test code = HLA B27) Positive Negative A [facility][] CYCLIC CITRULLINATED PEPTIDE (CCP) AB (IGG) 2019-06-10 10:24:01 Test Item Value Reference Range Interpretation Comments Cyclic Citrulline Peptide Antibody <0.5 <=2.9 (test code = 94080-1) [facility] Digital Mammo Screening Wilver [id number] 12:13:00BILATERAL DIGITAL SCREENING MAMMOGRAM WITH CAD: 04/08/2019CLINICAL: Z12.31/Screening. Current study was evaluated with a Computer Aided Detection (CAD) system. COMPARISON:Comparison is made to exam dated: 06/08/2016 mammogram - [facility]. TECHNIQUE: Mammographic views were obtained using digital [...] yearscreening mammogram is recommended.(04/08/2020) This examwas interpreted [id number] for [facility]. Ekaterina Carreon M.D. Additional Observers: Jonathan Chang/eun:04/08/2019 15:52:23 [employer](s): RT Warren(R)(M), [facility] Departmentletter sent: BI-RADS 1/2 Mammogram BI-RADS: 2 Benign--Readby: Ekaterina Carreon MD PHDDictated Date/time: 04/08/19 15:52Electronically Signed by: Ekaterina Carreon MD PHD 04/08/1915:52FINAL REPORTUnUtah Valley Hospital Physicians[[facility]] CBC (INCLUDES DIFF/PLT)2019-03-19 14:50:01 Test Item Value Reference Range Interpretation Comments WBC (test code = 6690-2) 5.8 {K/CMM} 3.7-10.4 RBC (test code = 789-8) 4.40 {M/CMM} 4.20-5.40 Hgb (test code = 718-7) 12.9 g/dl 12.0-16.0 Hct (test code = 87444-3) 38.3 % 36.0-48.0 MCV (test code = 787-2) 87.0 fL 80.0-98.0 MCH (test code = 785-6) 29.2 pg 27.0-31.0 MCHC (test code = 786-4) 33.6 g/dl 32.0-36.0 RDW (test code = 788-0) 13.6 % 11.5-14.5 Platelet (test code = 33204-4) 210 {K/CMM} 133-450 Mean Platelet Volume (test code 8.8 fL 7.4-10.4 = 82109-1) [facility]] [id number] 14:50:01 Test Item Value Reference Range Interpretation Comments Segmented Neutrophils; Below Low 40.2 % 45.0-75.0 Threshold (test code = 99550-2) Monocytes (test code = 29684-8) 5.1 % 2.0-12.0 Lymphocytes; Above High Threshold 50.6 % 20.0-40.0 (test code = 11538-1) Eosinophils (test code = 75193-6) 3.6 % 0.0-4.0 Basophils (test code = 706-2) 0.5 % 0.0-1.0 Segs-Bands # (test code = 2.3 {K/CMM} 1.5-8.1 09119-3) Lymphocytes # (test code = 2.9 {K/CMM} 1.0-5.5 75447-0) Monocytes # (test code = 89352-9) 0.3 {K/CMM} 0.0-0.8 Eosinophils # (test code = 0.2 {K/CMM} 0.0-0.5 94341-8) [facility]] [id number] 14:50:01 Test Item Value Reference Range Interpretation Comments RPR (test code = 97051-5) Non-Reactive Non-Reactive [facility]] HEPATITIS [id number] 14:50:01 Test Item Value Reference Range Interpretation Comments Hepatitis B Surface Antigen (test Negative Negative code = 5195-3) Hepatitis C Antibody (test code = Negative 43506-8) Hepatitis B Core IgM (test code = Negative Negative 38224-2) Hepatitis A IgM (test code = Negative Negative 90728-0) [facility][] HIV AB, HIV 1/2, EIA, WITH [id number] 14:50:01 Test Item Value Reference Range Interpretation Comments HIV Ag/Ab 4th Gen Negative Negative HIV test r esults should be (test code = considered posi tive only 80653-4) when both the s creening andthe confirma tory tests are positive. A negative confirmatory te st in patientswith a positive screening test does not exclude HIV inf ection. If clincallywarran danika, an HIV RNA quantitativ e test should be order ed. [facility]] CMP [id number] 14:50:01 Test Item Value Reference Range Interpretation Comments Sodium Level 140 {mEq/l} 135-145 (test code = 2951-2) Potassium Level 4.2 {mEq/l} 3.5-5.1 (test code = 2823-3) Chloride Level 109 {mEq/l} 95-109 (test code = 5-0) Carbon Dioxide 24 {mEq/l} 24-32 (test code = 2027-9) AGAP (test code = 11.2 {mEq/l} 10.0-20.0 97335-2) Glucose Lvl; 165 mg/dl 70-99 Adult reference range Above High values reflect the Threshold (test clinical moises delinesof the code = 2345-7) [employer]. Creatinine Lvl 0.90 mg/dl 0.50-1.40 (test code = 2160-0) Blood Urea 21 mg/dl 7-22 Nitrogen (test code = 3094-0) BUN/Creatinine 23 6-25 Ratio (test code = 3097-3) Total Protein 7.1 g/dl 6.4-8.4 (test code = 2885-2) Albumin Lvl (test 3.6 g/dl 3.5-5.0 code = 1751-7) Globulin (test 3.5 g/dl 2.7-4.2 code = 82736-3) A/G Ratio (test 1.0 0.7-1.6 code = 1759-0) Calcium Level 9.4 mg/dl 8.5-10.5 Total (test code = 90791-7) ALT (test code = 29 u/l 0-65 1743-4) AST (test code = 18 u/l 0-37 95116-7) Bili Total (test 0.2 mg/dl 0.2-1.3 code = 1974-) Alk Phos (test 78 u/l 39-136 code = 1783-0) eGFR (test code = 76 The eGFR i s calculated 18500-7) {ML/MIN/1.7} using the CKD-E PI formula. In [...] Kidney Disease Education Progr am(NKDEP) which ana cohen recommends that when the eGFR is used in patientswith ex tremes of body mass index for purposes of urmila g dosing, the eGFR should be multiplied by t he estimated BMI. [facility]] LIPID [id number] 14:50:01 Test Item Value Reference Range Interpretation Comments Chol (test code = 3-3) 154 mg/dl <=199 Trig (test code = 2571-8) 134 mg/dl <=149 HDL Cholesterol (test code = 61 mg/dl >=61 5-9) CHD Risk; Below Low Threshold (test 2.52 3.90-5.80 code = 91999-6) LDL (test code = 57017-8) 66 mg/dl <=99 VLDL (test code = VLDL) 27 [facility]] TSH, 3RD GENERATION W/REFLEX TO FT4 2019-03-19 14:50:01 Test Item Value Reference Range Interpretation Comments TSH (test code = 91835-9) 0.739 {uIU/ml} 0.360-3.740 [facility]] MICROALBUMIN, RANDOM URINE (W/CREATININE) 2019-03-19 14:50:01 Test Item Value Reference Range Interpretation Comments Urine Microalbumin 59.6 mg/L No establ ished (test code = Urine reference range. Microalbumin) U Creatinine (test 124.00 mg/dl No establ ished code = 2161-8) reference ran ge. Urine Microalbuming 48.1 mg/g <=30.0 Creatinine Ratio; Above High Threshold (test code = 46109-7) [facility]] HEMOGLOBIN [id number] 14:50:01 Test Item Value Reference Range Interpretation Comments Hemoglobin A1c; Above High Threshold 10.1 % <=5.6 (test code = 4548-4) [facility]] VITAMIN D, 25-HYDROXY, [id number] 14:50:01 Test Item Value Reference Range Interpretation Comments Vitamin D, 25-OH, 24.6 ng/ml 30.0-100.0 Reference range is based Total (test code on recommen dations in the = Vitamin D, EndocrineSociet y Clinical 25-OH, Total) Practice Guide line (J Clin Endocrinol Krnwz1547;96:19 11-1930) [facility][] GC/CT by Amp Det (APTIMA)2019-03-19 14:50:01 Test Item Value Reference Range Interpretation Comments Source APTIMA Urine (test code = Source APTIMA) N gonorrhea by Amp Negative Negative The APTIM A assay is a Det (APTIMA) (test target am plification code = 35313-6) nucleic acid probe test utilizingtarget capture for the qualitative detection and differentia tion of ribosomalRNA fr om Neisseria gonorrhoeae to aid in the diagnosis of di sease fromsymptomatic and asymptomatic in dividuals using the PANTH ER System.This ass ay utilizes FDA cleared IVD reagents. Performance nehemias racteristics havebeen verifi ed by the [facility] with in [facility].The [facility] e[facility]o ratory is authorized unde r the Clinical LaboratoryImpro vement Amendments of 1 988 (CLIA-88) to pe rform high complexity test ing. C trachomatis by Negative Negative The APTIMA assay is a Amp Det (APTIMA) target ampl ification (test code = nucleic acid pr obe test 81824-9) utilizingtarget capture for the qualitative detection and differentia tion of ribosomalRNA fr om Chlamydia trachomatis to aid in the diagnosis of di sease fromsymptomatic and asymptomatic in dividuals using the [facility] ER System.This ass ay utilizes FDA cleared IVD reagents. Performance nehemias racteristics havebeen verifi ed by the [facility] with in [facility].The [facility] e[facility] Diagnostic Labo ratory is authorized unde r the Clinical LaboratoryImpro vement Amendments of 1 988 (CLIA-88) to pe rform high complexity test ing. [facility][U] XR KNEE 3 VWS [id number] 15:05:00 Images acquired, not reported on this accession number.[facility] PhysiciansNeisseria gonorrhoeae DNA [id number] 12:29:00 Test Item Value Reference Range Interpretation Comments Neisseria gonorrhoeae DNA probe Negative Negative (test code = 62237-9) [facility] [id number] 12:29:00 Test Item Value Reference Range Interpretation Comments chlamydia DNA probe (test code = Negative Negative 24945-6) [facility] Hospitaltrichomonas vaginalis, [id number] 12:29:00 Test Item Value Reference Range Interpretation Comments trichomonas vaginalis, urine (test Negative Negative code = 3887) [facility] (Chemiluminescent Microparticle Immuno Assay) 2018-12-26 15:16:00 Test Item Value Reference Range Interpretation Comments HIV-CMIA (Chemiluminescent Non Reactive Non Reactive Microparticle Immuno Assay) (test code = 433530) [facility], serum, by PCR, [id number] 15:16:00 Test Item Value Reference Range Interpretation Comments HIV-1RNA, serum, by PCR, <20 copies/mL quantitative (test code = 87808) [facility]hepatitis A antibody, [id number] 15:48:00 Test Item Value Reference Range Interpretation Comments hepatitis A antibody, total (test Negative Negative code = 75) [facility]HIV[facility]CMIA (Chemiluminescent Microparticle Immuno Assay) 2018-12-06 15:48:00 Test Item Value Reference Range Interpretation Comments HIV-CMIA (Chemiluminescent Non Reactive Non Reactive Microparticle Immuno Assay) (test code = 590382) [facility] Hospitalrapid plasma reagin antibody, [id number] 15:48:00 Test Item Value Reference Range Interpretation Comments rapid plasma reagin antibody, Non Reactive Non Reactive serum (test code = 308) [facility]alanine aminotransferase (SGPT), [id number] 15:48:00 Test Item Value Reference Range Interpretation Comments alanine aminotransferase (SGPT), serum 19 1/L 0-32 (test code = 40) [facility] Hospitalaspartate aminotransferase (SGOT), [id number] 15:48:00 Test Item Value Reference Range Interpretation Comments aspartate aminotransferase (SGOT), 18 1/L 0-40 serum (test code = 39) [facility] Hospitalalkaline phosphatase, [id number] 15:48:00 Test Item Value Reference Range Interpretation Comments alkaline phosphatase, serum (test code 69 1/L 39-117 = 3) [facility]bilirubin, serum, [id number] 15:48:00 Test Item Value Reference Range Interpretation Comments bilirubin, serum, total (test code 0.6 mg/dL 0.0-1.2 = 43) [facility]albumin/globulin ratio, [id number] 15:48:00 Test Item Value Reference Range Interpretation Comments albumin/globulin ratio, serum (test 1.7 1.2-2.2 code = 146) [facility] Healthglobulin, [id number] 15:48:00 Test Item Value Reference Range Interpretation Comments globulin, serum (test code = 3059) 2.4 1.5-4.5 [facility]albumin, [id number] 15:48:00 Test Item Value Reference Range Interpretation Comments albumin, serum (test code = 2) 4.0 g/dL 3.5-5.5 [facility] Healthprotein, total, [id number] 15:48:00 Test Item Value Reference Range Interpretation Comments protein, total, serum (test code = 6.4 g/dL 6.0-8.5 36) [facility] Hospitalcalcium, [id number] 15:48:00 Test Item Value Reference Range Interpretation Comments calcium, serum (test code = 11) 9.4 mg/dL 8.7-10.2 [facility] Hospitalcarbon dioxide, venous [id number] 15:48:00 Test Item Value Reference Range Interpretation Comments carbon dioxide, venous blood (test 20 mmol/L 20-29 code = 15) [facility] Hospitalchloride, [id number] 15:48:00 Test Item Value Reference Range Interpretation Comments chloride, serum (test code = 13) 103 mmol/L 96-106 [facility]potassium, [id number] 15:48:00 Test Item Value Reference Range Interpretation Comments potassium, serum (test code = 35) 4.2 mmol/L 3.5-5.2 [facility] Hospitalsodium, [id number] 15:48:00 Test Item Value Reference Range Interpretation Comments sodium, serum (test code = 159) 141 mmol/L 134-144 [facility] Hospitalurea nitrogen/creatinine ratio, [id number] 15:48:00 Test Item Value Reference Range Interpretation Comments urea nitrogen/creatinine ratio, serum 12 9-23 (test code = 2462) [facility] HealtheGFR if [id number] 15:48:00 Test Item Value Reference Range Interpretation Comments eGFR if 126 >59 (test code = 120698) mL/min/((173/100).m2) [facility] HospitalEstimated Glomerular Filtration Rate (calc)2018-12-06 15:48:00 Test Item Value Reference Range Interpretation Comments Estimated Glomerular 109 >59 Filtration Rate (calc) mL/min/((173/100).m2 (test code = 44892) ) [facility] Hospitalcreatinine, [id number] 15:48:00 Test Item Value Reference Range Interpretation Comments creatinine, serum (test code = 18) 0.58 mg/dL 0.57-1.00 [facility] Healthurea nitrogen, jodjf3998-72-21 15:48:00 Test Item Value Reference Range Interpretation Comments urea nitrogen, blood (test code = 9) 7 mg/dL 6-24 [facility] cuidez0695-97-30 15:48:00 Test Item Value Reference Range Interpretation Comments blood glucose, random (test code = 374 mg/dL 65-99 H 8) [facility]imm[facility] granulocytes, percentage of total cells, blood 2018-12-06 15:48:00 Test Item Value Reference Range Interpretation Comments immature granulocytes, percentage of 0 % total cells, blood (test code = 562173) [facility] count, iejscajj6606-18-61 15:48:00 Test Item Value Reference Range Interpretation Comments basophil count, absolute (test 0.0 x10E3/uL 0.0-0.2 code = 69300) [facility] HospitalEosinophil Absolute Pugua2474-58-76 15:48:00 Test Item Value Reference Range Interpretation Comments Eosinophil Absolute Count (test 0.1 X10E3/UL 0.0-0.4 code = 709979) [facility] count, blood, mpzwgvykr8946-00-60 15:48:00 Test Item Value Reference Range Interpretation Comments monocyte count, blood, automated 0.3 X10E3/UL 0.1-0.9 (test code = 3076) [facility]allymph[facility], blood, hwwdplfxl0444-02-84 15:48:00 Test Item Value Reference Range Interpretation Comments lymphocyte count, blood, 1.8 X10E3/UL 0.7-3.1 automated (test code = 3074) [facility]Absolute Hgssbirlnkv9071-17-26 15:48:00 Test Item Value Reference Range Interpretation Comments Absolute Neutrophils (test code 2.1 X10E3/UL 1.4-7.0 = 59274) [facility]bas[facility] as percent of blood iodnrmjevf5636-43-13 15:48:00 Test Item Value Reference Range Interpretation Comments basophils as percent of blood 1 % leukocytes (test code = 2426) [facility] Healtheosinophils as percent of blood worwyknzzm6389-58-36 15:48:00 Test Item Value Reference Range Interpretation Comments eosinophils as percent of blood 1 % leukocytes (test code = 4170) [facility] Healthmonocytes as percent of blood punbjcwwxo7472-42-53 15:48:00 Test Item Value Reference Range Interpretation Comments monocytes as percent of blood 6 % leukocytes (test code = 2421) [facility] as percent of blood akfuckunsz8859-47-86 15:48:00 Test Item Value Reference Range Interpretation Comments lymphocytes as percent of blood 43 % leukocytes (test code = 317) [facility] Healthneutrophils as percent of blood vwbkwbhsgi7242-90-27 15:48:00 Test Item Value Reference Range Interpretation Comments neutrophils as percent of blood 49 % leukocytes (test code = 316) [facility] Hospitalplatelet xpast1111-42-11 15:48:00 Test Item Value Reference Range Interpretation Comments platelet count (test code = 66) 231 X10E3/UL 150-379 [facility]red [facility] cell distribution onhzp5840-02-56 15:48:00 Test Item Value Reference Range Interpretation Comments red blood cell distribution width 13.5 % 12.3-15.4 (test code = 1030) [facility] corpuscular hemoglobin concentration, [id number] 15:48:00 Test Item Value Reference Range Interpretation Comments mean corpuscular hemoglobin 31.8 G/DL 31.5-35.7 concentration, RBC (test code = 1029) [facility] corpuscular hemoglobin, [id number] 15:48:00 Test Item Value Reference Range Interpretation Comments mean corpuscular hemoglobin, RBC 28.2 pg 26.6-33.0 (test code = 1031) [facility] corpuscular volume, [id number] 15:48:00 Test Item Value Reference Range Interpretation Comments mean corpuscular volume, RBC (test code 89 fL 79-97 = 315) [facility]hematocrit, tysxt9006-78-00 15:48:00 Test Item Value Reference Range Interpretation Comments hematocrit, blood (test code = 64) 40.6 % 34.0-46.6 [facility]hemoglobin, nxkof4868-59-45 15:48:00 Test Item Value Reference Range Interpretation Comments hemoglobin, blood (test code = 65) 12.9 g/dL 11.1-15.9 [facility] Hospitalerythrocyte (RBC) fvewl6155-05-43 15:48:00 Test Item Value Reference Range Interpretation Comments erythrocyte (RBC) count (test 4.57 X10E6/UL 3.77-5.28 code = 67) [facility] Hospitalleukocyte count, ggyif1581-98-57 15:48:00 Test Item Value Reference Range Interpretation Comments leukocyte count, blood (test 4.2 X10E3/UL 3.4-10.8 code = 68) [facility], [id number] 15:48:00 Test Item Value Reference Range Interpretation Comments hepatitis C antibody, serum (test code 0.1 0.0-0.9 = 2722) [facility]tis B surface ogptlhje2108-73-91 15:48:00 Test Item Value Reference Range Interpretation Comments hepatitis B surface antibody Non Reactive (test code = 78) [facility] B core antibody, hukju5090-47-04 15:48:00 Test Item Value Reference Range Interpretation Comments hepatitis B core antibody, total Negative Negative (test code = 77) [facility]tis B surface walheqh8025-78-52 15:48:00 Test Item Value Reference Range Interpretation Comments hepatitis B surface antigen (test Negative Negative code = 79) [facility]HIV rapid test bctoguh1714-63-35 15:00:09 Test Item Value Reference Range Interpretation Comments HIV rapid test results (test code = negative 22420) [facility] HospitalXRAY Knee 3 views [id number] 11:52:00EXAM: XR RIGHT KNEE 3 VIEWSDATE: 12/03/2018 [...] left knee--This report was dictated by a Information Systems Director/Fellow/Physician Can Dryer. Melinda personallyreviewed the images as well as the interpretation and agree with the findings.Read by: Laith Kemp MD Resident/Fellow/PhysicianAssistant: Laith Kemp MDDictated Date/time: 12/03/18 13:58Electronically Signed by: Sanjuana Granger MD 12/03/1916:18[facility]PORT[facility]] CMP W/[id number] 11:12:00 Test Item Value Reference Range Interpretation [...] 103 {ML/MIN/1.7} > OR = 60 N SUDANESE (test code = eGFR NON-) eGFR 119 {ML/MIN/1.7} > OR = 60 N SUDANESE (test code = eGFR ) BUN/CREATININE NOT [...] mg/dl 0.2-1.2 N Normal (test code = 41079-8) ALKALINE 82 u/l 33-115 N PHSPHATASE (test code = ALKALINE PHSPHATASE) AST; Normal (test 16 u/l 10-35 N code = 1916-6) ALT; Normal (test 18 u/l 6-29 N code = 1742-6) [facility]] SED RATE BY MODIFIED [id number] 11:12:00 Test Item Value Reference Range Interpretation Comments SED RATE BY MODIFIED WESTERGREN (test 6 mm/h < OR = 20 N code = SED RATE BY MODIFIED WESTERGREN) [facility]] CBC (INCLUDES DIFF/PLT)2018-12-03 11:12:00 Test Item Value Reference Range Interpretation Comments WHITE BLOOD CELL COUNT 4.5 {Thousand/u} 3.8-10.8 N (test code = WHITE BLOOD CELL COUNT) RED BLOOD CELL COUNT (test 5.05 {Million/uL} 3.80-5.10 N code = RED BLOOD CELL COUNT) HEMAGLOBIN; Normal (test 14.1 g/dl 11.7-15.5 N code = 74605-3) HEMATOCRIT; Normal (test 43.7 % 35.0-45.0 N code = 4544-3) MCV; Normal (test code = 86.5 fL 80.0-100.0 N 787-2) MCHC; Normal (test code = 32.3 g/dl 32.0-36.0 N 92684-2) RDW; Normal (test code = 12.4 % 11.0-15.0 N 788-0) PLATELET COUNT; Normal 224 {Thousand/u} 140-400 N (test code = 777-3) MPV; Normal (test code = 11.1 fL 7.5-12.5 N 10558-0) ABSOLUTE NEUTROPHILS (test 2060 {cells/uL} 2846-6500 N code = ABSOLUTE NEUTROPHILS) ABSOLUTE LYMPHOCYTES (test 1993 {cells/uL} 850-3900 N code = ABSOLUTE LYMPHOCYTES) [...] Normal (test 6.8 % N code = 36409-4) EOSINOPHILS; Normal (test 2.2 % N code = 80939-0) BASOPHILS; Normal (test 0.9 % N code = 29270-7) [facility]] C-REACTIVE [id number] 11:12:00 Test Item Value Reference Range Interpretation Comments C-REACTIVE PROTEIN (test code = 4.6 mg/L <8.0 N C-REACTIVE PROTEIN) [facility]] VITAMIN D, 25-HYDROXY, LC/MS/[id number] 11:12:00 Test Item Value Reference Range Interpretation [...] D, (D2,D3), LC/MS/MS is recommended: order code 31663 (pat ients >2yrs). For mor e information on this test, go to:[email or web address](This link is being provided for informational/e ducational purposes only.) [facility]iciansNeisseria gonorrhoeae, throat rskvaib9069-95-35 16:30:00 Test Item Value Reference Range Interpretation Comments Neisseria gonorrhoeae, throat Negative Negative culture (test code = 3553) [facility] HospitalNeisseria gonorrhoeae DNA [id number] 16:30:00 Test Item Value Reference Range Interpretation Comments Neisseria gonorrhoeae DNA probe Negative Negative (test code = 87220-0) [facility] Hospitalchlamydia DNA axyop5276-30-02 16:30:00 Test Item Value Reference Range Interpretation Comments chlamydia DNA probe (test code = Negative Negative 41144-7) [facility] Hospitalhepatitis A antibody, tnxwy9845-53-19 14:31:00 Test Item Value Reference Range Interpretation Comments hepatitis A antibody, total (test Negative Negative code = 75) [facility] Hospitalalanine aminotransferase (SGPT), [id number] 14:31:00 Test Item Value Reference Range Interpretation Comments alanine aminotransferase (SGPT), serum 28 1/L 0-32 (test code = 40) [facility] Hospitalaspartate aminotransferase (SGOT), [id number] 14:31:00 Test Item Value Reference Range Interpretation Comments aspartate aminotransferase (SGOT), 21 1/L 0-40 serum (test code = 39) [facility] Hospitalalkaline phosphatase, ruiwp2048-01-72 14:31:00 Test Item Value Reference Range Interpretation Comments alkaline phosphatase, serum (test code 98 1/L 39-117 = 3) [facility]bilirubin, serum, zjyfj9207-21-62 14:31:00 Test Item Value Reference Range Interpretation Comments bilirubin, serum, total (test code 0.3 mg/dL 0.0-1.2 = 43) [facility] Hospitalalbumin/globulin ratio, wnzyb7048-04-91 14:31:00 Test Item Value Reference Range Interpretation Comments albumin/globulin ratio, serum (test 1.5 1.2-2.2 code = 146) [facility] Healthglobulin, lttin6426-20-89 14:31:00 Test Item Value Reference Range Interpretation Comments globulin, serum (test code = 3059) 2.8 1.5-4.5 [facility] Healthalbumin, itmpa0296-10-78 14:31:00 Test Item Value Reference Range Interpretation Comments albumin, serum (test code = 2) 4.3 g/dL 3.5-5.5 [facility]protein, total, urywh1143-23-57 14:31:00 Test Item Value Reference Range Interpretation Comments protein, total, serum (test code = 7.1 g/dL 6.0-8.5 36) [facility] Hospitalcalcium, pnzbk5204-51-24 14:31:00 Test Item Value Reference Range Interpretation Comments calcium, serum (test code = 11) 9.5 mg/dL 8.7-10.2 [facility] Hospitalcarbon dioxide, venous vclpr2104-95-43 14:31:00 Test Item Value Reference Range Interpretation Comments carbon dioxide, venous blood (test 18 mmol/L 20-29 L code = 15) [facility] Healthchloride, atjdw8545-85-77 14:31:00 Test Item Value Reference Range Interpretation Comments chloride, serum (test code = 13) 99 mmol/L 96-106 [facility] Healthpotassium, epqek6048-54-78 14:31:00 Test Item Value Reference Range Interpretation Comments potassium, serum (test code = 35) 4.9 mmol/L 3.5-5.2 [facility] Hospitalsodium, zkrzo1074-32-05 14:31:00 Test Item Value Reference Range Interpretation Comments sodium, serum (test code = 159) 136 mmol/L 134-144 [facility]urea nitrogen/creatinine ratio, ohrtd0567-38-91 14:31:00 Test Item Value Reference Range Interpretation Comments urea nitrogen/creatinine ratio, serum 11 9-23 (test code = 2462) [facility] HospitaleGFR if Nnbpqdyv9176-65-18 14:31:00 Test Item Value Reference Range Interpretation Comments eGFR if 102 >59 (test code = 340461) mL/min/((173/100).m2) [facility] HospitalEstimated Glomerular Filtration Rate (calc)2018-10-05 14:31:00 Test Item Value Reference Range Interpretation Comments Estimated Glomerular 88 >59 Filtration Rate (calc) mL/min/((173/100).m2 (test code = 03799) ) [facility] Hospitalcreatinine, buqyj8219-35-36 14:31:00 Test Item Value Reference Range Interpretation Comments creatinine, serum (test code = 18) 0.80 mg/dL 0.57-1.00 [facility]urea nitrogen, cfowi6067-46-95 14:31:00 Test Item Value Reference Range Interpretation Comments urea nitrogen, blood (test code = 9) 9 mg/dL 6-24 [facility] Hospitalblood glucose, undatt7923-58-46 14:31:00 Test Item Value Reference Range Interpretation Comments blood glucose, random (test code = 531 mg/dL 65-99 8) [facility] Hospitalimmature granulocytes, percentage of total cells, blood 2018-10-05 14:31:00 Test Item Value Reference Range Interpretation Comments immature granulocytes, percentage of 0 % total cells, blood (test code = 304789) [facility] Hospitalbasophil count, ayxvqizs4026-30-73 14:31:00 Test Item Value Reference Range Interpretation Comments basophil count, absolute (test 0.0 x10E3/uL 0.0-0.2 code = 03776) [facility] HealthEosinophil Absolute Igmju1585-18-58 14:31:00 Test Item Value Reference Range Interpretation Comments Eosinophil Absolute Count (test 0.1 X10E3/UL 0.0-0.4 code = 850031) [facility] Healthmonocyte count, blood, nhxjastch6172-00-69 14:31:00 Test Item Value Reference Range Interpretation Comments monocyte count, blood, automated 0.3 X10E3/UL 0.1-0.9 (test code = 3076) [facility]allymphocyte count, blood, cbxgdwsgu8316-78-26 14:31:00 Test Item Value Reference Range Interpretation Comments lymphocyte count, blood, 2.3 X10E3/UL 0.7-3.1 automated (test code = 3074) [facility] HospitalAbsolute Lmrsusnvqjd8906-74-29 14:31:00 Test Item Value Reference Range Interpretation Comments Absolute Neutrophils (test code 2.3 X10E3/UL 1.4-7.0 = 94230) [facility] Healthbasophils as percent of blood fbwvpdpfta5925-95-00 14:31:00 Test Item Value Reference Range Interpretation Comments basophils as percent of blood 0 % leukocytes (test code = 2426) [facility] Healtheosinophils as percent of blood wivlksjmvw1756-22-54 14:31:00 Test Item Value Reference Range Interpretation Comments eosinophils as percent of blood 1 % leukocytes (test code = 4170) [facility] Healthmonocytes as percent of blood mpakwtpgff9845-79-76 14:31:00 Test Item Value Reference Range Interpretation Comments monocytes as percent of blood 6 % leukocytes (test code = 2421) [facility]allymphocytes as percent of blood yytokpmvui1954-28-35 14:31:00 Test Item Value Reference Range Interpretation Comments lymphocytes as percent of blood 48 % leukocytes (test code = 317) [facility] Healthneutrophils as percent of blood lcnkxpjvin8256-67-57 14:31:00 Test Item Value Reference Range Interpretation Comments neutrophils as percent of blood 45 % leukocytes (test code = 316) [facility] Hospitalplatelet cqewn5483-78-76 14:31:00 Test Item Value Reference Range Interpretation Comments platelet count (test code = 66) 208 X10E3/UL 150-379 [facility] Hospitalred blood cell distribution lbgef9969-05-20 14:31:00 Test Item Value Reference Range Interpretation Comments red blood cell distribution width 13.8 % 12.3-15.4 (test code = 1030) [facility] corpus[facility] hemoglobin concentration, [id number] 14:31:00 Test Item Value Reference Range Interpretation Comments mean corpuscular hemoglobin 31.9 G/DL 31.5-35.7 concentration, RBC (test code = 1029) [facility] corpuscular hemoglobin, [id number] 14:31:00 Test Item Value Reference Range Interpretation Comments mean corpuscular hemoglobin, RBC 28.9 pg 26.6-33.0 (test code = 1031) [facility] corpuscular volume, [id number] 14:31:00 Test Item Value Reference Range Interpretation Comments mean corpuscular volume, RBC (test code 91 fL 79-97 = 315) [facility] Hospitalhematocrit, [id number] 14:31:00 Test Item Value Reference Range Interpretation Comments hematocrit, blood (test code = 64) 42.6 % 34.0-46.6 [facility] Hospitalhemoglobin, [id number] 14:31:00 Test Item Value Reference Range Interpretation Comments hemoglobin, blood (test code = 65) 13.6 g/dL 11.1-15.9 [facility] Hospitalerythrocyte (RBC) qwlya1698-47-75 14:31:00 Test Item Value Reference Range Interpretation Comments erythrocyte (RBC) count (test 4.70 X10E6/UL 3.77-5.28 code = 67) [facility] Hospitalleukocyte count, wpjrq5079-74-56 14:31:00 Test Item Value Reference Range Interpretation Comments leukocyte count, blood (test 5.0 X10E3/UL 3.4-10.8 code = 68) [facility] Hospitalhepatitis C antibody, [id number] 14:31:00 Test Item Value Reference Range Interpretation Comments hepatitis C antibody, serum (test code <0.1 0.0-0.9 = 2722) [facility] Hospitalhepatitis B surface pmgepcxy7414-04-52 14:31:00 Test Item Value Reference Range Interpretation Comments hepatitis B surface antibody Non Reactive (test code = 78) [facility]tis B core antibody, [id number] 14:31:00 Test Item Value Reference Range Interpretation Comments hepatitis B core antibody, total Negative Negative (test code = 77) [facility] lfdycre6843-00-07 14:31:00 Test Item Value Reference Range Interpretation Comments hepatitis B surface antigen (test Negative Negative code = 79) [facility] HospitalHIV-CMIA (Chemiluminescent Microparticle Immuno Assay) 2018-10-05 13:05:00 Test Item Value Reference Range Interpretation Comments HIV-CMIA (Chemiluminescent Non Reactive Non Reactive Microparticle Immuno Assay) (test code = 431011) [facility] reagin antibody, [id number] 13:05:00 Test Item Value Reference Range Interpretation Comments rapid plasma reagin antibody, Non Reactive Non Reactive serum (test code = 308) [facility] PzvufvDUTYNWLMD9788-25-64 14:30:0010.7[facility]annCHEMISTRY 2011-08-[facility] 14:30:008.6[facility] XyhwjksFXKSKNWDQ5157-13-32 14:30:0027.0[facility] FveclwtYUURSWQHN8245-41-39 14:30:003.7[facility] QiinyysDVYKDLAMH6885-62-20 14:30:69097.0[facility] ItxwwpwYJYDVAWUT9863-05-59 14:30:57615.0[facility] RLREXAQYW3387-97-03 14:30:000.7[facility] SkkkslvUHEEOCBJA8578-30-67 14:30:0016.0 [facility] IttpxlqCLJLBTKNF7777-33-12 14:30:16946.0[facility]annHEMATOLOGY 2011-08-24 14:30:00 Test Item Value Reference Range Interpretation Comments PTT (test code = PTT) 27.0 s 22.9-35.8 N [facility] LqlcftnEVQADJIRSO7369-41-47 14:30:00 Test Item Value Reference Range Interpretation Comments PT (test code = PT) 12.9 s 12.0-14.7 N [facility] GaexptwEMWEWBQTAE5719-46-69 14:30:00 Test Item Value Reference Range Interpretation Comments INR (test code = INR) 0.97 1 0.85-1.17 N [facility] JwphnfcKEOIXYULLD7891-91-78 14:30:0035.5[facility]annHEMATOLOGY 2011-08-24 14:30:00 Test Item Value Reference Range Interpretation Comments MCH (test code = MCH) 29.5 pg 27.0-31.0 N [facility] QrwazjeLEXDOQPWAR8752-67-13 14:30:0086.9[facility]annHEMATOLOGY 2011-08-24 14:30:0033.9[facility] ByvhmnlLCIHGXWPYQ0762-70-52 14:30:0014.1[facility] AxgeqjpHTIXXKCODV0070-74-61 14:30:008.5[facility] GjipzinVYVSUWUFBR7454-13-47 14:30:98101.0[facility] WbmyfecQBFTVKPKBV4813-82-77 14:30:005.7[facility] GUZBQIIRZX8550-93-83 14:30:004.08[facility] FxebbrtHYVDMGJSNL4988-84-64 14:30:00 12.0[facility] JbtwttrKZCKAFOVNS0386-49-26 14:30:0046.4[facility]annHEMATOLOGY 2011-08-24 14:30:0045.3[facility] TowznkmDRNCFFSZRJ0725-01-87 14:30:003.3[facility] KpyooliKQFDRPSSBM1866-78-59 14:30:004.8[facility] TmqwxehHDVEBIQTAW7007-04-17 14:30:002.6[facility] BsjdhxlTFIVFJFAFY0918-08-03 14:30:000.2[facility] KQCIPYFVZA1956-45-23 14:30:000.2[facility] RnmarfyYGQJWLYHJQ0874-22-05 14:30:000.0 [facility] ZgxtplbRGXGZIQTVL6058-81-44 14:30:000.3[facility]annHEMATOLOGY 2011-08-24 14:30:002.6[facility]
[2021-03-10 11:28] LABS: Urine Blood Negative (Negative); Urine Glucose Negative (Negative); Urine Protein 2+ (Negative); Urine Specific Gravity 1.015 (1.005-1.030)
--- NOTE | 2021-03-10 11:29 | ER ---
Nurse's Notes [facility] Name: Stepan Flynn Age: 50 yrs Sex: Female : 1970 Arrival Date: 03/10/2021 Time: 10:37 Bed 6 Private MD: Diagnosis: Vaginitis, vulvitis and vulvovaginitis in diseases classified elsewhere;Urinary tract infection, site not specified Presentation: 03/10 11:07 Chief complaint: Patient states: lower ABD pain and vaginal sores. Coronavirus screen: ld1 Client denies travel out of the [place] in the last 14 days. At this time, the client does not indicate any symptoms associated with coronavirus-19. Ebola Screen: No symptoms or risks identified at this time. Initial Sepsis Screen: Does the patient meet any 2 criteria? No. Patient's initial sepsis screen is negative. Does the patient have a suspected source of infection? No. Patient's initial sepsis screen is negative. Risk Assessment: Do you want to hurt yourself or someone else? Patient reports no desire to harm self or others. Onset of symptoms was March 08, 2021. 11:07 Method Of Arrival: Ambulatory ld1 11:07 Acuity: AUDREY 4 ld1 Triage Assessment: 11:15 General: Appears in no apparent distress. comfortable, Behavior is calm, cooperative, ld1 appropriate for age. Pain: Complains of pain in groin Pain currently is 8 out of 10 on a pain scale. Quality of pain is described as burning, throbbing, Pain began 2-3 days ago. Is continuous. EENT: No deficits noted. Neuro: Level of Consciousness is awake, alert, obeys commands, Oriented to person, place, time, situation. Cardiovascular: Capillary refill < 3 seconds Patient's skin is warm and dry. Respiratory: Airway is patent Respiratory effort is even, unlabored, Respiratory pattern is regular, symmetrical. GI: Abdomen is round distended, Abd is soft Abdomen is tender to palpation in right lower quadrant and left lower quadrant Reports lower abdominal pain. : Urine is clear, Blisters noted at urinary meatus Reports burning with urination, vaginal itching, since Burning and itching of blisters began three days ago. Derm: No deficits noted. Musculoskeletal: No deficits noted. 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 - Social history:: Smoking status: Patient reports the use of cigarette tobacco products, smokes one pack cigarettes per day. Patient uses alcohol, on a daily basis. street drugs, cocaine. - Family history:: not pertinent. - Hospitalizations: : No recent hospitalization is reported. Screenin:19 Abuse screen: Denies threats or abuse. Denies injuries from another. Nutritional ld1 screening: No deficits noted. Tuberculosis screening: No symptoms or risk factors identified. Fall Risk None identified. Assessment: 11:19 Reassessment: See triage assessment. GI: Bowel sounds present X 4 quads. ld1 Vital Signs: 11:07 BP 147 / 95; Pulse 102; Resp 18; Temp 98.7(O); Pulse Ox 96% ; Weight 85.73 kg; Height 5 ld1 ft. 1 in. (154.94 cm); Pain 8/10; 11:07 Body Mass Index 35.71 (85.73 kg, 154.94 cm) ld1 ED Course: 10:37 Patient arrived in ED. as 10:55 Rufus Koehler MD is Attending Physician. rn 11:04 Gloria Orlando RN is Primary Nurse. ld1 11:08 Triage completed. ld1 11:15 Arm band placed on right wrist. Patient placed in an exam room, on a stretcher, on ld1 pulse oximetry. 11:19 Patient has correct armband on for positive identification. Placed in gown. Bed in low ld1 position. Call light in reach. Side rails up X2. 11:19 Assist provider with pelvic exam: Performed by Rufus Koehler MD. Patient did not have IV ld1 access during this emergency room visit. 11:23 Urine Culture Sent. ld1 11:23 Urine Microscopic Only Sent. ld1 Administered Medications: 11:15 Drug: Cipro (ciprofloxacin) 500 mg Route: PO; ld1 11:45 Follow up: Response: No adverse reaction ld1 11:15 Drug: DiFLUcan (fluconazole) 200 mg Route: PO; ld1 11:45 Follow up: Response: No adverse reaction ld1 Outcome: 11:28 Discharge ordered by . rn 11:46 Discharged to home ambulatory. ld1 11:46 Condition: stable 11:46 Discharge instructions given to patient, Instructed on discharge instructions, follow up and referral plans. medication usage, Demonstrated understanding of instructions, follow-up care, medications. 11:47 Patient left the ED. ld1 Signatures: Tabatha Hernandez Roman, MD MD rn Gloria Orlando RN RN ld1
--- NOTE | 2021-03-10 11:29 | EDPHYS ---
Physician Documentation [facility] Name: Stepan Flynn Age: 50 yrs Sex: Female : 1970 Arrival Date: 03/10/2021 Time: 10:37 Bed 6 Private MD: ED Physician Rufus Koehler HPI: 03/10 11:24 This 50 yrs old Black Female presents to ER via Ambulatory with complaints of vaginal rn rash and itching. 11:24 The patient presents with perineal itching, urinary symptoms, dysuria. rn 11:25 Onset: The symptoms/episode began/occurred yesterday. Modifying factors: The symptoms rn are alleviated by nothing, the symptoms are aggravated by urinating. Associated signs and symptoms: Pertinent positives: dysuria, Pertinent negatives: fever, hematuria, vaginal bleeding. Severity of symptoms: At their worst the symptoms were mild, in the emergency department the symptoms are unchanged. The patient has not experienced similar symptoms in the past. The patient has not recently seen a physician. Reports a few days of vaginal itching, "sores", and dysuria. No fever. Reports diabetic, has been having high blood sugar recently, and just put on lantus. . 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 - Social history:: Smoking status: Patient reports the use of cigarette tobacco products, smokes one pack cigarettes per day. Patient uses alcohol, on a daily basis. street drugs, cocaine. - Family history:: not pertinent. - Hospitalizations: : No recent hospitalization is reported. ROS: 11:25 Constitutional: Negative for fever, chills, and weight loss, Eyes: Negative for injury, rn pain, redness, and discharge, Neck: Negative for injury, pain, and swelling, Cardiovascular: Negative for chest pain, palpitations, and edema, Respiratory: Negative for shortness of breath, cough, wheezing, and pleuritic chest pain, Abdomen/GI: Negative for abdominal pain, nausea, vomiting, diarrhea, and constipation, Back: Negative for injury and pain, : + vaginal itching/rash, + dysuria MS/Extremity: Negative for injury and deformity, Skin: Negative for injury, rash, and discoloration, Neuro: Negative for headache, weakness, numbness, tingling, and seizure. Exam: 11:25 Constitutional: This is a well developed, well nourished patient who is awake, alert, rn and in no acute distress. Abdomen/GI: soft, non-tender Pelvic Exam: + a few shallow ulcerations labia and around clitoris, no fluctuance or abscess, + thin light brown vaginal discharge. No pustules. Vital Signs: 11:07 BP 147 / 95; Pulse 102; Resp 18; Temp 98.7(O); Pulse Ox 96% ; Weight 85.73 kg; Height 5 ld1 ft. 1 in. (154.94 cm); Pain 8/10; 11:07 Body Mass Index 35.71 (85.73 kg, 154.94 cm) ld1 MDM: 10:55 Patient medically screened. rn 11:25 Differential diagnosis: urinary tract infection, vaginosis. Data reviewed: vital signs, rn nurses notes, lab test result(s), urinalysis, and as a result, I will discharge patient. Counseling: I had a detailed discussion with the patient and/or guardian regarding: the historical points, exam findings, and any diagnostic results supporting the discharge/admit diagnosis, lab results, the need for outpatient follow up, to return to the emergency department if symptoms worsen or persist or if there are any questions or concerns that arise at home. Special discussion: I discussed with the patient/guardian in detail that at this point there is no indication for admission to the hospital. It is understood, however, that if the symptoms persist or worsen the patient needs to return immediately for re-evaluation. 03/10 11:20 Order name: Urine Culture [facility] 03/10 11:20 Order name: Urine Microscopic Only [facility] 03/10 11:20 Order name: Urine Dipstick-Ancillary (obtain specimen); Complete Time: 11:23 [facility] 03/10 11:28 Order name: Urine Dipstick-Ancillary EDMS Administered Medications: 11:15 Drug: Cipro (ciprofloxacin) 500 mg Route: PO; ld1 11:45 Follow up: Response: No adverse reaction ld1 11:15 Drug: DiFLUcan (fluconazole) 200 mg Route: PO; ld1 11:45 Follow up: Response: No adverse reaction ld1 Disposition: 03/10/21 11:28 Discharged to Home. Impression: Vaginitis, vulvitis and vulvovaginitis in diseases classified elsewhere, Urinary tract infection, site not specified. - Condition is Stable. - Discharge Instructions: Urinary Tract Infection, Adult, Vaginitis. - Prescriptions for Metronidazole 0.75 % Vaginal Gel - insert 37.5 milligram by VAGINAL route once daily As needed in the morning and evening; 1 tube. Cipro 500 mg Oral Tablet - take 1 tablet by ORAL route every 12 hours for 7 days; 14 tablet. Fluconazole 150 mg Oral Tablet - take 1 tablet by ORAL route once daily for 3 days; 3 tablet. - Medication Reconciliation Form, Thank You Letter, Antibiotic Education, Prescription Opioid Use form. - Follow up: Private Physician; When: 2 - 3 days; Reason: Recheck today's complaints, Re-evaluation by your physician. - Problem is new. - Symptoms have improved. Signatures: Dispatcher [employer] EDMS Rufus Koehler MD MD rn Calderon, Audri, RN RN aa5 Gloria Orlando RN RN ld1 Corrections: (The following items were deleted from the chart) 11:47 11:28 03/10/2021 11:28 Discharged to Home. Impression: Vaginitis, vulvitis and ld1 vulvovaginitis in diseases classified elsewhere; Urinary tract infection, site not specified. Condition is Stable. Forms are Medication Reconciliation Form, Thank You Letter, Antibiotic Education, Prescription Opioid Use. Follow up: Private Physician; When: 2 - 3 days; Reason: Recheck today's complaints, Re-evaluation by your physician. Problem is new. Symptoms have improved. rn
[2021-03-10] MEDS ORDERED: CIPROFLOXACIN HCL 500 MG TAB ONE (11:45)
[2021-03-10] MEDS ORDERED: FLUCONAZOLE 100 MG TAB ONE ×2 (11:45→11:48)
[2021-03-10 12:01] VITALS: BP 147/95; TEMP 98.7; O2SAT 96
[2021-03-10 13:02] LABS: Urine Bacteria 20-50 /HPF (<20); Urine RBC <5 /HPF (NONE SEEN)
[2021-03-10 13:03] LABS: Urine Mucus 2+ /HPF (NONE SEEN)
== END 2021-03-10 11:47 | disposition home or self-care (01) ==
LOC: ER 10:35
DX: N39.0 Urinary tract infection, site not specified (principal); N77.1 Vaginitis, vulvitis and vulvovaginitis in diseases classified elsewhere; E11.9 Type 2 diabetes mellitus without complications; F17.210 Nicotine dependence, cigarettes, uncomplicated; Z79.4 Long term (current) use of insulin; Z88.0 Allergy status to penicillin
CPT/HCPCS: 81003; 81015; 87086; 87088; 99284

== ENCOUNTER 2021-04-18 17:31 | Emergency (ER) | payer OTHER ==
--- OUTSIDE RECORDS SUMMARY | 2021-04-18 17:39 | XMS REPORT | Continuity of Care Document ---
:1970 Author Organization [facility] t Address [address] [place] [address] Care Team Providers Name Role Phone Asked, Pcp Primary Care Physician Unavailable Lisa Doran DO Attending Clinician JEFF Attending Clinician Unavailable CHASIDY Attending Clinician Unavailable JABARI Attending Clinician Unavailable INÉS Attending Clinician Unavailable KELLY Attending Clinician Unavailable GREG Attending Clinician Unavailable BRANDO Attending Clinician Unavailable ASHUTOSH Attending Clinician Unavailable MISSAEL Attending Clinician Unavailable ANJUM SCHWARZ Attending Clinician Unavailable LE Attending Clinician Unavailable ANGELICA Attending Clinician Unavailable Juma Attending Clinician [phone] Jesenia Attending Clinician Unavailable Mitra Lockwood Attending Clinician Unavailable Keith Attending Clinician Unavailable Pollo Attending Clinician Unavailable DENISE Attending Clinician Unavailable JULITO Attending Clinician Unavailable Daren Perez Attending Clinician [phone] Albert Attending Clinician Unavailable Philip Attending Clinician Unavailable Perfecto Attending Clinician Unavailable Provider Attending Clinician Unavailable Colby Rivas Attending Clinician Unavailable Brandon Attending Clinician Unavailable LEONEL Attending Clinician Unavailable ABDIAZIZ Attending Clinician Unavailable DELIA Attending Clinician Unavailable VERENA Attending Clinician Unavailable GATO Attending Clinician Unavailable MILLICENT Attending Clinician Unavailable Mitra Briscoe Attending Clinician [phone] Flavio Attending Clinician [phone] SERGIO Attending Clinician Unavailable George Attending Clinician Unavailable Myers Attending Clinician Unavailable Sreekanth Attending Clinician Unavailable MEREDITH Attending Clinician Unavailable Héctor Attending Clinician [phone] Grant Attending Clinician Unavailable Nohemy Attending Clinician Unavailable Ld Attending Clinician Unavailable ALFREDO Attending Clinician Unavailable MONSTER Attending Clinician Unavailable INDIA Attending Clinician Unavailable Juma Unavailable [phone] Perez, L Unavailable [phone] Luis Felipe, G Unavailable [phone] Sreekanth Unavailable Unavailable Héctor Unavailable [phone] Payers Payer Name Policy Type Policy Effective Date Expiration Date Sour ce Number MEDICAID - [id number] 2016 [facility] MEDICAID MGD 00:00:00 - [facility] [id number] -Present Medicaid Non-Contracted Problems Condition Condition Condition Status Onset Resolution Last Treating Co mments Source Name Details Category Date Date Treatment Clinician Date Abscess, Abscess, Disease [facility] 00 [place] 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 01-16 [facility] - mellitus mellitus 00:00: Medica l with other with other 00 Ce nter specified specified complicati complicati on, on, unspecifie unspecifie d whether d whether technician terminal and repeater technician terminal and repeater insulin insulin use use Fingernail Fingernail Disease Active [facility] avulsion, avulsion, 07-26 [facility] s - partial, partial, 00:00: Medica l initial initial 00 Center encounter encounter Paronychia Paronychia Disease Active [facility] of finger, of finger, 07-26 Diana kes - right right 00:00: Medical 00 Center Moderate Moderate Disease Active 2018-11 [place] protein-ca protein-ca 2-16 Me odi cristofer cristofer 00:00: st malnutriti malnutriti 00 on on Asthma Asthma Disease Active 2018-11 [place] exacerbati exacerbati 2-14 Me thodi on on 00:00: st 00 Viral Viral Disease Active 2018-11 [place] upper upper 2-14 Methodi respirator respirator 00:00: st y tract y tract 00 infection infection HLD HLD Disease Active 2018-11 [place] (hyperlipi (hyperlipi 2-14 Me thodi demia) demia) 00:00: st 00 Schizophre Schizophre Disease Active 2018-11 [place] joanie joanie 2-14 Methodi 00:00: st 00 Herpes Condition Active 2018-112019-10-11 Kira Dennison exposure 12-11 10:58:52 Nereida Celeste i 00:00: ty 00 Health PrEP / Condition Active 2019-07-22 Perez, Leg acy Contact or 07-19 15:43:15 Danita Mercedes Com elias exposure 00:00: ty to STI 00 Health Vaginal Condition Active 2019-07-22 Luis Felipe L egacy discharge 01-04 15:43:15 Isela Johnson Com elias 00:00: ty 00 Health High risk Condition Active 2018-12-26 Luis Felipe, [facility] heterosexu 12-26 14:51:34 Isela Johnson Co mmuni al 00:00: ty behavior 00 Health Diabetes Condition Active 2018-12-26 Luis Felipe, [facility] mellitus 12-26 14:51:34 sIela Johnson Comm uni type II 00:00: ty 00 Health Preventati Condition Active 2017-112018-12-26 Foster, [facility] ve health 12-05 14:35:22 Lazaro Commu ni care 00:00: ty 00 Health Std Condition Active 2017-112018-12-26 Héctor, Leg acy screening 12-05 14:35:22 Abdi Commu ni 00:00: ty 00 Health Chest pain Chest pain Disease Active H yevgeniywai -02 Methodi 00:00: st 00 Diabetes Diabetes Disease Active [place] 02-19 [facility]i 00:00: st 00 HTN HTN Disease Active [place] (hypertens (hypertens -02 Me thodi ion) ion) 00:00: st 00 Weakness Weakness Disease Active [place] of left of left 02-19 [facility] side of side of 00:00: st body body 00 FOOT PAIN Diagnosis Active 2011-08-24 Memoria 07-19 08:54:00 l FOOT 00:00: [place] PAIN 00 Active 07/19/2011 [facility] Stroke Stroke Problem Active Univers syndrome syndrome ity of [place] Physici ans History of History of Problem [...] rs without without ity of status status [place] migrainosu migrainosu Ph ysici s, not s, [...] vers screening screening ity of mammogram mammogram Cecil vasquez Physici ans Otalgia of Otalgia of [...] nivers ry ry ity of arthritis arthritis Cecil vasquez Physici ans Anxiety Anxiety Problem Active Univers [...] it y of right ear right ear Cecil vasquez Physici ans Influenza Influenza Problem Active Uni [...] Problem Active Univers positive positive ity of [place] Physici ans Essential Essential Problem Active Uni [...] Memor ia gastritis 02:02:33 l without Acute [place] mention of gastritis hemorrhage without mention of hemorrhage Active Problem 08/10/2016 Monserrat Card Diabetes Problem Active 2016-08-10 Mem oria mellitus 02:02:33 l without Diabetes Mony nn mention of mellitus complicati without on, type mention of II or complicati unspecifie on, type d type, II or uncontroll unspecifie ed d type, uncontroll ed Active Problem 6 [facility]errat Card Unspecifie Problem Active 2016-08-10 M emoria d 02:02:33 l essential Cleve hypertensi Unspecifie on d essential hypertensi on Active Problem 6 [facility] Card Screening Problem Active 2016-08-10 Me moria examinatio 02:02:33 l n for Cleve venereal Screening disease examinatio n for venereal disease Active Problem 08/10/2016 [facility]at Card Obstructiv Problem Active 2016-08-10 M emoria e chronic 02:02:33 l bronchitis Dalton n , without Obstructiv exacerbati e chronic on bronchitis , without exacerbati on Active Problem 6 [facility]errat Card Esophageal Diagnosis Active 2016-08-10 Memoria reflux 02:02:33 l Cleve Esophageal reflux Active Diagnosis 08/10/2016 Monserrat Card Acute Problem Active 2016-08-10 Memor ia pharyngiti 02:02:33 l s Acute [place] pharyngiti s Active Problem 08/10/2016 Monserr[facility] Card Urinary Problem Active 2016-08-10 Cole snow tract 02:02:33 l infection Urinary Herm ayo tract infection Active Problem 08/10/2016 Monserr[facility] Card Candidiasi Problem Active 2016-08-10 M emoria s of vulva 02:02:33 l and vagina Dalton n Candidiasi s of vulva and vagina Active Problem 08/10/2016 Monserrat Card DM eye Problem Active 2016-08-10 Memor ia manif type 02:02:33 l II DM eye [place] manif type II Active Problem 6 Monserrat Card Cellulitis Problem Active 2016-08-10 M emoria of groin 02:02:33 l Cleve Cellulitis of groin Active Problem 08/10/2016 Monserrat Card Hemiplegia Problem Active 2016-08-10 M emoria of 02:02:33 l dominant [place] side 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 Active Problem 08/10/2016 [facility]errat Card Acute Problem Active 2016-08-10 Memor ia ill-define 02:02:33 l d Acute Cleve cerebrovas ill-define cular d disease cerebrovas cular disease Active Problem 08/10/2016 Monserrat Card Enteritis Problem Active 2016-08-10 Me moria 02:02:33 l Cleve Enteritis Active Problem 08/10/2016 Monserrat Card Other and Problem Active 2016-08-10 Me moria unspecifie 02:02:33 l d Other Cleve hyperlipid and emia unspecifie d hyperlipid emia Active Problem 08/10/2016 Monserrat Card Constipati Problem Active 2016-08-10 M emoria on 02:02:33 l Cleve Constipati on Active Problem 6 Monserrat Card Mass of Problem Active 2016-08-10 [place] left foot 02:02:33 l Mass of [place] left foot Active Problem 08/10/2016 Monserrat Card Abdominal Problem Active 2016-08-10 Me moria pain, left 02:02:33 l upper [place] quadrant Abdominal pain, left upper quadrant Active Problem 08/10/2016 Monserrat Card Essential Diagnosis Active 2016-08-10 Memoria (primary) 02:02:33 l hypertensi Dalton n on Essential (primary) hypertensi on Active Diagnosis 08/10/2016 Monserrat Card Vaginitis Problem Active 2016-08-10 Me moria 02:02:33 l [place] Vaginitis Active Problem 08/10/2016 Monserrat Card Esophageal Problem Active 2016-08-10 M emoria reflux 02:02:33 l Cleve Esophageal reflux Active Problem 08/10/2016 Monserrat Card Type II or Diagnosis Active 2016-08-10 Memoria unspecifie 02:02:33 l d type Type II Cleve diabetes or mellitus unspecifie without d type mention of diabetes complicati mellitus on, not without stated as mention of uncontroll complicati ed on, not stated as uncontroll ed Active Diagnosis 08/10/2016 Monserrat Card Nausea Diagnosis Active 2014-07-08 Mem oria with 02:01:10 l vomiting Nausea Dalton n with vomiting Active Diagnosis 07/08/2014 Monserrat Card Encounter Problem Active 2016-08-10 Me moria for 02:02:33 l immunizati Dalton n on Encounter for immunizati on Active Problem 6 Monserrat Card Type II or Problem Active 2016-08-10 M emoria unspecifie 02:02:33 l d type Type II [place] diabetes or mellitus unspecifie with d type ophthalmic diabetes manifestat mellitus ions, not with stated as ophthalmic uncontroll manifestat ed ions, not stated as uncontroll ed Active Problem 6 Monserrat Card Generalize Problem Active 2016-08-10 M emoria d anxiety 02:02:33 l disorder [place] Generalize d anxiety disorder Active Problem 08/10/2016 Monserrat Card Hyperlipid Diagnosis Active 2016-08-10 Memoria emia 02:02:33 l [place] Hyperlipid emia Active Diagnosis 08/10/2016 Monserrat Card URI (upper Diagnosis Active 2016-08-10 Memoria respirator 02:02:33 l y URI [place] infection) (upper respirator y infection) Active Diagnosis 08/10/2016 Monserrat Card COUGH, Diagnosis Active 2012-04-19 Mem oria CONGESTION 11:57:00 l COUGH, Cleve CONGESTION Active [facility] Allergies, Adverse Reactions, Alerts Allergy Allergy Status Severity Reaction(s) Onset Inactive Treating Comm ents Source Name Type Date Date Clinician Penicill DA Active [facility] 06-25 [place] 00:00: [place] [facility] Penicill Propensi Active [facility] to 02-21 [facility] - adverse 00:00: Medical reaction 00 Center s Penicill DA Active [facility] ins 04-10 [place] 00:00: Healthc [address] PENICILL Drug Active High swollen 2017-11 [facility] [place] allergy Criticali tongue, 16 Commu ni (disorde ty welts all 00:00: ty r) over body 00 Health has tolerated amoxicillin Penicill Propensi Active Anaphylaxis, Tongue [place] ins ty to Shortness Of 4-02 swelling, M ethodi adverse Breath, 00:00: whelps st reaction Swelling 00 s to drug penicill penicill Active Info Not Cole snow in in Available 9-20 l 00:00: [place] 00 NKFA NKFA Active Memoria l [place] Penicill Allergy Active Univers ins to drug ity of (finding [place] ) Physici ans Family History Family Member Diagnosis Comments Start Date Stop Date Source Natural father Hypertension [place] Denominational Natural father Stomach cancer [place] Denominational Natural mother Diabetes [place] Denominational Natural mother Hypertension [place] Denominational Grandmother Family history of Univer sity of [...] breast Unknown Family Family History 2015-12-26 2015-12-26 Celestinotraci al Cleve Member 03:35:21 03:35:21 Social History Social Habit Start Date Stop Date Quantity Comments Source History SDOH [facility] - [facility] Std Drinks Medica l Center History SDOH [facility] - Alcohol Binge Medical Itzel ter History SDOH 2020-02-22 2020-02-[address] [facility] - Alcohol Frequency 00:00:00 00:00:00 Medical Center Cigarettes smoked 2019-11-02 2019-11-02 [place] current (pack per 00:00:00 00:00:[address] day) - Reported Tobacco use and 2019-11-02 2019-11-02 Never used [place] exposure 00:00:00 00:00:00 Denominational Alcohol intake 2019-11-02 2019-11-02 Ex-drinker [place] 00:00:00 00:00:00 (finding) Denominational Alcohol Comment 2019-11-02 2019-11-02 6 packs on [place] 00:00:00 00:00:00 weekends, states David gonzales has not drank in 8 months History of tobacco 2019-07-22 Cigarette Smoker Kahn use 00:00:00 Denominational is there any 2019-07-19 2019-07-19 No [facility] [...] 13:56:17 13:56:17 just moved back Health from [place], [place], recently rekindled relationship with Father of children, who is hiv+Not homeless. Not employed. Sex at : Female. Sexual orientation: Heterosexual. Gender identity: Female. Gender of partner(s): Male. Sexually Active: Yes. sexual orientation 2018-12-26 2018-12-26 Heterosexual [facility] 14:07:18 14:07:18 Health family support 2018-10-05 2018-10-05 just moved back [facility] 11:40:55 11:40:55 from [facility], recently rekindled relationship with Father of children, who is hiv+ sex at 2018-10-05 2018-10-05 Female [facility] nity 11:40:55 11:40:55 Health patient considered 2018-10-05 2018-10-05 No [facility] to be homeless 11:40:55 11:40:55 Health Tobacco Comment 2017-02-19 2017-02-19 1 pack/ 2-3 days Veronica ston 00:00:00 00:00:00 Denominational TobaccoUse: 2016-08-09 2016-08-09 Tiera Herm ayo 00:00:00 00:00:00 Sex [birth year] At [birth year] Kahn 00:00:00 00:00:00 Denominational Smoking Status Start Date Stop Date Source Smokes tobacco daily [facility] (finding) Physicians Never smoker [facility] Former smoker 2019-11-02 00:00:00 2019-11-02 [place] Meth odist 00:00:00 Occasional tobacco 2019-07-19 13:56:17 [facility] (finding) Medications Ordered Filled Start Stop [...] for 7 days. cephalexin 2020- No 500mg Q.[id number] Take [address] (KEFLEX) 07-26 [id number] capsule L ukes - 500 MG 00:00: 23:59 3D (500 mg Medical capsule 00 :00 total) by Center mouth 3 (three) times daily for 7 days. mupirocin 2020- No 1g Q.[id number] Apply [address] (BACTROBAN) 07-26 [id number] topically [facility] - 2 % 00:00: 23:59 [...] Delayed DAILY. ans Release Release Lantus Lantus 2020-0 Yes VENKAT 85 QD INJECT 85 Un curtis SoloStar SoloStar 7-07 ASHUTOSH UNIT DAILY ity of 100 UNIT/ML 100 UNIT/ML 00:00: M.D. [place] Subcutaneou Subcutaneou 00 P hysici s Solution s Solution ans Pen-injecto Pen-injecto r r fluphenazin 2019-0 Yes 10mg Take [address] e 6-02 by mouth. [facility] - (PROLIXIN) 08:02: Medical 5 MG tablet 59 Center travoprost 0 Yes Apply to [facility] (TRAVATAN 6-02 eye(s). [facility] - Z) 0.004 % 08:02: Medical Drop 59 Center ophthalmic drops dicyclomine 2019-0 2020- No 20mg Q.5D Take [address] (BENTYL) 20 5-17 05-17 tablet (20 L ukes - mg tablet 00:00: 23:59 mg total) Me dical 00 :00 by mouth 2 Center (two) times daily. chlorhexidi 2020-[address] ne 5-02 [facility] - (PERIDEX) 00:00: Medical 0.12 % 00 Center solution HUMIRA PEN 2019-0 Yes INJECT [address] 40 mg/0.8 4-20 MG UNDER [facility] - mL PnKt 00:00: THE SKIN Q Medi kecia 00 2 WEEKS Center HUMULIN R 2019-[address] U-500, 4-20 [facility] - CONC, 00:00: Medical KWIKPEN 500 00 Center unit/mL (3 mL) InPn Humira Pen Humira Pen 2019-0 Yes AMBER Inject 40 Univers 40 MG/0.8ML 40 MG/0.8ML 4-20 MISSAEL M.D. mg ity of Subcutaneou Subcutaneou 00:00: subcutaneo [place] s s 00 usly every Physici Pen-injecto Pen-injecto two weeks. ans r Kit r Kit HumuLIN R HumuLIN R 2020-0 Yes ANGELINA Inject 60 Univers U-500 U-500 [...] [facility] - ointment 00:00: DAYS Medical 00 [place] Nebulizer Nebulizer 0 Yes ALISSA USE Univers Device Device 4-10 CONTE DIRECTED. i ty of 00:00: M.D. [place] 00 Physici ans benzoyl 2019-0 Yes USE WASH [facility] peroxide 5 4-08 ONCE D [facility] - % external 00:00: UTD. Medical liquid 00 [place] albuterol 2019-0 Yes INL [address] HFA 4-07 PO QID [facility] - (VENTOLIN 00:00: Medical HFA) 90 00 [place] mcg/actuati on inhaler pantoprazol 2019-0 Yes TK [address] [facility] e 4-07 30 MIN B [facility] - (PROTONIX) 00:00: RIMA AND 30 M edical 40 MG 00 MIN B [place] tablet DINNER Pantoprazol Pantoprazol 2019-0 Yes VENKAT 1 tablet Univers e Sodium 40 e Sodium 40 4-07 ASHUTOSH 30 min ity of MG Oral MG Oral 00:00: M.D. before [place] Tablet Tablet 00 breakfast Physic i Delayed Delayed and one ans Release Release tablet 30 min before dinner Benzoyl Benzoyl 2020-0 Yes ALISSA QD USE WASH Un curtis Peroxide Peroxide 4-07 CONTE ONCE DAILY ity of Wash 5 % Wash 5 % 00:00: M.D. [place] External External 00 DIRECTED. Ph ysici Liquid Liquid ans True Metrix True Metrix 2020-0 Yes ALISSA USE TO Univers Meter Meter 4-07 CONTE TEST BLOOD it y of w/Device w/Device 00:00: M.D. GLUCOSE [place] Kit Kit 00 Physici ans True Metrix True Metrix 2020-0 Yes ALISSA USE TO Univers Blood Blood 4-07 CONTE TEST BLLOD it y of Glucose Glucose 00:00: M.D. SUGAR [place] Test In Test In 00 THREE Physici Vitro Strip Vitro Strip TIMES A ans DAY albuterol 2019-0 Yes U 1 VIAL [...] [facility] - MG tablet 00:00: Medical 00 Center LANTUS 2019-0 Yes INJECT [address] SOLOSTAR 4-06 UNITS SQ [facility] - U-100 00:00: ONCE QAM Medical INSULIN 100 00 Center unit/mL (3 mL) InPn zolpidem 2019-0 Yes TK 1 T PO [...] with breakfast and dinner. Naproxen Naproxen Yes AMBER TAKE 1 U nivers 500 MG Oral 500 MG Oral 2-03 MISSAEL M.D. TABLET BY ity of Tablet Tablet 00:00: MOUTH [place] 00 TWICE A Physici DAY WITH ans MEALS DIFLUCAN 2019-0 Yes Nereida 1 by mouth [place] (FLUCONAZOL 1-03 Juma Commun i E) 150 MG 00:00: ty TABS 00 Health VALTREX 2020-0 Yes Nereida 1{Table 3xD 1 by mouth [...] 00 day for 7 Health days NOVOLOG Yes 10 units [facility] (INSULIN 1-03 before Communi ASPART) 100 00:00: meals ty UNIT/ML 00 Health SOLN LANTUS Yes 85 units [facility] (INSULIN 1-03 daily Communi GLARGINE) 00:00: ty 100 UNIT/ML 00 Health SOLN (CLOTRIMAZO 2019- No Nereida apply Leg acy LE) 1 % -03 12-06 Juma Twice a Commun i CREA 00:00: 00:00 Day to ty 00 :00 affected Health areas lisinopril 2018-11 Yes 20mg QD Take 20 [...] times a day. busPIRone 2018-11 Yes 5mg Q.[id number] Take 5 mg [facility] (BUSPAR) 5 2-16 [id number] by mouth 3 Methodi MG tablet 19:53: 3D (three) st 30 times a day. brimonidine 2018-11 Yes 1[drp] Q12H Administer [facility]ahn -timolol 2-16 1 drop to Method i (COMBIGAN) 19:53: both eyes st 0.2-0.5 % 30 every 12 ophthalmic (twelve) solution hours. ergocalcife 2018-11 Yes [id number] Q7D Take [place] 2-16 50,000 [...] Yes 15mg QD Take 15 mg Ho maureen (MOBIC) 15 2-16 by mouth Metho di [...] Kahn (TRAVATAN-Z 2-16 1 drop to Met chiquitai ) 0.004 % 19:53: both eyes st 30 nightly. traZODone 2018-11 Yes 50mg QD Take 50 mg Carroll reddy (DESYREL) 2-16 by mouth Method i 50 MG 19:53: nightly. st tablet 30 triamterene 2018-11 Yes 1{tbl} QD Take 1 Ho maureen -hydrochlor 2-16 tablet by Met chiquitai othiazid 19:53: mouth st (MAXZIDE-25 30 daily. [...] while on ty 00 medicatio [facility] AMBER 1 Univers 48 MG/6ML 48 MG/6ML 7-22 MISSAEL M.D. injection ity of Intra-artic Intra-artic 00:00: in each [facility] 00 knee Physici Solution Solution ans Prefilled Prefilled Syringe [facility] One Yes AMBER 1 Univers 48 MG/6ML 48 MG/6ML 7-22 MISSAEL M.D. injection ity of Intra-artic Intra-artic 00:00: in each [facility] 00 knee Physici Solution Solution ans Prefilled Prefilled Syringe Syringe Triamterene Triamterene Yes LORI 1 tablet Univers -HCTZ -HCTZ 6-18 PATKI M.D. daily for it y of 37.5-25 MG 37.5-25 MG 00:00: 3 months [place] Oral Oral 00 Physici Capsule Capsule ans Precision Precision Yes ALISSA Q0.25D TEST 4 Univers Xtra Blood Xtra Blood 5-14 CONTE TIMES ity of Glucose In Glucose In 00:00: M.D. DAILY. [place] Vitro Strip Vitro Strip 00 P hysici [...] Oral Tablet Oral Tablet 00:00: AT BEDTIME [place] 00 Physici ans (FLUCONAZOL 2019-0 Yes Isela G take 1 [facility] E) 150 MG 2-15 Luis Felipe tablet Commun i TABS 00:00: once ty Health emtricitabi Yes Take by [facility] [...] 1.25 MG 1-21 CONTE CAPSULE ity of (45183 UT) (44300 UT) 00:00: M.D. WEEKLY. [place] Oral Oral 00 Physici Capsule Capsule ans Meloxicam Meloxicam Yes KOBY 1 QD TAKE 1 Univers 15 MG Oral 15 MG Oral 1-14 ABDIAZIZ BLEVINS TABLET ity of Tablet Tablet 00:00: DAILY. [place] 00 Physici ans ADVIL 2017-11 Yes 2{Table [...] 0-20 [place] on an l 00:00: empty [place] 00 stomach Metformin Yes Monserrat 1 tablet M emoria HCl 9-21 [place] with meals l 02:02: Cleve Nexium Yes Monserrat 1 capsule Mem oria 9-21 [place] l 02:02: Cleve Benztropine Yes Monserrat 1 tablet Memoria Mesylate 9-21 [place] at bedtime l 02:02: Cle[place] Valproic Yes Monserrat Unknown Mem oria Acid 9-21 [place] l 02:02: [place] Novolin Yes Monserrat as Memoria 70/30 9-21 [place] directed l 02:02: Cleve Valsartan-H Yes Monserrat 1 tablet Memoria ydrochlorot 9-21 [place] l hiazide 02:02: Cle[place] Risperdal Yes Monserrat Unknown Me moria Consta 9-21 [place] l 02:02: Cle[place] Atorvastati Yes Monserrat 1 tablet Memoria n Calcium 9-21 [place]baum l 02:02: Cleve Omeprazole Yes Monserrat 2 capsules Memoria 9-21 [place] l 02:02: Cleve NovoLog Yes Monserrat Unknown [place] Flexpen 9-21 B[place]baum l 02:02: [place]ve HydrOXYzine Yes Monserrat 1 tablet Memoria HCl 9-21 [place] as needed l 02:02: Cleve Invega Yes Monserrat 1 tablet [place] 9-21 [place] in the l 02:02: morning Cleve 33 Proventil Yes Monserrat 2 puffs as Memoria HFA 9-21 [place] needed l 02:02: Cleve 33 Clonidine Yes Monserrat 1 tablet M emoria HCl 9-21 [place] l 02:02: Cleve 33 Sucralfate Yes Monserrat 1 tablet Memoria 2-06 [place] on an l 03:35: empty [place] 21 stomach Clonazepam Yes Monserrat 1 tablet Memoria 1-20 [place] l 00:00: Cleve 00 Benztropine Yes Monserrat 1 tablet Memoria Mesylate 1-07 [place] at bedtime l 03:10: Cleve 04 Flagyl Yes Monserrat 1 tablet [place] 1-06 [place] l 00:00: Aspirin Yes Monserrat 1 tablet Mem oria 8-19 [place] l 00:00: Cipro Yes Monserrat 1 tablet Memor ia 6-30 [place] l 00:00: Flagyl Yes Monserrat 1 tablet [place] 6-30 [place] l 00:00: Mupirocin Yes Monserrat 1 Memor ia Calcium 4-14 [place] applicatio l 00:00: n to affected area Levaquin Yes Monserrat as Memori [...] Parking 2-06 [place] parking 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 [place] 00 Physici ans Lantus Yes Monserrat 35u sqam [place] 8-19 [place] and 35u l 02:01: sqpm 10 Hydrochloro No Monserrat 1 tablet Memoria thiazide 8-19 [place] l 02:01: 10 ProAir HFA Yes Monserrat 2 puffs as Memoria 8-19 [place] needed l 02:01: 10 Advair Yes Monserrat 1 puff Memori a Diskus 8-19 [place] l 02:01: 10 Amlodipine Yes Monserrat 1 tablet Memoria Besylate 8-19 [place] l 02:01: Naprosyn Yes Monserrat 1 tablet Me moria 5-30 [place] as needed l 00:00: Benazepril- Yes Monserrat 1 tablet Memoria Hydrochloro 5-06 [place] l thiazide 00:00: Valsartan-H Yes Monserrat 1 tablet Memoria ydrochlorot 5-05 [place] l hiazide 00:00: Amlodipine Yes Monserrat 1 tablet Memoria Besylate 5-05 [place]baum l 00:00: [place] 5/325 2010-11 No Jaydon M 2 tab, [...] l 0.9% IV 18:21: IVPB, PRN, Herm Line Flush, Start date: 08/24/11 13:21:00, Duration: 30 day, Stop date: 09/23/11 13:20:00 BD Normal 2010-11 No Jaydon M 10 mL, [place] snow Saline 0-05 [place] Route: l Flush 18:21: IVP, Drug Form: INJ, PRN, PRN Line Flush, Start date: 08/24/11 13:21:00, Duration: 30 day, Stop date: 09/23/11 13:20:00 morphine 2010-11 No Zara B 2 mg, [facility] Sulfate 0-05 [place] Route: l 18:15: IVP, ONCE, Start date: 08/24/11 13:15:00, Stop date: 08/24/11 [...] Immunizations Ordered Filled Immunization Date Status Comments [facility] e Immunization Name Name Pneumovax 2019-03-19 Completed [facility] MCG/0.5ML Injection 16:22:00 [place] [facility] Injectable Vital Signs Vital Name Observation Time Observation Value Comments Source Systolic blood 2020-11-15 133 mm[Hg] [facility] - pressure 15:32:00 [facility] Diastolic blood 2020-11-15 83 mm[Hg] [facility] - pressure 15:32:00 [facility] Heart rate 2020-11-15 85 /min [facility] - 15:32:00 [facility] Body temperature 2020-11-15 36.67 [address] [facility] - 15:32:00 [facility] Respiratory rate 2020-11-15 16 /min [facility] - 15:32:00 [facility] Oxygen saturation 2020-11-15 100 /min [facility] - in Arterial blood 15:32:00 [facility] nter by Pulse oximetry Body height 2020-11-15 154.9 cm [facility] - 13:55:00 [facility] Body weight 2020-11-15 77.111 kg [facility] - 13:55:00 [facility] BMI 2020-11-15 32.12 kg/m2 [facility] - 13:55:00 [facility] Systolic blood 2020-07-17 127 mm[Hg] Location: [place]; University pressure 10:35:00 Position: [place] [facility] Diastolic blood 2020-07-17 90 mm[Hg] Location: [place]; University pressure 10:35:00 Position: [place] [facility] Body height 2020-07-17 60 [in_us] [facility] of 10:35:00 [place] [facility] Weight 2020-07-17 179.375 [lb_av] University o f 10:35:00 [place] [facility] Body mass index 2020-07-17 35.03 kg/m2 University o f (BMI) [Ratio] 10:35:00 [place] [facility] Body temperature 2020-07-17 97.3 [degF] University 10:35:00 [place] [facility] Heart Rate 2020-07-17 94 /min University 10:35:00 [place] [facility] Systolic blood 2020-05-26 143 mm[Hg] Location: [place]; [facility] pressure 13:21:00 Position: [place] [facility] Diastolic blood 2020-05-26 97 mm[Hg] Location: [place]; [facility] pressure 13:21:00 Position: [place] [facility] Body height 2020-05-26 60 [in_us] [facility] of 13:21:00 [place] [facility] Weight 2020-05-26 177.125 [lb_av] University o f 13:21:00 [place] [facility] Body mass index 2020-05-26 34.59 kg/m2 University o f (BMI) [Ratio] 13:21:00 [place] [facility] Body temperature 2020-05-26 98.3 [degF] Method: Oral University of 13:21:00 [place] [facility] Heart Rate 2020-05-26 93 /min Location: L [facility] 13:21:00 Brachial [place] [facility] Artery; Quality: Normal Respiratory rate 2020-05-26 16 /min Quality: Normal [facility]i ty of 13:21:00 [place] [facility] Systolic blood 2020-02-25 118 mm[Hg] Location: [place]; [facility] pressure 13:14:00 Position: [place] [facility] Diastolic blood 2020-02-25 82 mm[Hg] Location: [place] University pressure 13:14:00 Position: [place] [facility] Body height 2020-02-25 60 [in_us] University of 13:14:00 [place] [facility] Weight 2020-02-25 175.375 [lb_av] University o f 13:14:00 [place] [facility] Body mass index 2020-02-25 34.25 kg/m2 University o f (BMI) [Ratio] 13:14:00 [place] [facility] Body temperature 2020-02-25 98.3 [degF] Method: Oral [facility] of 13:14:00 [place] [facility] Heart Rate 2020-02-25 86 /min Location: L [facility] 13:14:00 Radial; [place] [facility] Quality: Normal Respiratory rate 2020-02-25 16 /min Quality: Normal Universi ty of 13:14:00 [place] [facility] Systolic blood 2019-12-23 146 mm[Hg] Location: [facility] of pressure 13:43:00 Position: [place] [facility] Diastolic blood 2019-12-23 103 mm[Hg] Location: [facility] 13:43:00 Position: [place] [facility] Weight 2019-12-23 175.5625 [lb_av] University of 13:43:00 [place] [facility] Body mass index 2019-12-23 34.29 kg/m2 University o f (BMI) [Ratio] 13:43:00 [place] [facility] Heart Rate 2019-12-23 97 /min University of 13:43:00 [place] [facility] BP Systolic 2019-11-27 123 mm[Hg] [facility] 10:33:00 Position: [place] [facility] BP Diastolic 2019-11-27 86 mm[Hg] [facility] [place] [facility] Position: [place] [facility] Height 2019-11-27 60 [in_us] University of 10:33:00 [place] [facility] Weight 2019-11-27 180.2 [lb_av] University of 10:33:00 [place] [facility] Body Mass Index 2019-11-27 35.19 kg/m2 University o f Calculated 10:33:00 [place] [facility] Temperature 2019-11-27 98 [degF] Method: Oral [facility] 10:33:00 [place] [facility] Heart Rate 2019-11-27 81 /min Location: R [facility] 10:33:00 Br[facility]ial [place] [facility] Artery; Respiration Rate 2019-11-27 18 /min Quality: Normal Universi ty of 10:33:00 [place] [facility] O2 SAT 2019-11-27 100 % Source: [facility] 10:33:00 [place] [facility] BP Systolic 2019-11-21 139 mm[Hg] Location: [facility] 09:09:00 Position: [place] [facility] BP Diastolic 2019-11-21 102 mm[Hg] Location: [facility] 09:09:00 Position: [place] [facility] Height 2019-11-21 62 [in_us] University of 09:09:00 [place] [facility] Weight 2019-11-21 177.375 [lb_av] University o f 09:09:00 [place] [facility] Body Mass Index 2019-11-21 32.44 kg/m2 University o f Calculated 09:09:00 [place] [facility] Heart Rate 2019-11-21 94 /min [facility] 09:09:00 [place] [facility] BP Systolic 2019-10-22 115 mm[Hg] Location: [facility] 13:58:00 Position: [place] [facility] BP Diastolic 2019-10-22 82 mm[Hg] Location: [facility] 13:58:00 Position: [place] [facility] Height 2019-10-22 62 [in_us] University of 13:58:00 [place] [facility] Weight 2019-10-22 180.125 [lb_av] University o f 13:58:00 [place] [facility] Body Mass Index 2019-10-22 32.95 kg/m2 University o f Calculated 13:58:00 [place] [facility] Temperature 2019-10-22 98.5 [degF] Method: Oral [facility] 13:58:00 [place] [facility] Heart Rate 2019-10-22 97 /min Location: R [facility] 13:58:00 Br[facility]ial [place] [facility] Artery; Respiration Rate 2019-10-22 15 /min Quality: Normal Universi ty of 13:58:00 [place] [facility] BP Systolic 2019-10-07 117 mm[Hg] Location: [facility] 13:17:00 Position: [place] [facility] BP Diastolic 2019-10-07 87 mm[Hg] Location: [facility] of 13:17:00 Position: [place] [facility] Height 2019-10-07 62 [in_us] [facility] 13:17:00 [place] [facility] Weight 2019-10-07 176.8 [lb_av] University of 13:17:00 [place] [facility] Body Mass Index 2019-10-07 32.34 kg/m2 University o f Calculated 13:17:00 [place] [facility] Temperature 2019-10-07 98.6 [degF] Method: Oral [facility] 13:17:00 [place] [facility] Heart Rate 2019-10-07 103 /min Location: [facility] 13:17:00 Br[facility]ial [place] [facility] Artery; Quality: Normal Respiration Rate 2019-10-07 18 /min Quality: Normal Universi ty of 13:17:00 [place] [facility] O2 SAT 2019-10-07 100 % Source: [facility] 13:17:00 [place] [facility] BP Systolic 2019-07-01 123 mm[Hg] Location: [facility] of 09:15:00 Position: [place] [facility] BP Diastolic 2019-07-01 89 mm[Hg] Location: [facility] of :15:00 Position: [place] [facility] Height 2019-07-01 62 [in_us] [facility] 09:15:00 [place] [facility] Weight 2019-07-01 186.4 [lb_av] [facility] 09:15:00 [place] [facility] Body Mass Index 2019-07-01 34.09 kg/m2 University o f Calculated 09:15:00 [place] [facility] Temperature 2019-07-01 99.2 [degF] Method: [facility] of :15:00 [place] [facility] Heart Rate 2019-07-01 100 /min Location: [facility] of 09:15:00 Brachial [place] [facility] Artery; Quality: Regular Respiration Rate 2019-07-01 18 /min Quality: Normal Universi ty of 09:15:00 [place] [facility] O2 SAT 2019-07-01 99 % Source: [facility] 09:15:00 [place] [facility] BP Systolic 2019-06-18 124 mm[Hg] Location: [facility] 14:27:00 Position: [place] [facility] BP Diastolic 2019-06-18 90 mm[Hg] Location: [facility] of 14:27:00 Position: [place] [facility] Height 2019-06-18 62 [in_us] University of 14:27:00 [place] [facility] Weight 2019-06-18 189 [lb_av] University of 14:27:00 [place] [facility] Body Mass Index 2019-06-18 34.57 kg/m2 University o f Calculated 14:27:00 [place] [facility] Temperature 2019-06-18 98.2 [degF] Method: Oral University 14:27:00 [place] [facility] Heart Rate 2019-06-18 106 /min University of 14:27:00 [place] [facility] BP Systolic 2019-06-10 135 mm[Hg] Location: [facility]; [facility] 08:43:00 Position: [place] [facility] BP Diastolic 2019-06-10 92 mm[Hg] Location: [facility]; [facility] 08:43:00 Position: [place] [facility] Height 2019-06-10 62 [in_us] University 08:43:00 [place] [facility] Weight 2019-06-10 189.0625 [lb_av] University of 08:43:00 [place] [facility] Body Mass Index 2019-06-10 34.58 kg/m2 University o f Calculated 08:43:00 [place] [facility] Heart Rate 2019-06-10 90 /min Location: [facility] 08:43:00 Radial; [place] [facility] Temperature 2019-05-31 97.6 [degF] Method: [facility] 08:17:00 [place] [facility] Heart Rate 2019-05-31 86 /min [facility] 08:17:00 [place] [facility] Respiration Rate 2019-05-31 20 /min Quality: Normal Universi of 08:17:00 [place] [facility] O2 SAT 2019-05-31 98 % Source: [facility] 08:17:00 [place] [facility] BP Systolic 2019-05-31 118 mm[Hg] Location: [facility]; [facility] 08:17:00 Position: [place] [facility] BP Diastolic 2019-05-31 80 mm[Hg] Location: [facility] 08:17:00 Position: [place] [facility] Weight 2019-05-31 189.6 [lb_av] University of 08:17:00 [place] [facility] Body Mass Index 2019-05-31 34.68 kg/m2 University o f Calculated 08:17:00 [place] [facility] BP Systolic 2019-05-28 123 mm[Hg] Location: [facility]; [facility] 08:19:00 Position: [place] [facility] BP Diastolic 2019-05-28 82 mm[Hg] Location: [facility]; [facility] 08:19:00 Position: [place] [facility] Height 2019-05-28 62 [in_us] University of 08:19:00 [place] [facility] Weight 2019-05-28 184.25 [lb_av] University of 08:19:00 [place] [facility] Body Mass Index 2019-05-28 33.7 kg/m2 University o f Calculated 08:19:00 [place] [facility] Temperature 2019-05-28 97.6 [degF] Method: Oral University of 08:19:00 [place] [facility] Heart Rate 2019-05-28 99 /min Location: [facility] of 08:19:00 Brachial [place] [facility] Artery; Respiration Rate 2019-05-28 20 /min Quality: Normal Universi ty of 08:19:00 [place] [facility] O2 SAT 2019-05-28 100 % Source: [facility] of 08:19: [place] [facility] BP Systolic 2019-05-16 132 mm[Hg] Location: [facility] ::00 Position: [place] [facility] BP Diastolic 2019-05-16 84 mm[Hg] Location: [facility]; [facility] ::00 Position: [place] [facility] Height 2019-05-16 62 [in_us] University of 10:01:00 [place] [facility] Weight 2019-05-16 190.4 [lb_av] University of 10::00 [place] [facility] Body Mass Index 2019-05-16 34.82 kg/m2 University o f Calculated 10:01:00 [place] [facility] Temperature 2019-05-16 98.2 [degF] Method: Oral University of 10:01:00 [place] [facility] Heart Rate 2019-05-16 92 /min Location: [facility] of 10:01:00 Brachial [place] [facility] Artery; [...] Physician s Temperature 2019-05-07 97.2 [degF] University 14:02:00 [place] [facility] Heart Rate 2019-05-07 78 /min University of 14:02:00 [place] [facility] BP Systolic 2019-05-01 119 mm[Hg] Location: [facility]; [facility] 08:34:00 Position: [place] [facility] BP Diastolic 2019-05-01 83 mm[Hg] Location: [place]; [facility] 08:34:00 Position: [place] [facility] Height 2019-05-01 62.99 [in_us] [facility] 08:34:00 [place] [facility] Temperature 2019-05-01 98.3 [degF] Method: Oral [facility] 08:34:00 [place] [facility] Heart Rate 2019-05-01 77 /min Location: [place] 08:34:00 Brachial [place] [facility] Artery; Respiration Rate 2019-05-01 18 /min Quality: Normal Universi ty of 08:34:00 [place] [facility] O2 SAT 2019-05-01 100 % Source: [facility] 08:34:00 [place] [facility] BP Systolic 2019-04-29 96 mm[Hg] [facility] [place] 15:12:[facility] Position: [place] [facility] BP Diastolic 2019-04-29 68 mm[Hg] [facility] [place] 15:12:00 Position: [place] [facility] Weight 2019-04-29 185.8 [lb_av] [facility] 15:12:00 [place] [facility] Body Mass Index 2019-04-29 35.11 kg/m2 University o f Calculated 15:12:00 [place] [facility] Temperature 2019-04-29 98.2 [degF] Method: Oral [facility] 15:12:00 [place] [facility] Respiration Rate 2019-04-29 20 /min Quality: Normal Universi ty of 15:12:00 [place] [facility] O2 SAT 2019-04-29 100 % Source: [facility] 15:12:00 [place] [facility] Heart Rate 2019-04-29 83 /min [facility] 15:12:00 [place] [facility] BP Systolic 2019-04-23 127 mm[Hg] Location: [place] [facility] 14:37:00 Position: [place] [facility] BP Diastolic 2019-04-23 85 mm[Hg] Location: [place] [facility] 14:37:00 Position: [place] [facility] Height 2019-04-23 61 [in_us] University of 14:37:00 [place] [facility] Weight 2019-04-23 186.25 [lb_av] University of 14:37:00 [place] [facility] Body Mass Index 2019-04-23 35.19 kg/m2 University o f Calculated 14:37:00 [place] [facility] Temperature 2019-04-23 98.5 [degF] Method: Oral University 14:37:00 [place] [facility] Heart Rate 2019-04-23 94 /min Location: [facility] 14:37:00 Radial; [place] [facility] Quality: Normal Respiration Rate 2019-04-23 16 /min Quality: Normal Universi ty of 14:37:00 [place] [facility] BP Systolic 2019-03-28 134 mm[Hg] Location: [facility] :: Position: [place] [facility] BP Diastolic 2019-03-28 86 mm[Hg] [facility] [place] 17::00 Position: [place] [facility] Height 2019-03-28 62 [in_us] University of 17:09:00 [place] [facility] Weight 2019-03-28 183.5 [lb_av] University of 17:09:00 [place] [facility] Body Mass Index 2019-03-28 33.56 kg/m2 University o f Calculated 17:09:00 [place] [facility] Temperature 2019-03-28 98.5 [degF] Method: [facility] 17:09:00 [place] [facility] Heart Rate 2019-03-28 97 /min Quality: [facility] 17:09:00 Regular [place] [facility] Respiration Rate 2019-03-28 20 /min Quality: Normal Universi ty of 17:09:00 [place] [facility] O2 SAT 2019-03-28 99 % Source: [facility] 17:09:00 [place] [facility] BP Systolic 2019-03-19 137 mm[Hg] Location: [place]; [facility] :31:00 Position: [place] [facility] BP Diastolic 2019-03-19 90 mm[Hg] Location: [place]; [facility] :31:00 Position: [place] [facility] Height 2019-03-19 62 [in_us] [facility] 13:31:00 [place] [facility] Weight 2019-03-19 186 [lb_av] University of 13:31:00 [place] [facility] Body Mass Index 2019-03-19 34.02 kg/m2 University o f Calculated 13:31:00 [place] [facility] Temperature 2019-03-19 97.9 [degF] Method: Oral University of 13:31:00 [place] [facility] Heart Rate 2019-03-19 94 /min Location: [facility] 13:31:00 Radial; [place] [facility] Quality: Normal Respiration Rate 2019-03-19 17 /min Quality: Normal Universi ty of 13:31:00 [place] [facility] BP Systolic 2019-02-27 129 mm[Hg] Location: [facility] 08:46:00 Position: [place] [facility] BP Diastolic 2019-02-27 84 mm[Hg] Location: [facility] 08:46:00 Position: [place] [facility] Height 2019-02-27 61 [in_us] University of 08:46:00 [place] [facility] Weight 2019-02-27 184.375 [lb_av] [facility] 08:46:00 [place] [facility] Body Mass Index 2019-02-27 34.84 kg/m2 University o f Calculated 08:46:00 [place] [facility] Temperature 2019-02-27 98.1 [degF] Method: [facility] 08:46:00 [place] [facility] Heart Rate 2019-02-27 75 /min [facility] 08:46:00 [place] [facility] Respiration Rate 2019-02-27 18 /min Quality: Normal Universi ty of 08:46:00 [place] [facility] O2 SAT 2019-02-27 99 % Source: [facility] 08:46:00 [place] [facility] BP Systolic 2018-12-03 135 mm[Hg] [facility] 08:59:00 [place] [facility] BP Diastolic 2018-12-03 90 mm[Hg] University of 08:59:00 [place] [facility] Weight 2018-12-03 185.9 [lb_av] University of 08:59:00 [place] [facility] Body Mass Index 2018-12-03 35.13 kg/m2 University o f Calculated 08:59:00 [place] [facility] Heart Rate 2018-12-03 86 /min University of 08:59:00 [place] [facility] BP Systolic 2018-01-08 163 mm[Hg] Location: [facility] 08:39:00 Position: [place] [facility] BP Diastolic 2018-01-08 114 mm[Hg] Location: [facility] 08:39:00 Position: [place] [facility] Weight 2018-01-08 191.0625 [lb_av] [facility] 08:39:00 [place] [facility] Body Mass Index 2018-01-08 36.1 kg/m2 University o f Calculated 08:39:00 [place] [facility] Heart Rate 2018-01-08 77 /min Location: L [facility] 08:39:00 Radial; [place] [facility] Weight 2016-08-09 [facility] 18:45:00 Height 2016-08-09 [facility] 18:45:00 Temperature Oral 2016-08-09 97.9 F [facility] (F) 18:45:00 Heart Rate 2016-08-09 [...] 19:00:00 Temperature Oral 2014-05-21 99.3 F [facility] (F) 19:00:00 Heart Rate 2014-05-21 [facility] 19:00:00 Diastolic (mm Hg) 2014-05-21 [facility] 19:00:00 Systolic (mm Hg) 2014-05-21 [facility] 19:00:00 Weight 2014-03-24 [facility] 16:00:00 Height 2014-03-24 [facility] 16:00:00 Temperature Oral 2014-03-24 98.4 F [facility] (F) 16:00:00 Heart Rate 2014-03-24 [facility] [...] ayo 18:45:00 Diastolic (mm Hg) 2011-08-24 [facility] Octaviano ermann 18:45:00 Systolic (mm Hg) 2011-08-24 [facility] Lauri rmann 18:30:00 Diastolic (mm Hg) 2011-08-24 Tiera Brumfield ermann 18:30:00 Respitory Rate 2011-08-24 Tiera Sen ayo 18:30:00 Temperature Oral 2011-08-24 98.1 F Tiera Carreon rmann (F) 14:18:00 Weight 2011-08-18 Tiera Senan n 22:08:00 Height 2011-08-18 160.02 cm Tiera Hoffman n 22:08:00 Procedures Procedure Date / Time Performing Clinician Source Performed IN I&D OF VULVA/PERINEUM 2020-11-15 15:31:33 Francy Doran [facility] . [facility] - Affirm VPIII 2020-07-17 00:00:00 [facility] (BV Panel) Physicians . [facility] - GC/Chlamydia 2020-07-17 00:00:00 [facility] Physicians . [facility] - PAP 2020-07-17 00:00:00 [facility] Physicians [Q] HEPATITIS B SURFACE 2020-07-17 00:00:00 [facility] ANTIGEN W/REFL CONFIRM Physician s [Q] HIV AB, HIV 1/2, 2020-07-17 00:00:00 [facility] EIA, WITH REFLEXES Physicians [QL] RPR (DX) W/REFL 2020-07-17 00:00:00 [facility] TITER AND CONFIRMATORY Physician s TESTING [Q] DRUG ABUSE PANEL 2020-07-15 00:00:00 [facility] 10-50 + ETHANOL Physicians [QL] CBC (INCLUDES 2020-03-04 00:00:00 [facility] DIFF[facility]PLT[facility] Physicians [QL] CMP W/EGFR 2020-03-04 00:00:00 [facility] [place] [facility] [QL] QUANTIFERON(R)-TB 2020-03-04 00:00:00 [facility] GOLD Physicians [QL] C-REACTIVE PROTEIN 2020-03-04 00:00:00 [facility] Physicians [QL] SED RATE BY 2020-03-04 00:00:00 [facility] MODIFIED [facility] Physicians [QL] RHEUMATOID FACTOR 2020-03-04 00:00[facility] RHEUMATOID FACTOR 2019-12-23 00:00[facility]00 [facility] [[facility]] SED RATE BY 2019-12-23 00:00:00 [facility] MODIFIED [facility] Physicians [QLH] CMP W/EGFR 2019-12-23 00:00:00 [facility] Physicians [QL] CBC (INCLUDES 2019-12-23 00:00:00 [facility] DIFF/PLT) Physicians Venipuncture 2019-11-22 11:07:27 Nereida Dennison [facility] [QL] C-PEPTIDE 2019-11-21 00:00:00 [facility] Physicians [QL] BASIC METABOLIC 2019-11-21 00:00:00 [facility] PANEL W/EGFR Physicians Venipuncture 2019-10-09 12:31:05 Nereida Dennison [facility] EdeniQ [facility] 2019-07-19 14:34:24 Provider, [facility] [employer] Education/[facility]ive Health Services Health Counseling HIV-1/2 AG/AB Combo - 2019-07-19 14:05:48 Danita Perez y [facility] MRI Pelvis without 2019-07-01 00:00:00 [facility] contrast [id number] Physicians [QLH] RHEUMATOID FACTOR 2019-06-10 00:00:00 Univ [facility] Physicians [QLH] C-REACTIVE PROTEIN 2019-06-10 00:00:00 [facility] Physicians [QL] SED RATE BY 2019-06-10 00:00:00 [facility] MODIFIED [facility] Physicians [QL] HLA-B27, DNA 2019-06-10 00:00:00 [facility] TYPING Physicians [QH] CYCLIC 2019-06-10 00:00:00 [facility] [place] CITRULLINATED PEPTIDE Physicians (CCP) AB (IGG) XRAY Spine lumbar series 2019-06-10 00:00:00 Uni [facility] [id number] Physicians XRAY Sacroiliac joints 2019-06-10 00:[facility]00 [facility] series [id number] [place] [id number] 2019-06-10 00:00:00 [facility] Physicians XRAY Hand AP lateral 2019-06-10 00:00:00 [facility] Bilateral [id number] Physicians MRI Internal Auditory 2019-05-07 00:00:00 [facility] Canal w/wo contrast Physicians [id number] [LH] GC/CT by Amp Det 2019-03-19 00:00:00 [facility] (APTIMA) Physicians [QH] HIV AB, HIV 1/2, 2019-03-19 00:00:00 [facility] EIA, WITH REFLEXES Physicians [QLH] CBC (INCLUDES 2019-03-19 00:00:00 [facility] DIFF/PLT) Physicians [QLH] CMP W/EGFR 2019-03-19 00:00:00 [facility] Physicians [QLH] HEMOGLOBIN A1c 2019-03-19 00:00:00 [facility] Physicians [QLH] HEPATITIS PANEL 2019-03-19 00:00:00 [facility] Physicians [QL] LIPID PANEL 2019-03-19 00:00:00 [facility] Physicians [QLH] MICROALBUMIN, 2019-03-19 00:00:00 [facility] RANDOM URINE Physicians (W/CREATININE) [QLH] RPR 2019-03-19 00:00:00 [facility] Physicians [QLH] TSH, 3RD 2019-03-19 00:00:00 [facility] GENERATION W/REFLEX TO Physician s FT4 [QLH] VITAMIN D, 2019-03-19 00:00:00 [facility] 25-HYDROXY, LC/MS/MS Physicians MA Digital Mammo Screen 2019-03-19 00:00:00 [facility] Wilver w timmy [id number] Physicians [U] XRAY KNEE 3 VWS LEFT 2019-01-14 00:00:00 [facility] [id number] Physicians Health 2018-12-27 07:34:54 Provider, Public [facility] Education[facility] Health Services Health Counseling [QLH] CBC (INCLUDES 2018-12-03 00:00:00 [facility] DIFF/PLT) Physicians [QLH] CMP W/EGFR 2018-12-03 00:00:00 [facility] Physicians [QLH] C-REACTIVE PROTEIN 2018-12-03 00:00:00 [facility] Physicians [[facility]] SED RATE BY 2018-12-03 00:00:00 [facility] MADDIE GOLD Physicians [[facility]] VITAMIN D, 2018-12-03 00:00:00 [facility] 25-HYDROXY, LC/MS/MS Physicians XRAY Knee 3 views [id number] 2018-12-03 00:00:00 [facility] Physicians Health 2018-10-05 14:36:00 Provider, Public [facility] Education/Supportive Health Services Health Counseling [U] XR KNEE 3 VWS 2018-04-18 00:00:00 [facility] BILATERAL Physicians [U] XR KNEE 3 VWS 2018-04-09 00:00:00 [facility] BILATERAL Physicians History of Hi Hat o f [place] Physicians History of Vaginal [facility] Hysterectomy Physicians Plan of Care Planned Activity Planned Date Details Comments Source Future Scheduled 2021-06-20 INFLUENZA VACCINE [place] [facility] 00:00:00 [code = INFLUENZA VACCINE] Future Scheduled 2020 BREAST CANCER [place] [facility] Test 00:00:00 SCREENING [code = BREAST CANCER SCREENING] Future Scheduled 2020 COLONOSCOPY SCREENING [place] [facility] Test 00:00:00 [code = COLONOSCOPY SCREENING] Future Scheduled 2020 SHINGLES VACCINES [place] [facility] 00:00:00 (#1) [code = SHINGLES VACCINES (#1)] Future Scheduled 2020-11-[address] [facility] - Test 00:00:00 [facility] (procedure) [code = 22145739] Future Scheduled 2020-07-[address] [facility] - Test 00:00:00 (#1) [code = Medical Center INFLUENZA VACCINE (#1)] Future Scheduled 2020-03-19 Urine screening for [facility] - Test 00:00:00 protein (procedure) Medical Center [code = 890766215] Diagnostic Test 2019-11-22 [QL] C-PEPTIDE [code [facility] Pending 00:00:00 = [QL] C-PEPTIDE] Physician s Diagnostic Test 2019-11-22 [QL] BASIC METABOLIC [facility] Pending 00:00:00 PANEL W/EGFR [code = Physici ans [QLH] BASIC METABOLIC PANEL W/EGFR] Future Scheduled 2019-11-[address] [facility] - Test 00:00:00 (12+) [code = Medical Center DEPRESSION SCREENING (12+)] Diagnostic Test 2019-07-01 MRI Pelvis without [facility] [place] Pending 00:00:00 contrast 52514 [code Physici ans = 64706] Diagnostic Test 2019-07-01 MRI Pelvis without [facility] [place] Pending 00:00:00 contrast 88527 [code Physici ans = 48843] Future Scheduled [address] [facility] - Test 00:00:00 (procedure) [code = Medical Center 87793301] Future Scheduled 1991 Screening for [facility] Test 00:00:00 malignant neoplasm of cervix (procedure) [code = 976295062] Future Scheduled [address] [facility] Test 00:00:00 malignant neoplasm of Medica l Center cervix (procedure) [code = 140032708] Future Scheduled 1988 Hepatitis C screening [place] [facility] Test 00:00:00 (procedure) [code = 394018958] Future Scheduled 1982 COVID-19 VACCINE (1) [place] Denominational Test 00:00:00 [code = COVID-19 VACCINE (1)] Future Scheduled 1980 DIABETES: RETINAL EYE [place] [facility] Test 00:00:00 EXAM [code = DIABETES: RETINAL EYE EXAM] Future Scheduled 1980 DIABETIC FOOT EXAM [place] Denominational Test 00:00:00 [code = DIABETIC FOOT EXAM] Future Scheduled 1980 URINE MICROALBUMIN [place] [facility] Test 00:00:00 [code = URINE MICROALBUMIN] Future Scheduled 1980 DIABETIC EYE EXAM [facility] - Test 00:00:00 [code = DIABETIC EYE Medical Center EXAM] Future Scheduled [address] [facility] Test 00:00:00 examination Medical Center (regime/therapy) [code = 711379471] Encounters Start End Encounter Admission Attending Care Care Encounter Source Date/Time Date/Time Type Type Clinicians Facility Department ID 2020-10-29 2020-10-29 Appointmen ANGELA AGUILARpecia [id number] Univers 15:30:00 15:30:[address] lty - ity of [place] AGU[address] Physici ans 2020-08-17 2020-08-17 Appointmen CLIFTONOG, [facility] [id number] Univers 14:00:00 14:00:00 t; LIZA UMAÑA ity of [facility] Physici ans 2020-08-17 2020-08-17 Appointmen CHASIDY, UTP [facility] [id number] Univers 14:00:00 14:00:00 t; LIZA UMAÑA ity of [facility] Physici ans 2020-07-29 2020-07-29 Appointmen JABARI, [facility] [id number] Univers 10:30:00 10:30:00 t; [facility] 2020-07-23 2020-07-23 Appointmen INÉS, [facility] [id number] Univers 09:30:00 09:30:00 t; Reema MAXWELL [place] SHIRA, Physici M.D. ans 2020-07-17 2020-07-17 Appointmen ANGELA MENDOZA [facility] [id number] Univers 10:00:00 10:00:00 t; ROYAL MENDOZA, and [place] M.D. Gynecology Cecil vasquez M.D. [facility] Physi ci Clinic ans 2020-07-15 2020-07-15 Appointmen ANGELA GARZA Multispecia [id number] Univers 13:00:00 13:00:00 t; LESTER GARZA lty - ity of [place], M.D. [facility] [place] M.D. Physici ans 2020-07-14 2020-07-14 Emergency E MHNW MHNW 7528 MHNW 18:18:00 18:18:00 2020-07-06 2020-07-06 Appointmen JABARI, [facility] [id number] Univers 13:00:00 13:00:00 t; [facility]EL[facility] ans 2020-07-03 2020-07-03 Appointmen GREG, [facility] [id number] Univers 08:30:00 08:30:00 t; LESTER GARZA ity of [place], M.D. [place] M.D. Physici ans 2020-06-29 2020-06-29 Appointmen BRANDO, [facility] UTP [id number] Univers 15:00:00 15:00:00 t; Reema FUNK Isrrael FUNK M.D. Physi ci ans 2020-06-09 2020-06-09 Appointmen JEFF, [facility] UTP [id number] Univers 13:30:00 13:30:00 t; KARMA HERNANDEZ itlily [place], [place] KARMA HERNANDEZ Physici ans 2020-05-26 2020-05-26 [facility] ASHUTOSH, [facility] Family [id number] Univers 13:00:00 13:00:00 t; VENKAT, Medicine - Bobo M.D. [facility] Medical Payam Benavidez [place] ans 2020-05-25 2020-05-25 Appointzamzam UMAÑA, [facility] UTP [id number] Univers 08:30:00 08:30:00 t; LIZA UMAÑA [facility] Physici ans 2020-05-25 2020-05-25 [facility] 06:52:00 06:52:00 2020-05-18 2020-05-18 Appointzamzam CANAS, [facility] UTP [id number] Univers 11:00:00 11:00:00 t; AMBER CANAS ity of KANIKA, M.D. [place] M.D. Physici ans 2020-04-27 2020-04-27 Appointzamzam UMAÑA, [facility] UTP [id number] Univers 14:30:00 14:30:00 t; LIZA UMAÑA [facility] Physici ans 2020-04-27 2020-04-27 Outpatient MH MHH 7524 MHH 13:59:00 13:59:00 2020-03-20 2020-03-20 Emergency E MHNW MHNW 7526 MHNW 12:20:00 12:20:00 2020-03-17 2020-03-17 Burton CONTE, [facility] [id number] Univers 14:45:00 14:45:00 t; Reema MAXWELL [place] SHIRA, Physici M.D. ans 2020-03-13 2020-03-13 Emergency E MHNW MHNW 7525 MHNW 14:46:00 14:46:00 2020-02-25 2020-02-25 Appointzamzam CONTE [facility] Family [id number] Univers 13:00:00 13:00:00 t; Reema MAXWELL Medicine - ity [facility] Medical Physici [facility] ans 2020-02-24 2020-02-24 Appointmen ANGELA GARZA Multispecia [id number] Univers 16:30:00 16:30:00 t; LESTER GARZA lty - ity of Reema BATISTA [facility] Reema Physici ans 2020-02-20 2020-02-20 AppointANGELA Meyer Multispecia [id number] Univers 08:45:00 08:45:00 t; Reema ALFARO lty - it y LE [facility] Payam ALFARO MTelloDTello ans 2020-01-21 2020-01-21 Appointzamzam CONTE [facility] [id number] Univers 13:45:00 13:45:00 t; Reema MAXWELL it y [facility], Physici M.DTello ans 2020-01-14 2020-01-14 Appointmen ANGELICA [facility] [id number] Univers 15:40:00 15:40:00 t; JERI DOMINGUEZ ity o f NAMITA, M.D. [place] Reema Physici ans 2019-12-27 2019-12-27 Appointmen GREG, [facility] [id number] Univers 09:00:00 09:00:00 t; LESTER GARZA, ity of Reema BATISTA M.D. Physici ans 2019-12-23 2019-12-23 Appointmen ANGELA CANAS Rheumatolog [id number] Univers 15:30:00 15:30:00 t; AMBER CANAS y ity Reema Cabrera M.D. Physici ans 2019-12-10 2019-12-10 Appointmen JABARI, [facility] [id number] Univers 10:30:00 10:30:00 t; PAMELA BARBOZA ity of PAMELA, [facility] Physici ans 2019-12-09 2019-12-09 Emergency E MHNW MHNW 0020 MHNW 12:29:00 12:29:00 2019-12-09 2019-12-09 AppointANGELA Ewing [facility] [id number] Univers 09:00:00 09:00:00 t; AMBER CANAS, Reema Youssef M.D. Physici ans 2019-11-27 2019-11-27 AppointANGELA Dia Multispecia [id number] Univers 11:00:00 11:00:00 t; LESTER GARZA lty - Reema Mabry M.D. Physici ans 2019-11-27 2019-11-27 Office Nereida Dennison [facility] Adult En counter/ Legacy 00:00:00 00:00:00 Visit Senegal, Esperanza Medicine [id number] Communi 533283 [facility] 2019-11-22 2019-11-22 [facility]/ Legacy 00:00:00 00:00:00 Visit Nereida Medicine [id number] Co mmuni [id number] [facility] 2019-11-22 2019-11-22 [facility] Encounte [facility]/ Legacy 00:00:00 00:00:00 Visit Nereida Medicine [id number] Co mmuni 985296 [facility] 2019-11-22 2019-11-22 Office Nereida Dennison [facility] Adult En counter/ Legacy 00:00:00 00:00:00 Visit JenniferTiffanie baxter Medicine [id number] Communi 320791 [facility] 2019-11-21 2019-11-21 Appointmen LE [facility] Internal [id number] Univers 08:45:00 08:45:00 t; Reema ALFARO Medicine - ity [facility] ALFARO M.D. Center ans 2019-10-22 2019-10-22 ANGELA [facility] [id number] Univers 13:45:00 13:45:00 t; Reema MAXWELL Medicine - [facility] Physici Re[place] ans 2019-10-21 2019-10-21 Appointmen ANGELA BARBOZA [facility] [id number] Univers 10:30:00 10:30:00 t; PAMELA [facility]BOZA [facility] ans 2019-10-11 2019-10-11 Office Nereida Dennison [facility] Adult En counter/ Legacy 00:00:00 00:00:00 Visit Esperanza Ba Medicine [id number] Communi 183206 [facility] 2019-10-11 2019-10-11 Office Keith [facility] Adult Encounte r/ Legacy 00:00:00 00:00:00 [facility] [id number] Co mmuni 045062 [facility] 2019-10-11 2019-10-11 Office Nereida Dennison [facility] Adult En counter/ Legacy 00:00:00 00:00:00 Visit John Parker [facility] [id number] Communi 077426 [facility] 2019-10-10 2019-10-10 Emergency E MHNE MHNE 7523 MHNE 22:20:00 22:20:00 2019-10-10 2019-10-10 Office Pollo [facility] Adult Encou nter/ Legacy 00:00:00 00:00:00 Visit Miranda Medicine [id number] Co mmuni 105168 [facility] 2019-10-09 2019-10-09 Office Juma [facility] Adult Encounte r/ Legacy 00:00:00 00:00:00 Visit Nereida Medicine [id number] Co mmuni 071228 [facility] 2019-10-09 2019-10-09 Office Juma [facility] Adult Encounte r/ Legacy 00:00:00 00:00:00 Visit Nereida Medicine [id number] Co mmuni [id number] Health 2019-10-09 2019-10-09 Office Juma [facility] Adult Encounte r/ Legacy 00:00:00 00:00:00 Visit Nereida Medicine [id number] Co mmuni 153805 Health 2019-10-09 2019-10-09 Office Juma [facility] Adult Encounte r/ Legacy 00:00:00 00:00:00 Visit Nereida Medicine [id number] Co mmuni 517692 [facility] 2019-10-09 2019-10-09 Office Nereida Dennison [facility] Adult En counter/ Legacy 00:00:00 00:00:00 Visit Tiffanie Lockwood Medicine [id number] Communi 228089 [facility] 2019-10-08 2019-10-08 Appointmen ANGELA CONTE [facility] [id number] Univers 13:45:00 13:45:00 t; Reema MAXWELL it y of Isrrael CONTE Physici M.D. ans 2019-10-07 2019-10-07 Appointmen ANGELA GARZA Multispecia [id number] Univers 13:30:00 13:30:00 t; LESTER GARZA lty - humphreyy [facility] Physici ans 2019-09-17 2019-09-17 Appointmen ANGELA WALKER [facility] [id number] Univers 13:15:00 13:15:00 t; LORI WALKER i ty of Reema SANDOVAL [place] Reema Physici ans 2019-08-12 2019-08-12 Emergency E [facility] 12:11:00 12:11:00 2019-07-31 2019-07-31 Appointmen ANGELA VILA Otorhinolar [id number] Univers 10:00:00 10:00:00 t; AIME VILAology - ity [facility] Medical Physici Center ans 2019-07-24 2019-07-24 Office Danita Perez [facility] Adult Enco unter/ Legacy 00:00:00 00:00:00 Visit L Medicine [id number] Co mmuni 833227 [facility] 2019-07-23 2019-07-23 Office Danita Perez [facility] Adult En counter/ Legacy 00:00:00 00:00:00 Visit Shayy Price Medicine [id number] Lauren Flores 317947 [facility] 2019-07-19 2019-07-19 Office [facility]/ Legacy 00:00:00 00:00:00 Visit L Medicine [id number] Co mmuni 513760 [facility] 2019-07-19 2019-07-19 Office Danita Perez [facility] Adult En counter/ Legacy 00:00:00 00:00:00 Visit Shayy Price Medicine [id number] [facility] 437239 [facility] 2019-07-19 2019-07-19 Office ANA [place] Legacy Encount er/ Legacy 00:00:00 00:00:00 Visit Rohan Johnson [id number] Co mmuni Clinic [id number] [facility] 2019-07-19 2019-07-19 Office Provider, Public Health Services Daren Legacy Encounter/ Legacy 00:00:00 00:00:00 Visit Rohan [place] [id number] [facility] 607315 [facility] 2019-07-19 2019-07-19 Office Danita Perez [facility] Adult En counter/ Legacy 00:00:00 00:00:00 Visit iMno Damico Medic ine [id number] [facility] Vannessa Taylor 44860 0 [facility] 2019-07-01 2019-07-01 Appointmen ANGELA GARZA Multispecia [id number] Univers 09:00:00 09:00:00 t; LESTER GARZA lty - Clotilde M.D. [facility] Isrrael Benavidez Physici ans 2019-06-27 2019-06-27 Appointmen ANGELA BARBOZA [id number] Univers 11:30:00 11:30:00 t; PAMELA [facility]BOZA [facility]ici ans 2019-06-18 2019-06-18 Appointmen ANGELA WALKER Otorhinolar [id number] Univers 14:15:00 14:15:00 t; LORI WALKER yngology - Reema Hanna M.D. Medical Physici Center ans 2019-06-10 2019-06-10 Appointmen ANGELA CANAS Rheumatolog [id number] Univers 08:30:00 08:30:00 t; AMBER CANAS y ity of KANIKA, M.[facility]. [facility] ans 2019-05-31 2019-05-31 Appointmen GREG [facility] Multispecia [id number] Univers 16:00:00 16:00:00 t; LESTER GARZA lty - ity of Reema BATISTA [facility] Physici ans 2019-05-28 2019-05-28 Appointmen JABARI [facility] Psychiatry [id number] Univers 08:30:00 08:30:00 t; PAMELA BARBOZA, Outpatient it[facility] Physici ans 2019-05-27 2019-05-27 Appointmen LEONEL [facility] UTP [id number] Univers 11:00:00 11:00:00 t; Reema OLSON it [place], [place] [facility] ans 2019-05-17 2019-05-17 Appointmen ANGELA FREED [facility] [id number] Univers 09:00:00 09:00:00 t; KOBY FREED MD it y of MD KOBY [place] Physici ans 2019-05-16 2019-05-16 Appointmen JABARI [facility] Psychiatry [id number] Univers 10:30:00 10:30:00 t; PAMELA BARBOZA, Outpatient ity [facility] Physici ans 2019-05-14 2019-05-14 Appointmen ANGELA LIN Multispecia [id number] Univers 14:00:00 14:00:00 t; ZACH LIN RN lt - The ity of AMANDEEP SERRANO [facility] [address] Physici ans 2019-05-07 2019-05-07 Appointmen ANGELA WALKER Otorhinolar [id number] Univers 14:00:00 14:00:00 t; LORI WALKER yngology - ity of [facility]AL [facility] ans 2019-05-07 2019-05-07 Appointmen ANGELA ALBARADO Otorhinolar [id number] Univers 13:30:00 13:30:00 t; NIXON brooks - it y [facility] Medical Physici Center ans 2019-05-02 2019-05-02 Appointmen ANGELA LIN Multispecia [id number] Univers 11:00:00 11:00:00 t; ZACH LIN, AMANDEEP lty - The ity of AMANDEEP SERRANO [facility] [address] Physici ans 2019-05-01 2019-05-01 Appointmen ANGELA BARBOZA Psychiatry [id number] Univers 08:30:00 08:30:00 t; PAMELA BARBOZA, Outpatient ity of PAMELA, [facility] Physici ans 2019-04-29 2019-04-29 Appointmen ANGELA GARZA Multispecia [id number] Univers 15:30:00 15:30:00 t; LESTER GARZA, y - ity Reema BATISTA [facility] Physici ans 2019-04-23 2019-04-23 AppointANGELA Romero Family [id number] Univers 14:30:00 14:30:00 t; Reema MAXWELL Medicine - ity [facility] ALISSA Medical Physici M.D. [facility] 2019-04-17 2019-04-17 AppointANGELA Romero [facility] [id number] Univers 11:00:00 11:00:00 t; Reema MAXWELL it y [place], [place] Payam MAXWELL M.D. [facility] 2019-03-28 2019-03-28 AppointANGELA Dia [facility] [id number] Univers 16:00:00 16:00:00 t; LESTER GARZA, [facility] and ity Reema BATISTA [facility] [place] - Physici [facility] 2019-03-19 2019-03-19 AppointANGELA Romero Family [id number] Univers 14:00:00 14:00:00 t; Reema MAXWELL Medicine i ty [place], [place] ALISSA Physicvee [facility] 2019-03-11 2019-03-11 Emergency E [facility] 11:52:00 11:52:00 2019-02-27 2019-02-27 [facility] [id number] Univers 09:00:00 09:00:00 t; LESTER GARZA, [facility] and ity of Reema BATISTA [facility] Reema [facility] Physici [facility] 2019-02-21 2019-02-21 Appointzamzam HOSKINS [facility] [id number] Univers 09:00:00 09:00:00 t; ELIER HOSKINS M.D. ity ELIERIsrrael M.D. [facility] 2019-01-17 2019-01-17 Appointzamzam RICKS [facility] [id number] Univers 14:30:00 14:30:00 t; CARYN RICKS Orthopedics ity Reema RUBIN [place] Reema [facility] 2019-01-09 2019-01-09 Office [facility] Adult Encounte r/ Legacy 00:00:00 00:00:00 Visit Isela Quinones [id number] C ommuni 401124 [facility] 2019-01-04 2019-01-04 Office [facility] Adult Encounte r/ Legacy 00:00:00 00:00:00 Visit Isela Mitra Quinones [id number] C ommuni 785218 [facility] 2019-01-04 2019-01-04 Office [facility] En[facility]te r/ Legacy 00:00:00 00:00:00 Visit Isela Quinones [id number] C ommuni 497600 [facility] 2019-01-04 2019-01-04 Office Isela Briscoe [facility] Adult Encounter/ Legacy 00:00:00 00:00:00 Visit Margarita Muniz [id number] Communi 168156 [facility] 2019-01-03 2019-01-03 Office Luis FelipeIsela valverde [facility] Adult Encounter/ Legacy 00:00:00 00:00:00 Visit Margarita Muniz [id number] Communi 334360 [facility] 2019-01-01 2019-01-01 Office [facility] Adult Encounte r/ Legacy 00:00:00 00:00:00 Visit Isela Mitra Quinones [id number] C ommuni [id number] Health 2018-12-28 2018-12-28 Office [facility] Adult Encounte r/ Legacy 00:00:00 00:00:00 Visit Isela Hair Scynce [facility] [id number] C ommuni 336699 [facility] 2018-12-27 2018-12-27 Appointmen ANGELA HILL [id number] Univers 14:00:00 14:00:00 t; MONSERRAT HILL, it y of Reema GERMAN [place] Reema [facility] ans 2018-12-26 2018-12-26 Office [facility] Adult Encounte r/ Legacy 00:00:00 00:00:00 Visit Isela Medicine [id number] C ommuni 451551 [facility] 2018-12-26 2018-12-26 Office Provider, Public Health Services [facility] Public Encounter/ Legacy 00:00:00 00:00:00 Visit GeorgeGraffitiTech [facility] [id number] 3 Communi Services 763648 [facility] 2018-12-26 2018-12-26 Office [facility] Adult Encounte r/ Legacy 00:00:00 00:00:00 Visit Isela Hair Scynce Medicine [id number] C ommuni 394651 [facility] 2018-12-26 2018-12-26 Office [facility] Adult Encounter/ Legacy 00:00:00 00:00:00 Visit Katherine Myers Medicine [id number] Communi 163765 [facility] 2018-12-06 2018-12-06 Office Provider, Public Health Services [facility] Public Encounter/ Legacy 00:00:00 00:00:00 Visit [facility] [id number] 7 Communi Services 886104 [facility] 2018-12-06 2018-12-06 Office [facility] Adult Encounte r/ Legacy 00:00:00 00:00:00 Visit Isela Medicine [id number] C ommuni 493856 [facility] 2018-12-06 2018-12-06 Office [facility] Adult Encounter/ Legacy 00:00:00 00:00:00 Visit Lazaro Stack Medicine [id number] Communi 378717 [facility] 2018-12-06 2018-12-06 Office Provider, Public Health Services L [facility] Public Encounter/ Legacy 00:00:00 00:00:00 Visit Rodrigo Vazquez [facility] [id number] 3 [facility] 336117 [facility] 2018-12-03 2018-12-03 Appointmen ANGELA FREED Rheumatolog [id number] Univers 09:00:00 09:00:00 t; KOBY FREED MD y it y of MD Isrrael WHALEN ans 2018-10-26 2018-10-26 Appointmen ANGELA HARPER UTP [id number] Univers 13:30:00 13:30:00 t; Reema ALBERT y of Isrrael HARPER Physici M.D. ans 2018-10-15 2018-10-15 Office Abdi Anaya [facility] Adult Enco unter/ Legacy 00:00:00 00:00:00 Visit Medicine [id number] Co mmuni 706207 [facility] 2018-10-09 2018-10-09 Office Luis Felipe [facility] Adult Encounte r/ Legacy 00:00:00 00:00:00 Visit Isela Johnson Medicine [id number] C ommuni 674811 [facility] 2018-10-08 2018-10-08 Office Abdi Anaya [facility] Adult Enco unter/ Legacy 00:00:00 00:00:00 Visit Medicine [id number] Co mmuni 031005 [facility] 2018-10-08 2018-10-08 Office Abdi Anaya [facility] Adult Enco unter/ Legacy 00:00:00 00:00:00 Visit Medicine [id number] Co mmuni 003728 [facility] 2018-10-05 2018-10-05 Office Abdi Anaya [facility] Adult Enco unter/ Legacy 00:00:00 00:00:00 Visit Medicine [id number] Co mmuni 720846 [facility] 2018-10-05 2018-10-05 Office Héctor Abdi [facility] Adult Enco unter/ Legacy 00:00:00 00:00:00 Visit Medicine [id number] Co mmuni 572800 [facility] 2018-10-05 2018-10-05 Office Luis Felipe [facility] Adult Encounte r/ Legacy 00:00:00 00:00:00 Visit Isela Johnson Medicine [id number] C ommuni 216127 [facility] 2018-10-05 2018-10-05 Office Abdi Anaya [facility] Adult Enco unter/ Legacy 00:00:00 00:00:00 Visit Medicine [id number] Co mmuni 392862 [facility] 2018-10-05 2018-10-05 Office Luis Felipe [facility] Adult Encounte r/ Legacy 00:00:00 00:00:00 Visit Isela Johnson Medicine [id number] C ommuni 739854 [facility] 2018-10-05 2018-10-05 Office Provider, Public Health Services [facility] Public Encounter/ Legacy 00:00:00 00:00:00 [facility] 77[facility] 76132 [facility] Services 300870 [facility] 2018-10-05 2018-10-05 Office Isela Briscoe [facility] [facility]OSPITAL Adult Encounter/ Legacy 00:00:00 00:00:00 Visit Lazaro Stack [facility] [id number] Communi [id number] [facility] 2018-10-05 2018-10-05 Office Abdi Anaya [facility] Adult Enco unter/ Legacy 00:00:00 00:00:00 Visit Medicine [id number] Co mmuni [id number] [facility] 2018-10-05 2018-10-05 Office Abdi Anaya [facility] Adult Enco unter/ Legacy 00:00:00 00:00:00 Visit Tom Slater [facility] [id number] Candie Mane [id number] [facility] 2018-08-29 2018-08-29 Appointzamzam FUENTES [facility] UTP [id number] Univers 14:30:00 14:30:00 t; heike COOPER M.D. [place] JESSICA, Physici M.D. ans 2018-08-15 2018-08-15 ANGELA Franco UTP [id number] Univers 15:00:00 15:00:00 t; ELIER HOSKINS M.D. ity of [place], [place] M.D. Physici [facility] 2018-07-27 2018-07-27 Appointmen [facility] [id number] Univers 10:00:00 10:00:00 t; AMBER CANAS, ity of Reema CLARK M.D. Physici ans 2018-06-07 2018-06-07 [facility] [id number] Univers 12:00:00 12:00:00 t; ELIER HOSKINS M.D. ity of Isrrael THAPA M.D. Physici ans 2018-04-19 2018-04-19 [facility] Greater [id number] Univers 09:30:00 09:30:00 t; Reema ALBERT [facility] it y [place] Payam ALBERT M.D. ans 2018-04-10 2018-04-10 [facility] [id number] Univers 14:30:00 14:30:00 t; Reema ALBERT [facility] it y [place] [facility] Payam ALBERT M.D. ans 2018-01-08 2018-01-08 [facility] Rheumatolog [id number] Univers 08:30:00 08:30:00 t; DANITA HOOK M.D. y itlily of DANITAIsrrael M.D. Physici ans 2017-09-15 2017-09-15 [facility] [id number] Univers 11:00:00 11:00:00 t; ELIER HOSKINS M.D. ity of [place] THAPA M.D. Physici ans 2017-07-10 2017-07-10 [facility] [id number] Univers 10:30:00 10:30:00 t; DANITA HOOK M.D. itlily of AUGUSTAIsrrael M.D. Physici ans 2017-07-07 2017-07-07 [facility] [id number] Univers 13:00:00 13:00:00 t; ELIER HOSKINS M.D. ity of ELIERIsrrael M.D. Physici ans 2017-05-09 2017-05-09 [facility] [id number] Univers 09:00:00 09:00:00 t; Reema ALBERT [place] BETYPayam.Stanislaw ans 2017-04-12 2017-04-12 Appointmen MEREDITH, [facility] UTP [id number] Univers 14:30:00 14:30:00 t; Reema ALBERT it [place] BETYPayam.Stanislaw ans 2017-03-29 2017-03-29 Appointmen MEREDITH [facility] UTP [id number] Univers 11:00:00 11:00:00 t; Reema ALBERT it [place] BETYPayam.Stanislaw ans 2017-03-15 2017-03-15 Appointmen ANGELA HOSKINS UTP [id number] Univers 15:00:00 15:00:00 t; ELIER HOSKINS [facility].D. [facility] Physici ans 2017-03-14 2017-03-14 Appointmen ANGELA HARPER UTP [id number] Univers 13:30:00 13:30:00 t; Reema ALBERT it y [place] BETYPayam M.D. ans 2017-03-08 2017-03-08 Appointmen ANGELA OSBORNE UTP [id number] Univers 10:00:00 10:00:00 t; ROXANA OSBORNE M.D. ity of Reema SCHMIDT [place] Physici ans 2017-03-08 2017-03-08 Appointmen ANGELA HOOK UTP [id number] Univers 09:30:00 09:30:00 t; DANITA [facility]. [facility] 2017-01-04 2017-01-04 Appointmen ANGELA HOOK UTP [id number] Univers 10:00:00 10:00:00 t; DANITA HOOK [facility]. [facility] ans 2016-12-14 2016-12-14 Appointmen GATO, ANGELA UTP [id number] Univers 14:30:00 14:30:00 t; ELIER HOSKINS M.D. itlily of [facility] Physici ans 2016-12-02 2016-12-02 Appointmen ANGELA HOOK UTP [id number] Univers 11:00:00 11:00:00 t; [facility] 2016-10-28 2016-10-28 [facility] UTP [id number] Univers 10:00:00 10:00:00 t; ELIER HOSKINS M.D. [facility] Physici ans 2016-08-22 2016-08-22 [facility] [id number] Univers 09:00:00 09:00:00 t; ELIER HOSKINS M.D. [facility] Physici ans 2016-08-09 2016-08-09 Outpatient Monserrat Sykes [id number] eClinic 13:45:00 13:45:00 Nataly Logan, DO, PA DO, PA 2016-04-19 2016-04-19 [facility] [id number] Univers 10:30:00 10:30:00 t; [facility] 2015-12-09 2015-12-09 Outpatient Monserrat Sykes [id number] 1 eClinic 16:00:00 16:00:00 Nataly Logan, DO, PA DO, PA 2015-11-25 2015-11-25 Outpatient Monserrat Sykes [id number] eClinic 12:45:00 12:45:00 Nataly Logan DO, PA DO, PA 2015-11-25 2015-11-25 Outpatient Monserrat Sykes [id number] eClinic 11:45:00 11:45:00 Nataly Logan, DO, PA DO, PA 2015-05-20 2015-05-20 Outpatient Monserrat Sykes [id number] eClinic 09:42:00 09:42:00 Nataly Logan DO, PA DO, PA 2015-05-19 2015-05-19 Outpatient Monserrat Sykes [id number] eClinic 14:15:00 14:15:00 E. Buxbaum, alWradha hobbs Buxbaum, DO, PA DO, PA 2015-04-22 2015-04-22 Outpatient Monserrat Sykes [id number] eClinic 14:53:00 14:53:00 E. Buxbaum, alWradha hobbs Buxbaum, DO, PA DO, PA 2015-03-03 2015-03-03 Outpatient Monserrat Sykes [id number] eClinic 14:45:00 14:45:00 E. Buxbaum, alWor faby Buxbaum, DO, PA DO, PA 2014-12-18 2014-12-18 Outpatient Monserrat Sykes [id number] eClinic 10:54:00 10:54:00 E. Buxbaum, alWor faby Buxbaum, DO, PA DO, PA 2014-11-27 2014-11-27 Outpatient Monserrat Sykes [id number] eClinic 14:15:00 14:15:00 E. Buxbaum, erickWradha hobbs Buxbaum, DO, PA DO, PA 2014-11-27 2014-11-27 Outpatient Monserrat Sykes [id number] eClinic 14:15:00 14:15:00 E. Buxbaum, erickWor faby Buxbaum, DO, PA DO, PA 2014-08-05 2014-08-05 Outpatient Monserrat Sykes [id number] eClinic 13:54:00 13:54:00 E. Buxbaum, erickWor faby Buxbaum, DO, PA DO, PA 2014-05-21 2014-05-21 Outpatient Monserrat Sykes [id number] eClinic 14:00:00 14:00:00 E. Buxbaum, erickWor faby Buxbaum, DO, PA DO, PA 2014-04-18 2014-04-18 Outpatient Monserrat Sykes [id number] eClinic 10:20:00 10:20:00 E. Buxbaum, alWor faby Buxbaum, DO, PA DO, PA 2014-03-25 2014-03-25 Outpatient Monserrat Sykes [id number] eClinic 16:29:00 16:29:00 E. Buxbaum, erickWor faby Buxbaum, DO, PA DO, PA 2014-03-24 [...] to verify the correct patient, procedure, equipment, direct support staff and site/side marked as required.Type: abscessBody area: [...] MG/DL 60-[address] HH - CT ABD PELVIS [id number] 17:33:[address] [facility] : 1970 Sex: F Patient Name: VERO JIMENEZ Unit No: [id number] EXAMS: CPT CODE: [id number] CT ABD PELVIS W/CONT 84432 EXAM: CT abdomen and pelvis INDICATION: diffuse abd pain COMPARISON: None at this time LOCATION: [facility] CT scan of the abdomen and pelvis [...] and no free fluid are identified. IMPRESSION: [facility] NAME: VERO JIMENEZ [address] [place] PHYS: Tre Arevalo DO [place], [id number] : 1970 AGE: 49 SEX: F ACC T NO: [id number] LOC: [facility] PHONE #: [phone] EXAM DATE: 10/12/2020 STATUS: REG ER FAX #: [phone] RAD #: D/C DT PAGE 1 Signed Report (CONTINUED) Patient Name: VERO JIMENEZ Unit No: [id number] EXAMS: CPT CODE: [id number] CT ABD PELVIS W/CONT 24547 <Continued> There is fatty infiltration of the liver. Otherwise unremarkable CT scan of theabdomen and pelvis. at 1733 Reported and signed by: Isidro Corona MD CC: Tre Jc DO Technologist:Darrell Schwarz, RT(R); JASON CTDI: DLP: Trnscrpt: 10/12/2020 (173) Heather [facility] Quang NAME: VERO JIMENEZ PHYS: Tre Arevalo [place] [id number] : 1970 AGE: 49 SEX: F LOC: [place] PHONE #: [phone] EXAM DATE: 10/12/2020 STATUS: REG ER FAX#: [phone] RAD #: D/C DT PAGE 2Signed Report Patient Name: VERO JIMENEZ Unit No: [id number] EXAMS: CPT CODE: [id number] CT ABD PELVIS W/CONT 35753 <Continued> Orig Print D/T: S: 10/12/2020 (173) [facility] Quang NAME: VERO JIMENEZ PHYS: Tre Arevalo [place] [id number] : 1970 AGE: 49 SEX: F LOC: [facility] PHONE #: [phone] EXAM DATE: 10/12/2020 STATUS: REG ER FAX #: [phone] RAD #: D/C DT PAGE 3 Signed ReportHCG SERUM [id number] 17:17:00 Test Item Value Reference Range Interpretation Comments HCG SERUM QUAL (test code = HCGQL) NEGATIVE NEGATIVE A URINALYSIS [id number] 16:56:00 Test Item Value Reference Range Interpretation [...] UACULT) Criteria SOURCE OF URINE: CLEAN CATCHUA [id number] 16:56:00 Test Item Value Reference Range Interpretation Comments UA RBC (test code = RBCU) 5-10 RBC/HPF 0-3 A UA WBC (test code = XWBCU) 20-30 WBC/HPF 0-5 A UA EPITHELIAL CELLS (test MODERATE EPI/HPF FEW A code = EPIU) UA BACTERIA (test code = MANY NONE A XBACU) SOURCE OF URINE: CLEAN CATCHCOMPREHENSIVE METABOLIC [id number] 16:56:00 Test Item Value Reference Range Interpretation Comments SODIUM (test code = 137 MMOL/L 137-145 N NA) POTASSIUM (test code 4.1 MMOL/L 3.5-5.1 N = K) CHLORIDE (test code = 105 MMOL/L 98-107 N CL) CARBON DIOXIDE (test 22 MMOL/L 22-30 N code = CO2) GLUCOSE (test code = 373 MG/DL 74-106 HH CALLED TO JEANNETTE Gandhi& LUCIO) READBACK ON AT 1656 BY Maury Perez [...] UNITS/L 38-126 N (test code = ALKP) [id number] 16:56:00 Test Item Value Reference Range Interpretation Comments LIPASE (test code = LIP) 69 UNITS/L 23-300 N COMPREHENSIVE METABOLIC [id number] 16:51:00 Test Item Value Reference Range Interpretation [...] UNITS/L 38-126 N (test code = ALKP) [id number] 16:51:00 Test Item Value Reference Range Interpretation Comments LIPASE (test code = LIP) UNITS/L 23-300 COMPREHENSIVE METABOLIC [id number] 16:49:00 Test Item Value Reference Range Interpretation [...] PHOSPHATASE (test code = UNITS/L 38-126 ALKP) [id number] 16:49:00 Test Item Value Reference Range Interpretation Comments LIPASE (test code = LIP) UNITS/L 23-300 COMPREHENSIVE METABOLIC [id number] 16:48:00 Test Item Value Reference Range Interpretation [...] PHOSPHATASE (test code = UNITS/L 38-126 ALKP) [id number] 16:48:00 Test Item Value Reference Range Interpretation Comments LIPASE (test code = LIP) UNITS/L 23-300 CBC W/AUTO [id number] 16:45:00 Test Item Value Reference Range Interpretation [...] = 0.00 K/mm3 0.0-0.1 N NRBC#) URINALYSIS [id number] 16:40:00 Test Item Value Reference Range Interpretation [...] = UACULT) SOURCE OF URINE: CLEAN CATCHUA [id number] 16:40:00 Test Item Value Reference Range Interpretation Comments UA RBC (test code = RBCU) RBC/HPF 0-3 UA WBC (test code = XWBCU) WBC/HPF 0-5 UA EPITHELIAL CELLS (test code = EPI/HPF FEW EPIU) UA BACTERIA (test code = XBACU) NONE SOURCE OF URINE: CLEAN CATCHURINALYSIS [id number] 16:40:00 Test Item Value Reference Range Interpretation [...] = UACULT) SOURCE OF URINE: CLEAN CATCHUA [id number] 16:40:00 Test Item Value Reference Range Interpretation [...] Normal AND TIME: (test code = 5195-3) [facility] Physicians[QL] RPR (DX) W/REFL TITER AND CONFIRMATORY [id number] 00:00:00 Test Item Value Reference Range Interpretation Comments RPR (DX) W/REFL TITER NON-REACTIVE NON-REACTIVE N SPECIM EN RECEIVED AND CONFIRMATORY DATE AND TI ME: TESTING (test code = 5386525 12710 RPR (DX) W/REFL TITER AND CONFIRMATORY TESTING) [facility]. [facility] - [id number] 00:00:00 Test Item Value Reference Range Interpretation Comments Case (test code = Click ImageLink button A Case) for report. [facility] PhysiciansGLUCOSE BEDSIDE [id number] 14:54:00 Test Item Value Reference Range Interpretation Comments GLUCOSE BEDSIDE TESTING (test code 284 MG/DL 60-99 H = GLUBED) GLUCOSE BEDSIDE [id number] 12:40:00 Test Item Value Reference Range Interpretation Comments GLUCOSE BEDSIDE TESTING (test code 251 MG/DL 60-99 H = GLUBED) GLUCOSE BEDSIDE [id number] 08:23:00 Test Item Value Reference Range Interpretation Comments GLUCOSE BEDSIDE TESTING (test code 250 MG/DL 60-99 H = GLUBED) GLUCOSE BEDSIDE [id number] 08:23:00 Test Item Value Reference Range Interpretation Comments GLUCOSE BEDSIDE TESTING (test code 186 MG/DL 60-99 H = GLUBED) GLUCOSE BEDSIDE [id number] 08:23:00 Test Item Value Reference Range Interpretation Comments GLUCOSE BEDSIDE TESTING (test code 219 MG/DL 60-99 H = GLUBED) GLUCOSE BEDSIDE [id number] 11:11:00 Test Item Value Reference Range Interpretation Comments GLUCOSE BEDSIDE TESTING (test code 211 MG/DL 60-99 H = GLUBED) COVID 19 Asymptomatic IH [id number] 10:39:00 Test Item Value Reference Range Interpretation [...] beconsidered in the context of a pa alexand[place] recent exposure s,history, and the presenc e of clinical signs and symptomsconsist ent with COVID-19.This t est detects both vi able andnon-viable S ARS-CoV and SARS CoV-2. Test performance dep endson the amount of virus (antigen) in the sample." [id number] 09:08:00 Test Item Value Reference Range Interpretation Comments ALCOHOL (test code = 159.0 MG/DL <10 HH CALLED TO DAE.M& ALC) READBACK ON 05/09 AT 0908 BY Porfirio Roldan URINALYSIS [id number] 09:06:00 Test Item Value Reference Range Interpretation [...] OF URINE: CLEAN CATCHDRUGS OF ABUSE SCREEN [id number] 09:06:00 Test Item Value Reference Range Interpretation [...] PHENCU) ng/mL SOURCE OF URINE: CLEAN CATCHURINALYSIS [id number] 06:59:00 Test Item Value Reference Range Interpretation [...] OF URINE: CLEAN CATCHDRUGS OF ABUSE SCREEN [id number] 06:59:00 Test Item Value Reference Range Interpretation [...] PHENCU) ng/mL SOURCE OF URINE: CLEAN CATCHURINALYSIS [id number] 06:57:00 Test Item Value Reference Range Interpretation [...] OF URINE: CLEAN CATCHDRUGS OF ABUSE SCREEN [id number] 06:57:00 Test Item Value Reference Range Interpretation [...] = PHENCU) SOURCE OF URINE: CLEAN CATCHURINALYSIS [id number] 06:56:00 Test Item Value Reference Range Interpretation [...] OF URINE: CLEAN CATCHDRUGS OF ABUSE SCREEN [id number] 06:56:00 Test Item Value Reference Range Interpretation [...] = PHENCU) SOURCE OF URINE: CLEAN CATCHURINALYSIS [id number] 06:55:00 Test Item Value Reference Range Interpretation [...] DIPSTICK (test code 5.0 5.0-9.0 N = JURAEZ) UA PROTEIN DIPSTICK (test NEGATIVE MG/DL NEGATIVE code = PROU) UA UROBILINIOGEN DIPSTICK NORMAL MG/DL NORMAL (test code = URO) UA NITRITE DIPSTICK (test NEGATIVE NEGATIVE code = CARON) UA LEUKOCYTE ESTERASE NEGATIVE /mm3 NEGATIVE DIPSTICK (test code = LEUU) UA CULTURE NEEDED? (test NEGATIVE, NO CULTURE Culture Chk code = UACULT) Criteria SOURCE OF URINE: CLEAN CATCHDRUGS OF ABUSE SCREEN [id number] 06:55:00 Test Item Value Reference Range Interpretation [...] = PHENCU) SOURCE OF URINE: CLEAN CATCHURINALYSIS [id number] 06:43:00 Test Item Value Reference Range Interpretation [...] OF URINE: CLEAN CATCHDRUGS OF ABUSE SCREEN [id number] 06:43:00 Test Item Value Reference Range Interpretation [...] NEGATIVE PHENCU) SOURCE OF URINE: CLEAN CATCHURINALYSIS [id number] 06:42:00 Test Item Value Reference Range Interpretation [...] OF URINE: CLEAN CATCHDRUGS OF ABUSE SCREEN [id number] 06:42:00 Test Item Value Reference Range Interpretation [...] PHENCU) SOURCE OF URINE: CLEAN CATCHBASIC METABOLIC [id number] 05:17:00 Test Item Value Reference Range Interpretation [...] 9.5 MG/DL 8.4-10.2 N CA) HEPATIC FUNCTION [id number] 05:17:00 Test Item Value Reference Range Interpretation [...] = 92 UNITS/L 38-126 N ALKP) HCG [id number] 05:17:00 Test Item Value Reference Range Interpretation Comments HCG SERUM (test < 2 IU/L ~~~~~~~~~~~~ ~~~~~~~~~~~~~~~~ code = HCG) ~~~~~~~~~~~~~~~ ~~~~~~~~~~~~~ ~~~~INTERPRETAT ION OF BHCG QN PERFORMED AT [facility] 0.2-1 W EEKS AFTER CONCEPTION [...] Units per milliliter AND LESS THAN 25 eliazar-Ice Plant Operator ational Units per milliliterS CHIO HAVE ADDITIONAL BLOO D SAMPLE DRAWN 48 HOURSL ATER AND REPEATED.~~~~~~ ~~~~~~~~~~~~~ ~~~~~~~~~~~~~~~ ~~~~~~~~~~~~~ ~~~~~~~~~~~~~ [id number] 05:17:00 Test Item Value Reference Range Interpretation Comments ACETAMINOPHEN (test code = < 10.0 MCG/ML 10-30 L ACET) [id number] 05:17:00 Test Item Value Reference Range Interpretation Comments SALICYLATE (test code = GO) < 1.0 MG/DL <2.0 [id number] 05:17:00 Test Item Value Reference Range Interpretation Comments ALCOHOL (test code = 231.0 MG/DL <10 HH CALLED TO PREMA Briscoe ALC) READBACK ON 05/09 AT 0517 BY Lj Estrada BASIC METABOLIC [id number] 04:47:00 Test Item Value Reference Range Interpretation [...] code = MG/DL 8.7-9.7 CA) HEPATIC FUNCTION [id number] 04:47:00 Test Item Value Reference Range Interpretation [...] (test code = UNITS/L 38-126 ALKP) HCG [id number] 04:47:00 Test Item Value Reference Range Interpretation Comments HCG SERUM (test code = HCG) IU/L [id number] 04:47:00 Test Item Value Reference Range Interpretation Comments ACETAMINOPHEN (test code = ACET) MCG/ML 10-30 [id number] 04:47:00 Test Item Value Reference Range Interpretation Comments SALICYLATE (test code = GO) MG/DL <2.0 [id number] 04:47:00 Test Item Value Reference Range Interpretation Comments ALCOHOL (test code = ALC) MG/DL <10 BASIC METABOLIC [id number] 04:45:00 Test Item Value Reference Range Interpretation [...] code = CA) MG/DL 8.7-9.7 HEPATIC FUNCTION [id number] 04:45:00 Test Item Value Reference Range Interpretation [...] (test code = UNITS/L 38-126 ALKP) HCG [id number] 04:45:00 Test Item Value Reference Range Interpretation Comments HCG SERUM (test code = HCG) IU/L [id number] 04:45:00 Test Item Value Reference Range Interpretation Comments ACETAMINOPHEN (test code = ACET) MCG/ML 10-30 [id number] 04:45:00 Test Item Value Reference Range Interpretation Comments SALICYLATE (test code = GO) MG/DL <2.0 [id number] 04:45:00 Test Item Value Reference Range Interpretation Comments ALCOHOL (test code = ALC) MG/DL <10 BASIC METABOLIC [id number] 04:44:00 Test Item Value Reference Range Interpretation [...] code = CA) MG/DL 8.7-9.7 HEPATIC FUNCTION [id number] 04:44:00 Test Item Value Reference Range Interpretation [...] (test code = UNITS/L 38-126 ALKP) HCG [id number] 04:44:00 Test Item Value Reference Range Interpretation Comments HCG SERUM (test code = HCG) IU/L [id number] 04:44:00 Test Item Value Reference Range Interpretation Comments ACETAMINOPHEN (test code = ACET) MCG/ML 10-30 [id number] 04:44:00 Test Item Value Reference Range Interpretation Comments SALICYLATE (test code = GO) MG/DL <2.0 [id number] 04:44:00 Test Item Value Reference Range Interpretation Comments ALCOHOL (test code = ALC) MG/DL <10 CBC W/AUTO [id number] 04:37:00 Test Item Value Reference Range Interpretation [...] 0.00 K/mm3 0.0-0.1 N NRBC#) CBC W/AUTO [id number] 15:34:00 Test Item Value Reference Range Interpretation [...] (test code = ADEQUATE ADEQUATE PLTEST) WBC [id number] 15:34:00 Test Item Value Reference Range Interpretation [...] (test code = NORMAL NORMAL PLTMORPH) URINALYSIS [id number] 15:04:00 Test Item Value Reference Range Interpretation [...] BACU) None /HPF NONE SEEN BASIC METABOLIC [id number] 14:57:00 Test Item Value Reference Range Interpretation [...] mg/dL 8.5-10.5 N = CA) LIVER FUNCTION [id number] 14:57:00 Test Item Value Reference Range Interpretation [...] code = 62 U/L 42-121 N ALKP) [id number] 14:57:00 Test Item Value Reference Range Interpretation Comments LIPASE (test code = LIP) 55 IU/L 22-51 H CBC W/AUTO [id number] 14:52:00 Test Item Value Reference Range Interpretation [...] 9.9 fL 8.6-12.6 N = MPV) WBC [id number] 14:52:00 Test Item Value Reference Range Interpretation Comments TOTAL CELLS COUNTED (test code = TCC) #CELLS RBC MORPHOLOGY COMMENT (test code = NORMAL MOC) PLATELET MORPHOLOGY (test code = NORMAL PLTMORPH) CBC W/AUTO [id number] 14:52:00 Test Item Value Reference Range Interpretation [...] 9.9 fL 8.6-12.6 N = MPV) WBC [id number] 14:52:00 Test Item Value Reference Range Interpretation Comments TOTAL CELLS COUNTED (test code = TCC) #CELLS RBC MORPHOLOGY COMMENT (test code = NORMAL MOC) PLATELET MORPHOLOGY (test code = NORMAL PLTMORPH) BASIC METABOLIC [id number] 14:50:00 Test Item Value Reference Range Interpretation [...] mg/dL 8.5-10.5 N = CA) LIVER FUNCTION [id number] 14:50:00 Test Item Value Reference Range Interpretation [...] PHOSPHATASE (test code = U/L 42-121 ALKP) [id number] 14:50:00 Test Item Value Reference Range Interpretation Comments LIPASE (test code = LIP) 55 IU/L 22-51 H HCG SERUM [id number] 14:48:00 Test Item Value Reference Range Interpretation Comments HCG SERUM QUAL NEGATIVE NEGATIVE This is a lucien litative (test code = HCGQL) screenin g test.The quantitative Bh cg may be helpful.Weakly positive results should be repeated in 48 hours. [id number] 13:28:00 Test Item Value Reference Range Interpretation Comments GLUBED (test code = GLUBED) 246 MG/DL 70-[address], [id number] 13:59:00FINAL REPORT TECHNIQUE: CT of the abdomen [...] acute intra-abdominal or intrapelvic abnormality.. Signed: Jose [place] Verified Date/Time: 04/05/2020 13:59:01 Reading Location: [facility] C013Y CT Body Reading Room LIPASE 2020-04-05 13:33:00 Test Item Value Reference Range Interpretation Comments LIPASE (BEAKER) (test code = 749) 90 U/L 40-240 COMPREHENSIVE METABOLIC [id number] 13:24:00 Test Item Value Reference Range Interpretation [...] S NOT APPLICABLE FOR DIALYSIS PATIEN TS. URINALYSIS W/ [id number] 13:22:00 Test Item Value Reference Range Interpretation [...] code = 1663) SOURCE(BEAKER) (test code = 2042) CBC W/PLT COUNT & AUTO [id number] 13:15:00 Test Item Value Reference Range Interpretation [...] 0.00-0.20 (test code = 417) [QL] CMP [id number] 00:00:00 Test Item Value Reference Range Interpretation [...] 100 {ML/MIN/1.7} > OR = 60 N [place] (test code = eGFR NON-) eGFR 116 {ML/MIN/1.7} > OR = 60 N [place] (test code = eGFR ) BUN/CREATININE NOT [...] mg/dl 0.2-1.2 N Normal (test code = 19292-0) ALKALINE 58 u/l 31-125 N PHSPHATASE (test code = ALKALINE PHSPHATASE) AST; Normal (test 12 u/l 10-35 N code = 1916-6) ALT; Normal (test 15 u/l 6-29 N code = 1742-6) [facility][QL] SED RATE BY MODIFIED [id number] 00:00:00 Test Item Value Reference Range Interpretation Comments SED RATE BY MODIFIED WESTERGREN (test 9 mm/h < OR = 20 N code = SED RATE BY MODIFIED WESTERGREN) [facility][QL] CBC (INCLUDES DIFF/PLT)2020-03-04 00:00:00 Test Item Value Reference Range Interpretation Comments WHITE BLOOD CELL COUNT 5.3 {Thousand/u} 3.8-10.8 N (test code = WHITE BLOOD CELL COUNT) RED BLOOD CELL COUNT (test 4.68 {Million/uL} 3.80-5.10 N code = RED BLOOD CELL COUNT) HEMAGLOBIN; Normal (test 13.1 g/dl 11.7-15.5 N code = 57010-1) HEMATOCRIT; Normal (test 40.6 % 35.0-45.0 N code = 4544-3) MCV; Normal (test code = 86.8 fL 80.0-100.0 N 787-2) MCHC; Normal (test code = 32.3 g/dl 32.0-36.0 N 82969-9) RDW; Normal (test code = 12.8 % 11.0-15.0 N 788-0) PLATELET COUNT; Normal 233 {Thousand/u} 140-400 N (test code = 777-3) MPV; Normal (test code = 11.1 fL 7.5-12.5 N 90251-4) ABSOLUTE NEUTROPHILS (test 3042 {cells/uL} 9460-5471 N code = ABSOLUTE NEUTROPHILS) ABSOLUTE LYMPHOCYTES [...] Normal (test 5.6 % N code = 64956-8) EOSINOPHILS; Normal (test 4.0 % N code = 29859-5) BASOPHILS; Normal (test 0.6 % N code = 39950-4) [facility][QL] RHEUMATOID [id number] 00:00:00 Test Item Value Reference Range Interpretation Comments RHEUMATOID FACTOR (test code = <14 <14 N RHEUMATOID FACTOR) [facility][QL] C-REACTIVE [id number] 00:00:00 Test Item Value Reference Range Interpretation Comments C-REACTIVE PROTEIN (test code = 3.7 mg/L <8.0 N C-REACTIVE PROTEIN) [facility][Q] QUANTIFERON( R)-TB GOLD PLUS, 1 [id number] 00:00:00 Test Item Value Reference Range Interpretation [...] For additional info rmation, please refer [email or web address](Th is link is araseli johnson provided for informational/e ducational purposes only.) [facility][O] Hemoglobin A1c (in office)2020-02-25 14:00:00 Test Item Value Reference Range Interpretation Comments HEMOGLOBIN A1c (test code = 4548-4) 14.0 [facility]iciansMRI Pelvis without contrast [id number] 18:05:00EXAM: MR PELVIS WITHOUT CONTRASTDATE: 12/28/2019 17:41 [...] Signed by: Nikolai Ramirez MD 12/29/2005:03FINAL REPORT [facility] PhysiciansNeisseria gonorrhoeae DNA [id number] 16:05:00 Test Item Value Reference Range Interpretation Comments Neisseria gonorrhoeae DNA probe Negative Negative (test code = 22898-3) [facility] [id number] 16:05:00 Test Item Value Reference Range Interpretation Comments chlamydia DNA probe (test code = Negative Negative 25810-1) [facility]trich[facility] vaginalis, [id number] 16:05:00 Test Item Value Reference Range Interpretation Comments trichomonas vaginalis, urine (test Positive Negative A code = 3887) [facility] glucose, [id number] 10:17:43 Test Item Value Reference Range Interpretation Comments blood glucose, fasting (test code = 335 mg/dL 7) [facility]Gl[facility] ([facility] In Office)2019-11-21 09:08:00 Test Item Value Reference Range Interpretation Comments Glucose POC Lifescan (test code = 418 Glucose POC Lifescan) [facility][QLH] MICROALBUMIN, RANDOM URINE (W/CREATININE) 2019-10-22 17:51:01 Test Item Value Reference Range Interpretation Comments Urine Microalbumin 46.2 mg/L No establ ished (test code = Urine reference range. Microalbumin) U Creatinine (test 74.60 mg/dl No establ ished code = 2161-8) reference ran ge. Urine Microalbuming 61.9 mg/g <=30.0 Creatinine Ratio; Above High Threshold (test code = 10201-5) [facility]] CBC (INCLUDES DIFF/PLT)2019-10-22 14:42:01 Test Item Value Reference Range Interpretation Comments WBC (test code = 6690-2) 5.0 {K/CMM} 3.7-10.4 RBC (test code = 789-8) 4.75 {M/CMM} 4.20-5.40 Hgb (test code = 718-7) 13.6 g/dl 12.0-16.0 Hct (test code = 84080-1) 42.0 % 36.0-48.0 MCV (test code = 787-2) 88.4 fL 80.0-98.0 MCH (test code = 785-6) 28.7 pg 27.0-31.0 MCHC (test code = 786-4) 32.5 g/dl 32.0-36.0 RDW (test code = 788-0) 13.6 % 11.5-14.5 Platelet (test code = 88267-5) 212 {K/CMM} 133-450 Mean Platelet Volume (test code 9.6 fL 7.4-10.4 = 54520-6) [facility]] [id number] 14:42:01 Test Item Value Reference Range Interpretation Comments Segmented Neutrophils; Below Low 42.4 % 45.0-75.0 Threshold (test code = 46636-3) Monocytes (test code = 78827-8) 5.0 % 2.0-12.0 Lymphocytes; Above High Threshold 50.3 % 20.0-40.0 (test code = 61707-4) Eosinophils (test code = 83741-5) 1.7 % 0.0-4.0 Basophils (test code = 706-2) 0.6 % 0.0-1.0 Segs-Bands # (test code = 2.1 {K/CMM} 1.5-8.1 19510-1) Lymphocytes # (test code = 2.5 {K/CMM} 1.0-5.5 21466-3) Monocytes # (test code = 36184-4) 0.2 {K/CMM} 0.0-0.8 Eosinophils # (test code = 0.1 {K/CMM} 0.0-0.5 01541-2) [facility]] CMP [id number] 14:42:01 Test Item Value Reference Range Interpretation Comments Sodium Level 140 {mEq/l} 135-145 (test code = 2951-2) Potassium Level 4.1 {mEq/l} 3.5-5.1 (test code = 2823-3) Chloride Level 106 {mEq/l} 95-109 (test code = 2075-0) Carbon Dioxide; 23 {mEq/l} 24-32 Below Low Threshold (test code = 2027-9) AGAP (test code = 15.1 {mEq/l} 10.0-20.0 03439-6) Glucose Lvl; 289 mg/dl 70-99 Adult reference range Above High values reflect the Threshold (test clinical moises delinesof the code = 2345-7) [employer]. Creatinine Lvl 0.70 mg/dl 0.50-1.40 (test code = 2160-0) Blood Urea 11 mg/dl 7-22 Nitrogen (test code = 3094-0) BUN/Creatinine 16 6-25 Ratio (test code = 3097-3) Total Protein 7.8 g/dl 6.4-8.4 (test code = 2885-2) Albumin Lvl (test 3.9 g/dl 3.5-5.0 code = 1751-7) Globulin (test 3.9 g/dl 2.7-4.2 code = 81349-6) A/G Ratio (test 1.0 0.7-1.6 code = 1759-0) Calcium Level 9.6 mg/dl 8.5-10.5 Total (test code = 72595-3) ALT (test code = 26 u/l 0-65 1743-4) AST (test code = 13 u/l 0-37 82362-1) Bili Total (test 0.5 mg/dl 0.2-1.3 code = 1975-2) Alk Phos (test 73 u/l 39-136 The pediatric reference code = 1783-0) ranges for th is test represent a CLSI-basedtrans ference of the CALIPER natalia abase of pediatric refer ence intervals to eSiemens Laurel analyzer (Clinical Biochemistry 46 (2013): 8872-5068). [facility] has not internally validated these reference ranges and therefore they should be used only in th e context of a thoroughcl inical assessment. eGFR (test code = 103 The eGFR i s calculated 10151-9) {ML/MIN/1.7} using the CKD-E PI formula. In [...] be multiplied by t he estimated BMI. [facility]] LIPID [id number] 14:42:01 Test Item Value Reference Range Interpretation Comments Chol (test code = 2093-3) 197 mg/dl <=199 Trig; Above High Threshold (test 196 mg/dl <=149 code = 2571-8) HDL Cholesterol; Below Low 55 mg/dl >=61 Threshold (test code = 2085-9) CHD Risk; Below Low Threshold (test 3.58 3.90-5.80 code = 00397-7) LDL; Above High Threshold (test 103 mg/dl <=99 code = 42155-5) VLDL (test code = VLDL) 39 [facility]] VITAMIN [id number] 14:42:01 Test Item Value Reference Range Interpretation Comments Vitamin B12 Level (test code = 521 pg/ml 2541320 2132-9) [facility]] HEMOGLOBIN [id number] 14:42:01 Test Item Value Reference Range Interpretation Comments Hemoglobin A1c; Above High Threshold 14.3 % <=5.6 (test code = 4548-4) [facility] VITAMIN D, 25-HYDROXY, [id number] 14:42:01 Test Item Value Reference Range Interpretation Comments Vitamin D, 25-OH, 24.9 ng/ml 30.0-100.0 Reference range is based Total (test code on recommen dations in the = Vitamin D, EndocrineSociet y Clinical 25-OH, Total) Practice Guide line (J Clin Endocrinol Sufdv6527;96:19 11-1930) [facility] PhysiciansNeisseria gonorrhoeae DNA [id number] 16:30:00 Test Item Value Reference Range Interpretation Comments Neisseria gonorrhoeae DNA probe Negative Negative (test code = 64420-0) [facility] [id number] 16:30:00 Test Item Value Reference Range Interpretation Comments chlamydia DNA probe (test code = Negative Negative 64071-0) [facility] Hospitaltrichomonas vaginalis, [id number] 16:30:00 Test Item Value Reference Range Interpretation Comments trichomonas vaginalis, urine (test Negative Negative code = 3887) [facility]hepatitis B surface [id number] 13:18:00 Test Item Value Reference Range Interpretation Comments hepatitis B surface antigen (test Negative Negative code = 79) [facility] C antibody, [id number] 13:18:00 Test Item Value Reference Range Interpretation Comments hepatitis C antibody, serum (test code <0.1 0.0-0.9 = 2722) [facility] HospitalHIV-CMIA (Chemiluminescent Microparticle Immuno Assay) 2019-10-09 13:18:00 Test Item Value Reference Range Interpretation Comments HIV-CMIA (Chemiluminescent Non Reactive Non Reactive Microparticle Immuno Assay) (test code = 435913) [facility] Hospitalrapid plasma reagin antibody, [id number] 13:18:00 Test Item Value Reference Range Interpretation Comments rapid plasma reagin antibody, Non Reactive Non Reactive serum (test code = 308) [facility]hemoglobin A1C, blood, as % of total mvdizgyjag1016-67-85 13:18:00 Test Item Value Reference Range Interpretation Comments hemoglobin A1C, blood, as % of total 14.5 % 4.8-5.6 H hemoglobin (test code = 4548-4) [facility] HospitalHERPES SIMPLEX VIRUS TYPE 1 AB.IGG (PT; SER; QN; ) 2019-10-09 13:18:00 Test Item Value Reference Range Interpretation Comments HERPES SIMPLEX VIRUS TYPE 1 11.70 index 0.00-0.90 H AB.IGG (PT; SER; QN; ) (test code = 2432) [facility] Hospitalalanine aminotransferase (SGPT), [id number] 13:18:00 Test Item Value Reference Range Interpretation Comments alanine aminotransferase (SGPT), serum 22 1/L 0-32 (test code = 40) [facility] Hospitalaspartate aminotransferase (SGOT), [id number] 13:18:00 Test Item Value Reference Range Interpretation Comments aspartate aminotransferase (SGOT), 21 1/L 0-40 serum (test code = 39) [facility] Hospitalalkaline phosphatase, [id number] 13:18:00 Test Item Value Reference Range Interpretation Comments alkaline phosphatase, serum (test code 92 1/L 39-117 = 3) [facility]bilirubin, serum, [id number] 13:18:00 Test Item Value Reference Range Interpretation Comments bilirubin, serum, total (test code 0.4 mg/dL 0.0-1.2 = 43) [facility]albumin/globulin ratio, [id number] 13:18:00 Test Item Value Reference Range Interpretation Comments albumin/globulin ratio, serum (test 1.8 1.2-2.2 code = 146) [facility] Hospitalglobulin, [id number] 13:18:00 Test Item Value Reference Range Interpretation Comments globulin, serum (test code = 3059) 2.4 1.5-4.5 [facility]albumin, [id number] 13:18:00 Test Item Value Reference Range Interpretation Comments albumin, serum (test code = 2) 4.3 g/dL 3.5-5.5 [facility] Healthprotein, total, [id number] 13:18:00 Test Item Value Reference Range Interpretation Comments protein, total, serum (test code = 6.7 g/dL 6.0-8.5 36) [facility] Hospitalcalcium, [id number] 13:18:00 Test Item Value Reference Range Interpretation Comments calcium, serum (test code = 11) 9.4 mg/dL 8.7-10.2 [facility] Hospitalcarbon dioxide, venous [id number] 13:18:00 Test Item Value Reference Range Interpretation Comments carbon dioxide, venous blood (test 21 mmol/L 20- code = 15) [facility] Healthchloride, [id number] 13:18:00 Test Item Value Reference Range Interpretation Comments chloride, serum (test code = 13) 101 mmol/L 96-106 [facility] Hospitalpotassium, [id number] 13:18:00 Test Item Value Reference Range Interpretation Comments potassium, serum (test code = 35) 4.3 mmol/L 3.5-5.2 [facility] Hospitalsodium, [id number] 13:18:00 Test Item Value Reference Range Interpretation Comments sodium, serum (test code = 159) 140 mmol/L 134-144 [facility] Hospitalurea nitrogen/creatinine ratio, [id number] 13:18:00 Test Item Value Reference Range Interpretation Comments urea nitrogen/creatinine ratio, serum 11 9-23 (test code = 2462) [facility] HealtheGFR if [id number] 13:18:00 Test Item Value Reference Range Interpretation Comments eGFR if 98 >59 (test code = 509839) mL/min/((173/100).m2) [facility] HospitalEstimated Glomerular Filtration Rate (calc)2019-10-09 13:18:00 Test Item Value Reference Range Interpretation Comments Estimated Glomerular 85 >59 Filtration Rate (calc) mL/min/((173/100).m2 (test code = 34367) ) [facility] Hospitalcreatinine, [id number] 13:18:00 Test Item Value Reference Range Interpretation Comments creatinine, serum (test code = 18) 0.82 mg/dL 0.57-1.00 [facility] Hospitalurea nitrogen, [id number] 13:18:00 Test Item Value Reference Range Interpretation Comments urea nitrogen, blood (test code = 9) 9 mg/dL 6-24 [facility]blood glucose, [id number] 13:18:00 Test Item Value Reference Range Interpretation Comments blood glucose, random (test code = 364 mg/dL 65-99 H 8) [facility] Hospitalbacteria, urine [id number] 13:16:00 Test Item Value Reference Range Interpretation Comments bacteria, urine microscopy (test None seen None seen/Few code = 2406) [facility] Hospitalepithelial cells, [id number] 13:16:00 Test Item Value Reference Range Interpretation Comments epithelial cells, urine (test code = 0-10 0-10 7356) [facility] HospitalRBC, [id number] 13:16:00 Test Item Value Reference Range Interpretation Comments RBC, Urine (test code = 01789) 0-2 /hpf 0-2 [facility] HospitalWBC urine on xnjbezfcmf5370-46-09 13:16:00 Test Item Value Reference Range Interpretation Comments WBC urine on microscopy (test code = 0-5 /hpf 0-5 1016) [facility] Hospitalmicroscopic [id number] 13:16:00 Test Item Value Reference Range Interpretation Comments microscopic exam (test code = See below: 13434) [facility] Hospitalurinalysis, microscopic udigbigwpan4677-46-15 13:16:00 Test Item Value Reference Range Interpretation Comments urinalysis, microscopic examination MICRON (test code = 2566) [facility] Hospitalnitrate, [id number] 13:16:00 Test Item Value Reference Range Interpretation Comments nitrate, urine (test code = 5135) Negative Negative [facility] Hospitalurobilinogen, urine, semiquantitative (dipstick) 2019-10-09 13:16:00 Test Item Value Reference Range Interpretation Comments urobilinogen, urine, semiquantitative 0.2 0.2-1.0 (dipstick) (test code = 326) [facility]bilirubin, [id number] 13:16:00 Test Item Value Reference Range Interpretation Comments bilirubin, urine (test code = 319) Negative Negative [facility] Hospitalketones, urine, by test [id number] 13:16:00 Test Item Value Reference Range Interpretation Comments ketones, urine, by test strip (test Negative Negative code = 322) [facility] Hospitalglucose, urine, erpfqfphhckcguab1803-00-89 13:16:00 Test Item Value Reference Range Interpretation Comments glucose, urine, semiquantitative (test 3+ Negative A code = 123) [facility]protein, urine, semiquantitative (dipstick)2019-10-09 13:16:00 Test Item Value Reference Range Interpretation Comments protein, urine, semiquantitative Negative Negative/Trace (dipstick) (test code = 1753-3) [facility] Hospitalleukocyte esterase, urine, by pisalyzy3609-87-84 13:16:00 Test Item Value Reference Range Interpretation Comments leukocyte esterase, urine, by Negative Negative dipstick (test code = 327) [facility] Hospitalappearance, [id number] 13:16:00 Test Item Value Reference Range Interpretation Comments appearance, urine (test code = 328) Clear Clear [facility] Hospitalurine [id number] 13:16:00 Test Item Value Reference Range Interpretation Comments urine color (test code = 2751) Yellow Yellow [facility] HospitalpH, urine, zysieegilgcpnnoa2863-05-63 13:16:00 Test Item Value Reference Range Interpretation Comments pH, urine, semiquantitative (test code 6.0 5.0-7.5 = 324) [facility] Hospitalspecific gravity, body [id number] 13:16:00 Test Item Value Reference Range Interpretation Comments specific gravity, body fluid (test >=1.030 1.005-1.030 A code = 3512) [facility] HospitalNeisseria gonorrhoeae DNA [id number] 15:43:00 Test Item Value Reference Range Interpretation Comments Neisseria gonorrhoeae DNA probe Negative Negative (test code = 14528-7) [facility] Hospitalchlamydia DNA [id number] 15:43:00 Test Item Value Reference Range Interpretation Comments chlamydia DNA probe (test code = Negative Negative 30915-4) [facility] Hospitaltrichomonas vaginalis, [id number] 15:43:00 Test Item Value Reference Range Interpretation Comments trichomonas vaginalis, urine (test Positive Negative A code = 3887) [facility] HospitalHIV-CMIA (Chemiluminescent Microparticle Immuno Assay) 2019-07-19 14:55:00 Test Item Value Reference Range Interpretation Comments HIV-CMIA (Chemiluminescent Non Reactive Non Reactive Microparticle Immuno Assay) (test code = 020302) [facility] Hospitalrapid plasma reagin antibody, [id number] 14:55:00 Test Item Value Reference Range Interpretation Comments rapid plasma reagin antibody, Non Reactive Non Reactive serum (test code = 308) [facility] Hospitalalanine aminotransferase (SGPT), [id number] 14:55:00 Test Item Value Reference Range Interpretation Comments alanine aminotransferase (SGPT), serum 17 1/L 0-32 (test code = 40) [facility] Hospitalaspartate aminotransferase (SGOT), [id number] 14:55:00 Test Item Value Reference Range Interpretation Comments aspartate aminotransferase (SGOT), 15 1/L 0-40 serum (test code = 39) [facility] Hospitalalkaline phosphatase, [id number] 14:55:00 Test Item Value Reference Range Interpretation Comments alkaline phosphatase, serum (test code 83 1/L 39-117 = 3) [facility]bilirubin, serum, [id number] 14:55:00 Test Item Value Reference Range Interpretation Comments bilirubin, serum, total (test code 0.3 mg/dL 0.0-1.2 = 43) [facility] Healthalbumin/globulin ratio, [id number] 14:55:00 Test Item Value Reference Range Interpretation Comments albumin/globulin ratio, serum (test 1.6 1.2-2.2 code = 146) [facility] Healthglobulin, [id number] 14:55:00 Test Item Value Reference Range Interpretation Comments globulin, serum (test code = 3059) 2.9 1.5-4.5 [facility] Healthalbumin, [id number] 14:55:00 Test Item Value Reference Range Interpretation Comments albumin, serum (test code = 2) 4.6 g/dL 3.5-5.5 [facility] Healthprotein, total, [id number] 14:55:00 Test Item Value Reference Range Interpretation Comments protein, total, serum (test code = 7.5 g/dL 6.0-8.5 36) [facility] Hospitalcalcium, [id number] 14:55:00 Test Item Value Reference Range Interpretation Comments calcium, serum (test code = 11) 10.3 mg/dL 8.7-10.2 H [facility] Hospitalcarbon dioxide, venous [id number] 14:55:00 Test Item Value Reference Range Interpretation Comments carbon dioxide, venous blood (test 18 mmol/L 20-29 L code = 15) [facility] Hospitalchloride, [id number] 14:55:00 Test Item Value Reference Range Interpretation Comments chloride, serum (test code = 13) 99 mmol/L 96-106 [facility] Healthpotassium, [id number] 14:55:00 Test Item Value Reference Range Interpretation Comments potassium, serum (test code = 35) 4.8 mmol/L 3.5-5.2 [facility]alsodium, [id number] 14:55:00 Test Item Value Reference Range Interpretation Comments sodium, serum (test code = 159) 137 mmol/L 134-144 [facility] Hospitalurea nitrogen/creatinine ratio, [id number] 14:55:00 Test Item Value Reference Range Interpretation Comments urea nitrogen/creatinine ratio, serum 17 9-23 (test code = 2462) [facility] HealtheGFR if Zejuablk4931-73-69 14:55:00 Test Item Value Reference Range Interpretation Comments eGFR if 98 >59 (test code = 006229) mL/min/((173/100).m2) [facility] HospitalEstimated Glomerular Filtration Rate (calc)2019-07-19 14:55:00 Test Item Value Reference Range Interpretation Comments Estimated Glomerular 85 >59 Filtration Rate (calc) mL/min/((173/100).m2 (test code = 62714) ) [facility] Hospitalcreatinine, [id number] 14:55:00 Test Item Value Reference Range Interpretation Comments creatinine, serum (test code = 18) 0.82 mg/dL 0.57-1.00 [facility] Hospitalurea nitrogen, [id number] 14:55:00 Test Item Value Reference Range Interpretation Comments urea nitrogen, blood (test code = 9) 14 mg/dL 6-24 [facility]blood glucose, qldpgz2057-65-42 14:55:00 Test Item Value Reference Range Interpretation Comments blood glucose, random (test code = 485 mg/dL 65-99 H 8) [facility] Hospitalimmature granulocytes, percentage of total cells, blood 2019-07-19 14:55:00 Test Item Value Reference Range Interpretation Comments immature granulocytes, percentage of 0 % total cells, blood (test code = 649043) [facility] Healthbasophil count, efmboaqm6708-00-76 14:55:00 Test Item Value Reference Range Interpretation Comments basophil count, absolute (test 0.0 x10E3/uL 0.0-0.2 code = 91734) [facility] HealthEosinophil Absolute [id number] 14:55:00 Test Item Value Reference Range Interpretation Comments Eosinophil Absolute Count (test 0.1 X10E3/UL 0.0-0.4 code = 084659) [facility] Hospitalmonocyte count, blood, [id number] 14:55:00 Test Item Value Reference Range Interpretation Comments monocyte count, blood, automated 0.3 X10E3/UL 0.1-0.9 (test code = 3076) [facility] Hospitallymphocyte count, blood, czxvssbxk2440-01-24 14:55:00 Test Item Value Reference Range Interpretation Comments lymphocyte count, blood, 3.2 X10E3/UL 0.7-3.1 H automated (test code = 3074) [facility] HospitalAbsolute Flxusympzve8641-53-08 14:55:00 Test Item Value Reference Range Interpretation Comments Absolute Neutrophils (test code 2.3 X10E3/UL 1.4-7.0 = 60170) [facility] Hospitalbasophils as percent of blood iseigordrs7382-33-40 14:55:00 Test Item Value Reference Range Interpretation Comments basophils as percent of blood 0 % leukocytes (test code = 2426) [facility] Healtheosinophils as percent of blood evsbhjahol7104-44-50 14:55:00 Test Item Value Reference Range Interpretation Comments eosinophils as percent of blood 1 % leukocytes (test code = 4170) [facility] Healthmonocytes as percent of blood pyeyaipavj4062-37-23 14:55:00 Test Item Value Reference Range Interpretation Comments monocytes as percent of blood 5 % leukocytes (test code = 2421) [facility] Hospitallymphocytes as percent of blood uobcphhffu4244-09-92 14:55:00 Test Item Value Reference Range Interpretation Comments lymphocytes as percent of blood 54 % leukocytes (test code = 317) [facility] Hospitalneutrophils as percent of blood gvomngjpay4676-10-34 14:55:00 Test Item Value Reference Range Interpretation Comments neutrophils as percent of blood 40 % leukocytes (test code = 316) [facility] Hospitalplatelet lzqvv5023-95-72 14:55:00 Test Item Value Reference Range Interpretation Comments platelet count (test code = 66) 226 X10E3/UL 150-450 [facility] Hospitalred blood cell distribution jotoc9461-86-55 14:55:00 Test Item Value Reference Range Interpretation Comments red blood cell distribution width 13.5 % 12.3-15.4 (test code = 1030) [facility] corpuscular hemoglobin concentration, [id number] 14:55:00 Test Item Value Reference Range Interpretation Comments mean corpuscular hemoglobin 31.5 G/DL 31.5-35.7 concentration, RBC (test code = 1029) [facility] corpuscular hemoglobin, [id number] 14:55:00 Test Item Value Reference Range Interpretation Comments mean corpuscular hemoglobin, RBC 27.8 pg 26.6-33.0 (test code = 1031) [facility] corpuscular volume, [id number] 14:55:00 Test Item Value Reference Range Interpretation Comments mean corpuscular volume, RBC (test code 88 fL 79-97 = 315) [facility]hematocrit, [id number] 14:55:00 Test Item Value Reference Range Interpretation Comments hematocrit, blood (test code = 64) 44.8 % 34.0-46.6 [facility]hemoglobin, earlr5669-07-07 14:55:00 Test Item Value Reference Range Interpretation Comments hemoglobin, blood (test code = 65) 14.1 g/dL 11.1-15.9 [facility] Hospitalerythrocyte (RBC) [id number] 14:55:00 Test Item Value Reference Range Interpretation Comments erythrocyte (RBC) count (test 5.08 X10E6/UL 3.77-5.28 code = 67) [facility] Hospitalleukocyte count, [id number] 14:55:00 Test Item Value Reference Range Interpretation Comments leukocyte count, blood (test 5.8 X10E3/UL 3.4-10.8 code = 68) [facility]pat[facility] antibody, [id number] 14:55:00 Test Item Value Reference Range Interpretation Comments hepatitis C antibody, serum (test code 0.1 0.0-0.9 = 2722) [facility] [id number] 14:55:00 Test Item Value Reference Range Interpretation Comments hepatitis B surface antibody Non Reactive (test code = 78) [facility], [id number] 14:55:00 Test Item Value Reference Range Interpretation Comments hepatitis B core antibody, total Negative Negative (test code = 77) [facility] [id number] 14:55:00 Test Item Value Reference Range Interpretation Comments hepatitis B surface antigen (test Negative Negative code = 79) [facility] hospitalV rapid test [id number] 14:32:16 Test Item Value Reference Range Interpretation Comments HIV rapid test results (test code = negative 06486) [facility] HospitalXR Hand AP lateral Bilateral [id number] 08:50:00 EXAM: XR BILATERAL HAND 2 VIEWSDATE: [...] 09:20Electronically Signed by: Kieran Cheng MD 06/24/1909:24FINAL REPORTUnUint[facility] PhysiciansXRAY Sacroiliac joints series [id number] 08:50:00EXAM: XR PELVIS 1 VIEWEXAM: XR SACROILIAC [...] the hips.--This report was dictated by a Leather Belt Maker/Fellow/Physician It Senior Software Engineer Java. Ihave personallyreviewed the images as well as the interpretation and agree with the findings.Read by: Frank Jc MD Resident/Fellow/PhysicianAssistant: Frank Jc MDDictated Date/time: 06/24/19 09:22Electronically Signed by: Kieran Cheng MD 06/24/1911:47FINAL REPORTUnUintah Basin [facility] [place] [id number] 2019-06-24 08:50:00EXAM: XR PELVIS 1 VIEWEXAM: XR [...] the hips.--This report was dictated by a Leather Belt Maker/Fellow/Physician It Senior Software Engineer Java. Ihave personallyreviewed the images as well as the interpretation and agree with the findings.Read by: Frank Jc MD Resident/Fellow/PhysicianAssistant: Frank Jc MDDictated Date/time: 06/24/19 09:22Electronically Signed by: Kieran Cheng MD 06/24/1911:47FINAL REPORTUnUintah [facility] PhysiciansXRAY Spine lumbar series [id number] 08:49:00EXAM: XR PELVIS 1 VIEWEXAM: XR SACROILIAC [...] the hips.--This report was dictated by a Leather Belt Maker/Fellow/Physician It Senior Software Engineer Java. Ihave personallyreviewed the images as well as the interpretation and agree with the findings.Read by: Frank Jc MD Resident/Fellow/PhysicianAssistant: Frank Jc MDDictated Date/time: 06/24/19 09:22Electronically Signed by: Kieran Cheng MD 06/24/1911:47FINAL REPORTUn[facility]] SED RATE BY MODIFIED [id number] 10:24:01 Test Item Value Reference Range Interpretation Comments Sedimentation Rate (test code = 10 {mm/hr} 0-20 67361-5) [facility]] C-REACTIVE [id number] 10:24:01 Test Item Value Reference Range Interpretation Comments CRP (test code = CRP) 4.0 mg/L <=2.9 [facility]] HLA-B27, DNA [id number] 10:24:01 Test Item Value Reference Range Interpretation Comments HLA B27 (test code = HLA B27) Positive Negative A [facility][] CYCLIC CITRULLINATED PEPTIDE (CCP) AB (IGG) 2019-06-10 10:24:01 Test Item Value Reference Range Interpretation Comments Cyclic Citrulline Peptide Antibody <0.5 <=2.9 (test code = 83672-7) [facility] Digital Mammo Screening Wilver [id number] 12:13:00BILATERAL DIGITAL SCREENING MAMMOGRAM WITH CAD: 04/08/2019CLINICAL: Z12.31/Screening. Current study was evaluated with a Computer Aided Detection (CAD) system. COMPARISON:Comparison is made to exam dated: 06/08/2016 mammogram - [facility]. TECHNIQUE: Mammographic views were obtained using digital [...] yearscreening mammogram is recommended.(04/08/2020) This examwas interpreted [id number] for [facility]. Ekaterina Carreon M.D. Additional Observers: Jonathan Chang/eun:04/08/2019 15:52:23 Heating Unit Mechanic(s): RT Warren(R)(M), [facility]ufkinCOutpatient Imaging Departmentletter sent: BI-RADS 1/2 Mammogram BI-RADS: 2 Benign--Readby: Ekaterina Carreon MD PHDDictated Date/time: 04/08/19 15:52Electronically Signed by: Ekaterina Carreon MD PHD 04/08/1915:52FINAL REPORTUnUintah [facility] Phys[facility]] CBC (INCLUDES DIFF/PLT)2019-03-19 14:50:01 Test Item Value Reference Range Interpretation Comments WBC (test code = 6690-2) 5.8 {K/CMM} 3.7-10.4 RBC (test code = 789-8) 4.40 {M/CMM} 4.20-5.40 Hgb (test code = 718-7) 12.9 g/dl 12.0-16.0 Hct (test code = 03945-5) 38.3 % 36.0-48.0 MCV (test code = 787-2) 87.0 fL 80.0-98.0 MCH (test code = 785-6) 29.2 pg 27.0-31.0 MCHC (test code = 786-4) 33.6 g/dl 32.0-36.0 RDW (test code = 788-0) 13.6 % 11.5-14.5 Platelet (test code = 62483-2) 210 {K/CMM} 133-450 Mean Platelet Volume (test code 8.8 fL 7.4-10.4 = 23628-2) [facility]] [id number] 14:50:01 Test Item Value Reference Range Interpretation Comments Segmented Neutrophils; Below Low 40.2 % 45.0-75.0 Threshold (test code = 09856-9) Monocytes (test code = 37329-7) 5.1 % 2.0-12.0 Lymphocytes; Above High Threshold 50.6 % 20.0-40.0 (test code = 88105-3) Eosinophils (test code = 72927-5) 3.6 % 0.0-4.0 Basophils (test code = 706-2) 0.5 % 0.0-1.0 Segs-Bands # (test code = 2.3 {K/CMM} 1.5-8.1 57134-0) Lymphocytes # (test code = 2.9 {K/CMM} 1.0-5.5 72923-1) Monocytes # (test code = 14727-7) 0.3 {K/CMM} 0.0-0.8 Eosinophils # (test code = 0.2 {K/CMM} 0.0-0.5 70538-6) [facility]] [id number] 14:50:01 Test Item Value Reference Range Interpretation Comments RPR (test code = 69119-3) Non-Reactive Non-Reactive [facility]] HEPATITIS [id number] 14:50:01 Test Item Value Reference Range Interpretation Comments Hepatitis B Surface Antigen (test Negative Negative code = 5195-3) Hepatitis C Antibody (test code = Negative 31477-5) Hepatitis B Core IgM (test code = Negative Negative 18061-5) Hepatitis A IgM (test code = Negative Negative 35344-0) [facility][] HIV AB, HIV 1/2, EIA, WITH [id number] 14:50:01 Test Item Value Reference Range Interpretation Comments HIV Ag/Ab 4th Gen Negative Negative HIV test r esults should be (test code = considered posi tive only 17573-7) when both the s creening andthe confirma tory tests are positive. A negative confirmatory te st in patientswith a positive screening test does not exclude HIV inf ection. If clincallywarran danika, an HIV RNA quantitativ e test should be order ed. [facility]] CMP [id number] 14:50:01 Test Item Value Reference Range Interpretation Comments Sodium Level 140 {mEq/l} 135-145 (test code = 2951-2) Potassium Level 4.2 {mEq/l} 3.5-5.1 (test code = 2823-3) Chloride Level 109 {mEq/l} 95-109 (test code = 5-0) Carbon Dioxide 24 {mEq/l} 24-32 (test code = 2027-9) AGAP (test code = 11.2 {mEq/l} 10.0-20.0 01870-1) Glucose Lvl; 165 mg/dl 70-99 Adult reference range Above High values reflect the Threshold (test clinical moises delinesof the code = 2345-7) [employer]. Creatinine Lvl 0.90 mg/dl 0.50-1.40 (test code = 2160-0) Blood Urea 21 mg/dl 7-22 Nitrogen (test code = 3094-0) BUN/Creatinine 23 6-25 Ratio (test code = 3097-3) Total Protein 7.1 g/dl 6.4-8.4 (test code = 2885-2) Albumin Lvl (test 3.6 g/dl 3.5-5.0 code = 1751-7) Globulin (test 3.5 g/dl 2.7-4.2 code = 48773-8) A/G Ratio (test 1.0 0.7-1.6 code = 1759-0) Calcium Level 9.4 mg/dl 8.5-10.5 Total (test code = 59702-3) ALT (test code = 29 u/l 0-65 1743-4) AST (test code = 18 u/l 0-37 84190-6) Bili Total (test 0.2 mg/dl 0.2-1.3 code = 1974-2) Alk Phos (test 78 u/l 39-136 code = 1783-0) eGFR (test code = 76 The eGFR i s calculated 72248-4) {ML/MIN/1.7} using the CKD-E PI formula. In [...] multiplied by t he estimated BMI. [facility]] LIPID [id number] 14:50:01 Test Item Value Reference Range Interpretation Comments Chol (test code = 2093-3) 154 mg/dl <=199 Trig (test code = 2571-8) 134 mg/dl <=149 HDL Cholesterol (test code = 61 mg/dl >=61 2085-9) CHD Risk; Below Low Threshold (test 2.52 3.90-5.80 code = 94804-2) LDL (test code = 96954-2) 66 mg/dl <=99 VLDL (test code = VLDL) 27 [facility]] TSH, 3RD GENERATION W/REFLEX TO FT4 2019-03-19 14:50:01 Test Item Value Reference Range Interpretation Comments TSH (test code = 52978-0) 0.739 {uIU/ml} 0.360-3.740 [facility]] MICROALBUMIN, RANDOM URINE (W/CREATININE) 2019-03-19 14:50:01 Test Item Value Reference Range Interpretation Comments Urine Microalbumin 59.6 mg/L No establ ished (test code = Urine reference range. Microalbumin) U Creatinine (test 124.00 mg/dl No establ ished code = 2161-8) reference ran ge. Urine Microalbuming 48.1 mg/g <=30.0 Creatinine Ratio; Above High Threshold (test code = 65662-3) [facility]] HEMOGLOBIN [id number] 14:50:01 Test Item Value Reference Range Interpretation Comments Hemoglobin A1c; Above High Threshold 10.1 % <=5.6 (test code = 4548-4) [facility]] VITAMIN D, 25-HYDROXY, [id number] 14:50:01 Test Item Value Reference Range Interpretation Comments Vitamin D, 25-OH, 24.6 ng/ml 30.0-100.0 Reference range is based Total (test code on recommen dations in the = Vitamin D, EndocrineSociet y Clinical 25-OH, Total) Practice Guide line (J Clin Endocrinol Nosxr2522;96:19 11-1930) [facility][] GC/CT by Amp Det (APTIMA)2019-03-19 14:50:01 Test Item Value Reference Range Interpretation Comments Source APTIMA Urine (test code = Source APTIMA) N gonorrhea by Amp Negative Negative The APTIM A assay is a Det (APTIMA) (test target am plification code = 51938-1) nucleic acid probe test utilizingtarget capture for the qualitative detection and differentia tion of ribosomalRNA fr om Neisseria gonorrhoeae to aid in the diagnosis of di sease fromsymptomatic and asymptomatic in dividuals using the PANTH ER System.This ass ay utilizes FDA cleared IVD reagents. Performance nehemias racteristics havebeen verifi ed by the [employer] ostic Laboratory with in [facility].The [employer] ecular Diagnostic Labo ratory is authorized unde r the Clinical LaboratoryImpro vement Amendments of 1 988 (CLIA-88) to pe rform high complexity test ing. C trachomatis by Negative Negative The APTIMA assay is a Amp Det (APTIMA) target ampl ification (test code = nucleic acid pr obe test 93228-7) utilizingtarget capture for the qualitative detection and differentia tion of ribosomalRNA fr om Chlamydia trachomatis to aid in the diagnosis of di sease fromsymptomatic and asymptomatic in dividuals using the PANTH ER System.This ass ay utilizes FDA cleared IVD reagents. Performance nehemias racteristics havebeen verifi ed by the [facility] with in [facility].The DigitalAdvisorular Diagnostic Labo ratory is authorized unde r the Clinical LaboratoryImpro vement Amendments of 1 988 (CLIA-88) to pe rform high complexity test ing. [facility][U] XR KNEE 3 VWS [id number] 15:05:00 Images acquired, not reported on this accession number.[facility] PhysiciansNeisseria gonorrhoeae DNA [id number] 12:29:00 Test Item Value Reference Range Interpretation Comments Neisseria gonorrhoeae DNA probe Negative Negative (test code = 58898-6) [facility] [id number] 12:29:00 Test Item Value Reference Range Interpretation Comments chlamydia DNA probe (test code = Negative Negative 01678-5) [facility] Hospitaltrichomonas vaginalis, [id number] 12:29:00 Test Item Value Reference Range Interpretation Comments trichomonas vaginalis, urine (test Negative Negative code = 3887) [facility] (Chemiluminescent Microparticle Immuno Assay) 2018-12-26 15:16:00 Test Item Value Reference Range Interpretation Comments HIV-CMIA (Chemiluminescent Non Reactive Non Reactive Microparticle Immuno Assay) (test code = 273240) [facility] HospitalHIV-1RNA, serum, by PCR, [id number] 15:16:00 Test Item Value Reference Range Interpretation Comments HIV-1RNA, serum, by PCR, <20 copies/mL quantitative (test code = 68683) [facility] Hospitalhepatitis A antibody, [id number] 15:48:00 Test Item Value Reference Range Interpretation Comments hepatitis A antibody, total (test Negative Negative code = 75) [facility]HIV-CMIA (Chemiluminescent Microparticle Immuno Assay) 2018-12-06 15:48:00 Test Item Value Reference Range Interpretation Comments HIV-CMIA (Chemiluminescent Non Reactive Non Reactive Microparticle Immuno Assay) (test code = 368026) [facility] Hospitalrapid plasma reagin antibody, [id number] 15:48:00 Test Item Value Reference Range Interpretation Comments rapid plasma reagin antibody, Non Reactive Non Reactive serum (test code = 308) [facility] Hospitalalanine aminotransferase (SGPT), [id number] 15:48:00 Test Item Value Reference Range Interpretation Comments alanine aminotransferase (SGPT), serum 19 1/L 0-32 (test code = 40) [facility] Hospitalaspartate aminotransferase (SGOT), [id number] 15:48:00 Test Item Value Reference Range Interpretation Comments aspartate aminotransferase (SGOT), 18 1/L 0-40 serum (test code = 39) [facility] Hospitalalkaline phosphatase, [id number] 15:48:00 Test Item Value Reference Range Interpretation Comments alkaline phosphatase, serum (test code 69 1/L 39-117 = 3) [facility] Hospitalbilirubin, serum, [id number] 15:48:00 Test Item Value Reference Range Interpretation Comments bilirubin, serum, total (test code 0.6 mg/dL 0.0-1.2 = 43) [facility] Hospitalalbumin/globulin ratio, [id number] 15:48:00 Test Item Value Reference Range Interpretation Comments albumin/globulin ratio, serum (test 1.7 1.2-2.2 code = 146) [facility] Healthglobulin, [id number] 15:48:00 Test Item Value Reference Range Interpretation Comments globulin, serum (test code = 3059) 2.4 1.5-4.5 [facility] Healthalbumin, [id number] 15:48:00 Test Item Value Reference Range Interpretation Comments albumin, serum (test code = 2) 4.0 g/dL 3.5-5.5 [facility] Healthprotein, total, [id number] 15:48:00 Test Item Value Reference Range Interpretation Comments protein, total, serum (test code = 6.4 g/dL 6.0-8.5 36) [facility] Hospitalcalcium, [id number] 15:48:00 Test Item Value Reference Range Interpretation Comments calcium, serum (test code = 11) 9.4 mg/dL 8.7-10.2 [facility] Hospitalcarbon dioxide, venous [id number] 15:48:00 Test Item Value Reference Range Interpretation Comments carbon dioxide, venous blood (test 20 mmol/L 20-29 code = 15) [facility] Hospitalchloride, [id number] 15:48:00 Test Item Value Reference Range Interpretation Comments chloride, serum (test code = 13) 103 mmol/L 96-106 [facility] Hospitalpotassium, [id number] 15:48:00 Test Item Value Reference Range Interpretation Comments potassium, serum (test code = 35) 4.2 mmol/L 3.5-5.2 [facility] Hospitalsodium, [id number] 15:48:00 Test Item Value Reference Range Interpretation Comments sodium, serum (test code = 159) 141 mmol/L 134-144 [facility] Hospitalurea nitrogen/creatinine ratio, [id number] 15:48:00 Test Item Value Reference Range Interpretation Comments urea nitrogen/creatinine ratio, serum 12 9-23 (test code = 2462) [facility] HealtheGFR if [id number] 15:48:00 Test Item Value Reference Range Interpretation Comments eGFR if 126 >59 (test code = 961958) mL/min/((173/100).m2) [facility] HospitalEstimated Glomerular Filtration Rate (calc)2018-12-06 15:48:00 Test Item Value Reference Range Interpretation Comments Estimated Glomerular 109 >59 Filtration Rate (calc) mL/min/((173/100).m2 (test code = 56697) ) [facility] Healthcreatinine, [id number] 15:48:00 Test Item Value Reference Range Interpretation Comments creatinine, serum (test code = 18) 0.58 mg/dL 0.57-1.00 [facility] Hospitalurea nitrogen, [id number] 15:48:00 Test Item Value Reference Range Interpretation Comments urea nitrogen, blood (test code = 9) 7 mg/dL 6-24 [facility] Hospitalblood glucose, [id number] 15:48:00 Test Item Value Reference Range Interpretation Comments blood glucose, random (test code = 374 mg/dL 65-99 H 8) [facility] Hospitalimmature granulocytes, percentage of total cells, blood 2018-12-06 15:48:00 Test Item Value Reference Range Interpretation Comments immature granulocytes, percentage of 0 % total cells, blood (test code = 340966) [facility] Hospitalbasophil count, [id number] 15:48:00 Test Item Value Reference Range Interpretation Comments basophil count, absolute (test 0.0 x10E3/uL 0.0-0.2 code = 44009) [facility] HospitalEosinophil Absolute [id number] 15:48:00 Test Item Value Reference Range Interpretation Comments Eosinophil Absolute Count (test 0.1 X10E3/UL 0.0-0.4 code = 203604) [facility] Hospitalmonocyte count, blood, [id number] 15:48:00 Test Item Value Reference Range Interpretation Comments monocyte count, blood, automated 0.3 X10E3/UL 0.1-0.9 (test code = 3076) [facility] Hospitallymphocyte count, blood, [id number] 15:48:00 Test Item Value Reference Range Interpretation Comments lymphocyte count, blood, 1.8 X10E3/UL 0.7-3.1 automated (test code = 3074) [facility] HospitalAbsolute [id number] 15:48:00 Test Item Value Reference Range Interpretation Comments Absolute Neutrophils (test code 2.1 X10E3/UL 1.4-7.0 = 70853) [facility] Hospitalbasophils as percent of blood [id number] 15:48:00 Test Item Value Reference Range Interpretation Comments basophils as percent of blood 1 % leukocytes (test code = 2426) [facility] Hospitaleosinophils as percent of blood [id number] 15:48:00 Test Item Value Reference Range Interpretation Comments eosinophils as percent of blood 1 % leukocytes (test code = 4170) [facility] Healthmonocytes as percent of blood [id number] 15:48:00 Test Item Value Reference Range Interpretation Comments monocytes as percent of blood 6 % leukocytes (test code = 2421) [facility] Hospitallymphocytes as percent of blood [id number] 15:48:00 Test Item Value Reference Range Interpretation Comments lymphocytes as percent of blood 43 % leukocytes (test code = 317) [facility] Hospitalneutrophils as percent of blood [id number] 15:48:00 Test Item Value Reference Range Interpretation Comments neutrophils as percent of blood 49 % leukocytes (test code = 316) [facility] Hospitalplatelet [id number] 15:48:00 Test Item Value Reference Range Interpretation Comments platelet count (test code = 66) 231 X10E3/UL 150-379 [facility] Hospitalred blood cell distribution [id number] 15:48:00 Test Item Value Reference Range Interpretation Comments red blood cell distribution width 13.5 % 12.3-15.4 (test code = 1030) [facility] corpuscular hemoglobin concentration, [id number] 15:48:00 Test Item Value Reference Range Interpretation Comments mean corpuscular hemoglobin 31.8 G/DL 31.5-35.7 concentration, RBC (test code = 1029) [facility] corpus[facility], [id number] 15:48:00 Test Item Value Reference Range Interpretation Comments mean corpuscular hemoglobin, RBC 28.2 pg 26.6-33.0 (test code = 1031) [facility] corpuscular volume, [id number] 15:48:00 Test Item Value Reference Range Interpretation Comments mean corpuscular volume, RBC (test code 89 fL 79-97 = 315) [facility] Hospitalhematocrit, [id number] 15:48:00 Test Item Value Reference Range Interpretation Comments hematocrit, blood (test code = 64) 40.6 % 34.0-46.6 [facility] Hospitalhemoglobin, [id number] 15:48:00 Test Item Value Reference Range Interpretation Comments hemoglobin, blood (test code = 65) 12.9 g/dL 11.1-15.9 [facility] Hospitalerythrocyte (RBC) [id number] 15:48:00 Test Item Value Reference Range Interpretation Comments erythrocyte (RBC) count (test 4.57 X10E6/UL 3.77-5.28 code = 67) [facility] Hospitalleukocyte count, [id number] 15:48:00 Test Item Value Reference Range Interpretation Comments leukocyte count, blood (test 4.2 X10E3/UL 3.4-10.8 code = 68) [facility], [id number] 15:48:00 Test Item Value Reference Range Interpretation Comments hepatitis C antibody, serum (test code 0.1 0.0-0.9 = 2722) [facility] surface [id number] 15:48:00 Test Item Value Reference Range Interpretation Comments hepatitis B surface antibody Non Reactive (test code = 78) [facility] B core antibody, [id number] 15:48:00 Test Item Value Reference Range Interpretation Comments hepatitis B core antibody, total Negative Negative (test code = 77) [facility] surface [id number] 15:48:00 Test Item Value Reference Range Interpretation Comments hepatitis B surface antigen (test Negative Negative code = 79) [facility] HospitalHIV rapid test [id number] 15:00:09 Test Item Value Reference Range Interpretation Comments HIV rapid test results (test code = negative 94829) [facility] HospitalXRAY Knee 3 views [id number] 11:52:00EXAM: XR RIGHT KNEE 3 VIEWSDATE: 12/03/2018 [...] left knee--This report was dictated by a Leather Belt Maker/Fellow/Physician It Senior Software Engineer Java. Barbave personallyreviewed the images as well as the interpretation and agree with the findings.Read by: Laith Kemp MD Resident/Fellow/PhysicianAssistant: Laith Kemp MDDictated Date/time: 12/03/18 13:58Electronically Signed by: Sanjuana Granger MD 12/03/1916:18FINAL REPORTO[facility]] CMP [id number] 11:12:00 Test Item Value Reference Range Interpretation [...] 103 {ML/MIN/1.7} > OR = 60 [place] (test code = eGFR NON-) eGFR 119 {ML/MIN/1.7} > OR = 60 N [place] (test code = eGFR ) BUN/CREATININE NOT [...] mg/dl 0.2-1.2 N Normal (test code = 11172-4) ALKALINE 82 u/l 33-115 N PHSPHATASE (test code = ALKALINE PHSPHATASE) AST; Normal (test 16 u/l 10-35 N code = 1916-6) ALT; Normal (test 18 u/l 6-29 N code = 1742-6) [facility]] SED RATE BY MODIFIED [id number] 11:12:00 Test Item Value Reference Range Interpretation Comments SED RATE BY MODIFIED WESTERGREN (test 6 mm/h < OR = 20 N code = SED RATE BY MODIFIED WESTERGREN) [facility]] CBC (INCLUDES DIFF/PLT)2018-12-03 11:12:00 Test Item Value Reference Range Interpretation Comments WHITE BLOOD CELL COUNT 4.5 {Thousand/u} 3.8-10.8 N (test code = WHITE BLOOD CELL COUNT) RED BLOOD CELL COUNT (test 5.05 {Million/uL} 3.80-5.10 N code = RED BLOOD CELL COUNT) HEMAGLOBIN; Normal (test 14.1 g/dl 11.7-15.5 N code = 92969-7) HEMATOCRIT; Normal (test 43.7 % 35.0-45.0 N code = 4544-3) MCV; Normal (test code = 86.5 fL 80.0-100.0 N 787-2) MCHC; Normal (test code = 32.3 g/dl 32.0-36.0 N 90334-8) RDW; Normal (test code = 12.4 % 11.0-15.0 N 788-0) PLATELET COUNT; Normal 224 {Thousand/u} 140-400 N (test code = 777-3) MPV; Normal (test code = 11.1 fL 7.5-12.5 N 96631-9) ABSOLUTE NEUTROPHILS (test 2061 {cells/uL} 9094-4594 N code = ABSOLUTE NEUTROPHILS) ABSOLUTE LYMPHOCYTES [...] Normal (test 6.8 % N code = 43087-1) EOSINOPHILS; Normal (test 2.2 % N code = 60001-4) BASOPHILS; Normal (test 0.9 % N code = 47961-2) [facility]] C-REACTIVE [id number] 11:12:00 Test Item Value Reference Range Interpretation Comments C-REACTIVE PROTEIN (test code = 4.6 mg/L <8.0 N C-REACTIVE PROTEIN) [facility]] VITAMIN D, 25-HYDROXY, LC/MS/[id number] 11:12:00 Test Item Value Reference Range Interpretation [...] and D3 fractions is re quired, the [employer] D(TM)25-OH VIT D, (D2,D3), LC/MS/MS is recommended: order code 08781 (pat ients >2yrs). For mor e information on this test, go to:[email or web address] tion.[email or web address] 3(This link is being provided for informational/e ducational purposes only.) [facility] PhysiciansNeisseria gonorrhoeae, throat [id number] 16:30:00 Test Item Value Reference Range Interpretation Comments Neisseria gonorrhoeae, throat Negative Negative culture (test code = 3553) [facility] [id number] 16:30:00 Test Item Value Reference Range Interpretation Comments Neisseria gonorrhoeae DNA probe Negative Negative (test code = 95492-6) [facility] [id number] 16:30:00 Test Item Value Reference Range Interpretation Comments chlamydia DNA probe (test code = Negative Negative 23001-3) [facility]pat[facility] antibody, [id number] 14:31:00 Test Item Value Reference Range Interpretation Comments hepatitis A antibody, total (test Negative Negative code = 75) [facility]alanine aminotransferase (SGPT), [id number] 14:31:00 Test Item Value Reference Range Interpretation Comments alanine aminotransferase (SGPT), serum 28 1/L 0-32 (test code = 40) [facility] Hospitalaspartate aminotransferase (SGOT), [id number] 14:31:00 Test Item Value Reference Range Interpretation Comments aspartate aminotransferase (SGOT), 21 1/L 0-40 serum (test code = 39) [facility]alkaline phosphatase, [id number] 14:31:00 Test Item Value Reference Range Interpretation Comments alkaline phosphatase, serum (test code 98 1/L 39-117 = 3) [facility]bilirubin, serum, [id number] 14:31:00 Test Item Value Reference Range Interpretation Comments bilirubin, serum, total (test code 0.3 mg/dL 0.0-1.2 = 43) [facility]albumin/globulin ratio, [id number] 14:31:00 Test Item Value Reference Range Interpretation Comments albumin/globulin ratio, serum (test 1.5 1.2-2.2 code = 146) [facility] Healthglobulin, [id number] 14:31:00 Test Item Value Reference Range Interpretation Comments globulin, serum (test code = 3059) 2.8 1.5-4.5 [facility]albumin, [id number] 14:31:00 Test Item Value Reference Range Interpretation Comments albumin, serum (test code = 2) 4.3 g/dL 3.5-5.5 [facility]protein, total, [id number] 14:31:00 Test Item Value Reference Range Interpretation Comments protein, total, serum (test code = 7.1 g/dL 6.0-8.5 36) [facility] Healthcalcium, [id number] 14:31:00 Test Item Value Reference Range Interpretation Comments calcium, serum (test code = 11) 9.5 mg/dL 8.7-10.2 [facility]carbon dioxide, venous [id number] 14:31:00 Test Item Value Reference Range Interpretation Comments carbon dioxide, venous blood (test 18 mmol/L 20-29 L code = 15) [facility] Healthchloride, [id number] 14:31:00 Test Item Value Reference Range Interpretation Comments chloride, serum (test code = 13) 99 mmol/L 96-106 [facility] Healthpotassium, [id number] 14:31:00 Test Item Value Reference Range Interpretation Comments potassium, serum (test code = 35) 4.9 mmol/L 3.5-5.2 [facility] Hospitalsodium, [id number] 14:31:00 Test Item Value Reference Range Interpretation Comments sodium, serum (test code = 159) 136 mmol/L 134-144 [facility] Hospitalurea nitrogen/creatinine ratio, wjjhy5815-19-01 14:31:00 Test Item Value Reference Range Interpretation Comments urea nitrogen/creatinine ratio, serum 11 - (test code = 2462) [facility] HealtheGFR if Bouxspzx1395-56-95 14:31:00 Test Item Value Reference Range Interpretation Comments eGFR if 102 >59 (test code = 391335) mL/min/((173/100).m2) [facility] HospitalEstimated Glomerular Filtration Rate (calc)2018-10-05 14:31:00 Test Item Value Reference Range Interpretation Comments Estimated Glomerular 88 >59 Filtration Rate (calc) mL/min/((173/100).m2 (test code = 76420) ) [facility] Hospitalcreatinine, [id number] 14:31:00 Test Item Value Reference Range Interpretation Comments creatinine, serum (test code = 18) 0.80 mg/dL 0.57-1.00 [facility] Hospitalurea nitrogen, [id number] 14:31:00 Test Item Value Reference Range Interpretation Comments urea nitrogen, blood (test code = 9) 9 mg/dL 6-24 [facility] Hospitalblood glucose, [id number] 14:31:00 Test Item Value Reference Range Interpretation Comments blood glucose, random (test code = 531 mg/dL 65-99 8) [facility] Hospitalimmature granulocytes, percentage of total cells, blood 2018-10-05 14:31:00 Test Item Value Reference Range Interpretation Comments immature granulocytes, percentage of 0 % total cells, blood (test code = 539055) [facility] Hospitalbasophil count, enosfagf2394-44-61 14:31:00 Test Item Value Reference Range Interpretation Comments basophil count, absolute (test 0.0 x10E3/uL 0.0-0.2 code = 62679) [facility] HealthEosinophil Absolute [id number] 14:31:00 Test Item Value Reference Range Interpretation Comments Eosinophil Absolute Count (test 0.1 X10E3/UL 0.0-0.4 code = 524413) [facility] Hospitalmonocyte count, blood, gifvbzyqf4356-29-85 14:31:00 Test Item Value Reference Range Interpretation Comments monocyte count, blood, automated 0.3 X10E3/UL 0.1-0.9 (test code = 3076) [facility] Hospitallymphocyte count, blood, kilrnzjyv1617-57-27 14:31:00 Test Item Value Reference Range Interpretation Comments lymphocyte count, blood, 2.3 X10E3/UL 0.7-3.1 automated (test code = 3074) [facility] HospitalAbsolute Hufpfecfbet2895-59-84 14:31:00 Test Item Value Reference Range Interpretation Comments Absolute Neutrophils (test code 2.3 X10E3/UL 1.4-7.0 = 12284) [facility] Hospitalbasophils as percent of blood ijrrlthylz5861-58-40 14:31:00 Test Item Value Reference Range Interpretation Comments basophils as percent of blood 0 % leukocytes (test code = 2426) [facility] Hospitaleosinophils as percent of blood xhkojmdcxv0718-69-79 14:31:00 Test Item Value Reference Range Interpretation Comments eosinophils as percent of blood 1 % leukocytes (test code = 4170) [facility] Healthmonocytes as percent of blood hqienymsvg7725-42-99 14:31:00 Test Item Value Reference Range Interpretation Comments monocytes as percent of blood 6 % leukocytes (test code = 2421) [facility] Hospitallymphocytes as percent of blood tepomkxyce7074-48-13 14:31:00 Test Item Value Reference Range Interpretation Comments lymphocytes as percent of blood 48 % leukocytes (test code = 317) [facility] Hospitalneutrophils as percent of blood vaybemjrmm1622-51-10 14:31:00 Test Item Value Reference Range Interpretation Comments neutrophils as percent of blood 45 % leukocytes (test code = 316) [facility] Hospitalplatelet [id number] 14:31:00 Test Item Value Reference Range Interpretation Comments platelet count (test code = 66) 208 X10E3/UL 150-379 [facility] Hospitalred blood cell distribution vjwhb8072-02-24 14:31:00 Test Item Value Reference Range Interpretation Comments red blood cell distribution width 13.8 % 12.3-15.4 (test code = 1030) [facility] corpuscular hemoglobin concentration, [id number] 14:31:00 Test Item Value Reference Range Interpretation Comments mean corpuscular hemoglobin 31.9 G/DL 31.5-35.7 concentration, RBC (test code = 1029) [facility] corpuscular hemoglobin, [id number] 14:31:00 Test Item Value Reference Range Interpretation Comments mean corpuscular hemoglobin, RBC 28.9 pg 26.6-33.0 (test code = 1031) [facility] corpuscular volume, [id number] 14:31:00 Test Item Value Reference Range Interpretation Comments mean corpuscular volume, RBC (test code 91 fL 79-97 = 315) [facility] Hospitalhematocrit, [id number] 14:31:00 Test Item Value Reference Range Interpretation Comments hematocrit, blood (test code = 64) 42.6 % 34.0-46.6 [facility] Hospitalhemoglobin, [id number] 14:31:00 Test Item Value Reference Range Interpretation Comments hemoglobin, blood (test code = 65) 13.6 g/dL 11.1-15.9 [facility] Hospitalerythrocyte (RBC) [id number] 14:31:00 Test Item Value Reference Range Interpretation Comments erythrocyte (RBC) count (test 4.70 X10E6/UL 3.77-5.28 code = 67) [facility] Hospitalleukocyte count, [id number] 14:31:00 Test Item Value Reference Range Interpretation Comments leukocyte count, blood (test 5.0 X10E3/UL 3.4-10.8 code = 68) [facility]hepatitis C antibody, [id number] 14:31:00 Test Item Value Reference Range Interpretation Comments hepatitis C antibody, serum (test code <0.1 0.0-0.9 = 2722) [facility] Hospitalhepatitis B surface xtlwmzrf5423-72-85 14:31:00 Test Item Value Reference Range Interpretation Comments hepatitis B surface antibody Non Reactive (test code = 78) [facility] antibody, [id number] 14:31:00 Test Item Value Reference Range Interpretation Comments hepatitis B core antibody, total Negative Negative (test code = 77) [facility] B surface [id number] 14:31:00 Test Item Value Reference Range Interpretation Comments hepatitis B surface antigen (test Negative Negative code = 79) [facility] HospitalHIV-CMIA (Chemiluminescent Microparticle Immuno Assay) 2018-10-05 13:05:00 Test Item Value Reference Range Interpretation Comments HIV-CMIA (Chemiluminescent Non Reactive Non Reactive Microparticle Immuno Assay) (test code = 468059) [facility] Hospitalrapid plasma reagin antibody, [id number] 13:05:00 Test Item Value Reference Range Interpretation Comments rapid plasma reagin antibody, Non Reactive Non Reactive serum (test code = 308) [facility] NewhcvMLHHTMVDU0253-61-66 14:30:0010.7[facility] 2011-[facility] 14:30:008.6[facility] YsbhrxaTYXUHMTMR1840-52-56 14:30:0027.0[facility] VqerbeaETEFKQZQR2743-08-41 14:30:003.7[facility] HufsafqKOONXDJQH2182-52-09 14:30:59021.0[facility] AozbtosUZDZSHFGH7687-70-07 14:30:57602.0[facility] CKAXMCWRG5074-59-33 14:30:000.7[facility] RmmdbnaOGTCTWJNK1993-37-55 14:30:0016.0 [facility] SdrmwxxMHPPBQTHH8145-28-83 14:30:58383.0[facility]annHEMATOLOGY 2011-08-24 14:30:00 Test Item Value Reference Range Interpretation Comments PTT (test code = PTT) 27.0 s 22.9-35.8 N [facility]XztzpgcVUHVZEDGFE0508-94-39 14:30:00 Test Item Value Reference Range Interpretation Comments PT (test code = PT) 12.9 s 12.0-14.7 N [facility] SystemGkbvhqdEKOHBSEESK9849-93-83 14:30:00 Test Item Value Reference Range Interpretation Comments INR (test code = INR) 0.97 1 0.85-1.17 N [facility] SystemSgpmkxqJVDHHIDWKC6010-81-51 14:30:0035.5[facility] 2011-08-24 14:30:00 Test Item Value Reference Range Interpretation Comments MCH (test code = MCH) 29.5 pg 27.0-31.0 N [facility] SystemDcvyhwkCEAQYOTURK1882-41-85 14:30:0086.9[facility]annHEMATOLOGY 2011-08-24 14:30:0033.9[facility] YzdwtenJJQBRPQKJK8835-27-92 14:30:0014.1[facility] OhaacmhEJZDPPYLPD2371-34-74 14:30:008.5[facility] CqjxxbxLQWXIIGKGR3174-45-09 14:30:84962.0[facility] KyuxbbiLUHYKJZUBH9797-02-22 14:30:005.7[facility] RDYPFBCIGY2770-16-43 14:30:004.08[facility] MjshuzqPEQCDSLQYS5473-08-17 14:30:00 12.0[facility] LmglawrQWJYHPETWT8433-47-31 14:30:0046.4[facility]annHEMATOLOGY 2011-08-24 14:30:0045.3[facility] KvwtnikKWTFYNVLTU5794-23-82 14:30:003.3[facility] OvocjleGKYHDJXKMZ9665-17-44 14:30:004.8[facility] UxjksqeAKOMZXJNAX3840-88-09 14:30:002.6[facility] VbzlvouRCHQYKNKNX9214-49-02 14:30:000.2[facility] BEOYEWISZL8102-58-41 14:30:000.2[facility] QefzjwaESSBGDTAXF3629-27-65 14:30:000.0 [facility] SfwzmcoTGPQHSEVJU7573-43-81 14:30:000.3[facility]annHEMATOLOGY 2011-08-24 14:30:002.6[facility]
[2021-04-18] MEDS ORDERED: NA CHLORIDE 0.9% 2,000 ML ONE (18:59)
--- NOTE | 2021-04-18 19:21 | RAD REPORT ---
EXAM DESCRIPTION: RAD - Chest Single View - 04/18/2021 6:51 pm CLINICAL HISTORY: AMS COMPARISON: None TECHNIQUE: AP portable chest image was obtained 04/18/2021 6:51 pm . FINDINGS: Lungs are clear. Heart and vasculature are normal. No measurable pleural effusion and no p neumothorax. No acute bony abnormality seen. No acute aortic findings suspected. IMPRESSION: No acute cardiopulmonary process.
[2021-04-18 19:29] LABS: Basophils % 0.9 % (0-1.3); Hematocrit 40.4 % (36.0-45.0); Lymphocytes % 26.7 % (15.3-44.8); MPV 9.3 fL (7.6-11.3); RBC Red Blood Cell Count 4.56 M/uL (3.86-4.86)
[2021-04-18 19:39] LABS: Protime INR 0.91
[2021-04-18 19:44] LABS: Urine Blood 1+ (Negative); Urine Glucose 2+ (Negative); Urine Protein Negative (Negative); Urine pH 5.5 (5.0-7.0)
[2021-04-18 19:44] LABS: ALT/SGPT 32 U/L (12-78); AST/SGOT 21 U/L (15-37); Albumin 3.5 g/dL (3.4-5.0); Alkaline Phosphatase 73 U/L (45-117); BUN Blood Urea Nitrogen 9 mg/dL (7-18); Bicarbonate 21 mmol/L (21-32); Bilirubin Direct 0.1 mg/dL (0-0.2); Bilirubin Total 0.5 mg/dL (0.2-1.0); Glucose Level 334 mg/dL (74-106); Magnesium 2.1 mg/dL (1.8-2.4); NT PRO-BNP 54 pg/mL (<125); Potassium 3.6 mmol/L (3.5-5.1); Sodium Level 141 mmol/L (136-145); Troponin (Emerg Dept Use Only) < 0.02 ng/mL (0.0-0.045)
--- NOTE | 2021-04-18 19:50 | RAD REPORT ---
EXAM DESCRIPTION: CT - Head Brain Wo Cont - 04/18/2021 7:35 pm CLINICAL HISTORY: MENTAL STATUS CHANGE COMPARISON: No comparisons TECHNIQUE: Axial 5 mm thick images of the head were obtained without IV contrast. All CT scans are performed using dose optimization technique as appropriate and may include automated exposure control or mA/KV adjustment according to patient size. FINDINGS: No intracranial hemorrhage, mass, edema or shift of mid-line structures. No acute infarcti on changes seen. No abnormal extra-axial fluid collections. Ventricles are normal. Mastoid air cells and visualized portions of the paranasal sinuses are clear. No acute bony findings. IMPRESSION: Negative non-contrast CT head examination.
[2021-04-18 20:08] LABS: Barbiturates NEGATIVE (NEGATIVE); Benzodiazepines NEGATIVE (NEGATIVE); Cocaine POSITIVE (NEGATIVE); METHAMPHETAM NEGATIVE (NEGATIVE); Methadone NEGATIVE (NEGATIVE); Opiates NEGATIVE (NEGATIVE); Phencyclidine NEGATIVE (NEGATIVE); THC Cannibis NEGATIVE (NEGATIVE)
--- NOTE | 2021-04-18 23:11 | ER ---
Nurse's Notes [facility] Name: Stepan Flynn Age: 50 yrs Sex: Female : 1970 Arrival Date: 04/18/2021 Time: 17:34 Bed 5 Private MD: Diagnosis: Hyperglycemia, unspecified;Cocaine abuse Presentation: 04/18 17:38 Chief complaint: EMS states: DECREASED LOC, HYPERGLYCEMIA. Coronavirus screen: At this bp time, the client does not indicate any symptoms associated with coronavirus-19. Ebola Screen: No symptoms or risks identified at this time. Initial Sepsis Screen: Does the patient meet any 2 criteria? HR > 90 bpm. Does the patient have a suspected source of infection? No. Patient's initial sepsis screen is negative. Risk Assessment: Do you want to hurt yourself or someone else? Patient reports no desire to harm self or others. Onset of symptoms was April 18, 2021 at 17:00. Care prior to arrival: Medication(s) given: Phenergan, 25 mg, IV initiated. 18 GA, in the left antecubital area, Glucose check: 504. 17:38 Method Of Arrival: EMS: [facility] bp 17:38 Acuity: AUDREY 3 bp Triage Assessment: 17:42 General: Appears distressed, uncomfortable, obese, Behavior is cooperative, appropriate bp for age, drowsy. Pain: Denies pain. EENT: No deficits noted. Neuro: Level of Consciousness is awake, alert, obeys commands, Oriented to Appropriate for age. Cardiovascular: Rhythm is sinus tachycardia. Respiratory: No deficits noted. GI: No signs and/or symptoms were reported involving the gastrointestinal system. : No signs and/or symptoms were reported regarding the genitourinary system. Derm: No deficits noted. Musculoskeletal: No deficits noted. Historical: - Allergies: 17:42 PENICILLINS; bp - Home Meds: 17:42 lisinopril 2.5 mg Oral tab 1 tab once daily [Active]; metformin 500 mg Oral tab 1 tab 2 bp times per day [Active]; Lantus 85 U daily Sub-Q soln daily [Active]; - PMHx: 17:42 Diabetes - NIDDM; Hypertension; bp - Immunization history:: Adult Immunizations up to date. - Social history:: Smoking status: Patient denies any tobacco usage or history of. Screenin:43 Abuse screen: Denies threats or abuse. Denies injuries from another. Nutritional bp screening: No deficits noted. Tuberculosis screening: No symptoms or risk factors identified. Fall Risk None identified. Assessment: 17:43 General: SEE TRIAGE NOTE. bp 19:56 General: Appears in no apparent distress. Behavior is calm, cooperative, appropriate ea for age. Pain: Denies pain. Neuro: Level of Consciousness is awake, alert, obeys commands, Oriented to person, place, time. Cardiovascular: Patient's skin is warm and dry. Respiratory: Airway is patent Respiratory effort is even, unlabored, Respiratory pattern is regular, symmetrical. Derm: Skin is pink, warm \T\ dry. 20:00 Reassessment: Patient and/or family updated on plan of care and expected duration. Pain ea level reassessed. Patient is alert, oriented x 3, equal unlabored respirations, skin warm/dry/pink. 21:00 Reassessment: Patient and/or family updated on plan of care and expected duration. Pain ea level reassessed. Patient is alert, oriented x 3, equal unlabored respirations, skin warm/dry/pink. 22:30 Reassessment: Patient and/or family updated on plan of care and expected duration. Pain ea level reassessed. Patient is alert, oriented x 3, equal unlabored respirations, skin warm/dry/pink. 23:20 Reassessment: Patient and/or family updated on plan of care and expected duration. Pain ea level reassessed. Patient is alert, oriented x 3, equal unlabored respirations, skin warm/dry/pink. Discharge instruction given to patient verbalized the understanding of instruction. Pt left ED ambulatory tolerating well. Vital Signs: 17:38 BP 125 / 81; Pulse 120; Resp 17; Temp 98; Pulse Ox 98% ; bp 19:00 BP 141 / 92; Pulse 94; Resp 23; Pulse Ox 100% ; bp 21:22 BP 132 / 91; Pulse 88; Resp 18; Pulse Ox 98% on R/A; ea ED Course: 17:34 Patient arrived in ED. bp 17:37 Ollie Cooley NP is PHCP. pm1 17:37 Ole Price MD is Attending Physician. pm1 17:40 Triage completed. bp 17:42 Arm band placed on. bp 17:43 Patient has correct armband on for positive identification. Bed in low position. Call bp light in reach. Side rails up X2. 17:43 Maintain EMS IV. Dressing intact. Good blood return noted. Site clean \T\ dry. Gauge \T\ bp site: 18 GAUGE L AC. 18:00 Jamie Powell, RN is Primary Nurse. bp 18:35 EKG done, by ED staff, reviewed by Ollie Cooley NP. 3 18:51 XRAY Chest (1 view) In Process Unspecified. EDMS 19:23 Missed attempt(s): 20 gauge in left antecubital area. Bleeding controlled, band aid ea applied, catheter tip intact. 19:35 CT Head Brain wo Cont In Process Unspecified. EDMS 19:52 Inserted saline lock: 22 gauge in right antecubital area, using aseptic technique. ds4 20:08 Primary Nurse role handed off by Jamie Powell, AMANDEEP tt3 20:11 Domonique Reid RN is Primary Nurse. ea 23:22 No provider procedures requiring assistance completed. IV discontinued, intact, ea bleeding controlled, No redness/swelling at site. Pressure dressing applied. Administered Medications: 19:57 Drug: NS 0.9% 1000 ml Route: IV; Rate: 1000 ml; Site: right antecubital; ea 19:57 Drug: NS 0.9% 1000 ml Route: IV; Rate: 1000 ml; Site: right antecubital; ea Outcome: 23:10 Discharge ordered by MD. pm1 23:23 Discharged to home ambulatory. ea 23:23 Condition: stable 23:23 Discharge instructions given to patient, Instructed on discharge instructions, follow up and referral plans. Demonstrated understanding of instructions, follow-up care. 23:23 Patient left the ED. ea Signatures: Dispatcher [employer] EDMS Darrell Palmer 4 Ollie Cooley NP WAITRESS pm1 Lisa Matt 3 Domonique Reid RN RN ea Peltier, Brian, RN RN bp Trim, Tyler tt3
--- NOTE | 2021-04-18 23:12 | EDPHYS ---
Physician Documentation [facility] Name: Stepan Flynn Age: 50 yrs Sex: Female : 1970 Arrival Date: 04/18/2021 Time: 17:34 Bed 5 Private MD: ED Physician Ole Price HPI: 04/18 18:06 This 50 yrs old Black Female presents to ER via EMS with complaints of High Blood Sugar.pm1 18:06 The patient or guardian reports hyperglycemia. Onset: The symptoms/episode pm1 began/occurred unknown. Patient does not check her glucose levels on a regular basis. Associated signs and symptoms: Pertinent positives: polyphagia, possible fainting episode. Current symptoms: In the emergency department the patient's symptoms have improved. The patient has not experienced similar symptoms in the past. The patient has not recently seen a physician, moved to the area 2 months ago. Historical: - Allergies: 17:42 PENICILLINS; bp - Home Meds: 17:42 lisinopril 2.5 mg Oral tab 1 tab once daily [Active]; metformin 500 mg Oral tab 1 tab 2 bp times per day [Active]; Lantus 85 U daily Sub-Q soln daily [Active]; - PMHx: 17:42 Diabetes - NIDDM; Hypertension; bp - Immunization history:: Adult Immunizations up to date. - Social history:: Smoking status: Patient denies any tobacco usage or history of. ROS: 18:06 Constitutional: Negative for fever, chills, and weight loss, Eyes: Negative for injury, pm1 pain, redness, and discharge, ENT: Negative for injury, pain, and discharge, Neck: Negative for injury, pain, and swelling, Cardiovascular: Negative for chest pain, palpitations, and edema, Respiratory: Negative for shortness of breath, cough, wheezing, and pleuritic chest pain, Abdomen/GI: Negative for abdominal pain, nausea, vomiting, diarrhea, and constipation, Back: Negative for injury and pain, : Negative for injury, bleeding, discharge, and swelling, MS/Extremity: Negative for injury and deformity, Skin: Negative for injury, rash, and discoloration. 18:06 Neuro: Positive for syncope. 18:06 Psych: Positive for stress. 18:06 Endocrine: Positive for polydipsia, hyperglycemia. Exam: 18:06 Constitutional: This is a well developed, well nourished patient who is awake, alert, pm1 and in no acute distress. Head/Face: Normocephalic, atraumatic. 18:06 ENT: Nares patent. No nasal discharge, no septal abnormalities noted. Tympanic membranes are normal and external auditory canals are clear. Oropharynx with no redness, swelling, or masses, exudates, or evidence of obstruction, uvula midline. Mucous membranes moist. 18:06 Back: No spinal tenderness. No costovertebral tenderness. Full range of motion. Skin: Warm, dry with normal turgor. Normal color with no rashes, no lesions, and no evidence of cellulitis. MS/ Extremity: Pulses equal, no cyanosis. Neurovascular intact. Full, normal range of motion. 18:06 Eyes: Exam is negative for acute changes, Periorbital structures: appear normal, Extraocular movements: no acute changes, Conjunctiva: no acute changes, Sclera: icterus, is not appreciated. 18:06 Cardiovascular: Exam negative for acute changes, Rate: normal, Rhythm: regular, Pulses: no pulse deficits are appreciated, Edema: is not appreciated. 18:06 Respiratory: Exam negative for acute changes, respiratory distress, shortness of breath, Breath sounds: are clear throughout. 18:06 Abdomen/GI: Exam negative for acute changes, Inspection: abdomen appears normal, Palpation: abdomen is soft and non-tender, in all quadrants. 18:06 Neuro: Exam negative for acute changes, Orientation: is normal, Mentation: is normal, Motor: is normal, moves all fours. Vital Signs: 17:38 BP 125 / 81; Pulse 120; Resp 17; Temp 98; Pulse Ox 98% ; bp 19:00 BP 141 / 92; Pulse 94; Resp 23; Pulse Ox 100% ; bp 21:22 BP 132 / 91; Pulse 88; Resp 18; Pulse Ox 98% on R/A; ea MDM: 17:39 Patient medically screened. nehemias 23:10 Data reviewed: vital signs. Data interpreted: Pulse oximetry: on room air is 98 %. pm1 Interpretation: normal. 23:18 Counseling: I had a detailed discussion with the patient and/or guardian regarding: the pm1 historical points, exam findings, and any diagnostic results supporting the discharge/admit diagnosis, lab results, radiology results, the need for outpatient follow up, to return to the emergency department if symptoms worsen or persist or if there are any questions or concerns that arise at home, Patient reports that the first and last time using cocaine 3 days ago. 04/18 17:51 Order name: Basic Metabolic Panel pm1 04/18 17:51 Order name: CBC with Diff; Complete Time: 19:40 pm1 04/18 17:51 Order name: LFT's pm1 04/18 17:51 Order name: Magnesium; Complete Time: 19:54 pm1 04/18 17:51 Order name: NT PRO-BNP; Complete Time: 19:54 pm1 04/18 17:51 Order name: PT-INR; Complete Time: 19:54 pm1 04/18 17:51 Order name: CT Head Brain wo Cont; Complete Time: 19:54 pm1 04/18 17:51 Order name: Troponin (emerg Dept Use Only); Complete Time: 19:54 pm1 04/18 17:51 Order name: XRAY Chest (1 view); Complete Time: 19:40 pm1 04/18 17:52 Order name: UDS; Complete Time: 20:23 pm1 04/18 17:52 Order name: Basic Metabolic Panel; Complete Time: 19:54 EDMS 04/18 17:52 Order name: Liver (Hepatic) Function; Complete Time: 19:54 EDMS 04/18 19:44 Order name: Urine Dipstick-Ancillary; Complete Time: 19:54 EDMS 04/18 21:41 Order name: Troponin (emerg Dept Use Only); Complete Time: 23:09 ea 04/18 17:51 Order name: EKG; Complete Time: 17:52 pm1 04/18 17:51 Order name: Cardiac monitoring; Complete Time: 18:02 pm04/18 17:51 Order name: EKG - Nurse/Tech; Complete Time: 18:35 pm1 04/18 17:51 Order name: IV Saline Lock; Complete Time: 18:35 pm04/18 17:51 Order name: Labs collected and sent; Complete Time: 18:56 pm1 04/18 17:51 Order name: O2 Per Protocol; Complete Time: 18:01 pm1 04/18 17:51 Order name: O2 Sat Monitoring; Complete Time: 18:01 pm04/18 17:52 Order name: Urine Dipstick-Ancillary (obtain specimen); Complete Time: 19:51 pm1 Administered Medications: 19:57 Drug: NS 0.9% 1000 ml Route: IV; Rate: 1000 ml; Site: right antecubital; ea 19:57 Drug: NS 0.9% 1000 ml Route: IV; Rate: 1000 ml; Site: right antecubital; ea Disposition: 04/19 07:29 Co-signature as Attending Physician, Ole Price MD I agree with the assessment and nehemias plan of care. Disposition: 04/18/21 23:10 Discharged to Home. Impression: Hyperglycemia, unspecified, Cocaine abuse. - Condition is Stable. - Discharge Instructions: Stimulant Use Disorder-Cocaine, Hyperglycemia, Blood Glucose Monitoring, Adult, Diabetes and Exercise. - Medication Reconciliation Form, Thank You Letter, Antibiotic Education, Prescription Opioid Use form. - Follow up: Emergency Department; When: As needed; Reason: Worsening of condition. Follow up: Private Physician; When: 2 - 3 days; Reason: Recheck today's complaints, Continuance of care, Re-evaluation by your physician. - Problem is new. - Symptoms have improved. Signatures: Dispatcher [employer] EDAK Ole Price MD MD cha Marinas, Patrick, PORTABLE CANTEEN OPERATOR PORTABLE CANTEEN OPERATOR pm1 Domonique Reid RN RN Jamie Lester, AMANDEEP RN bp Corrections: (The following items were deleted from the chart) 04/18 23:23 23:10 04/18/2021 23:10 Discharged to Home. Impression: Hyperglycemia, unspecified; ea Cocaine abuse. Condition is Stable. Forms are Medication Reconciliation Form, Thank You Letter, Antibiotic Education, Prescription Opioid Use. Follow up: Emergency Department; When: As needed; Reason: Worsening of condition. Follow up: Private Physician; When: 2 - 3 days; Reason: Recheck today's complaints, Continuance of care, Re-evaluation by your physician. Problem is new. Symptoms have improved. pm1
[2021-04-18 23:29] VITALS: TEMP 98
[2021-04-18 23:32] VITALS: BP 132/91; O2SAT 98
--- NOTE | 2021-04-21 12:05 | EKG ---
Test Date: 2021-04-18 Test Time: 18:31:11 Armature Straightener: YADY MEASUREMENT RESULTS: Intervals: Rate: 101 HI: 126 QRSD: 84 QT: 362 QTc: 469 [place]: P: 37 HI: 126 QRS: 18 T: 30 INTERPRETIVE STATEMENTS: Sinus tachycardia Possible Left atrial enlargement Borderline ECG No previous ECG available for comparison Electronically Signed On 04-21-21 11:55:03 CDT by Kaushik Ruiz
== END 2021-04-18 23:23 | disposition home or self-care (01) ==
LOC: ER 17:31
DX: F14.10 Cocaine abuse, uncomplicated (principal); I10 Essential (primary) hypertension; Z79.4 Long term (current) use of insulin; Z88.0 Allergy status to penicillin
CPT/HCPCS: 93005; 85025; 80048; 36415; 83735; 85610; 80076; 80307 ×8; 81003; 84484 ×2; 83880; 70450; 71045; 99284; J7030

== ENCOUNTER 2021-06-25 17:33 | Emergency (ER) | payer OTHER ==
--- OUTSIDE RECORDS SUMMARY | 2021-06-25 17:39 | XMS REPORT | Continuity of Care Document ---
:1970 Author Organization [facility] t Address [address] [place] [address] Care Team Providers Name Role Phone Asked, Pcp Primary Care Physician Unavailable Payers Payer Name Policy Type Policy Number Effective Date Expiration Date S ource Problems Condition Condition Condition Status Onset Resolution Last Treating Co mments Source Name Details Category Date Date Treatment Clinician Date Moderate Moderate Disease Active 2018-11 Metho di protein-ca protein-ca 2-16 cristofer cristofer 00:00: Hospita malnutriti malnutriti 00 l on on Asthma Asthma Disease Active 2018-11 Methodi exacerbati exacerbati [address] on on 00:00: Hospita 00 l Viral Viral Disease Active 2018-11 Methodi upper upper 2-14 st respirator respirator 00:00: Ho spita y tract y tract 00 l infection infection HLD HLD Disease Active 2018-11 Methodi (hyperlipi (hyperlipi 2- demia) demia) 00:00: Hospita 00 l Schizophre Schizophre Disease Active 2018-11 M ethodi joanie joanie 2 st 00:00: Hospita 00 l Chest pain Chest pain Disease Active M ethodi 4-02 st 00:00: Hospita 00 l Diabetes Diabetes Disease Active Metho di 4-02 st 00:00: Hospita 00 l HTN HTN Disease Active Methodi (hypertens (hypertens - st ion) ion) 00:00: Hospita 00 l Weakness Weakness Disease Active Metho di of left of left 02 st side of side of 00:00: Hospita body body 00 l FOOT PAIN Diagnosis Active 2011-08-24 Memoria 07-19 08:54:00 l FOOT 00:00: [place] PAIN 00 Active 07/19/2011 [facility] Acute Problem Active 2016-08-10 Memor ia gastritis 02:02:33 l without Acute [place] mention of gastritis hemorrhage without mention of hemorrhage Active Problem 08/10/2016 Luís Card Diabetes Problem Active 2016-08-10 Mem oria mellitus 02:02:33 l without Diabetes Mony nn mention of mellitus complicati without on, type mention of II or complicati unspecifie on, type d type, II or uncontroll unspecifie ed d type, uncontroll ed Active Problem 6 Luís Card Unspecifie Problem Active 2016-08-10 M emoria d 02:02:33 l essential Cleve hypertensi Unspecifie on d essential hypertensi on Active Problem 6 Luís Card Screening Problem Active 2016-08-10 Me moria examinatio 02:02:33 l n for [place] venereal Screening disease examinatio n for venereal disease Active Problem 08/10/2016 Luís Card Obstructiv Problem Active 2016-08-10 M emoria e chronic 02:02:33 l bronchitis Dalton n , without Obstructiv exacerbati e chronic on bronchitis , without exacerbati on Active Problem 6 Luís Card Esophageal Diagnosis Active 2016-08-10 Memoria reflux 02:02:33 l Cle[place] Esophageal reflux Active Diagnosis 08/10/2016 Luís Card Acute Problem Active 2016-08-10 Memor ia pharyngiti 02:02:33 l s Acute [place] pharyngiti s Active Problem 08/10/2016 Luís Card Urinary Problem Active 2016-08-10 Cole snow tract 02:02:33 l infection Urinary Herm ayo tract infection Active Problem 08/10/2016 Luís Card Hemiplegia Problem Active 2016-08-10 M emoria of 02:02:33 l dominant [place]ve side 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 Active Problem 08/10/2016 Luís Card Enteritis Problem Active 2016-08-10 Me moria 02:02:33 l [place] Enteritis Active Problem 08/10/2016 Luís Card Cellulitis Problem Active 2016-08-10 M emoria of groin 02:02:33 l [place] Cellulitis of groin Active Problem 08/10/2016 Luís Card Other and Problem Active 2016-08-10 Me moria unspecifie 02:02:33 l d Other Cle[place] hyperlipid and emia unspecifie d hyperlipid emia Active Problem 08/10/2016 Luís Card Acute Problem Active 2016-08-10 Memor ia ill-define 02:02:33 l d Acute [place] cerebrovas ill-define cular d disease cerebrovas cular disease Active Problem 08/10/2016 Luís Card Candidiasi Problem Active 2016-08-10 M emoria s of vulva 02:02:33 l and vagina Dalton n Candidiasi s of vulva and vagina Active Problem 08/10/2016 Luís Card 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 Active Problem 6 Luís Card Constipati Problem Active 2016-08-10 M emoria on 02:02:33 l [place] Constipati on Active Problem 6 Luís Card Mass of Problem Active 2016-08-10 [place] left foot 02:02:33 l Mass of [place] left foot Active Problem 08/10/2016 Luís Card Abdominal Problem Active 2016-08-10 Me moria pain, left 02:02:33 l upper [place] quadrant Abdominal pain, left upper quadrant Active Problem 08/10/2016 Luís Card Essential Diagnosis Active 2016-08-10 Memoria (primary) 02:02:33 l hypertensi Dalton n on Essential (primary) hypertensi on Active Diagnosis 08/10/2016 Luís Card Vaginitis Problem Active 2016-08-10 Me moria 02:02:33 l [place] Vaginitis Active Problem 08/10/2016 Luís Card Esophageal Problem Active 2016-08-10 M emoria reflux 02:02:33 l [place] Esophageal reflux Active Problem 08/10/2016 Luís Card Nausea Diagnosis Active 2014-07-08 Mem oria with 02:01:10 l vomiting Nausea Dalton n with vomiting Active Diagnosis 07/08/2014 Luís Card Type II or Diagnosis Active 2016-08-10 Memoria unspecifie 02:02:33 l d type Type II Cleve diabetes or mellitus unspecifie without d type mention of diabetes complicati mellitus on, not without stated as mention of uncontroll complicati ed on, not stated as uncontroll ed Active Diagnosis 08/10/2016 Luís Card Encounter Problem Active 2016-08-10 Nd moria for 02:02:33 l immunizati Dalton n on Encounter for immunizati on Active Problem 6 Luís Card Type II or Problem Active 2016-08-10 M emoria unspecifie 02:02:33 l d type Type II Cleve diabetes or mellitus unspecifie with d type ophthalmic diabetes manifestat mellitus ions, not with stated as ophthalmic uncontroll manifestat ed ions, not stated as uncontroll ed Active Problem 6 Luís Card Generalize Problem Active 2016-08-10 M emoria d anxiety 02:02:33 l disorder Cleve Generalize d anxiety disorder Active Problem 08/10/2016 Luís Card Hyperlipid Diagnosis Active 2016-08-10 Memoria emia 02:02:33 l [place] Hyperlipid emia Active Diagnosis 08/10/2016 Luís Card URI (upper Diagnosis Active 2016-08-10 Memoria respirator 02:02:33 l y URI Cleve infection) (upper respirator y infection) Active Diagnosis 08/10/2016 Luís Card COUGH, Diagnosis Active 2012-04-19 Mem oria CONGESTION 11:57:00 l COUGH, [place]ve CONGESTION Active [place] Allergies, Adverse Reactions, Alerts Allergy Allergy Status Severity Reaction(s) Onset Inactive Treating Comm ents Source Name Type Date Date Clinician [place]ill [place] Active [place] [facility] [place] 00:[facility]: [address] Penicill Propensi Active Swelling Tongue Meth nati ins ty to 02-19 swelling, st adverse 00:00: whelps Hospita reaction 00 l s to drug penicill penicill Active Info Not Cole snow in in Available 9-20 l 00:00: [place] 00 Family History Family Member Diagnosis Comments Start Date Stop Date Source [facility] mother Diabetes [facility] Natural mother Hypertension [facility] Social History Social Habit Start Date Stop Date Quantity Comments Source Cigarettes smoked 2019-11-02 2019-11-[address] current (pack per 00:00:00 00:00:00 Hospita l day) - Reported Tobacco use and 2019-11-02 2019-11-02 Never used Islam exposure 00:00:00 00:00:00 Hospital Alcohol intake 2019-11-02 2019-11-02 Ex-drinker Islam 00:00:00 00:00:00 (finding) Hospital Alcohol Comment 2019-11-02 2019-11-02 6 packs on Islam 00:00:00 00:00:00 weekends, states Hospital has not drank in 8 months History of tobacco 2019-07-22 Current smoker [facility] use 00:00:00 Hospital Tobacco Comment 2017-02-19 2017-02-19 1 pack/ 2-3 days [facility] 00:00:00 00:00:00 Hospital TobaccoUse: 2016-08-09 2016-08-09 [facility] 00:00:00 00:00:00 [birth year] [facility] 00:00:00 00:00:00 Hospital Smoking Status Start Date Stop Date Source Former smoker 2019-11-02 00:00:00 2019-11-02 00:00:00 [facility] Medications Ordered Filled Start Stop Current Ordering Indication Dosage Frequency Signature Comments Components Source Medication Medication Date Date Medication? Clinician (SIG) Name Name lisinopril 2018-11 Yes 20mg QD Take 20 mg M ethodi (PRINIVIL,Z 2-[address] ESTRIL) 20 01:53: daily. Hospi ta mg tablet 30 l atorvastati 2018-11 Yes 80mg QD Take 80 mg Methodi n (LIPITOR) 2-[address] 80 MG 01:53: daily. Hospita tablet 30 l benztropine 2018-11 Yes 1mg Q.5D Take 1 mg M ethodi (COGENTIN) 2-[address] 1 MG tablet 01:53: (two) Hospi ta 30 times a l day. busPIRone 2018-11 Yes 5mg Q.[id number] Take 5 mg Methodi (BUSPAR) 5 2-17 [id number] by mouth [address] MG tablet 01:53: 3D (three) Hospi ta 30 times a l day. brimonidine 2018-11 Yes 1[drp] Q12H Administer Methodi -timolol 2-[address] (COMBIGAN) 01:53: both eyes Ho spita 0.2-0.5 % 30 every 12 l ophthalmic (twelve) solution hours. ergocalcife 2018-11 Yes [id number] Q7D Take Meth nati rol 2-[address] 50,[address] (VITAMIN 01:53: Units by Hospi ta D2) 50,000 30 mouth once l unit a week. capsule famotidine 2018-11 Yes 20mg Q.5D Take 20 mg M ethodi (PEPCID) 20 2-[address] MG tablet 01:53: (two) Hospita 30 times a l day. fluPHENAZin 2018-11 Yes 10mg QD Take 10 mg Methodi e 2-[address] (PROLIXIN) 01:53: daily. Hospi ta 5 MG tablet 30 l meloxicam 2018-11 Yes 15mg QD Take 15 mg Me thodi (MOBIC) 15 2-[address] mg tablet 01:53: daily. Hospit a 30 l metFORMIN 2018-11 Yes 1000mg Q.5D Take 1,000 Methodi (GLUCOPHAGE 2-[address] ) 1,000 mg 01:53: mouth 2 Hosp ras tablet 30 (two) l times a day with meals. paliperidon 2018-11 Yes 3mg QD Take 3 mg M ethodi e (INVEGA) 2-[address] 3 MG 24 hr 01:53: every Hospit a tablet 30 morning. l traMADol 2018-11 Yes [id number] 50mg Q8H Take 50 mg Me thodi (ULTRAM) 50 2-[address] mg tablet 01:53: every 8 Hospi ta 30 (eight) l hours as needed for moderate pain .Acute Pain. travoprost 2018-11 Yes 1[drp] QD Administer Methodi (TRAVATAN-Z 2-[address] ) 0.004 % 01:53: both eyes Hos vzaquez 30 nightly. l traZODone 2018-11 Yes 50mg QD Take 50 mg Me thodi (DESYREL) 2-[address] 50 MG 01:53: nightly. Hospita tablet 30 l triamterene 2018-11 Yes 1{tbl} QD Take 1 Me thodi -hydrochlor 2-[address] othiazid 01:53: mouth Hospita (MAXZIDE-25 30 daily. l ) 37.5-25 mg per tablet zolpidem 2018-11 Yes 5mg QD Take 5 mg Meth nati (AMBIEN) 5 2-[address] MG tablet 01:53: nightly as Ho spita 30 needed for l sleep. Sucralfate 2015-11 Yes Luís 1 tablet Memoria 0-20 Buxbaum on an l 00:00: empty Cleve 00 stomach Metformin Yes Luís 1 tablet M emoria HCl 9-21 Buxbaum with meals l 02:02: [place] 33 Nexium Yes Luís 1 capsule Mem oria 9-21 Buxbaum l 02:02: [place] 33 Valproic Yes Luís Unknown Mem oria Acid 9-21 Buxbaum l 02:02: [place] 33 Atorvastati Yes Luís 1 tablet Memoria n Calcium 9-21 Buxbaum l 02:02: Cle[place] 33 Benztropine Yes Luís 1 tablet Memoria Mesylate 9-21 Buxbaum at bedtime l 02:02: [place] 33 Risperdal Yes Luís Unknown Me moria Consta 9-21 Buxbaum l 02:02: [place] 33 Valsartan-H Yes Luís 1 tablet Memoria ydrochlorot 9-21 Buxbaum l hiazide 02:02: [place] 33 Novolin Yes Luís as Memoria 70/30 9-21 Buxbaum directed l 02:02: Cleve 33 Omeprazole 2016-0 Yes Luís 2 capsules Memoria 9-21 Buxbaum l 02:02: NovoLog Yes Luís Unknown [place] Flexpen 9-21 Buxbaum l 02:02: HydrOXYzine Yes Luís 1 tablet Memoria HCl 9-21 Buxbaum as needed l 02:02: Invega Yes Luís 1 tablet [place] 9-21 Buxbaum in the l 02:02: morning Proventil Yes Luís 2 puffs as Memoria HFA 9-21 Buxbaum needed l 02:02: Clonidine Yes Luís 1 tablet M emoria HCl 9-21 Buxbaum l 02:02: Sucralfate Yes Luís 1 tablet Memoria 2-06 Buxbaum on an l 03:35: empty stomach Clonazepam Yes Luís 1 tablet Memoria 1-20 Buxbaum l 00:00: Benztropine 0 Yes Luís 1 tablet Memoria Mesylate 1-07 Buxbaum at bedtime l 03:10: Flagyl 0 Yes Luís 1 tablet [place] 1-06 Buxbaum l 00:00: Aspirin 2014-0 Yes Luís 1 tablet Mem oria 8-19 Buxbaum l 00:00: Cipro 0 Yes Luís 1 tablet Memor ia 6-30 Buxbaum l 00:00: Flagyl 0 Yes Luís 1 tablet [place] 6-30 Buxbaum l 00:00: Mupirocin 2014-0 Yes Luís 1 Memor ia Calcium 4-14 Buxbaum applicatio l 00:00: n to affected area Levaquin 2014-0 Yes Luís as Memori a 4-14 Buxbaum directed l 00:00: Diflucan 0 Yes Luís 1 tablet Me moria 4-14 Buxbaum l 00:00: Novolin 2015-0 Yes Luís 20u Memoria 70/30 2-10 Buxbaum l PenFill 00:00: Lantus Yes Luís 35u sqam [place] snow 8-19 Buxbaum and 35u l 02:01: sqpm Hydrochloro No Luís 1 tablet Memoria thiazide 8-19 Buxbaum l 02:01: [place] 10 ProAir HFA Yes Luís 2 puffs as Memoria 8-19 Buxbaum needed l 02:01: Cleve 10 Advair Yes Luís 1 puff Memori a Diskus 8-19 Buxbaum l 02:01: Cleve 10 Amlodipine Yes Luís 1 tablet Memoria Besylate 8-19 Buxbaum l 02:01: Cle[place] 10 Naprosyn Yes Luís 1 tablet Me moria 5-30 Buxbaum as needed l 00:00: Benazepril- Yes Luís 1 tablet Memoria Hydrochloro 5-06 Buxbaum l thiazide 00:00: Valsartan-H Yes Luís 1 tablet Memoria ydrochlorot 5-05 Buxbaum l hiazide 00:00: Amlodipine Yes Luís 1 tablet Memoria Besylate 5-05 Buxbaum l 00:00: Yoder 5/325 2010-11 No Jaydon M 2 tab, [...] Route: l 0.9% IV 18:21: IVPB, PRN, Line Flush, Start date: 08/24/11 13:21:00, Duration: 30 day, Stop date: 09/23/11 13:20:00 BD Normal 2010-11 No Jaydon M 10 mL, [place] snow Saline 0-05 [place] Route: l Flush 18:21: IVP, Drug Cleve 00 Form: INJ, PRN, PRN Line Flush, [...] = 50 kg, Start date: 08/24/11 13:15:00 Immunizations Ordered Immunization Filled Immunization Date Status Commen ts Source Name Name Flu Vaccine - NOT 2015-12-09 Completed Memoria l Medicare 00:00:00 [place] Vital Signs Vital Name Observation Time Observation Value Comments Source Weight 2016-08-09 18:45:00 [facility] [place] Height 2016-08-09 18:45:00 [facility] [place] Temperature Oral (F) 2016-08-09 18:45:00 97.9 F [facility] [place] Heart Rate 2016-08-09 18:45:00 [facility] [place] Diastolic (mm Hg) 2016-08-09 18:45:00 Mem orial [place] Systolic (mm Hg) 2016-08-09 18:45:00 Cole snowl [place] Weight 2015-12-09 22:00:00 [facility] [place] Height 2015-12-09 22:00:00 [facility] [place] Temperature Oral (F) 2015-12-09 22:00:00 97.4 F [facility] [place] Heart Rate 2015-12-09 22:00:00 [facility] [place] Diastolic (mm Hg) 2015-12-09 22:00:00 Mem orial [place] Systolic (mm Hg) 2015-12-09 22:00:00 Cole rial [place] Weight 2015-11-25 17:45:00 [facility] [place] Height 2015-11-25 17:45:00 [facility] [place] Temperature Oral (F) 2015-11-25 17:45:00 97.2 F [facility] [place] Heart Rate 2015-11-25 17:45:00 [facility] [place] Diastolic (mm Hg) 2015-11-25 17:45:00 Mem orial [place] Systolic (mm Hg) 2015-11-25 17:45:00 Cole taya [place] Weight 2015-05-19 19:15:00 [facility] [place] Height 2015-05-19 19:15:00 [facility] [place] Temperature Oral (F) 2015-05-19 19:15:00 96.6 F [facility] [place] Heart Rate 2015-05-19 19:15:00 [facility] [place] Diastolic (mm Hg) 2015-05-19 19:15:00 Mem orial [place] Systolic (mm Hg) 2015-05-19 19:15:00 Cole rial [place] Weight 2015-03-03 19:45:00 [facility] [place] Height 2015-03-03 19:45:00 [facility] [place] Temperature Oral (F) 2015-03-03 19:45:00 96.4 F [facility] [place] Heart Rate 2015-03-03 19:45:00 [facility] [place] Diastolic (mm Hg) 2015-03-03 19:45:00 Mem orial [place] Systolic (mm Hg) 2015-03-03 19:45:00 Cole rial [place] Weight 2014-11-27 20:15:00 [facility] [place] Height 2014-11-27 20:15:00 [facility] [place] Temperature Oral (F) 2014-11-27 20:15:00 96.8 F [facility] [place] Heart Rate 2014-11-27 20:15:00 [facility] [place] Diastolic (mm Hg) 2014-11-27 20:15:00 Mem orial [place] Systolic (mm Hg) 2014-11-27 20:15:00 Cole taya [place] Weight 2014-05-21 19:00:00 [facility] [place] Height 2014-05-21 19:00:00 [facility] [place] Temperature Oral (F) 2014-05-21 19:00:00 99.3 F [facility] [place] Heart Rate 2014-05-21 19:00:00 [facility] [place] Diastolic (mm Hg) 2014-05-21 19:00:00 Mem orial [place] Systolic (mm Hg) 2014-05-21 19:00:00 Cole rial [place] Weight 2014-03-24 16:00:00 [facility] [place] Height 2014-03-24 16:00:00 [facility] [place] Temperature Oral (F) 2014-03-24 16:00:00 98.4 F [facility] [place] Heart Rate 2014-03-24 16:00:00 [facility] [place] Diastolic (mm Hg) 2014-03-24 16:00:00 Mem orial [place] Systolic (mm Hg) 2014-03-24 16:00:00 Cole rial [place] Respitory Rate 2011-08-24 19:00:00 Memori al [place] Systolic (mm Hg) 2011-08-24 19:00:00 Cole rial [place] Diastolic (mm Hg) 2011-08-24 19:00:00 Mem orial [place] Systolic (mm Hg) 2011-08-24 18:45:00 Cole rial [place] Respitory Rate 2011-08-24 18:45:00 Memori al [place] Diastolic (mm Hg) 2011-08-24 18:45:00 Mem orial [place] Systolic (mm Hg) 2011-08-24 18:30:00 Cole rial [place] Diastolic (mm Hg) 2011-08-24 18:30:00 Mem orial [place] Respitory Rate 2011-08-24 18:30:00 Memori al [place] Temperature Oral (F) 2011-08-24 14:18:00 98.1 F [facility] [place] Weight 2011-08-18 22:08:00 [facility] [place] Height 2011-08-18 22:08:00 160.02 cm [facility] [place] Procedures This patient has no known procedures. Plan of Care Planned Activity Planned Date Details Comments Source Future Scheduled Test DIABETES: RETINAL EYE [facility] EXAM [code = DIABETES: RETINAL EYE EXAM] Future Scheduled Test DIABETIC FOOT EXAM [facility] [code = DIABETIC FOOT EXAM] Future Scheduled Test URINE MICROALBUMIN [facility] [code = URINE MICROALBUMIN] Future Scheduled Test COVID-19 VACCINE (1) [facility] [code = COVID-19 VACCINE (1)] Future Scheduled Test Hepatitis C screening [facility] (procedure) [code = 866451180] Future Scheduled Test Screening for malignant [facility] neoplasm of cervix (procedure) [code = 561861971] Future Scheduled Test BREAST CANCER SCREENING [facility] [code = BREAST CANCER SCREENING] Future Scheduled Test COLONOSCOPY SCREENING [facility] [code = COLONOSCOPY SCREENING] Future Scheduled Test SHINGLES VACCINES (#1) [facility] [code = SHINGLES VACCINES (#1)] Future Scheduled Test INFLUENZA VACCINE [code [facility] = INFLUENZA VACCINE] Encounters Start End Encounter Admission Attending Care Care Encounter Source Date/Time Date/Time Type Type Clinicians Facility Department ID 2020-07-14 2020-07-14 Emergency E [facility] [id number] [facility] 18:18:00 18:18:00 2020-05-25 2020-05-25 [id number]00 06:52:00 2020-04-27 2020-04-27 [id number] [facility] 13:59:00 13:59:00 2020-03-20 2020-03-20 Emergency E [facility] [id number] [facility] 12:20:00 12:20:00 2020-03-13 2020-03-13 Emergency E [facility] [id number] [facility] 14:46:00 14:46:00 2019-12-09 2019-12-09 Emergency E [facility] [id number] [facility] 12:29:00 12:29:00 2019-10-10 2019-10-10 Emergency E [facility] [id number] [facility] 22:20:00 22:20:00 2019-08-12 2019-08-12 Emergency E [id number] 12:11:00 12:11:00 2019-03-11 2019-03-11 Emergency E [id number] 11:52:00 11:52:00 2016-08-09 2016-08-09 Sick nullFlavo Luís Sykes [id number] c99-9 Memoria 18:45:00 18:45:00 korin Card [id number] IMTIAZ joya DO [id number] [facility] [id number] 2016-08-09 2016-08-09 Outpatient Luís Sykes [id number] [facility] 13:45:00 13:45:00 Nataly Logan DO, PA DO, PA 2015-12-09 2015-12-09 Unknown nullFlavo Luís Sykes fedd3 572-b Memoria 22:00:00 22:00:00 korin Card [id number] l DO, PA [id number] [facility] nn [id number] 2015-12-09 2015-12-09 Unknown nullFlavo Luís Sykes [id number] 3c5-1 Memoria 21:00:00 21:00:00 r Stephie, [id number] l DO, PA [id number] [facility] nn [id number] 2015-12-09 2015-12-09 Outpatient Luís Sykes [id number] [facility]inic 16:00:00 16:00:00 Nataly Logan, DO, PA DO, PA 2015-11-25 2015-11-25 medication nullFlavo Luís Sykes 1e [id number] Memoria 18:45:00 18:45:00 r Stephie, [id number] l DO, PA [id number] [facility] nn [id number] 2015-11-25 2015-11-25 medication nullFlavo Luís Sykes 80 [id number] Memoria 18:45:00 18:45:00 r Alyxfidelina, [id number] l DO, PA [id number] [facility] nn [id number] 2015-11-25 2015-11-25 Unknown nullFlavo Luís Sykes [id number] [id number] Mem[facility] 17:45:00 17:45:00 r Abieledenilsondemetrius, dfc-[id number] l DO, PA [id number] [facility] nn [id number] 2015-11-25 2015-11-25 Unknown nullFlavo Luís Sykes afbb1 29a-a Memoria 17:45:00 17:45:00 r Abielyakovfidelina, [id number] l DO, PA [id number] [facility] nn [id number] 2015-11-25 2015-11-25 Unknown nullFlavo Luís Donaldson. 7ee6a b89-b Memoria 17:45:00 17:45:00 r Abieledenilsondemetrius, [id number] l DO, PA [id number] [facility] nn [id number] 2015-11-25 2015-11-25 medication nullFlavo Luís Donaldson. 2e qa03bn-[id number] Memoria 17:45:00 17:45:00 r Buxbaum, [id number] l DO, PA [id number] [facility] nn [id number] 2015-11-25 2015-11-25 Unknown nullFlavo Luís Sykes cfbdc 263-5 [facility] 16:45:00 16:45:00 r Buxbaum, [id number]-4937-[id number] l DO, PA [id number] [facility] nn [id number] 0167-01-06 2015-11-25 Outpatient Luís Sykes [id number] [facility]inic 12:45:00 12:45:00 ETello Alyxfidelinaerickradha wv Buxbaum, DO, PA DO, PA 2015-11-25 2015-11-25 Outpatient Luís Sykes [id number] [facility]Clinic 11:45:00 11:45:00 Onel Beebeyakovfidelina alradha wv Buxbaum, DO, PA DO, PA 2015-05-20 2015-05-20 Unknown nullFlavo Luís DonaldsonTello 07888 220-3 [facility] 15:42:00 15:42:00 r Buxbaum, [id number] l DO, PA [id number] [facility] nn [id number] 2015-05-20 2015-05-20 Unknown nullFlavo Luís DonaldsonTello 2c46b e23-2 [facility] 15:42:00 15:42:00 r Buxbaum, [id number] l DO, PA [id number] [facility] nn [id number] 2015-05-20 2015-05-20 Unknown nullFlavo Luís Sykes 1cabc fa4-d [facility] 15:42:00 15:42:00 r Buxbaum, [id number] l DO, PA [id number] [facility] [id number] 2015-05-20 2015-05-20 Unknown nullFlavo Luís Sykes [id number] e26-c [facility] 14:42:00 14:42:00 r Buxbaum, [id number]-47fc-[id number] l DO, PA [id number] [facility] nn [id number] 2015-05-20 2015-05-20 Unknown nullFlavo Luís Sykes [id number] 6a7-2 [facility] 14:42:00 14:42:00 r Buxbaum, [id number] l DO, PA [id number] Mony nn [id number] 2015-05-20 2015-05-20 Unknown Jenifer Sykes [id number] 22f-3 [facility] 14:42:00 14:42:00 r Buxbaum, eee-[id number] l DO, PA [id number] Mony nn [id number] 2015-05-20 2015-05-20 Outpatient Luís Sykes [id number] [facility]Clinic 09:42:00 09:42:00 E. Buxbaufidelina, alWor ks Buxbaum, DO, PA DO, PA 2015-05-19 2015-05-19 WORK IN / nullFlavo Luís Sykes 07a [id number] [facility] 20:15:00 20:15:00 LE pain r Buxbaum, [id number]-[id number] l DO, PA [id number] [place]ony nn [id number] 2015-05-19 2015-05-19 WORK IN / nullFlavo Luís Sykes e17 [id number] [facility] 20:15:00 20:15:00 LE pain r Buxbaum, [id number] l DO, PA [id number] [facility]ony nn [id number] 2015-05-19 2015-05-19 WORK IN / nullFlavo Luís Sykes 43a a7le2-6 [facility] 20:15:00 20:15:00 LE pain r Buxbaum, ddb-[id number] l DO, PA [id number] [facility] nn [id number] 2015-05-19 2015-05-19 WORK IN / nullFlavo Luís Sykes 3a3 8ps93-2 [facility] 19:15:00 19:15:00 LE pain r Buxbaum, [id number]-l l DO, PA [id number] [facility] nn [id number] 2015-05-19 WORK IN / nullFlavo Luís Sykes e49 [id number] [facility] 19:15:00 19:15:00 LE pain r Buxbaum, [id number] l DO, PA [id number] [facility]ony nn [id number] 2015-05-19 2015-05-19 WORK IN / nullFlavo Luís Sykes d79 afc63-a [facility] 19:15:00 19:15:00 LE pain r Stephie, 5cb-[id number]-[id number] l DOIMTIAZ [id number] [facility] nn [id number] 2015-05-19 2015-05-19 Outpatient Luís Sykes [id number] [facility]inic 14:15:00 14:15:00 Nataly Logan, DO, PA , IMTIAZ 2015-04-22 2015-04-22 Refill nullFlavo Luís Sykes ebfd0 66c-7 [facility] 20:53:00 20:53:00 r Stephie [id number] l DOIMTIAZ [id number] [facility]ony [place] [id number] 2015-04-22 2015-04-22 Refill nullFlavo Luís Sykes 2d152 ecb-e [facility] 20:53:00 20:53:00 korin Card [id number] l DO, IMTIAZ [id number] [facility]ony [place] [id number] 2015-04-22 2015-04-22 Refill nullFlavo Luís Sykes [id number] ed1-8 [facility] 20:53:00 20:53:00 korin Card, [id number]-4619-[id number] l DO, IMTIAZ [id number] [facility]ony [place] [id number] 2015-04-22 2015-04-22 Refill nullFlavo Luís Sykes [id number] c20-4 [facility] 19:53:00 19:53:00 korin Card [id number] l DO, IMTIAZ [id number] Mony salinas [id number] 2015-04-22 2015-04-22 Refill nullFlavo Luís Sykes [id number] 7cd-d [facility] 19:53:00 19:53:00 korin Card [id number] l DO, IMTIAZ [id number] Mony salinas [id number] 2015-04-22 2015-04-22 Refill nullFlavo Luís Sykes [id number] 0e6-3 Memoria 19:53:00 19:53:00 r Stephie [id number] l DO, [place] [id number] [place] [facility] nn ae96e7 2015-04-22 2015-04-22 Refill nullFlavo Luís Sykes 56713 187-a Memoria 19:53:00 19:53:00 r Buxbaum, l26-3963-i l DO, PA fb0-u42616 [facility] nn 9a10a6 2015-04-22 2015-04-22 Outpatient Luís Sykes [id number] eClinic 14:53:00 14:53:00 Nataly Logan ks Buxbaum, DO, PA DO, PA 2015-03-03 2015-03-03 Unknown nullFlavo Luís Sykes ec3b6 32a-5 Memoria 20:45:00 20:45:00 r Buxbaum, 5be-4d04-b l DO, PA 01a-f4dbb5 [facility] nn 6b4b17 2015-03-03 2015-03-03 Unknown nullFlavo Luís Sykes 4cd7c 23b-d Memoria 20:45:00 20:45:00 r Buxbaum, i00-4291-2 l DO, PA 707-4r1241 [facility] nn 286a52 2015-03-03 2015-03-03 Unknown nullFlavo Luís Sykes d72d7 df2-c Memoria 20:45:00 20:45:00 r Buxbaum, 500-4231-8 l DO, PA 626-95e61f [facility] nn d0a60d 2015-03-03 2015-03-03 Unknown nullFlavo Luís Sykes d45a3 cba-d Memoria 19:45:00 19:45:00 r Buxbaum, 6k8-9t21-3 l DO, PA y2p-81t1l8 [facility] nn d6cb2a 2015-03-03 2015-03-03 Unknown nullFlavo Luís Sykes ebf41 b2f-c Memoria 19:45:00 19:45:00 r Buxbaum, 1de-4df5-9 l DO, PA q24-02ol41 [facility] nn 98f26a 2015-03-03 2015-03-03 Unknown nullFlavo Luís Sykes 17083 ec5-7 Memoria 19:45:00 19:45:00 r Buxbaum, 8ec-4afb-b l DO, [place] 096-9fa32f Mony nn 9qv312 2015-03-03 2015-03-03 Unknown nullFlavo Luís Sykes a18e2 91e-2 [facility]oria 19:45:00 19:45:00 r Stephie, d6f-7lp2-k l DO, PA 4a2-8r6n31 [facility] nn 62c63b 2015-03-03 2015-03-03 Unknown nullFlavo Luís Sykes 5b3b2 887-c Memoria 19:45:00 19:45:00 r Stephie, 91c-402d-9 l DO, PA h60-n8g066 [facility] nn o5398l 2015-03-03 2015-03-03 Outpatient Luís Staley Onel [id number] 7 eClinic 14:45:00 14:45:00 Nataly Logan Buxbaum, DO, PA DO, PA 2015-01-09 2015-01-09 refill nullFlavo Luís Sykes 6b2e9 6ba-a [facility]oria 17:13:00 17:13:00 r Stephie, 52f-4235-a l DO, PA 3p8-444204 Mony nn 94918u 2015-01-09 2015-01-09 refill nullFlavo Luís Sykes d8162 dec-2 [facility]oria 17:13:00 17:13:00 r Stephie, j3j-821o-1 l DO, PA 043-a9ce0f Mony nn d038b8 2015-01-09 2015-01-09 refill nullFlavo Luís Sykes f119e 122-b [facility] 17:13:00 17:13:00 r Stephie, 89f-4cf2-b l DO, PA 349-e9e5e1 Mony nn 9f1b53 2015-01-09 2015-01-09 refill nullFlavo Luís Sykes 3a161 d1d-f [facility]oria 16:13:00 16:13:00 r Stephie, db3-42f3-9 l DO, PA 470-dafe05 Mony nn d3bea6 2015-01-09 2015-01-09 refill nullFlavo Luís Sykes 868df f44-3 [facility] 16:13:00 16:13:00 r Buxbaum, 2ed-4750-8 l DO, PA 129-9773eb Mony nn 896271 4292-02-20 2015-01-09 refill nullFlavo Luís E. f5b15 f9c-8 [facility]oria 16:13:00 16:13:00 r Buxbaum, 0b9-550s-o l DO, PA 8j5-667qd6 Mony nn 6fcb67 2015-01-09 2015-01-09 refill nullFlavo Luís E. 15ceb 986-b [facility]oria 16:13:00 16:13:00 r Buxbaum, 845-4f5f-b l DO, PA andrés-2418b7 Mony nn 4d86fc 2015-01-09 2015-01-09 refill nullFlavo Luís E. 5db19 aa0-b [facility]oria 16:13:00 16:13:00 r Buxbaum, 40f-4a35-b l DO, PA k88-98n1u0 Mony nn 4p0207 2014-12-30 2014-12-30 f/u nullFlavo Luís E. e2be7 1c3-c [facility]oria 21:00:00 21:00:00 hosptial r Buxbaum, 421-40c1-9 l [facility] 321-4bd5eb Mony nn 0g546v 2014-12-30 2014-12-30 f/u nullFlavo Luís E. b35de 8d5-4 [facility]oria 21:00:00 21:00:00 hosptial r Buxbaum, cfe-4111-9 l [facility], [place] p4e-0a08r4 Mony nn n0x264 2014-12-30 2014-12-30 f/u nullFlavo Luís E. 97012 829-c [facility]oria 21:00:00 21:00:00 hosptial r Buxbaum, s19-1fdm-m l [facility] 5m4-1ad3z7 Mony nn 17899m 2014-12-30 2014-12-30 f/u nullFlavo Luís E. 4dd34 240-a [facility]oria 20:00:00 20:00:00 hosptial r Buxbaum, 588-43c2-a mahnaz poon DO, PA db5-fdc4ae [facility] nn cbd92d 2014-12-30 2014-12-30 f/u nullFlavo Luís Donaldson. 470d7 b17-6 Memoria 20:00:00 20:00:00 hosptial korin Card, 686-4729-b l cleve DO, [place] 767-qfi687 [facility] nn ac89fd 2014-12-30 2014-12-30 f/u nullFlavo Luís Anika. e2a4a 0d7-5 Memoria 20:00:00 20:00:00 hosptial r Alyxfidelina, 756-402d-a mahnaz poon DO, [place] 7m2-33176t [facility] u8959m 2014-12-30 2014-12-30 f/u nullFlavo Luís Donaldson. e1fd8 e19-0 [facility]oria 20:00:00 [facility]:00:[facility] Beebeyakovfidelina, 6z1-9574-f mahnaz [place] , [place] 45f-53590y [facility] nn 62ed1e 2014-12-30 2014-12-30 f/u nullFlavo Luís Donaldson. 105ee f22-a Memoria 20:00:00 20:00:[facility] Stephie, 9z1-9z12-3 mahnaz poon DO, [place] 7f3-3818d1 [facility] 45526b 2014-12-18 2014-12-18 In the nullFlavo Luís Donaldson. 89908 ba5-d Memoria 16:54:00 16:54:00 hospital korin Card, 008-4266-b l DO, [place] 46c-4c92f6 [facility] bbf50d 2014-12-18 2014-12-18 In the nullFlavo Luís E. ca696 9ab-2 Memoria 16:54:00 16:54:00 hospital korin Card, 7m4-2199-8 l DO, [place] 75c-375181 [facility] w0w417 2014-12-18 2014-12-18 In the nullFlavo Luís E. e1f52 f8f-c Memoria 16:54:00 16:54:00 hospital korin Card, ee1-4c5c-9 l DO, [place] 7ad-86f65a Mony nn b8d69f 2014-12-18 2014-12-18 In the nullFlavo Luís Donaldson. fae3c e99-8 Memoria 16:54:00 16:54:00 hospital [facility], 591-40c2-9 l DO, [place] 4n9-74099y Mony nn 178e69 2014-12-18 2014-12-18 In the nullFlavo Luís Donaldson. dd3f3 bc0-f Memoria 15:54:00 15:54:00 hospital [facility], 7l0-7a93-l l DO, [place] 588-c5f95c Mony nn f91ffa 2014-12-18 2014-12-18 In the nullFlavo Luís Donaldson. fc900 b63-e [facility]oria 15:54:00 15:54:00 hospital [facility], 6b0-16n9-0 l DO, [place] 6i5-s1e3o2 Mony nn 394033 6937-01-29 2014-12-18 In the nullFlavo Luís Donaldson. c753d 4ed-1 Memoria 15:54:00 15:54:00 hospital [facility], 0de-4d35-9 l DO, [place] 473-a140fc Mony nn a902db 2014-12-18 2014-12-18 In the nullFlavo Luís Donaldson. 10931 8dd-c Memoria 15:54:00 15:54:00 hospital [facility], 4cc-45e6-b l DO, [place] 0ff-22d516 Mony nn 389331 3407-01-29 2014-12-18 In the nullFlavo Luís Donaldson. 4af3d e64-5 Memoria 15:54:00 15:54:00 hospital [facility], p09-85ol-9 l DO, [place] e11-16v520 Mony nn 87k615 2014-12-18 2014-12-18 Outpatient Luís Sykes [id number] 3 eClinic 10:54:00 10:54:00 Nataly Logan, DO, PA DO, PA 2014-11-27 2014-11-27 abdominal nullFlavo Luís Donaldson. 52d beab2-2 Memoria 20:15:00 20:15:00 pain r Buxbaum, d23-913y-8 l DO, PA q47-14nqi7 [facility] nn f55eb0 2014-11-27 2014-11-27 abdominal nullFlavo Luís Anika. ce6 6689c-f Memoria 20:15:00 20:15:00 pain r Buxbaum, 7z4-047a-v l DO, [place] 51a-06c5fe Mony nn d59b3d 2014-11-27 2014-11-27 abdominal nullFlavo Luís E. 822 n3m73-9 Memoria 20:15:00 20:15:00 pain r Buxbaum, 430-4558-8 l DO, PA 493-mmq955 [facility] nn f55379 2014-11-27 2014-11-27 abdominal nullFlavo Luís E. 2a5 1ol4c-3 Memoria 20:15:00 20:15:00 pain r Buxbaum, 0d2-772j-0 l DO, PA 205-fp054i [facility] nn 7f88fc 2014-11-27 2014-11-27 abdominal nullFlavo Luís E. add 4688f-2 Memoria 20:15:00 20:15:00 pain r Buxbaum, 34e-4295-8 l DO, PA 3e6-o25qs9 [facility] nn d1cd1e 2014-11-27 2014-11-27 abdominal nullFlavo Luís E. cc7 66174-7 Memoria 20:15:00 20:15:00 pain r Buxbaum, 35e-4b22-a l DO, PA 47e-344ec2 [facility] nn a8ed89 2014-11-27 2014-11-27 abdominal nullFlavo Luís E. 143 9t88x-j Memoria 19:15:00 19:15:00 pain r Buxbaum, w8g-71c7-w l DO, PA 900-u91322 Mony nn 08g863 2014-11-27 2014-11-27 abdominal nullFlavo Luís E. d5c wm4ys-5 Memoria 19:15:00 19:15:00 pain r Buxbaum, 155-49a7-a l DO, PA 35d-3b1d55 [facility] nn 0f36e3 2014-11-27 2014-11-27 abdominal nullFlavo Luís Sykes 722 0n07j-6 Memoria 19:15:00 19:15:00 pain r Stephie, m3a-7463-c [facility], [place] fb1-cb072p [facility] nn 0241dd 2014-11-27 2014-11-27 abdominal nullFlavo Luís Sykes 71c 6b25d-9 Memoria 19:15:00 19:15:00 pain r Abieledenilsondemetrius, cac-474e-b DO, PA 49e-e695fb [facility] nn 6gu514 2014-11-27 2014-11-27 abdominal nullFlavo Luís Donaldson. 659 41hz7-5 Memoria 19:15:00 19:15:00 pain r Abieledenilsondemetrius, 00a-432e-8 [facility], [place] 101-74756f [facility] nn 0p120o 2014-11-27 2014-11-27 Outpatient Luís Sykes [id number] eClinic 14:15:00 14:15:00 Nataly Logan wv Stephie, , PA DO, PA 2014-11-27 2014-11-27 Outpatient Luís Sykes 5423 4 eClinic 14:15:00 14:15:00 Nataly Logan wv Stephie, , PA DO, PA 2014-08-05 2014-08-05 refill nullFlavo Luís Sykes 61870 69a-7 Memoria 19:54:00 19:54:00 r Stephie, 40f-4503-b [facility], [place] df2-6e56cf [facility] nn 62971e 2014-08-05 2014-08-05 refill nullFlavo Luís Donaldson. 16be7 575-0 Memoria 19:54:00 19:54:00 r Stephie, 743-4764-a DO, PA a7n-0us370 [facility] nn 8300b7 2014-08-05 2014-08-05 refill nullFlavo Luís Donaldson. d67dd c4b-1 Memoria 19:54:00 19:54:00 r Stephie r2e-8kf7-n l DO, PA 6ea-m4a590 [facility] nn 0fff2e 2014-08-05 2014-08-05 refill nullFlavo Líus Donaldson. 6314f 4f2-3 Memoria 19:54:00 19:54:00 r Buxbaum, 466-4540-9 l DO, PA 9l7-h2u11x [facility] nn 874f97 2014-08-05 2014-08-05 refill nullFlavo Luís Anika. 7dbca f34-b Memoria 19:54:00 19:54:00 r Buxbaum, 1b2-8672-2 l DO, PA dc3-f127e7 [facility] nn 7491ed 2014-08-05 2014-08-05 refill nullFlavo Lusí E. 6a90f 591-3 Memoria 19:54:00 19:54:00 r Buxbaum, s38-4djx-8 l DO, PA w22-7040k7 [facility] nn 94787l 2014-08-05 2014-08-05 refill nullFlavo Luís Donaldson. c7a95 cbc-8 Memoria 18:54:00 18:54:00 r Buxbaum, 227-4920-9 l DO, PA 304-72z757 [facility] nn 88febe 2014-08-05 2014-08-05 refill nullFlavo Luís Donaldson. 418d5 032-7 Memoria 18:54:00 18:54:00 r Buxbaum, d09-861o-2 l DO, PA 99f-70f57c [facility] nn 899623 0829-09-16 2014-08-05 refill nullFlavo Luís Donaldson. fcae0 249-4 Memoria 18:54:00 18:54:00 r Buxbaum, 23a-45a6-8 l DO, PA 94d-11e28d [facility] nn 2d40f4 2014-08-05 2014-08-05 refill nullFlavo Luís Donaldson. c00a6 eb2-f Memoria 18:54:00 18:54:00 r Buxbaum, 9u6-1jaj-4 l DO, PA 0ce-5e1a60 [facility] nn 8deee7 2014-08-05 2014-08-05 refill nullFlavo Luís Anika. 01e9e 839-c Memoria 18:54:00 18:54:00 r Abielyakovfidelina, 102-4617-a l DO, PA 707-580363 Mony nn b025a7 2014-08-05 2014-08-05 refill nullFlavo Luís Sykes 75208 0ea-a [facility]oria 18:54:00 18:54:00 r Stephie, 163-4594-a l DO, PA w1h-08218j Mony nn 750a48 2014-08-05 2014-08-05 Outpatient Luís Sykes [id number] 0 eClinic 13:54:00 13:54:00 Anika. Nataly Card Buxbaum, DO, PA DO, PA 2014-05-21 2014-05-21 Follow-Up nullFlavo Luís Donaldson. 1c4 ds91v-5 Memoria 20:00:00 20:00:00 r Alyxfidelina, bd3-456d-a l DO, PA acb-a89a7e Mony nn b91354 2014-05-21 2014-05-21 Follow-Up nullFlavo Luís Donaldson. 699 2eafe-f Memoria 20:00:00 20:00:00 r Stephie, 4bf-4502-8 l DO, PA ed2-77d4cf Mony nn ut7810 2014-05-21 2014-05-21 Follow-Up nullFlavo Luís Sykes 938 0958c-8 [facility]oria 20:00:00 20:00:00 r Wichodemetrius, l74-24m4-7 l DO, PA 906-t61496 Mony nn 5a65af 2014-05-21 2014-05-21 Follow-Up nullFlavo Luís Donaldson. 190 bd7ww-j Memoria 20:00:00 20:00:00 r Stephie, cef-40a1-b l DO, PA 133-7v796m Mony nn 5f67c3 2014-05-21 2014-05-21 Follow-Up nullFlavo Luís Donaldson. 675 528i8-3 Memoria 20:00:00 20:00:00 r Stephie, eea-4a48-8 l DO, PA 19b-fb8fa3 Mony nn 1m5892 2014-05-21 2014-05-21 Follow-Up nullFlavo Luís Donaldson. d8d 70is9-y [facility] 20:00:00 20:00:00 r Buxbaum, 756-4e43-9 l DO, PA 356-92p217 [facility] nn f915a4 2014-05-21 2014-05-21 Follow-Up nullFlavo Luís Donaldson. ab1 6g3ug-4 Memoria 19:00:00 19:00:00 r Buxbaum, af4-483d-8 l DO, PA 570-r55200 [facility] nn d491d6 2014-05-21 2014-05-21 Follow-Up nullFlavo Luís Donaldson. 32e 4j960-9 Memoria 19:00:00 19:00:00 r Buxbaum, r89-2mpe-7 l DO, PA eff-a7d925 [facility] nn 12143w 2014-05-21 2014-05-21 Follow-Up nullFlavo Luís Donaldson. aa0 19261-a Memoria 19:00:00 19:00:00 r Buxbaum, 7i7-13x0-4 l DO, PA 71f-137a54 [facility] nn 8dcbbf 2014-05-21 2014-05-21 Follow-Up nullFlavo Luís Donaldson. c18 8314a-5 Memoria 19:00:00 19:00:00 r Buxbaum, 48a-4ad0-b l DO, PA 080-6829f4 [facility] nn 5ef13d 2014-05-21 2014-05-21 Follow-Up nullFlavo Luís Donaldson. 0dd 5617f-f Memoria 19:00:00 19:00:00 r Buxbaum, 9dd-4eb1-8 l DO, PA a3e-2w3wx2 [facility] nn 199a49 2014-05-21 2014-05-21 Follow-Up nullFlavo Luís Donaldson. d6e 18d08-i Memoria 19:00:00 19:00:00 r Buxbaum, 346-4d78-b l DO, PA 144-7b30b1 Mony nn fe23b9 2014-05-21 2014-05-21 Follow-Up nullFlavo Luís Donaldson. 97d 89805-4 Memoria 19:00:00 19:00:00 r Buxbaum, t62-71qa-a l DO, PA 825-81a5bc Mony nn 369a68 2014-05-21 2014-05-21 Outpatient Luís Sykes [id number] eClinic 14:00:00 14:00:00 Nataly Logan Buxbaum, DO, PA DO, PA 2014-04-18 2014-04-18 Unknown nullFlavo Luís Sykes 0de8b ff6-f Memoria 16:20:00 16:20:00 r Buxbaufidelina, df4-4552-9 l DO, PA 2j4-r19393 Mony nn 7de81c 2014-04-18 2014-04-18 Unknown nullFlavo Luís Sykes 8aef7 9b5-9 [facility]oria 16:20:00 16:20:00 r Abielxbaufidelina, cdd-4324-9 l DO, PA 7u8-95jc8k Mony nn 34a9a2 2014-04-18 2014-04-18 Unknown nullFlavo Luís Sykes 4c7a7 0f7-5 [facility] 16:20:00 16:20:00 r Stephie, cc1-4d29-8 l DO, PA 72d-a5989p Mony nn d8fc9c 2014-04-18 2014-04-18 Unknown nullFlavo Luís Sykes a9ece 70b-5 [facility] 16:20:00 16:20:00 r Abielxbaufidelina, 275-40a1-9 l DO, PA afc-13075j Mony nn e41c32 2014-04-18 2014-04-18 Unknown nullFlavo Luís Sykes 7d4cd 6a9-5 [facility] 16:20:00 16:20:00 r Abielxbaufidelina, e35-4282-c l DO, PA 725-571282 Mony nn f20af4 2014-04-18 2014-04-18 Unknown nullFlavo Luís Sykes addde 00b-a [facility] 16:20:00 16:20:00 r Abielxbaufidelina, 096-410b-9 l DO, PA r60-240o30 Mony nn c9bd54 2014-04-18 2014-04-18 Unknown nullFlavo Luís Sykes f65da c2d-6 [facility] 15:20:00 15:20:00 r Buxbaum, 487-4088-9 l DO, PA 069-0vz725 Mony nn 4a98c9 2014-04-18 2014-04-18 Unknown nullFlavo Luís Donaldson. c5fcb cc7-9 [facility]oria 15:20:00 15:20:00 r Buxbaum, h5t-5t7o-c l DO, PA 5q2-g05212 Mony nn c793f7 2014-04-18 2014-04-18 Unknown nullFlavo Luís Donaldson. 835cf 761-b [facility]oria 15:20:00 15:20:00 r Buxbaum, l45-9292-2 l DO, PA d87-tnl7xg Mony nn s8846e 2014-04-18 2014-04-18 Unknown nullFlavo Luís Donaldson. c24ab 041-8 Memoria 15:20:00 15:20:00 r Buxbaum, r5y-5469-u l DO, PA i70-h1xr42 Mony nn 962137 6229-05-30 2014-04-18 Unknown nullFlavo Luís Donaldson. 10c1c ab2-4 [facility]oria 15:20:00 15:20:00 r Buxbaum, u38-837d-q l DO, PA 984-b14a12 Mony nn 5dfa33 2014-04-18 2014-04-18 Unknown nullFlavo Luís Donaldson. 0b728 d66-d [facility] 15:20:00 15:20:00 r Buxbaum, a10-89t0-0 l DO, PA m1l-7011nl Mony nn 70644u 2014-04-18 2014-04-18 Unknown nullFlavo Luís Donaldson. e2e51 20d-4 Memoria 15:20:00 15:20:00 r Buxbaum, 889-432c-9 l DO, PA t83-77017j Mony nn 485dd1 2014-04-18 2014-04-18 Unknown nullFlavo Luís Donaldson. 4d75c b4e-9 Memoria 15:20:00 15:20:00 r Buxbaum, 077-447f-9 l DO, PA c42-16120b Mony nn d1d8dd 2014-04-18 2014-04-18 Outpatient Luís Sykes [id number] eClinic 10:20:00 10:20:00 Nataly Logan Buxbaum, DO, PA , PA 2014-03-25 2014-03-25 Medication nullFlavo Luís Sykes b6 44tp38-o [facility] 22:29:00 22:29:00 r Buxbaum, y68-3092-4 l DO, PA 6s7-hzrg37 Mony nn 8d755y 2014-03-25 2014-03-25 Medication nullFlavo Luís Sykes a4 e97k42-w [facility] 22:29:00 22:29:00 r Buxbaum, 137-4229-8 l DO, PA bd9-1681ff Mony nn 4e7e36 2014-03-25 2014-03-25 Medication nullFlavo Luís Sykes 83 0j3347-b [facility] 22:29:00 22:29:00 r Buxbaum, 910-4897-b l DO, PA 565-2093cb Mony nn 2cad17 2014-03-25 2014-03-25 Medication nullFlavo Luís Sykes 7b km12o2-9 [facility] 22:29:00 22:29:00 r Buxbaum, 9c5-3a3b-2 l DO, PA cec-298e7e Mony nn 43095b 2014-03-25 2014-03-25 Medication nullFlavo Luís Sykes a0 c496ob-0 [facility] 22:29:00 22:29:00 r Buxbaum, 1da-4cd6-8 l DO, PA 4t2-pxv9e2 Mony nn 81d64e 2014-03-25 2014-03-25 Medication nullFlavo Luís Sykes 7d 94dju9-k [facility]oria 22:29:00 22:29:00 r Buxbaum, 91a-4263-a l DO, PA 25b-d2ed36 Mony nn 0bef91 2014-03-25 2014-03-25 Medication nullFlavo Luís Donaldson. 5c 1c57j4-0 Memoria 21:29:00 21:29:00 r Buxbaum, l8y-7640-7 l DO, PA 427-6f6e85 Mony nn 16fc7c 2014-03-25 2014-03-25 Medication nullFlavo Luís Sykes b2 022913-5 [facility] 21:29:00 21:29:00 r Buxbaum, 2ea-4da2-b l DO, PA 3c2-379796 [facility] nn 123e55 2014-03-25 2014-03-25 Medication nullFlavo Luís Donaldson. 19 l366w0-v Memoria 21:29:00 21:29:00 r Buxbaum, 8cf-41af-a l DO, PA 0fb-23dcb4 [facility] 69c6f0 2014-03-25 2014-03-25 Medication nullFlavo Luís Donaldson. b7 c7yh6t-6 Memoria 21:29:00 21:29:00 r Buxbaum, 2y7-04zx-l l DO, PA 235-cdc13d [facility] 161710 9595-05-06 2014-03-25 Medication nullFlavo Luís Donaldson. 95 7u2302-8 [facility]oria 21:29:00 21:29:00 r Buxbaum, 6o7-74x3-8 l DO, PA 68c-9146ed [facility] ffbfa2 2014-03-25 2014-03-25 Medication nullFlavo Luís Donaldson. 03 m2st91-j [facility]oria 21:29:00 21:29:00 r Buxbaum, 481-490c-b l DO, PA r81-4c7ij0 [facility] 719da3 2014-03-25 2014-03-25 Medication nullFlavo Luís Donaldson. f7 886315-8 Memoria 21:29:00 21:29:00 r Buxbaum, t5d-2324-5 l DO, PA 31d-98819g [facility] 04b1cb 2014-03-25 2014-03-25 Medication nullFlavo Luís Donaldson. 41 1l0973-1 [facility] 21:29:00 21:29:00 r Buxbaum, 338-415e-9 l DO, PA a90-45d548 [facility] 9ed21d 2014-03-25 2014-03-25 Medication nullFlavo Luís Donaldson. 3e i20448-5 [facility] 21:29:00 21:29:00 r Buxbaum, 346-409f-a l DO, PA 38b-8bfcc1 Mony nn lw3178 2014-03-25 2014-03-25 Medication nullFlavo Luís Sykes 1b ct54z4-7 [facility] 21:29:00 21:29:00 r Stephie, 5ef-4131-9 l DO, PA 69b-6bb12b Mony nn 7d1a30 2014-03-25 2014-03-25 Outpatient Luís Sykes [id number] 7 eClinic 16:29:00 16:29:00 Nataly Loganxbaum, DO, PA DO, PA 2014-03-24 2014-03-24 migraine nullFlavo Luís Sykes d399 3591-7 [facility] 17:00:00 17:00:00 r Stephie, 4t7-0p65-q l DO, PA 96f-79ab3a Mony nn 1790fb 2014-03-24 2014-03-24 migraine nullFlavo Luís Sykes 6c8f 4d0d-9 [facility] 17:00:00 17:00:00 r Stephie, n08-22l4-m l DO, PA 1s5-fyt91t Mony nn 58q355 2014-03-24 2014-03-24 migraine nullFlavo Luís Sykes 0e57 2d8d-9 [facility] 17:00:00 17:00:00 r Stephie, 3x1-8r3s-1 l DO, PA 188-759f2f Mony nn dbcd84 2014-03-24 2014-03-24 migraine nullFlavo Luís Sykes d962 25d5-2 [facility] 17:00:00 17:00:00 r Stephie, 0t4-4ey9-x l DO, PA joshua-6v6459 [facility] nn 2e42b2 2014-03-24 2014-03-24 migraine nullFlavo Luís Sykes c879 55ce-1 [facility] 17:00:00 17:00:00 r Stephie, cc7-4aa6-b l DO, PA k64-t78342 Mony nn 93de99 2014-03-24 2014-03-24 migraine nullFlavo Luís Sykes 08d9 9dba-f [facility] 17:00:00 17:00:00 r Buxbaum, fb8-4f6a-8 l DO, PA 380-6e0d73 [facility] nn 009ae7 2014-03-24 2014-03-24 migraine nullFlavo Luís Donaldson. 7988 f6c7-e Memoria 16:00:00 16:00:00 r Buxbaum, bda-4acf-9 l DO, PA [id number]-vb4bwq [facility] nn [id number] 2014-03-24 2014-03-24 migraine nullFlavo Luís Donaldson. 1a49 8cab-3 [facility]oria 16:00:00 16:00:00 r Buxbaum, 03a-4ee6-8 l DO, PA [id number] [facility] nn [id number] 2014-03-24 2014-03-24 migraine nullFlavo Luís Donaldson. 5503 fa7d-9 [facility] 16:00:00 16:00:00 r Buxbaum, 1bc-4f3a-9 l DO, PA [id number] [facility] nn [id number] 2014-03-24 2014-03-24 migraine nullFlavo Luís Donaldson. 74a5 8269-7 Memoria 16:00:00 16:00:00 r Buxbaum, o74-5ev1-1 l DO, PA [id number] [facility] nn [id number] 2014-03-24 2014-03-24 migraine nullFlavo Luís Donaldson. efd2 7a28-0 [facility] 16:00:00 16:00:00 r Buxbaum, 838-43b5-a l DO, PA 40b-a6a3cd [facility] nn [id number] 2014-03-24 2014-03-24 migraine nullFlavo Luís Donaldson. 22d5 4451-e [facility] 16:00:00 16:00:00 r Buxbaum, 9bd-4daf-a l DO, PA [id number]-7z43c7 [facility] nn [id number] 2014-03-24 2014-03-24 migraine nullFlavo Luís Donaldson. c86c f5e8-2 [facility] 16:00:00 16:00:00 r Buxbaum, 3dd-4834-b l DO, PA 33c-985fe0 [facility] nn [id number] 2014-03-24 2014-03-24 migraine nullFlavo Luís Sykes 902f 42d9-4 [facility] 16:00:00 16:00:00 r Stephie ff0-4aca-b IMTIAZ joya DO [id number] [place] 1dc77f 2014-03-24 2014-03-24 migraine nullFlavo Luís Sykes db3c f8c4-7 [facility] 16:00:00 16:00:00 r Stephie b11-1q12-6 l IMTIAZ GROVES 3v0-hds9kb Mony nn e1d2cf 2014-03-24 2014-03-24 migraine nullFlavo Luís Sykes a1a9 c25f-b [facility] 16:00:00 16:00:00 korin Card 3i6-7s20-4 IMTIAZ joya DO 5fd-57bcee [place] 13300a 2014-03-24 2014-03-24 Outpatient Luís Sykes 4314 7 [facility]inic 11:00:00 11:00:00 Nataly Logan DO, IMTIAZ GROVES, PA 2012-04-19 2012-04-19 Emergency nullFlavo 828372 3354 [facility] 11:56:00 11:56:00 r [place] 52 l [place] 2011-08-24 2011-08-24 DS nullFlavo [id number] 75 [facility] 08:46:00 16:00:00 r [place] 08 mahnaz Poon Results Test Description Test Time Test Comments Results Result Comments Source GLUCOSE BEDSIDE TESTING 2020-10-12 18:09:00 Test Item Value Reference Range Interpretation Comme nts GLUCOSE BEDSIDE TESTING (test code = GLUBED) 305 MG/DL 60-99 HH - CT ABD PELVIS W/[id number] 17:33:00 [facility] : 1970 Sex: F Patient Name: VERO JIMENEZ Unit No: [id number] EXAMS: CPT CODE: [id number] CT ABD PELVIS W/CONT 56991 EXAM: CT abdomen and pelvis INDICATION: diffuse abd pain COMPARISON: None at this time LOCATION: H45 CT scan of the abdomen and pelvis [...] and no free fluid are identified. IMPRESSION: [facility] NAME: VERO IJMENEZ [address] [place] PHYS: 04 - Tre Jc DO [place], SU[address] : 1970 AGE: 49 SEX: F ACC T NO: [id number] LOC: Z.ERS PHONE #: [phone] EXAM DATE: 10/12/2020 STATUS: REG ER FAX #: [phone] RAD #: D/C DT PAGE 1 Signed Report (CONTINUED) Patient Name: VERO JIMENEZ Unit No: [id number] EXAMS: CPT CODE: [id number] CT ABD PELVIS W/CONT 30764 <Continued> There is fatty infiltration of the liver. Otherwise unremarkable CT scan of theabdomen and pelvis. at 1733 Reported and signed by: Isidro Corona MD CC: Tre Jc DO Technologist:Darrell Brown, RT(R); JASON CTDI: DLP: Trnscrpt: 10/12/2020 (1733) tDARIANARTelloPMT [facility] Quang NAME: VERO JIMENEZ[address] [place] PHYS: [place] [address] : 1970 AGE: 49 SEX: F LOC: KvngERS PHONE #: [phone] EXAM DATE: 10/12/2020 STATUS: REG ER FAX#: [phone] RAD #: D/C DT PAGE 2Signed Report Patient Name: VERO JIMENEZ Unit No: [id number] EXAMS: CPT CODE: [id number] CT ABD PELVIS W/CONT 13703 <Continued> Orig Print D/T: S: 10/12/2020 (2850) [facility] Quang NAME: VERO JIMENEZ PHYS: [place] [address] : 1970 AGE: 49 SEX: F LOC: Z.ERS PHONE #: [phone] EXAM DATE: 10/12/2020 STATUS: REG ER FAX #: [phone] RAD #: D/C DT PAGE 3 Signed ReportHCG SERUM [id number] 17:17:00 Test Item Value Reference Range Interpretation Comments HCG SERUM QUAL (test code = HCGQL) NEGATIVE NEGATIVE A URINALYSIS [id number] 16:56:00 Test Item Value Reference Range Interpretation [...] UACULT) Criteria SOURCE OF URINE: CLEAN CATCHUA [id number] 16:56:00 Test Item Value Reference Range Interpretation Comments UA RBC (test code = RBCU) 5-10 RBC/HPF 0-3 A UA WBC (test code = XWBCU) 20-30 WBC/HPF 0-5 A UA EPITHELIAL CELLS (test MODERATE EPI/HPF FEW A code = EPIU) UA BACTERIA (test code = MANY NONE A XBACU) SOURCE OF URINE: CLEAN CATCHCOMPREHENSIVE METABOLIC [id number] 16:56:00 Test Item Value Reference Range Interpretation [...] UNITS/L 38-126 N (test code = ALKP) [id number] 16:56:00 Test Item Value Reference Range Interpretation Comments LIPASE (test code = LIP) 69 UNITS/L 23-300 N COMPREHENSIVE METABOLIC [id number] 16:51:00 Test Item Value Reference Range Interpretation [...] UNITS/L 38-126 N (test code = ALKP) [id number] 16:51:00 Test Item Value Reference Range Interpretation Comments LIPASE (test code = LIP) UNITS/L 23-300 COMPREHENSIVE METABOLIC [id number] 16:49:00 Test Item Value Reference Range Interpretation [...] PHOSPHATASE (test code = UNITS/L 38-126 ALKP) [id number] 16:49:00 Test Item Value Reference Range Interpretation Comments LIPASE (test code = LIP) UNITS/L 23-300 COMPREHENSIVE METABOLIC [id number] 16:48:00 Test Item Value Reference Range Interpretation [...] PHOSPHATASE (test code = UNITS/L 38-126 ALKP) [id number] 16:48:00 Test Item Value Reference Range Interpretation Comments LIPASE (test code = LIP) UNITS/L 23-300 CBC W/AUTO [id number] 16:45:00 Test Item Value Reference Range Interpretation [...] = 0.00 K/mm3 0.0-0.1 N NRBC#) URINALYSIS [id number] 16:40:00 Test Item Value Reference Range Interpretation [...] = UACULT) SOURCE OF URINE: CLEAN CATCHUA [id number] 16:40:00 Test Item Value Reference Range Interpretation Comments UA RBC (test code = RBCU) RBC/HPF 0-3 UA WBC (test code = XWBCU) WBC/HPF 0-5 UA EPITHELIAL CELLS (test code = EPI/HPF FEW EPIU) UA BACTERIA (test code = XBACU) NONE SOURCE OF URINE: CLEAN CATCHURINALYSIS [id number] 16:40:00 Test Item Value Reference Range Interpretation [...] = UACULT) SOURCE OF URINE: CLEAN CATCHUA [id number] 16:40:00 Test Item Value Reference Range Interpretation Comments UA RBC (test code = RBCU) RBC/HPF 0-3 UA WBC (test code = XWBCU) WBC/HPF 0-5 UA EPITHELIAL CELLS (test code = EPI/HPF FEW EPIU) UA BACTERIA (test code = XBACU) NONE SOURCE OF URINE: CLEAN CATCHGLUCOSE BEDSIDE [id number] 14:54:00 Test Item Value Reference Range Interpretation Comments GLUCOSE BEDSIDE TESTING (test code 284 MG/DL 60-99 H = GLUBED) GLUCOSE BEDSIDE [id number] 12:40:00 Test Item Value Reference Range Interpretation Comments GLUCOSE BEDSIDE TESTING (test code 251 MG/DL 60-99 H = GLUBED) GLUCOSE BEDSIDE [id number] 08:23:00 Test Item Value Reference Range Interpretation Comments GLUCOSE BEDSIDE TESTING (test code 250 MG/DL 60-99 H = GLUBED) GLUCOSE BEDSIDE [id number] 08:23:00 Test Item Value Reference Range Interpretation Comments GLUCOSE BEDSIDE TESTING (test code 186 MG/DL 60-99 H = GLUBED) GLUCOSE BEDSIDE [id number] 08:23:00 Test Item Value Reference Range Interpretation Comments GLUCOSE BEDSIDE TESTING (test code 219 MG/DL 60-99 H = GLUBED) GLUCOSE BEDSIDE [id number] 11:11:00 Test Item Value Reference Range Interpretation Comments GLUCOSE BEDSIDE TESTING (test code 211 MG/DL 60-99 H = GLUBED) COVID 19 Asymptomatic IH [id number] 10:39:00 Test Item Value Reference Range Interpretation [...] amount of virus (antigen) in the sample." [id number] 09:08:00 Test Item Value Reference Range Interpretation Comments ALCOHOL (test code = 159.0 MG/DL <10 HH CALLED TO DAE.M& ALC) READBACK ON 05/09 AT 0908 BY Porfirio Roldan URINALYSIS [id number] 09:06:00 Test Item Value Reference Range Interpretation [...] OF URINE: CLEAN CATCHDRUGS OF ABUSE SCREEN [id number] 09:06:00 Test Item Value Reference Range Interpretation [...] PHENCU) ng/mL SOURCE OF URINE: CLEAN CATCHURINALYSIS [id number] 06:59:00 Test Item Value Reference Range Interpretation [...] OF URINE: CLEAN CATCHDRUGS OF ABUSE SCREEN [id number] 06:59:00 Test Item Value Reference Range Interpretation [...] PHENCU) ng/mL SOURCE OF URINE: CLEAN CATCHURINALYSIS [id number] 06:57:00 Test Item Value Reference Range Interpretation [...] OF URINE: CLEAN CATCHDRUGS OF ABUSE SCREEN [id number] 06:57:00 Test Item Value Reference Range Interpretation [...] = PHENCU) SOURCE OF URINE: CLEAN CATCHURINALYSIS [id number] 06:56:00 Test Item Value Reference Range Interpretation [...] OF URINE: CLEAN CATCHDRUGS OF ABUSE SCREEN [id number] 06:56:00 Test Item Value Reference Range Interpretation [...] = PHENCU) SOURCE OF URINE: CLEAN CATCHURINALYSIS [id number] 06:55:00 Test Item Value Reference Range Interpretation [...] OF URINE: CLEAN CATCHDRUGS OF ABUSE SCREEN [id number] 06:55:00 Test Item Value Reference Range Interpretation [...] = PHENCU) SOURCE OF URINE: CLEAN CATCHURINALYSIS [id number] 06:43:00 Test Item Value Reference Range Interpretation [...] OF URINE: CLEAN CATCHDRUGS OF ABUSE SCREEN [id number] 06:43:00 Test Item Value Reference Range Interpretation [...] NEGATIVE PHENCU) SOURCE OF URINE: CLEAN CATCHURINALYSIS [id number] 06:42:00 Test Item Value Reference Range Interpretation [...] OF URINE: CLEAN CATCHDRUGS OF ABUSE SCREEN [id number] 06:42:00 Test Item Value Reference Range Interpretation [...] PHENCU) SOURCE OF URINE: CLEAN CATCHBASIC METABOLIC [id number] 05:17:00 Test Item Value Reference Range Interpretation [...] 9.5 MG/DL 8.4-10.2 N CA) HEPATIC FUNCTION [id number] 05:17:00 Test Item Value Reference Range Interpretation [...] = 92 UNITS/L 38-126 N ALKP) HCG [id number] 05:17:00 Test Item Value Reference Range Interpretation Comments HCG SERUM (test < 2 IU/L ~~~~~~~~~~~~ ~~~~~~~~~~~~~~~~ code = HCG) ~~~~~~~~~~~~~~~ ~~~~~~~~~~~~~ ~~~~INTERPRETAT ION OF BHCG QN PERFORMED AT [facility] 0.2-1 W EEKS AFTER CONCEPTION [...] Units per milliliter AND LESS THAN 25 eliazar-[employer] ational Units per milliliterS HOULD HAVE ADDITIONAL BLOO D SAMPLE DRAWN 48 HOURSL ATER AND REPEATED.~~~~~~ ~~~~~~~~~~~~~ ~~~~~~~~~~~~~~~ ~~~~~~~~~~~~~ ~~~~~~~~~~~~~ [id number] 05:17:00 Test Item Value Reference Range Interpretation Comments ACETAMINOPHEN (test code = < 10.0 MCG/ML 10-30 L ACET) [id number] 05:17:00 Test Item Value Reference Range Interpretation Comments SALICYLATE (test code = GO) < 1.0 MG/DL <2.0 [id number] 05:17:00 Test Item Value Reference Range Interpretation Comments ALCOHOL (test code = 231.0 MG/DL <10 HH CALLED TO PREMA Briscoe ALC) READBACK ON 05/09 AT 0517 BY Lj Estrada BASIC METABOLIC [id number] 04:47:00 Test Item Value Reference Range Interpretation [...] code = MG/DL 8.7-9.7 CA) HEPATIC FUNCTION [id number] 04:47:00 Test Item Value Reference Range Interpretation [...] (test code = UNITS/L 38-126 ALKP) HCG [id number] 04:47:00 Test Item Value Reference Range Interpretation Comments HCG SERUM (test code = HCG) IU/L [id number] 04:47:00 Test Item Value Reference Range Interpretation Comments ACETAMINOPHEN (test code = ACET) MCG/ML 10-30 [id number] 04:47:00 Test Item Value Reference Range Interpretation Comments SALICYLATE (test code = GO) MG/DL <2.0 [id number] 04:47:00 Test Item Value Reference Range Interpretation Comments ALCOHOL (test code = ALC) MG/DL <10 BASIC METABOLIC [id number] 04:45:00 Test Item Value Reference Range Interpretation [...] code = CA) MG/DL 8.7-9.7 HEPATIC FUNCTION [id number] 04:45:00 Test Item Value Reference Range Interpretation [...] (test code = UNITS/L 38-126 ALKP) HCG [id number] 04:45:00 Test Item Value Reference Range Interpretation Comments HCG SERUM (test code = HCG) IU/L [id number] 04:45:00 Test Item Value Reference Range Interpretation Comments ACETAMINOPHEN (test code = ACET) MCG/ML 10-30 [id number] 04:45:00 Test Item Value Reference Range Interpretation Comments SALICYLATE (test code = GO) MG/DL <2.0 [id number] 04:45:00 Test Item Value Reference Range Interpretation Comments ALCOHOL (test code = ALC) MG/DL <10 BASIC METABOLIC [id number] 04:44:00 Test Item Value Reference Range Interpretation [...] code = CA) MG/DL 8.7-9.7 HEPATIC FUNCTION [id number] 04:44:00 Test Item Value Reference Range Interpretation [...] (test code = UNITS/L 38-126 ALKP) HCG [id number] 04:44:00 Test Item Value Reference Range Interpretation Comments HCG SERUM (test code = HCG) IU/L [id number] 04:44:00 Test Item Value Reference Range Interpretation Comments ACETAMINOPHEN (test code = ACET) MCG/ML 10-30 [id number] 04:44:00 Test Item Value Reference Range Interpretation Comments SALICYLATE (test code = GO) MG/DL <2.0 [id number] 04:44:00 Test Item Value Reference Range Interpretation Comments ALCOHOL (test code = ALC) MG/DL <10 CBC W/AUTO [id number] 04:37:00 Test Item Value Reference Range Interpretation [...] code = 0.00 K/mm3 0.0-0.1 N NRBC#) [id number] 14:30:0010.7[facility] [id number] 14:30:008.6 [facility] [id number] 14:30:0027.0[facility] 2011-08-24 14:30:003.7[facility] [id number] 14:30:94141.0[facility] [id number] 14:30:54542.0[facility] [id number] 14:30:000.7[facility] [id number] 14:30:0016.0[facility] [id number] 14:30:00480.0[facility] [id number] 14:30:00 Test Item Value Reference Range Interpretation Comments PTT (test code = PTT) 27.0 s 22.9-35.8 N [id number] 14:30:00 Test Item Value Reference Range Interpretation Comments PT (test code = PT) 12.9 s 12.0-14.7 N [facility] H[id number] 14:30:00 Test Item Value Reference Range Interpretation Comments INR (test code = INR) 0.97 1 0.85-1.17 N [facility] [id number] 14:30:0035.5[facility]ann[facility] 2011-08-24 14:30:00 Test Item Value Reference Range Interpretation Comments MCH (test code = MCH) 29.5 pg 27.0-31.0 N [facility] H[id number] 14:30:0086.9[facility]ann[facility] 2011-08-24 14:30:0033.9[facility] [id number] 14:30:0014.1[facility] [id number] 14:30:008.5[facility] YpviviePUHORDFAKG4701-12-22 14:30:22418.0[facility] ItkugqaGOVVEBZTFQ4172-73-98 14:30:005.7[facility] [id number] 14:30:004.08[facility] CsyzctyBWSVRPTQMG8161-04-31 14:30:00 12.0[facility] InjgdurCOEKJFBBPZ2472-72-06 14:30:0046.4[facility]ann[facility]MAT[facility] 2011-08-24 14:30:0045.3[facility] MpfdmtcBQMKAQPAJD0090-43-17 14:30:003.3[facility] GyykgyzMCPPQSLBZP5948-29-37 14:30:004.8[facility] LlysktwQVWDKPZUTC6966-35-98 14:30:002.6[facility] [id number] 14:30:000.2[facility] [id number] 14:30:000.2[facility] KqbertmHBWPJXYNJN7405-79-50 14:30:000.0 [facility] ZpbryguGVULWWPGCC9233-42-61 14:30:000.3[facility]annHEMATOLOGY 2011-08-24 14:30:002.6[facility]
[2021-06-25 17:58] LABS: Urine Blood Trace-intact (Negative); Urine Glucose 2+ (Negative); Urine Protein Negative (Negative); Urine Specific Gravity <=1.005 (1.005-1.030)
[2021-06-25] MEDS ORDERED: NA CHLORIDE 0.9% 1,000 ML ONE ×3 (18:04→22:57)
[2021-06-25 18:05] LABS: Absolute Lymphocytes (CBC) 1.1 K/uL (0.7-4.9); Basophils % 0.7 % (0-1.3); Hematocrit 39.8 % (36.0-45.0); Lymphocytes % 36.2 % (15.3-44.8); MPV 8.4 fL (7.6-11.3); RBC Red Blood Cell Count 4.51 M/uL (3.86-4.86)
[2021-06-25 18:10] LABS: Protime INR 0.87
[2021-06-25 18:18] LABS: Barbiturates NEGATIVE (NEGATIVE); Benzodiazepines NEGATIVE (NEGATIVE); Cocaine POSITIVE (NEGATIVE); METHAMPHETAM NEGATIVE (NEGATIVE); Methadone NEGATIVE (NEGATIVE); Opiates NEGATIVE (NEGATIVE); Phencyclidine NEGATIVE (NEGATIVE); THC Cannibis NEGATIVE (NEGATIVE)
[2021-06-25 18:38] LABS: ALT/SGPT 24 U/L (12-78); AST/SGOT 14 U/L (15-37); Albumin 3.4 g/dL (3.4-5.0); Alkaline Phosphatase 106 U/L (45-117); BUN Blood Urea Nitrogen 9 mg/dL (7-18); Bicarbonate 19 mmol/L (21-32); Bilirubin Direct < 0.1 mg/dL (0-0.2); Bilirubin Total 0.2 mg/dL (0.2-1.0); Glucose Level 385 mg/dL (74-106); Potassium 3.8 mmol/L (3.5-5.1); Sodium Level 141 mmol/L (136-145)
[2021-06-25] MEDS ORDERED: INSULIN -REGULAR HUMAN 50 UNIT/0.5 ML ML ONE (22:57)
[2021-06-26 01:03] LABS: BUN Blood Urea Nitrogen 7 mg/dL (7-18); Bicarbonate 25 mmol/L (21-32); Glucose Level 244 mg/dL (74-106); Potassium 3.7 mmol/L (3.5-5.1); Sodium Level 145 mmol/L (136-145)
--- NOTE | 2021-06-26 01:21 | EDPHYS ---
Physician Documentation [facility] Name: Stepan Flynn Age: 50 yrs Sex: Female : 1970 Arrival Date: 06/25/2021 Time: 17:35 Bed 4 Private MD: ED Physician Pradip Raymundo HPI: 06/25 19:19 This 50 yrs old Black Female presents to ER via EMS with complaints of Altered Mental jr8 Status, Possible Overdose. 19:19 Onset: The symptoms/episode began/occurred acutely, today. Associated signs and jr8 symptoms: Pertinent positives: confusion. Current symptoms: In the emergency department the patient's symptoms are unchanged from the initial presentation. Patient's baseline: Neuro: alert and fully oriented, Motor: no deficits, Ambulation: walks without assistance, Speech: normal. It is unknown whether or not the patient has had similar symptoms in the past. It is unknown whether or not the patient has recently seen a physician. This is a 50-year-old female patient that was brought in by EMS after family called for altered mentation. Patient had taken 10, 100 mg Seroquel at home. Patient stated that she had been trying to sleep which is why she was taking her Seroquel.. Historical: - Allergies: 17:38 PENICILLINS; hb - Home Meds: 17:38 Lantus 85 U daily Sub-Q soln daily [Active]; lisinopril 2.5 mg Oral tab 1 tab once hb daily [Active]; metformin 500 mg Oral tab 1 tab 2 times per day [Active]; - PMHx: 17:38 Diabetes - NIDDM; Hypertension; hb - Immunization history:: Adult Immunizations. - Social history:: Smoking status: unknown. ROS: 19:19 Cardiovascular: Negative for chest pain, palpitations, and edema, Respiratory: Negative jr8 for shortness of breath, cough, wheezing, and pleuritic chest pain, Abdomen/GI: Negative for abdominal pain, nausea, vomiting, diarrhea, and constipation, Back: Negative for injury and pain, MS/Extremity: Negative for injury and deformity, Skin: Negative for injury, rash, and discoloration. 19:19 Neuro: Positive for altered mental status. Exam: 17:50 ECG was reviewed by the Attending Physician. cp 19:19 Eyes: Pupils equal round and reactive to light, extra-ocular motions intact. Lids and jr8 lashes normal. Conjunctiva and sclera are non-icteric and not injected. Cornea within normal limits. Periorbital areas with no swelling, redness, or edema. ENT: Nares patent. No nasal discharge, no septal abnormalities noted. Tympanic membranes are normal and external auditory canals are clear. Oropharynx with no redness, swelling, or masses, exudates, or evidence of obstruction, uvula midline. Mucous membranes moist. Neck: Trachea midline, no thyromegaly or masses palpated, and no cervical lymphadenopathy. Supple, full range of motion without nuchal rigidity, or vertebral point tenderness. No Meningismus. 19:19 Respiratory: Lungs have equal breath sounds bilaterally, clear to auscultation and percussion. No rales, rhonchi or wheezes noted. No increased work of breathing, no retractions or nasal flaring. Abdomen/GI: Soft, non-tender, with normal bowel sounds. No distension or tympany. No guarding or rebound. No evidence of tenderness throughout. Skin: Warm, dry with normal turgor. Normal color with no rashes, no lesions, and no evidence of cellulitis. MS/ Extremity: Pulses equal, no cyanosis. Neurovascular intact. Full, normal range of motion. 19:19 Cardiovascular: Rate: tachycardic, Rhythm: regular, Pulses: Pulses are 2+ in right radial artery and left radial artery. Heart sounds: normal, normal S1and S2, no S3 or S4, no murmur, no rub, no gallop, Edema: is not appreciated. 19:19 Neuro: Orientation: to person, Mentation: able to follow commands, slow to respond, Memory: unable to test, Cranial nerves: extraocular movements are intact, Speech is slowed, slurred, Cerebellar function: unable to test, Motor: moves all fours, Sensation: no obvious gross deficits, seizure activity, is not displayed by the patient, Abnormal movements: there are no abnormal movements. 22:33 ECG was reviewed by the Attending Physician. cp Vital Signs: 17:35 BP 144 / 99; Pulse 137; Resp 33; Temp 97.4; Pulse Ox 95% on NC; Pain 0/10; hb 18:09 BP 124 / 93; Pulse 124; Resp 22; Pulse Ox 95% ; hb 19:01 BP 142 / 96; Pulse 116; Resp 14; Temp 97(C); Pulse Ox 96% on R/A; hb 20:00 BP 149 / 103; Pulse 111; Resp 16; Temp 97.1(C); Pulse Ox 100% on R/A; jb4 21:00 BP 148 / 99; Pulse 97; Resp 16; Pulse Ox 99% on R/A; jb4 22:00 BP 151 / 103; Pulse 103; Resp 17; Pulse Ox 99% on R/A; jb4 22:20 Weight 76.2 kg (R); Height 5 ft. 0 in. (152.40 cm); lp1 23:00 BP 155 / 100; Pulse 86; Resp 14; Pulse Ox 99% on R/A; lp1 07 00:00 BP 141 / 90; Pulse 87; Resp 15; Pulse Ox 99% on R/A; lp1 01:00 BP 119 / 89; Pulse 87; Resp 19; Pulse Ox 99% on R/A; lp1 01:58 BP 130 / 94; Pulse 86; Resp 18; Pulse Ox 99% on R/A; lp1 06/25 22:20 Body Mass Index 32.81 (76.20 kg, 152.40 cm) lp1 06/25 17:35 Marr-Arce (FACES) hb Imani Coma Score: 06/25 19:19 Eye Response: to voice(3). Verbal Response: inappropriate words(3). Motor Response: jr8 localizes pain(5). Total: 11. MDM: 17:38 Patient medically screened. jr8 18:00 Differential Diagnosis: electrolyte abnormality, alcohol intoxication, hypoglycemia, cp overdose, pneumonia, volume depletion. 19:19 Data reviewed: vital signs, nurses notes, lab test result(s), EKG. Data interpreted: jr8 Pulse oximetry: on room air is 96 %. Interpretation: normal. Counseling: I had a detailed discussion with the patient and/or guardian regarding: the historical points, exam findings, and any diagnostic results supporting the discharge/admit diagnosis, lab results. ED course: After hydration patient started to come to. Patient stated that she has been more depressed lately which is the true reason why she took 10 of her 100 mg trazodone.. 21:41 ED course: Patient remains hemodynamically stable at this time. Vital signs markedly jr8 improved. Patient alert and oriented x4. Patient did admit to taking the Seroquel because she has been depressed and wanted to hurt her self. Patient will be evaluated and transferred to a psych facility because of this.. 21:51 Transition of care: After a detail discussion of the patient's case, care is jr8 transferred to Ole KITCHEN. 06/25 17:38 Order name: Acetaminophen; Complete Time: 18:43 8 06/25 17:38 Order name: Basic Metabolic Panel; Complete Time: 18:43 [facility] 06/25 22:10 Interpretation: Normal except: CO2 19; GLUC 385. cp 06/25 17:38 Order name: CBC with Diff; Complete Time: 18:16 [facility] 06/25 17:38 Order name: ETOH Level; Complete Time: 18:43 [facility] 06/25 17:38 Order name: Hepatic Function; Complete Time: 18:43 [facility] 06/25 17:38 Order name: PT-INR; Complete Time: 18:16 [facility] 06/25 17:38 Order name: Ptt, Activated; Complete Time: 18:16 [facility] 06/25 17:38 Order name: Salicylate; Complete Time: 18:43 [facility] 06/25 17:38 Order name: Urine Drug Screen; Complete Time: 18:19 8 06/25 17:58 Order name: Urine Dipstick-Ancillary; Complete Time: 18:06 EDMS 06/25 19:41 Order name: SARS-COV-2 RT PCR; Complete Time: 19:42 EDMS 06/25 19:57 Order name: Troponin (emerg Dept Use Only); Complete Time: 20:55 8 06/25 22:38 Order name: Glucose, Ancillary Testing; Complete Time: 23:21 EDMS 06/25 17:38 Order name: EKG; Complete Time: 17:39 8 06/25 17:38 Order name: EKG - Nurse/Tech; Complete Time: 17:46 [facility] 06/25 17:38 Order name: IV Saline Lock; Complete Time: 17:46 8 06/25 17:38 Order name: Labs collected and sent; Complete Time: 17:46 [facility] 06/25 17:38 Order name: Urine Dipstick-Ancillary (obtain specimen); Complete Time: 17:56 8 06/25 17:47 Order name: Cherry; Complete Time: 17:47 la 06/25 22:11 Order name: EKG; Complete Time: 22:12 cp 06/25 22:11 Order name: EKG - Nurse/Tech; Complete Time: 22:38 cp 06/25 22:12 Order name: Accucheck Blood Glucose; Complete Time: 22:38 cp 06/26 00:23 Order name: BMP bb 06/26 00:23 Order name: Basic Metabolic Panel; Complete Time: 01:13 EDMS EC:50 Rate is 135 beats/min. Rhythm is regular. NE interval is normal. QRS interval is cp normal. QT interval is normal. Interpreted by me. Reviewed by me. 22:33 Rate is 93 beats/min. Rhythm is regular. NE interval is normal. QRS interval is normal. cp QT interval is normal. T waves are Inverted in lead aVR. Interpreted by me. Reviewed by me. Administered Medications: 17:56 Drug: NS 0.9% 1000 ml Route: IV; Rate: 1000 ml; Site: right antecubital; hb 19:27 Drug: NS 0.9% 1000 ml Route: IV; Rate: 1000 ml; Site: right antecubital; jb4 22:46 Drug: NS 0.9% 1000 ml Route: IV; Rate: 1 bolus; Site: right antecubital; lp1 06/26 00:00 Follow up: IV Status: Completed infusion; IV Intake: 1000ml lp1 06/25 22:46 Drug: NovoLIN R (insulin regular human) 10 units {Co-Signature: jb4 (Catrachito Hoffman RN).} lp1 Route: Sub-Q; Site: right lower abdomen; 06/26 01:34 Follow up: Response: Blood sugar is lowered lp1 Disposition: 18:10 Co-signature as Attending Physician, Pradip Raymundo MD I agree with the assessment and kdr plan of care. Disposition Summary: 06/26/21 01:20 Transfer Ordered Transfer Location: Psych Facility cp Reason: Higher level of care cp Condition: Stable cp Problem: new cp Symptoms: have improved cp Accepting Physician: DR Braswell(06/26/21 02:00) lp1 Diagnosis - Other depressive episodes cp - Suicide attempt - overdose cp Discharge Instructions: - Discharge Summary Sheet tt3 Forms: - Medication Reconciliation Form tt3 - SBAR form tt3 Signatures: [facility] Pradip Raymundo MD MD [facility] Zara Hernandez, RN RN lp1 Owen Pineda PA PA jr8 Kunal Dickens, MOTOR AND [employer]ATOR [employer]-C MOTOR AND GENERATOR 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 EDMS EDMS 06/26 02:00 01:20 DR Braswell cp lp1
--- NOTE | 2021-06-26 01:21 | ER ---
Nurse's Notes [facility] Name: Stepan Flynn Age: 50 yrs Sex: Female : 1970 Arrival Date: 06/25/2021 Time: 17:35 Bed 4 Private MD: Diagnosis: Other depressive episodes;Suicide attempt-overdose Presentation: 06/25 17:35 Chief complaint: EMS states: Family called for AMS, son on scene reported she took hb approx 100mg Seroquel because she "wanted to sleep." BGL 448. 20G RAC. Coronavirus screen: At this time, the client does not indicate any symptoms associated with coronavirus-19. Ebola Screen: No symptoms or risks identified at this time. Initial Sepsis Screen: Does the patient meet any 2 criteria? No. Patient's initial sepsis screen is negative. Does the patient have a suspected source of infection? No. Patient's initial sepsis screen is negative. Risk Assessment: Do you want to hurt yourself or someone else? Patient reports no desire to harm self or others. Onset of symptoms was June 25, 2021. 17:35 Method Of Arrival: EMS: [facility] hb 17:35 Acuity: AUDREY 2 hb Triage Assessment: 17:38 General: Appears in no apparent distress. Behavior is unresponsive. Pain: Unable to use hb pain scale. FLACC scale score is 0 out of 10. EENT: No signs and/or symptoms were reported regarding the EENT system. Neuro: Level of Consciousness is obtunded, Oriented to person. Cardiovascular: Capillary refill < 3 seconds Patient's skin is warm and dry. Rhythm is sinus tachycardia. Respiratory: Respiratory effort is even, unlabored, Respiratory pattern is regular, symmetrical. GI: No deficits noted. No signs and/or symptoms were reported involving the gastrointestinal system. : No deficits noted. No signs and/or symptoms were reported regarding the genitourinary system. Derm: Skin is pink, warm \\T\\ dry. Musculoskeletal: No signs and/or symptoms reported regarding the musculoskeletal system. Historical: - Allergies: 17:38 PENICILLINS; hb - Home Meds: 17:38 Lantus 85 U daily Sub-Q soln daily [Active]; lisinopril 2.5 mg Oral tab 1 tab once hb daily [Active]; metformin 500 mg Oral tab 1 tab 2 times per day [Active]; - PMHx: 17:38 Diabetes - NIDDM; Hypertension; hb - Immunization history:: Adult Immunizations. - Social history:: Smoking status: unknown. Screenin:39 Abuse screen: Denies threats or abuse. Denies injuries from another. Nutritional hb screening: No deficits noted. Tuberculosis screening: No symptoms or risk factors identified. Fall Risk Total Morris Fall Scale indicates Low Risk Score (25-44 pts). Fall prevention measures have been instituted. Side Rails Up X 2 Frequent Obs/Assesments occuring As available Patient and Family Educated on Fall Prevention Program and strategies. Assessment: 17:39 General: see triage assessment . hb 18:09 Reassessment: Patient appears in no apparent distress at this time. No changes from hb previously documented assessment. 19:01 Reassessment: Patient appears in no apparent distress at this time. No changes from hb previously documented assessment. 20:00 Reassessment: Patient appears in no apparent distress at this time. No changes from jb4 previously documented assessment. Patient and/or family updated on plan of care and expected duration. Pain level reassessed. 21:00 Reassessment: Patient appears in no apparent distress at this time. Patient and/or jb4 family updated on plan of care and expected duration. Pain level reassessed. Patient is alert, oriented x 3, equal unlabored respirations, skin warm/dry/pink. 22:00 Reassessment: Patient appears in no apparent distress at this time. Patient and/or jb4 family updated on plan of care and expected duration. Pain level reassessed. Patient is alert, oriented x 3, equal unlabored respirations, skin warm/dry/pink. 22:02 Reassessment: Nurse to nurse report given to AMANDEEP Madrigal at [facility]. lp1 22:46 Reassessment: Cherry catheter removed per IMTIAZ Arce verbal orders. lp1 22:48 Neuro: Level of Consciousness is awake, obeys commands, Oriented to person, place, lp1 situation. Cardiovascular: Patient's skin is warm and dry. Respiratory: Respiratory effort is even, unlabored, Breath sounds are clear bilaterally. GI: Abdomen is non-distended. : Genitalia appear normal. EENT: No signs and/or symptoms were reported regarding the EENT system. Derm: Skin is intact, Skin is dry, Skin is normal. Musculoskeletal: No deficits noted. 23:43 Reassessment: Patient appears in no apparent distress at this time. Patient resting, lp1 eyes closed, respirations even, unlabored; aware of pending transfer, agrees, voluntary. 06/26 01:00 Reassessment: Patient appears in no apparent distress at this time. Patient and/or lp1 family updated on plan of care and expected duration. Pain level reassessed. Patient resting, eyes closed, respiration even, unlabored; easy to arouse. 01:51 Reassessment: [facility] at bedside for transfer. lp1 01:59 Reassessment: Patient is alert, oriented x 3, equal unlabored respirations, skin lp1 warm/dry/pink. Patient ambulated independently to stretcher for transfer with EMS. Vital Signs: 06/25 17:35 BP 144 / 99; Pulse 137; Resp 33; Temp 97.4; Pulse Ox 95% on NC; Pain 0/10; hb 18:09 BP 124 / 93; Pulse 124; Resp 22; Pulse Ox 95% ; hb 19:01 BP 142 / 96; Pulse 116; Resp 14; Temp 97(C); Pulse Ox 96% on R/A; hb 20:00 BP 149 / 103; Pulse 111; Resp 16; Temp 97.1(C); Pulse Ox 100% on R/A; jb4 21:00 BP 148 / 99; Pulse 97; Resp 16; Pulse Ox 99% on R/A; jb4 22:00 BP 151 / 103; Pulse 103; Resp 17; Pulse Ox 99% on R/A; jb4 22:20 Weight 76.2 kg (R); Height 5 ft. 0 in. (152.40 cm); lp1 23:00 BP 155 / 100; Pulse 86; Resp 14; Pulse Ox 99% on R/A; lp1 06/26 00:00 BP 141 / 90; Pulse 87; Resp 15; Pulse Ox 99% on R/A; lp1 01:00 BP 119 / 89; Pulse 87; Resp 19; Pulse Ox 99% on R/A; lp1 01:58 BP 130 / 94; Pulse 86; Resp 18; Pulse Ox 99% on R/A; lp1 06/25 22:20 Body Mass Index 32.81 (76.20 kg, 152.40 cm) lp1 06/25 17:35 Tejinder-Claude (FACES) hb [place] Coma Score: 08 19:19 Eye Response: to voice(3). Verbal Response: inappropriate words(3). Motor Response: jr8 localizes pain(5). Total: 11. ED Course: 17:35 Patient arrived in ED. hb 17:37 Triage completed. hb 17:38 Owen Pineda PA is PHCP. jr8 17:38 Pradip Raymundo MD is Attending Physician. jr8 17:38 Arm band placed on. hb 17:38 Patient has correct armband on for positive identification. Bed in low position. Side mb4 rails up X2. child monitor on. Pulse ox on. NIBP on. 17:47 Cherry cath inserted, using sterile technique, 16 Fr., by me, balloon inflated, to mt gravity drainage, returned clear yellow urine. Patient tolerated well. 17:56 Hepatic Function Sent. hb 17:56 Maintain EMS IV. Dressing intact. Good blood return noted. Site clean \\T\\ dry. Gauge \\T\\ hb site: 20g RAC. 18:05 Urine collected: Cherry catheter specimen, clear. mb4 18:16 Maricarmen Engel, RN is Primary Nurse. hb 18:20 Lights dimmed. Warm blanket given. mb4 18:34 COVID swab sent to lab. mb4 21:38 Faxed pt chart to [facility], [address] 21:58 Rohan called from [facility] to do Nurse to Nurse. Provided [place] [id number] David RN, with information to do Doc to Doc with Dr. Braswell. 22:08 PHCP role handed off by Owen Pineda PA cp 22:08 Ole Bal PA is PHCP. cp 08 00:42 Repeat lab(s) drawn. by me, sent to lab. lp1 01:20 No provider procedures requiring assistance completed. lp1 01:59 IV discontinued, No redness/swelling at site. Pressure dressing applied. lp1 Administered Medications: 06/25 17:56 Drug: NS 0.9% 1000 ml Route: IV; Rate: 1000 ml; Site: right antecubital; hb 19:27 Drug: NS 0.9% 1000 ml Route: IV; Rate: 1000 ml; Site: right antecubital; jb4 22:46 Drug: NS 0.9% 1000 ml Route: IV; Rate: 1 bolus; Site: right antecubital; lp1 06/26 00:00 Follow up: IV Status: Completed infusion; IV Intake: 1000ml lp1 06/25 22:46 Drug: NovoLIN R (insulin regular human) 10 units {Co-Signature: brie (Catrachito Hoffman RN).} lp1 Route: Sub-Q; Site: right lower abdomen; 06/26 01:34 Follow up: Response: Blood sugar is lowered lp1 Intake: 00:00 IV: 1000ml; Total: 1000ml. lp1 Output: 06/25 17:56 Urine: 875ml (Cherry); Total: 875ml. Outcome: 06/26 01:20 ER care complete, transfer ordered by . 02:00 Transferred by ground EMS to other acute care facility: [facility]. lp1 02:00 Condition: stable 02:00 Instructed on the need for transfer. 02:00 Patient left the ED. lp1 Signatures: Zara Hernandez, RN RN lp1 Owen Pineda PA PA jr8 Page, Corey, PA PA cp Baxter, Heather, RN RN Catrachito Hoffman RN RN Jacquelin Morrison mt, Mackenzie 4 Nilay Mota 3 Catrachito Hoffman RN jb4
[2021-06-26 02:15] VITALS: TEMP 97.1
[2021-06-26 02:17] VITALS: O2SAT 99
[2021-06-26 02:25] VITALS: BP 130/94
--- NOTE | 2021-06-27 08:03 | EKG ---
Test Date: 2021-06-25 Test Time: 22:30:16 Jewelry Drilling Machine Operator: GERMÁN MEASUREMENT RESULTS: Intervals: Rate: 93 WI: 128 QRSD: 76 QT: 376 QTc: 467 [place]: P: 56 WI: 128 QRS: 67 T: 8 INTERPRETIVE STATEMENTS: Normal sinus rhythm Normal ECG Compared to ECG 06/25/2021 17:44:58 Sinus tachycardia no longer present Electronically Signed On 06-27-21 08:00:30 CDT by Kaushik Ruiz
--- NOTE | 2021-06-27 08:04 | EKG ---
Test Date: 2021-06-25 Test Time: 17:44:58 Caustic Room Attendant: MORALES MEASUREMENT RESULTS: Intervals: Rate: 135 SD: 124 QRSD: 76 QT: 318 QTc: 477 [place]: P: 50 SD: 124 QRS: 51 T: 5 INTERPRETIVE STATEMENTS: Sinus tachycardia Possible Left atrial enlargement Borderline ECG Compared to ECG 04/18/2021 18:31:11 No significant changes Electronically Signed On 06-27-21 08:00:35 CDT by Kaushik Ruiz
== END 2021-06-26 02:00 ==
LOC: ER 17:33
DX: T43.212A Poisoning by selective serotonin and norepinephrine reuptake inhibitors, intentional self-harm, initial encounter (principal); F32.89 Other specified depressive episodes; I10 Essential (primary) hypertension; E11.9 Type 2 diabetes mellitus without complications; Z79.4 Long term (current) use of insulin; Z88.0 Allergy status to penicillin; Z20.822 Contact with and (suspected) exposure to COVID-19
CPT/HCPCS: 93005 ×2; 85025; 80048 ×2; 36415; 80320; 80329 ×2; 85610; 82947; 80076; 85730; 81003; 84484; 80307; 51702; 96360; 96372; 99285; U0003; J7030 ×3